=== PATIENT | male | born 1965 | race Hispanic/Latino ===

== ENCOUNTER 2023-09-09 02:07 | Emergency (ER) | payer BC, MEDICAID ==
[~2023-09-09] VITALS: Ht 180.3 cm; Wt 113.4 kg
[~2023-09-09 02:07] MED LIST: AEC81 PO; ARIP10TA8 PO; CANA300T PO; CARV3.12 PO; DIVA500T52 PO; ESOM40CA PO; FERS325 PO; GEMF600T89 PO; HALO10TA12 PO; LEVO50 PO; LISI10TA24 PO; METF-446 PO; NIAC-8 PO; SAXA5TAB PO; SIMV40TA59 PO; TRAZ-187 PO; VENL150T3 PO
[2023-09-09 02:32] LABS: SARS-CoV-2, RNA, NAAT NEGATIVE SARS CoV-2 (NEGATIVE)
[2023-09-09 02:35] LABS: INFLUENZA TYPE A Negative For Type A (NEGATIVE); INFLUENZA TYPE B Negative For Type B (NEGATIVE)
[2023-09-09 03:32] VITALS: BP 124/72; PULSE 99; RESP 20; O2SAT 98
[2023-09-09 03:37] VITALS: TEMP 99.7
[2023-09-09] MEDS ORDERED: ACETAMINOPHEN 500 MG TABLET PO ONE (04:00)
== END 2023-09-09 04:05 | disposition left against medical advice (07) ==
LOC: EDH 02:07
DX: R05.9 Cough, unspecified (principal); Z53.21 Procedure and treatment not carried out due to patient leaving prior to being seen by health care provider
CPT/HCPCS: 71045; 87635; 87804

== ENCOUNTER 2025-04-20 08:37 | Inpatient (IN) | payer SELFPAY ==
[2025-04-20] VITALS (8 sets, daily range): BP systolic 108–128; BP diastolic 75–77; PULSE 61–90; RESP 20–26; TEMP 97.5–98.5; O2SAT 96–98
[~2025-04-20] VITALS: Ht 175.3 cm; Wt 117.0 kg
--- NOTE | 2025-04-20 08:51 | ERN ---
General Chief Complaint: Shortness of Breath Stated Complaint: SOB, COUGH, CHEST PRESSURE Time Seen by MD: 08:40 Source: patient History of Present Illness Initial Comments Patient is a 60-year-old gentleman coming in complaining of shortness of breath. Patient states that the shortness of breath that is exacerbated with laying down. ALong with the as he states that he has a history of stent placement back in 2004. He also states that he is a smoker. Allergies: Coded Allergies: No Known Drug Allergies (Unverified Allergy, Unknown, 01/20/14) Home Meds Active Scripts Lisinopril (Lisinopril) 10 Mg Tablet, 10 MG PO DAILY, #30 TAB Prov:BILLIE RAMSEY MD 08/19/15 Carvedilol (Carvedilol) 3.125 Mg Tablet, 3.125 MG PO BID, #60 TAB Prov:BILLIE RAMSEY MD 08/19/15 Reported Medications Esomeprazole Magnesium (Nexium) 40 Mg Capsule.dr, 40 MG PO DAILY, CAP 08/16/15 Haloperidol (Haloperidol) 10 Mg Tablet, 20 MG PO HS, TAB 08/16/15 Venlafaxine HCl (Venlafaxine HCl ER) 150 Mg Tab.er.24, 150 MG PO DAILY, CAPSULE. 08/16/15 Divalproex Sodium (Divalproex Sodium ER) 500 Mg Tab.er.24h, 500 MG PO ACLUNCH, TAB 08/16/15 Canagliflozin (Invokana) 300 Mg Tablet, 300 MG PO DAILY, TAB 08/16/15 Simvastatin (ZOCOR) 40 Mg Tablet, 40 MG PO HS, TAB 08/16/15 Ferrous Sulfate (Ferrous Sulfate) 325 Mg Ectab, 325 MG PO TID, TAB.EC 08/16/15 Niacin (Niacin ER) 500 Mg Tab.er.24h, 1000 MG PO HS, TAB 08/16/15 Saxagliptin HCl (Onglyza) 5 Mg Tablet, 5 MG PO AM, TAB 08/16/15 Trazodone HCl (Trazodone HCl) 100 Mg Tablet, 100 MG PO HS, TAB 08/16/15 Levothyroxine Sodium (Levothroid/Synthroid) 50 Mcg Tab, 50 MCG PO AM, TAB 10/20/14 Aripiprazole (Abilify) 10 Mg Tablet, PO DAILY, TAB 10/19/14 Gemfibrozil (Gemfibrozil) 600 Mg Tablet, PO BID, TAB 10/19/14 Metformin HCl (Metformin HCl) 1,000 Mg Tablet, 1000 MG PO BID, TAB 10/19/14 Aspirin (ASPIRIN 81 MG ECTAB) 81 Mg Ectab, 81 MG PO DAILY, TAB.EC 10/19/14 Past Medical History Past Medical History: Angina, Diabetes-Type II, High Cholesterol, Heart Disease, Hypertension, Other Medical History Other: PENDING BACK SX, THYROID Past Surgical History: Other Surgical History Other: BACK, CARDIAC STENTS ROS Dictation CONSTITUTIONAL: NO CHILLS, NO FEVER, NO WEAKNESS, NO DIAPHORESIS, NO MALAISE. HEAD/FACE: NO SIGNS OF TRAUMA. EENT: NO EYE PAIN, NO BLURRED VISION, NO TEARING, NO DOUBLE VISION, NO EAR PAIN, NO EAR DISCHARGE, NO NOSE PAIN, NO NASAL CONGESTION, NO THROAT PAIN, NO THROAT SWELLING, NO MOUTH PAIN. RESPIRATORY: NO COUGH, NO ORTHOPNEA, NO SOB, NO STRIDOR, NO WHEEZING. CARDIOVASCULAR: CHEST PAIN, NO EDEMA, NO PALPITATIONS, NO SYNCOPE. GASTROINTESTINAL/ABDOMINAL: NO ABDOMINAL PAIN, NO CONSTIPATION, NO DIARRHEA, NO NAUSEA, NO VOMITING. GENITOURINARY: NO ABNORMAL DISCHARGE, NO DYSURIA, NO FREQUENT URINATION, NO HEMATURIA. NO COMPLAINTS OF PAIN IN THE GENITALS. MUSCULOSKELETAL: NO BACK PAIN, NO GOUT, NO JOINT PAIN, NO JOINT SWELLING, NO MUSCLE PAIN, NO MUSCLE STIFFNESS, NO NECK PAIN. INTEGUMENTARY: NO CHANGE IN COLOR, NO CHANGE IN HAIR/NAILS, NO DRYNESS, NO LESION, NO LUMPS, NO RASH. NEUROLOGICAL/PSYCH: NO ANXIETY, NOT DEPRESSED, NO EMOTIONAL PROBLEM, NO HEADACHE, NO NUMBNESS, NO PRE-EXISTING DEFICIT, NO HISTORY OF SEIZURES, NO TREMORS, NO WEAKNESS. HEMATOLOGIC/LYMPHATIC: NOT ANEMIC, NO HISTORY OF BLOOD CLOTS, NO APPARENT BLEEDING, NO BRUISING, GLANDS NOT SWOLLEN. ALL SYSTEMS NEGATIVE, EXCEPT NOTED. Physical Exam Physical Exam Dictation VITAL SIGNS: REVIEWED. GENERAL APPEARANCE: ALERT, ORIENTED X3, NO ACUTE DISTRESS, OBESE. HEAD AND FACE: NON-TRAUMATIC. EYES: PERRL, PINK CONJUNCTIVAS, EYELID NO TRAUMA, ANTERIOR CHAMBER CLEAR. EARS: PINNAS INTACT AND NO SIGNS OF TRAUMA OR ERYTHEMA. EAR CANALS CLEAR AND NO DISCHARGE. TMS NO ERYTHEMA. NOSE: NO DISCHARGE, NO BLEEDING. OROPHARYNX: MOUTH NORMAL, TEETH NO CARIES, TONGUE PINK. PHARYNX CLEAR, NO ERYTHEMA. TONSILS NO EXUDATES, NO ABSCESSES NOTED. MUCOUS MEMBRANE MOIST. NECK: SUPPLE, NON-TENDER, NO THYROMEGALY, NO MASSES, NO JVD, NO BRUITS. BREAST: DEFERRED. CHEST: NO TENDERNESS, NO CREPITUS, NO PARADOXICAL MOVEMENT, NO RETRACTIONS. LUNGS: CLEAR, WELL-VENTILATED, SYMMETRIC, NO RALES, NO WHEEZING, NO RHONCHI, NO STRIDOR, GOOD BREATH SOUNDS BILATERALLY. HEART: REGULAR RATE, REGULAR RHYTHM, NO MURMUR, NO GALLOPS. VASCULAR: NO PERIPHERAL EDEMA. ABDOMEN: SOFT, POSITIVE BOWEL SOUNDS, NONDISTENDED, NO GUARDING, NONTENDER, NO REBOUND, NO MASSES NO HEPATOMEGALY, NO SPLENOMEGALY, NO PATINO'S SIGN, NO HERNIAS. RECTAL: DEFERRED. GENITAL: DEFERRED. NEUROLOGICAL: NORMAL SPEECH, GROSS MOTOR FUNCTION INTACT, GROSS SENSORY FUNCTION INTACT. MUSCULOSKELETAL: NECK NONTENDER, FULL RANGE OF MOTION, BACK NONTENDER, FULL RANGE OF MOTION. EXTREMITIES: NONTENDER, FULL RANGE OF MOTION. SKIN: COLOR PINK, DRY, NO TURGOR, NO RASH, NO LACERATIONS, NO ABRASIONS, NO CONTUSIONS. LYMPHATICS: DEFERRED. Results Laboratory and Microbiology Lab and Micro Result Laboratory Tests Test 04/20/25 09:25 04/20/25 10:03 White Blood Count 8.5 K/uL (4.8-10.8) Red Blood Count 4.82 MIL/uL (4.50-6.20) Hemoglobin 14.5 g/dL (14.0-18.0) Hematocrit 42.7 % (42-54) Mean Corpuscular Volume 88.6 fL (79-99) Mean Corpuscular Hemoglobin 30.1 pg (27.0-33.0) Mean Corpuscular Hemoglobin Concent 34.0 g/dL (32.0-36.0) Red Cell Distribution Width 13.2 % (11.0-15.5) Platelet Count 205 K/uL (130-400) Mean Platelet Volume 9.5 fL (7.5-10.5) Immature Granulocyte % (Auto) 0.7 % (0-1) Neutrophils (%) (Auto) 74.9 % (40.0-77.0) Lymphocytes (%) (Auto) 15.0 % (21.0-51.0) L Monocytes (%) (Auto) 6.1 % (3.0-13.0) Eosinophils (%) (Auto) 2.4 % (0.0-8.0) Basophils (%) (Auto) 0.9 % (0.0-5.0) Neutrophils # (Auto) 6.4 K/uL (1.8-7.7) Lymphocytes # (Auto) 1.3 K/uL (1.0-4.8) Monocytes # (Auto) 0.5 K/uL (0.1-1.0) Eosinophils # (Auto) 0.20 K/uL (0.00-0.70) Basophils # (Auto) 0.08 K/uL (0.00-0.20) Absolute Immature Granulocyte (auto 0.06 K/uL (0-1) Nucleated Red Blood Cells 0.0 % (0.0-0.19) Sodium Level 130 mmol/L (136-145) L Potassium Level 5.1 mmol/L (3.5-5.1) Chloride Level 103 mmol/L (101-111) Carbon Dioxide Level 23 mmol/L (21-32) Blood Urea Nitrogen 19 mg/dL (7-18) H Creatinine 1.6 mg/dL (0.5-1.3) H Glomerular Filtration Rate Calc 49 mL/min (>90) Random Glucose 213 mg/dL (70-105) H Total Calcium 9.0 mg/dL (8.5-10.1) Magnesium Level 1.70 mg/dL (1.80-2.40) L Troponin I High Sensitivity 323 ng/L (4-75) *H B-Type Natriuretic Peptide 169 pg/mL (0-100) H Influenza Type A Antigen Negative For Type A Influenza Type B Antigen Negative For Type B SARS-CoV-2, RNA, NAAT NEGATIVE SARS CoV-2 Group A Streptococcus Rapid negative (NEGATIVE) Urine Color YELLOW (YELLOW) Urine Appearance CLEAR (CLEAR) Urine pH 6.0 (5.0-8.0) Urine Specific [place] 1.031 (1.001-1.031) Urine Protein 30 mg/dL (NEGATIVE) H Urine Glucose (UA) TRACE mg/dL (NEGATIVE) H Urine Ketones NEGATIVE mg/dL (NEGATIVE) Urine Occult Blood NEGATIVE (NEGATIVE) Urine Nitrate NEGATIVE (NEGATIVE) Urine Bilirubin NEGATIVE mg/dL (NEGATIVE) Urine Urobilinogen 4.0 mg/dL (0.2-1.0) H Urine Leukocyte Esterase NEGATIVE Buck/uL Urine RBC 0-1 /HPF (0-1) Urine WBC 0-1 /HPF (0-1) Urine Squamous Epithelial Cells RARE /HPF (0-2) Urine Bacteria None /HPF (None Seen) Labs Reviewed?: Yes EKG/XRAY/US/CT/MRI EKG Comment 04/20/2025 TIME 8:54 A.M. VENTRICULAR RATE 87 SINUS RHYTHM [place] [address] WAVE ELEVATION OR DEPRESSION MDM MDM: DIFFERENTIAL DIAGNOSIS: ACS, NSTEMI, HISTORY OF CAD RATIONALE: TESTS CONSIDERED AND ORDERED SECONDARY TO SHARED DECISION MAKING INCLUDE: PREVIOUS OUTSIDE RECORDS REVIEWED: OLD ER VISITS. RISK OF COMPLICATION AND/OR MORBIDITY OR MORTALITY OF PATIENT MANAGEMENT: NONE MEDICATIONS-PER MEDICATION RECONCILIATION NEED FOR HOSPITALIZATION: PATIENT DOES MEET CRITERIA FOR HOSPITALIZATION. NEED FOR EMERGENCY MAJOR/MINOR SURGERY: NO THERE ARE NO SOCIAL CONCERNS WITH THIS PATIENT. PRESCRIPTION DRUG MANAGEMENT PRESCRIPTIONS WILL INCLUDE SYMPTOMATIC CARE PATIENT'S PRIOR EXTERNAL MEDICAL RECORDS FROM OTHER ER VISITS WERE REVIEWED BY ME INDICATED. PRIOR TESTING AND RESULTS FROM PREVIOUS VISITS WERE REVIEWED. PRIOR TESTS WERE TAKEN INTO ACCOUNT WITH MEDICAL DECISION MAKING AND RESOURCE UTILIZATION, INDEPENDENT HISTORIAN/HISTORIANS WERE USED TO OBTAIN COMPLETE MEDICAL HISTORY. I INDEPENDENTLY INTERPRETED THE TEST THAT WERE PERFORMED, RESULTS WERE REVIEWED BY ME AND CONSIDERED FINDINGS ON RADIOLOGY IF ORDERED. MEDICAL MANAGEMENT AND EXAMINATION INTERPRETATION DISCUSSIONS WERE HAD BY ME WITH OTHER QUALIFIED HEALTHCARE PROFESSIONALS INDICATED FOR THE PATIENT'S CARE. ADMITTED UNDER THE CARE OF HOSPITALIST GROUP FOR ONGOING MANAGEMENT ED Course Orders Procedure Category Date Status Time Cbc With Differential LAB 04/20/25 Complete 08:41 Chest 1vw RAD 04/20/25 Taken 08:41 12 Lead Ekg Tracing- EKG 04/20/25 Complete Technical 08:41 Magnesium LAB 04/20/25 Complete 08:41 Troponin I High LAB 04/20/25 Complete Sensitivity 08:41 Urinalysis Profile LAB 04/20/25 Complete 08:41 Basic Metabolic Panel LAB 04/20/25 Complete 08:41 B-Type Natriuretic LAB 04/20/25 Complete Peptide 08:41 Covid Rna Naat LAB 04/20/25 Complete 08:51 Influenza Type A & B, LAB 04/20/25 Complete Rapid 08:51 Rapid (Group A Strep) LAB 04/20/25 Complete 08:51 Troponin I High LAB 04/20/25 In Process Sensitivity 09:59 Nitroglycerin 0.4mg PHA 04/20/25 Complete Sl Tab (Nitrostat) 10:30 Aspirin 325mg Tab PHA 04/20/25 Complete (Aspirin 325mg Tab) 10:30 Aspirin 325mg Tab PHA 04/21/25 In Process (Aspirin 325mg Tab) 09:00 Nitroglycerin 0.4mg PHA 04/20/25 In Process Sl Tab (Nitrostat) 10:30 Current Medications Medications (Trade) Dose Ordered Sig/Damian Route PRN Reason Start Time Stop Time Status Last Admin Dose Admin Aspirin (Aspirin 325mg Tab) 325 mg DAILY PO 04/21/25 09:00 05/21/25 08:59 Aspirin (Aspirin 325mg Tab) 325 mg ONCE ONCE PO 04/20/25 10:30 04/20/25 10:31 DC 04/20/25 10:21 Nitroglycerin (Nitrostat) 0.4 mg AD PRN SL CHEST PAIN 04/20/25 10:30 05/20/25 10:29 04/20/25 10:21 Nitroglycerin (Nitrostat) 0.4 mg Q5M PRN SL CHEST PAIN 04/20/25 10:30 04/20/25 10:13 DC Vital Signs Date Time Temp Pulse Resp B/P (MAP) Pulse Ox O2 Delivery O2 Flow Rate FiO2 04/20/25 09:28 85 22 120/83 96 Room Air* 0 21 04/20/25 08:38 98.1 92 18 117/82 96 Room Air 0 DX & DISP Disposition: Inpatient Decision to Admit Time: 10:35 Departure Impression: Primary Impression: ACS (acute coronary syndrome) Additional Impression: NSTEMI (non-ST elevated myocardial infarction) Condition: Stable Referrals: SELF,REFERRAL (PCP) BETY LUCERO MD Apr 20, 2025 08:51
--- NOTE | 2025-04-20 08:59 | EKG ---
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
[2025-04-20 09:29] LABS: IMMATURE GRANULOCYTE ABSOLUTE 0.06 K/uL (0-1); NUCLEATED RED BLOOD CELLS 0.0 % (0.0-0.19); PLATELET COUNT (AUTO) 205 K/uL (130-400); RED BLOOD CELL COUNT(AUTO) 4.82 MIL/uL (4.50-6.20); RED CELL DISTRIBUTION WIDTH 13.2 % (11.0-15.5); WHITE BLOOD COUNT (AUTO) 8.5 K/uL (4.8-10.8)
[2025-04-20 09:40] LABS: RAPID GROUP A STREP negative (NEGATIVE)
[2025-04-20 09:43] LABS: CREATININE 1.6 mg/dL (0.5-1.3); GLOMERULAR FILTR. RATE CALC 49.0 mL/min (>90); GLUCOSE,RANDOM 213.0 mg/dL (70-105); SODIUM SERUM 130.0 mmol/L (136-145); UREA NITROGEN, BLOOD 19.0 mg/dL (7-18)
[2025-04-20 09:45] LABS: SARS-CoV-2, RNA, NAAT NEGATIVE SARS CoV-2 (NEGATIVE)
[2025-04-20 09:50] LABS: INFLUENZA TYPE A Negative For Type A (NEGATIVE); INFLUENZA TYPE B Negative For Type B (NEGATIVE)
[2025-04-20 10:15] LABS: APPEARANCE,URINE CLEAR (CLEAR); GLUCOSE, URINE (UA) TRACE mg/dL (NEGATIVE); LEUKOCYTE ESTERASE ,URINE NEGATIVE Leu/uL (NEGATIVE); NITRATE,URINE NEGATIVE (NEGATIVE); OCCULT BLOOD,URINE NEGATIVE (NEGATIVE)
[2025-04-20 10:18] LABS: ADD UA MICROSCOPIC YES
[2025-04-20] MEDS: ASPIRIN 325MG TAB PO ONE (10:21)
[2025-04-20] MEDS: NITROGLYCERIN 0.4 MG SL TAB SL PRN ×2 (10:21→23:44)
[2025-04-20] MEDS: ASPIRIN 325MG TAB PO SCH (10:21)
[2025-04-20 10:22] LABS: SQUAMOUS EPITHELIAL CELL,UR RARE /HPF (0-2)
[2025-04-20] MEDS ORDERED: NITROGLYCERIN 0.4 MG SL TAB SL PRN ×2 (10:30→11:00)
--- NOTE | 2025-04-20 11:00 | NUR ---
DR. ANDRADE SPOKE WITH DR. SANCHEZ FOR CARDIO CONSULT./SOFÍA
[2025-04-20] MEDS ORDERED: CACL 1GM SYG IVP ONE (11:02)
--- NOTE | 2025-04-20 11:03 | HMCIMG ---
EXAM: CR Chest, 1 View. CLINICAL HISTORY: sob COMPARISON: Radiograph dated September 09, 2023 FINDINGS: LUNGS: There is mild bibasilar airspace disease that may reflect atelectasis and/or an infectious process. PLEURAL SPACES: No evidence of pleural effusion or pneumothorax. MEDIASTINUM: Cardiac size and mediastinal contours within normal limits. BONES: No acute osseous abnormality. IMPRESSION: 1. Mild bibasilar airspace disease, possibly representing atelectasis and/or infection. /[place]
--- NOTE | 2025-04-20 11:15 | NUR ---
DR. ANDRADE SPOKE WITH ROBIN CARSON FOR PULMONOLOGY CONSULT AT THIS TIME./SOFÍA
--- NOTE | 2025-04-20 11:21 | EKG ---
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
[2025-04-20] MEDS: ASPIRIN 81MG CHEW TAB PO SCH (11:28)
--- NOTE | 2025-04-20 11:28 | HP ---
[facility] HISTORY AND PHYSICAL Date of Service: Apr 20, 2025 Time of Service: 11:13 HISTORY OF PRESENT ILLNESS: Patient is a 60-year-old male with past medical history of CAD, hyperlipidemia, hypertension, diabetes mellitus type 2, hypothyroidism, obesity who presented to the ED with chief complaint of chest pain. Patient complained of diaphoresis, shortness of breath, chest pain which started 2 weeks ago which is on and off and burning pain in nature. Patient started having severe chest pain 3 hours ago which prompted the patient to come to the ED. patient complained that the pain is worse on lying down and better on waking up and leaning forward. He ambulates using cane. Patient admitted to smoking 1 pack per day for past 40 years since the age of 9, vaping, usage of weed, reports hx of chronic cocaine use with last use 2 days ago. On presentation to the ED patient vitals temperature 98.2, pulse 89, respiratory rate 20, blood pressure 120/79, saturating at 96% on room air. Labs revealed white blood count of 8.5, hemoglobin 14.5 Chemistries show sodium 130, creatinine 1.6, BUN 19, glucose 213, magnesium 1.7, BNP 169, and troponin initially is 323 trended up to 496. Patient received3 and4 mg of aspirin in the ED and 0.4 mg of sublingual nitroglycerin which did not help with the pain. CXR showed bilateral infiltrates. Patient will be admitted for further evaluation of chest pain in the setting of elevated cardiac troponin, with concern fro ACS/ NSTEMI. Will also consider pericarditis in the differential due to symptomatology of chest pain. Patient will receive broad-spectrum antibiotics and patient likely has undiagnosed COPD with chest x-ray showing bilateral infiltrates with concerns for possible pneumonia. Patient will be monitored closely under hospitalist service. REVIEW OF SYSTEMS CONSTITUTIONAL: Denies fevers, chills, or night sweats. No unintentional weight loss reported. NEUROLOGICAL: Denies headache, amaurosis fugax, motor weakness, sensory deficit, vertigo/spinning sensation CARDIOVASCULAR: Denies any exertional angina, dyspnea on exertion, orthopnea, palpitations, life-threatening arrhythmias, claudication. Admits to chest pain, PND PULMONARY: Admits to shortness of breath, cough, phlegm/sputum, hemoptysis, pleuritic chest pain. SLEEP: Denies morning headaches, daytime somnolence or napping. Denies difficulty falling asleep, staying asleep, waking from sleep. Admits of snoring. GASTROINTESTINAL: Denies any type of dysphagia to either liquids or solids. Denies nausea, vomiting, pyrosis, early satiety, abdominal pain, diarrhea, constipation, or changes in stool consistency or caliber. Denies coffee-ground emesis, hematemesis, hematochezia, or melanotic stools. GENITOURINARY: Denies frequency, urgency, nocturia, hematuria or incontinence (Storage/Irritative symptoms.) Low urinary stream, straining to void, urinary intermittency or hesitancy, splitting of the voiding stream, terminal dribbling. PSYCHIATRIC: Denies any suicidal or homicidal ideation. Denies hallucinations. PAST MEDICAL HISTORY: Hypertension, hyperlipidemia, diabetes mellitus type 2, hypothyroidism, previous DC in 2004 with stent placement, chronic arthritis of the hip joint with chronic pain of the right hip PAST SURGICAL HISTORY: Cyst removal surgery, rotator cuff surgery, back surgeries recent one being on June 11 2024 PAST SOCIAL HISTORY: Smokes 1 pack today since 20 years, smokes weed, vapes, cocaine usage FAMILY HISTORY: Noncontributory Allergies: No known drug allergies Home medications: Patient reports being on metformin and lisinopril as outpatient, he has not taken cholesterol and thyroid medication for several weeks Coded Allergies: No Known Drug Allergies (Unverified Allergy, Unknown, 01/20/14) PHYSICAL EXAM GENERAL APPEARANCE: The patient is awake, alert, and oriented, in no acute cardiopulmonary distress. CHEST: Normal chest expansion. Telemetry LUNGS: Absence of any rales, rhonchi or any wheezing. CARDIOVASCULAR: Regular. S1 and S2 normal. No appreciable rubs, murmurs or gallops. ABDOMEN: Soft, nontender, and nondistended. There is no rebound, voluntary guarding, or rigidity. : Deferred. No [place]. EXTREMITIES: Non-edematous and not cyanotic. No clubbing. Good capillary refill. SKIN: No skin breakdown. Vital Sign (Last 24 Hours) 04/20/25 10:52 Temp 98.2 Pulse 89 Resp 20 B/P (MAP) 120/79 Pulse Ox 96 O2 Delivery Room Air* O2 Flow Rate 0 FiO2 21 LABS: Laboratory: Test 04/20/25 10:10 04/20/25 10:03 04/20/25 09:25 Range/Units Troponin I High Sensitivity 496 *H 4-75 ng/L Urine Color YELLOW YELLOW Urine Appearance CLEAR CLEAR Urine pH 6.0 5.0-8.0 Urine Specific [place] 1.031 1.001-1.031 Urine Protein 30 H NEGATIVE mg/dL Urine Glucose (UA) TRACE H NEGATIVE mg/dL Urine Ketones NEGATIVE NEGATIVE mg/dL Urine Occult Blood NEGATIVE NEGATIVE Urine Nitrate NEGATIVE NEGATIVE Urine Bilirubin NEGATIVE NEGATIVE mg/dL Urine Urobilinogen 4.0 H 0.2-1.0 mg/dL Urine Leukocyte Esterase NEGATIVE NEGATIVE Buck/uL Urine RBC 0-1 0-1 /HPF Urine WBC 0-1 0-1 /HPF Urine Squamous Epithelial Cells RARE 0-2 /HPF Urine Bacteria None None Seen /HPF White Blood Count 8.5 4.8-10.8 K/uL Red Blood Count 4.82 4.50-6.20 MIL/uL Hemoglobin 14.5 14.0-18.0 g/dL Hematocrit 42.7 42-54 % Mean Corpuscular Volume 88.6 79-99 fL Mean Corpuscular Hemoglobin 30.1 27.0-33.0 pg Mean Corpuscular Hemoglobin Concent 34.0 32.0-36.0 g/dL Red Cell Distribution Width 13.2 11.0-15.5 % Platelet Count 205 130-400 K/uL Mean Platelet Volume 9.5 7.5-10.5 fL Immature Granulocyte % (Auto) 0.7 0-1 % Neutrophils (%) (Auto) 74.9 40.0-77.0 % Lymphocytes (%) (Auto) 15.0 L 21.0-51.0 % Monocytes (%) (Auto) 6.1 3.0-13.0 % Eosinophils (%) (Auto) 2.4 0.0-8.0 % Basophils (%) (Auto) 0.9 0.0-5.0 % Neutrophils # (Auto) 6.4 1.8-7.7 K/uL Lymphocytes # (Auto) 1.3 1.0-4.8 K/uL Monocytes # (Auto) 0.5 0.1-1.0 K/uL Eosinophils # (Auto) 0.20 0.00-0.70 K/uL Basophils # (Auto) 0.08 0.00-0.20 K/uL Absolute Immature Granulocyte (auto 0.06 0-1 K/uL Nucleated Red Blood Cells 0.0 0.0-0.19 % Sodium Level 130 L 136-145 mmol/L Potassium Level 5.1 3.5-5.1 mmol/L Chloride Level 103 101-111 mmol/L Carbon Dioxide Level 23 21-32 mmol/L Blood Urea Nitrogen 19 H 7-18 mg/dL Creatinine 1.6 H 0.5-1.3 mg/dL Glomerular Filtration Rate Calc 49 >90 mL/min Random Glucose 213 H 70-105 mg/dL Total Calcium 9.0 8.5-10.1 mg/dL Magnesium Level 1.70 L 1.80-2.40 mg/dL B-Type Natriuretic Peptide 169 H 0-100 pg/mL Influenza Type A Antigen Negative For Type A NEGATIVE Influenza Type B Antigen Negative For Type B NEGATIVE SARS-CoV-2, RNA, NAAT NEGATIVE SARS CoV-2 NEGATIVE Group A Streptococcus Rapid negative NEGATIVE Current Medications Medications (Trade) Dose Ordered Sig/Damian Route PRN Reason Start Time Stop Time Status Last Admin Dose Admin Acetaminophen (TYLenol 325MG TAB) 650 mg Q6H PRN PO MILD PAIN (1-3) 04/20/25 11:30 05/20/25 11:29 Aspirin (Aspirin 325mg Tab) 325 mg DAILY PO 04/21/25 09:00 04/20/25 11:07 DC Aspirin (Aspirin 81mg Chew Tab) 81 mg Q24H PO 04/20/25 11:30 05/20/25 11:29 Budesonide (Pulmicort 0.5 Mg/2ml) 0.5 mg BIDRESP IH 04/20/25 18:00 05/20/25 17:59 Morphine Sulfate (morPHINE 2MG SYG) 2 mg Q6H PRN IVP SEVERE PAIN (7-10) 04/20/25 11:00 04/27/25 10:59 Nitroglycerin (Nitrostat) 0.4 mg AD PRN SL CHEST PAIN 04/20/25 10:30 04/20/25 11:07 DC 04/20/25 10:21 0.4 MG Nitroglycerin (Nitrostat) 0.4 mg AD PRN SL CHEST PAIN 04/20/25 11:00 05/20/25 10:59 Nitroglycerin (Nitrostat) 0.4 mg Q5M PRN SL CHEST PAIN 04/20/25 10:30 04/20/25 10:13 DC Ondansetron HCl (zoFRAN 4MG INJ) 4 mg Q6H PRN IVP NAUSEA/VOMITING 04/20/25 11:30 05/20/25 11:29 DIAGNOSTICS / RADIOLOGY: PATIENT: SB PATEL MR#: [id number] : 1965 SEX: M AGE: 60 LOCATION: [facility] ORDER 2 STATUS: REG ER REPORT#: [id number] SERVICE REASON: sob ORDERING PHYSICIAN: BETY LUCERO MD PROCEDURE: CXR1VW - CHEST 1VW EXAM: CR Chest, 1 View. CLINICAL HISTORY: sob COMPARISON: Radiograph dated September 09, 2023 FINDINGS: LUNGS: There is mild bibasilar airspace disease that may reflect atelectasis and/or an infectious process. PLEURAL SPACES: No evidence of pleural effusion or pneumothorax. MEDIASTINUM: Cardiac size and mediastinal contours within normal limits. BONES: No acute osseous abnormality. IMPRESSION: 1. Mild bibasilar airspace disease, possibly representing atelectasis and/or infection. /[place] DICTATED BY: ANDREINA MCCULLOUGH Jr., MD DATE: 04/20/251201 ELECTRONICALLY SIGNED BY: ANDREINA MCCULLOUGH Jr., MD DATE: 04/20/251201 ASSESSMENT: NSTEMI/ ACS, POA Rule out pericarditis, POA Rule out developing community-acquired pneumonia, POA Undiagnosed COPD/chronic bronchitis, POA History of coronary artery disease with prior history of PCI in 2004, POA CKD stage 3, POA Suspected BAILEY Electrolyte abnormalities (hyponatremia, hypomagnesemia) Tobacco use disorder, POA Cocaine use disorder, POA Hypertension, POA Hyperlipidemia, POA Diabetes mellitus type 2, POA Hypothyroidism POA PLAN: Patient to be admitted to PCCU NSTEMI/ ACS, r/o pericarditis: Cardiology has been consulted on the case We will trend the troponin q.6 Patient is started on heparin drip Patient is started on diltiazem 30 mg q.6 Patient is started on atorvastatin 40 mg Q 24 Patient is started on aspirin 81 daily Morphine 2 mg given for the chest pain Nitroglycerin 0.4 mg sublingually as p.r.n. for chest pain Follow up with the echocardiogram report, we will also check a ESR and CRP Chronic Bronchitis possible COPD Rule out developing community-acquired pneumonia We will start patient on broad-spectrum antibiotics with IV Rocephin/doxycycline Pulmonology has been consulted on the case Respiratory culture to be followed Pulmicort, Atrovent has been placed for shortness of breath Patient will benefit from outpatient PFTs Patient will benefit from outpatient sleep study to rule out BAILEY CKD stage III, electrolyte abnormality Follow up with urine protein creatinine ratio Follow up with ultrasound renal sonogram Replace the magnesium per protocol Hypertension, hyperlipidemia, hypothyroidism, suspected BAILEY Patient's home medications will be reconciled and resumed Patient should get evaluated for BAILEY as outpatient Continue with Lipitor, continue with gemfibrozil, patient has not taken some of his home medications for several months Restart lisinopril monitoring renal function closely GI prophylaxis with pantoprazole Anticipate hospitalization for at least 48-72 hours depending on Cardiology recommendations and interventions, clinical response ATTESTATION BY PHYSICIAN I have seen and examined the patient. I reviewed the documentation, medical decision making, and treatment plan as noted by the resident provider above. I agree with the findings and plan of care. Tarik Isbell MD, KEERTI K MD Apr 20, 2025 11:28 TARIK ISBELL MD Apr 20, 2025 13:33
--- NOTE | 2025-04-20 11:32 | NUR ---
DR. SANCHEZ AT BEDSIDE./SOFÍA
[2025-04-20 11:33] LABS: ASPARTATE AMINOTRANSFERASE 18.0 U/L (10-37); LDL DIRECT 105.0 mg/dL (0-99); TOTAL PROTEIN, SERUM 6.0 g/dL (6.0-8.3)
[2025-04-20] MEDS: BUDESONIDE 0.5 MG/2 ML INH IH SCH (11:33)
[2025-04-20 11:34] LABS: AMPHET/METH SCREEN,URINE NEGATIVE (NEGATIVE); BARBITURATE SCREEN, URINE NEGATIVE (NEGATIVE); CANNABINOID SCREEN,URINE POSITIVE (NEGATIVE); COCAINE SCREEN,URINE POSITIVE (NEGATIVE)
[2025-04-20 11:44] LABS: INR 0.97 (0.85-1.15)
--- NOTE | 2025-04-20 11:55 | CONS ---
[facility] Cardiology Consultation Note Cardiology consultation April 20, 2025 Chief complaint: This is a 60-year-old male who presents with chest pain for hours in duration on has elevated troponin. History of present illness: The patient had a remote inferior wall MA in 2005 in [facility]. At that time he believes three stents were placed. Has been seen here of [facility] in and [address] Muro never followed up in the office on either occasion. He has a history of hypertension dyslipidemia hypothyroidism and diabetes mellitus type 2. About a month ago he ran out of some of his medications and was only taking metformin and lisinopril. Used cocaine for relief of his pain proximally two days ago. Today he began experiencing retrosternal pain. Pain was worse when he would lie down and better when he would sit up. He has no history of recent fever or viral prodrome. Has troponins has been 496 him 323. Doppler level of 169. Elect rocardiogram shows sinus rhythm with old inferior wall myocardial infarction. There was no evidence for STEMI. Past medical history: The patient has a history of diabetes mellitus type hypertension dyslipidemia and hypothyroidism. He had recurrent back surgery last June. He saw a forming mill operator prior to this for preop clearance and had a stress test and was told that his ejection fraction was 40%. Review of systems: No fevers sweats or chills. No hemoptysis hematemesis or melena. Allergies: No known allergies Surgical history: Three prior back surgeries and stents in 2005. Social history: He has a lifetime smoker uses cocaine Medications: At home he has been taking metformin and lisinopril Physical exam blood pressure was 120/80 heart rate is in the 80s and the patient is afebrile. There was no elevation of the jugular venous pressure no bruits no murmurs appreciable. No murmur elicited with Valsalva maneuver forced expiration. Abdomen soft obese. Extremities show no edema. Homans sign is negative and there was no calf tenderness. He is alert and oriented. Laboratory studies: Potassium 5.1 sodium 130 BUN 19 creatinine 1.6 estimated GFR of 49 glucose 2hemoglobin 14.5 platelet count [id number] white count 8.5. Tox screen positive for cocaine and marijuana urinalysis shows no sign of infection Chest x-ray: This is a portable film. The mediastinum appears widened however as noted this may be magnified in a portable film. Overall heart size appears normal. No effusions or infiltrates. Assessment: 1. Non ST-elevation MA on the setting of cocaine use 2. Remote inferior wall MA 3. CAD status post placement of stents in [address] [facility] 4. Cocaine abuse 5. Hypertension 6. Diabetes mellitus type 2 7. Hypothyroidism 8. Chronic kidney disease stage IIIA 9. Chronic left hip pain Plan: The pain is somewhat atypical in that it is worse when he lies supine. We will review a 2D echo to assess ejection fraction and rule out pericardial effusion. We will continue with aspirin heparin diltiazem heart. We will consider possible left heart catheterization in the next24 hours if no significant pericardial effusion is found. PRISCILLA SANCHEZ MD Apr 20, 2025 11:55
[2025-04-20] MEDS: Vitamin B Complex/Vit C/Folic Acid PO SCH (12:37)
--- NOTE | 2025-04-20 13:59 | HMCSR ---
APPROVED REPORT EXAM: Two-dimensional and M-mode echocardiogram with Doppler and color Doppler. INDICATION ICD: Elevated troponin Chest Pain 2D Dimensions RVDd2.6 cmLVEF(%)27.7 (>50%)LVED Vol(simp.)145.0 mL IVSd1.1 (0.7-1.1cm)FS(%)13 %LVES Vol(simp.)84.0 mL LVDd5.9 (3.8-5.6cm)LA (2D)3.7 (1.6-4.0cm)LVEF(%, simp.)43 % PWd1.3 (0.7-1.1cm)Ao Root(2D)3.5 (2.0-3.7cm)LA ESV INDEX (BP)21.85 mL/m2 IVSs1.0 cmLVOT diam2.9 (1.8-2.4cm) LVDs5.1 (2.5-4.0cm) PWs1.2 cm Deformation Strain Apical 4-11.4 % Apical 2-11.8 % Apical 3-13.5 % Global Strain-12.2 % M-Mode Dimensions EPSS1.1 cm LA (MM)3.9 (1.6-4.0cm) Ao Root(MM)3.9 (2.0-3.7cm) Aortic Valve AoV Vmax1.0 m/Jillian Peak GR4.2 mmHgLVOT Vmax1.0 m/s AoV VTI0.2 mAo Mean GR2.6 mmHgLVOT VTI0.18 m TERI (VMAX)6.56 cm2AVA (VTI) 6.9 cm2 Mitral Valve MV E Vmax83.3 cm/sDECEL [id number] ms MV A Vmax77.3 cm/sP 1/2 T43 ms E/A ratio1.1MVA (PHT)5.1 cm2 TDI E/E' Ynkggp67.1E/E' Xzwwkgv81.6 Medial E' Peak V4.59 cm/sLateral E' Peak V5.02 cm/s Left Ventricle The left ventricle is mildly dilated.. GLS -12.0% There is normal left ventricular wall thickness. LV EF is 40-45%. The left ventricular diastolic function is normal. Right Ventricle The right ventricle is normal size. The right ventricular systolic function is normal. Atria The left atrium size is normal. The right atrium size is normal. Aortic Valve The aortic valve is normal in structure. No aortic regurgitation is present. There is no aortic valvu lar stenosis. Mitral Valve The mitral valve is normal in structure. There is mild mitral valve regurgitation noted. There is no mitral valve stenosis. Tricuspid Valve The tricuspid valve is normal in structure. There is no tricuspid valve regurgitation noted. Pulmonic Valve The pulmonary valve is normal in structure. There is no pulmonic valvular regurgitation. Great Vessels The aortic root is normal in size. The IVC is normal in size and collapses >50% with inspiration. Pericardium There is no pericardial effusion. Other Information Quality : Technically difficult study due to body habitus Conclusion The left ventricle is mildly dilated.. LVEF is 40-45%. GLS -12.0% There is mild mitral valve regurgitation noted. There is no pericardial effusion.
[2025-04-20] MEDS ORDERED: 0.9% NACL 500ML IV.SOLN 500 ML IV SCH (14:30)
[2025-04-20 14:56] LABS: CREATINE KINASE, TOTAL 292.0 U/L (21-232)
--- NOTE | 2025-04-20 15:13 | CONS ---
[facility] CONSULTATION NOTE Date Patient Seen: Apr 20, 2025 Time of Visit: 15:13 Supervising Physician: [ ] Reason for Consultation: [ ] Primary Care Physician: [ ] Outpatient Specialists: [ ] Inpatient Consults: [ ] PROBLEM LIST: NSTEMI/ ACS, POA Rule out pericarditis, POA Rule out developing community-acquired pneumonia, POA Undiagnosed COPD/chronic bronchitis, POA History of coronary artery disease with prior history of PCI in 2004, POA CKD stage 3, POA Suspected BAILEY Electrolyte abnormalities (hyponatremia, hypomagnesemia) Tobacco use disorder, POA Cocaine use disorder, POA Hypertension, POA Hyperlipidemia, POA Diabetes mellitus type 2, POA Hypothyroidism POA HPI: Patient evaluated at bedside today, currently on room air, patient is AAO x3. He expresses severe pain in his chest, states it is a burning sensation. Cardiology at bedside as well currently working the patient up for pericarditis. Patient's x-ray shows bilateral pleural effusions, advised nursing staff to start the patient on 2 L nasal cannula at this time for symptomatic relief. Hemoglobin is 14.6 on this admission, white count of 7.5. Patient currently on Lasix 40 mg b.i.d.. Patient has been started on antibiotics by primary team, we will continue with these antibiotics at this time, pending PT and PTT labs in the morning for evaluation of possible thoracentesis. Recommend to continue with conservative manage at this time and follow Cardiology recommendations. We will re-evaluate the bilateral pleural effusions to see if improvement during intervals. PLAN Follow cardiology recommendations Supplemental O2 as needed Follow morning labs of coagulation studies for possible thoracentesis Recommend to complete cardiology workup prior to procedural intervention. If effusions so improvement we will continue with conservative management. Patient with no cycle consultant locally, advised to follow up with [facility] upon discharge. PAST MEDICAL HX: see above PAST SURGICAL HX: noncontributory SOCIAL HISTORY: No tobacco, ETOH, or illicit drug use Coded Allergies: No Known Drug Allergies (Unverified Allergy, Unknown, 01/20/14) REVIEW OF SYSTEMS: 12 point ROS reviewed with patient. Pertinent positives mentioned above. Otherwise negative. PHYSICAL EXAM: GENERAL: alert, weak, awake oriented x 3 HEENT: EOMI, Sclera non icteric, moist mucosa NECK: Supple, no JVD, trachea midline LUNGS: Clear breath sounds bilaterally. No wheezes HEART: Regular rate and rhythm. Normal S1 and S2, without murmurs ABD: Abdomen soft, nontender. Bowel sounds present EXT: No clubbing cyanosis or edema NEURO: Alert and oriented to person, follows commands Vital Signs (last 8hr) Date Time Temp Pulse Resp B/P (MAP) Pulse Ox O2 Delivery O2 Flow Rate FiO2 04/20/25 11:41 87 24 N/A Room Air 21 04/20/25 11:39 87 24 04/20/25 10:52 98.2 89 20 120/79 96 Room Air* 0 21 04/20/25 09:28 85 22 120/83 96 Room Air* 0 21 04/20/25 08:38 98.1 92 18 117/82 96 Room Air 0 LABS: Hematology Labs: Test 04/20/25 09:25 Range/Units White Blood Count 8.5 4.8-10.8 K/uL Red Blood Count 4.82 4.50-6.20 MIL/uL Hemoglobin 14.5 14.0-18.0 g/dL Hematocrit 42.7 42-54 % Mean Corpuscular Volume 88.6 79-99 fL Mean Corpuscular Hemoglobin 30.1 27.0-33.0 pg Mean Corpuscular Hemoglobin Concent 34.0 32.0-36.0 g/dL Red Cell Distribution Width 13.2 11.0-15.5 % Platelet Count 205 130-400 K/uL Mean Platelet Volume 9.5 7.5-10.5 fL Immature Granulocyte % (Auto) 0.7 0-1 % Neutrophils (%) (Auto) 74.9 40.0-77.0 % Lymphocytes (%) (Auto) 15.0 L 21.0-51.0 % Monocytes (%) (Auto) 6.1 3.0-13.0 % Eosinophils (%) (Auto) 2.4 0.0-8.0 % Basophils (%) (Auto) 0.9 0.0-5.0 % Neutrophils # (Auto) 6.4 1.8-7.7 K/uL Lymphocytes # (Auto) 1.3 1.0-4.8 K/uL Monocytes # (Auto) 0.5 0.1-1.0 K/uL Eosinophils # (Auto) 0.20 0.00-0.70 K/uL Basophils # (Auto) 0.08 0.00-0.20 K/uL Absolute Immature Granulocyte (auto 0.06 0-1 K/uL Nucleated Red Blood Cells 0.0 0.0-0.19 % Erythrocyte Sedimentation Rate 3 0-20 MM/HR Chemistry Labs: Test 04/20/25 14:18 04/20/25 12:44 04/20/25 10:10 04/20/25 09:25 Range/Units Total Creatine Kinase 292 #H 21-232 U/L Troponin I High Sensitivity 3020.2 *H 4-75 ng/L Whole Blood Glucose 205 H 70-110 MG/DL Magnesium Level 1.70 L 1.80-2.40 mg/dL Total Bilirubin 0.3 0.2-1.0 mg/dL Direct Bilirubin 0.1 0.0-0.3 mg/dL Aspartate Amino Transf (AST/SGOT) 18 10-37 U/L Alanine Aminotransferase (ALT/SGPT) 25 12-78 U/L Alkaline Phosphatase 65 50-136 U/L C-Reactive Protein, Quantitative 1.30 0.5-3.0 mg/L Total Protein 6.0 6.0-8.3 g/dL Albumin 2.9 L 3.5-5.0 g/dL Triglycerides Level 796 H 30-200 mg/dL Cholesterol Level 285 #H <200 mg/dL LDL Cholesterol 105 H 0-99 mg/dL HDL Cholesterol 40 29-71 mg/dL Procalcitonin < 0.05 L 0.05-0.5 ng/mL Thyroid Stimulating Hormone (TSH) 7.56 H 0.36-3.74 uIU/mL Sodium Level 130 L 136-145 mmol/L Potassium Level 5.1 3.5-5.1 mmol/L Chloride Level 103 101-111 mmol/L Carbon Dioxide Level 23 21-32 mmol/L Blood Urea Nitrogen 19 H 7-18 mg/dL Creatinine 1.6 H 0.5-1.3 mg/dL Glomerular Filtration Rate Calc 49 >90 mL/min Random Glucose 213 H 70-105 mg/dL Hemoglobin A1c 6.7 H 4.0-6.0 % Estimated Average Glucose (eAG) 146 H 70-126 mg/dL Total Calcium 9.0 8.5-10.1 mg/dL B-Type Natriuretic Peptide 169 H 0-100 pg/mL Coagulation Labs: Test 04/20/25 09:25 Range/Units Prothrombin Time 10.3 9.6-11.6 SEC Prothromb Time International Ratio 0.97 0.85-1.15 Activated Partial Thromboplast Time 26.8 26.3-35.5 SEC DIAGNOSTICS / RADIOLOGY RESULTS: [ ] PLAN NEURO: Minimize central acting medications as possible. Maintain fall precautions, adequate lighting during the day PULMONARY: Supplemental 02 as needed. Maintain aspiration precautions at all times CARDIOVASCULAR: Follow hemodynamics. Vital signs per facility protocol GI & NUTRITION: Continue with nutritional support. Continue stool softeners and laxatives as needed. KIDNEYS & ELECTROLYTES: Strict monitoring of intake, output and overall fluid balance. Avoid nephrotoxic medications to the extent possible. Medications to be dosed according to renal function. Monitor electrolytes and replace as needed ENDOCRINE: Maintain blood glucose between 100-180 at all times. Hypoglycemia protocol in place INFECTIOUS DISEASE: Trend temperature, WBC and procalcitonin level Follow cultures, deescalate antibiotics as soon as possible. Panculture if new onset fever ONCOLOGY/HEMATOLOGY/COAGULATION: Monitor for s/s of bleeding Monitor hemoglobin, coagulation studies as needed SKIN: Pressure ulcer prevention per facility protocol Specialty mattress ORTHO/REHAB: Continue PT/OT Prophylaxis: Continue GI and DVT prophylaxis Code Status: Full Resuscitation Disposition: TBD Other: Total patient care time exceeds 35 minutes excluding all procedures. ROBIN JONES Apr 20, 2025 15:13
--- NOTE | 2025-04-20 15:47 | NUR ---
first attempt to provide report debra will call back in 10 min
--- NOTE | 2025-04-20 15:51 | NUR ---
DCP: HOME Pt lives in home he rents with Pepper Flores [phone] and daughter Jayna Flores [phone]. Pt states he applied for SSD 9 months ago and is working with an title attorney in [place] on case. Pt is self pay and does not qualify for [facility] for childrent assistance per 's income. Pt states assists him with bathing and dressing, he uses a cane to ambulate, no HH or HD services. PCP is Yajaira Syed and uses [facility] in for rx needs. Pt given community resources for future use. P to return home at or Addendum: 04/20/25 at 1559 by ROMÁN GALLO Amended: Links added.
--- NOTE | 2025-04-20 16:09 | NUR ---
pt presents to er without home medications
[2025-04-20] MEDS ORDERED: BUDESONIDE 0.5 MG/2 ML INH IH SCH (18:00)
[2025-04-20] MEDS: MAGNESIUM 2GM PREMIX 50ML 50 ML IV SCH (18:49)
[2025-04-20 20:34] LABS: CREATINE KINASE, TOTAL 452.0 U/L (21-232)
[2025-04-20] MEDS: DOXYCYCLINE HYCLATE 100 MG TABLET PO SCH (21:07)
--- NOTE | 2025-04-20 21:13 | NUR ---
@2105pm placed call to [facility] to report troponin of 5,810, total ck 452. pending call back.
--- NOTE | 2025-04-20 21:24 | NUR ---
received call from dr quintero, stated to give one time dose of clopidogrel 300mg po x1, start on clopidogrel 75mg po daily starting tomorrow am. Stated to increase diltiazem to 60mg q6hrs, starting next scheduled po dose. Heparin warehouse person, to be stopped by crime lab analyst.
[2025-04-21] VITALS (18 sets, daily range): BP systolic 109–157; BP diastolic 60–90; PULSE 70–88; RESP 18–21; TEMP 97.7–98.8; O2SAT 94–98
[2025-04-21 02:32] LABS: IMMATURE GRANULOCYTE ABSOLUTE 0.07 K/uL (0-1); NUCLEATED RED BLOOD CELLS 0.0 % (0.0-0.19); PLATELET COUNT (AUTO) 202 K/uL (130-400); RED BLOOD CELL COUNT(AUTO) 4.54 MIL/uL (4.50-6.20); RED CELL DISTRIBUTION WIDTH 13.5 % (11.0-15.5); WHITE BLOOD COUNT (AUTO) 10.7 K/uL (4.8-10.8)
[2025-04-21 02:46] LABS: ASPARTATE AMINOTRANSFERASE 85.0 U/L (10-37); CREATININE 1.4 mg/dL (0.5-1.3); GLOMERULAR FILTR. RATE CALC 58.0 mL/min (>90); GLUCOSE,RANDOM 145.0 mg/dL (70-105); SODIUM SERUM 136.0 mmol/L (136-145); TOTAL PROTEIN, SERUM 5.6 g/dL (6.0-8.3); UREA NITROGEN, BLOOD 16.0 mg/dL (7-18)
--- NOTE | 2025-04-21 03:20 | NUR ---
0300am ptt at 93. as per protocol decrease by 2 units/kg/hr, hold infusion x 1 hour from 0300am to 0400am. New rate of heparin at 13 units/kg/hr.
--- NOTE | 2025-04-21 05:02 | HMCIMG ---
EXAMINATION: ULTRASOUND OF THE RETROPERITONEUM. CLINICAL HISTORY: CKD. History of hypertension and diabetes. COMPARISON: Ultrasound of the retroperitoneum dated 10/05/[address] 11/27/2015. TECHNIQUE: Real-time grayscale ultrasound images of the kidneys. FINDINGS: The left kidney is smaller in caliber, the left kidney measures 8.1 x 4.1 x 2.1 cm in its craniocaudal, AP, and transverse dimensions respectively. There is normal renal cortical thinning and increased cortical echogenicity. There is no renal calculus or hydronephrosis. The right kidney is normal in caliber, the right kidney measures 12.1 x 7.2 x 6.2 cm in its craniocaudal, AP, and transverse dimensions respectively. There is normal renal cortical thickness, and cortical echogenicity. There is no renal calculus or hydronephrosis. There is a simple cortical cyst that measures 2.5 x 2.8 x 2.9 cm in the right renal mid pole. The urinary bladder is normal in caliber and wall thickness (0.24 cm). There are no calculi in the urinary bladder. IMPRESSION: Smaller left kidney with renal parenchymal disease. Right renal simple cortical cyst. /Noel
[2025-04-21] MEDS ORDERED: MAGNESIUM 2GM PREMIX 50ML 50 ML IV SCH (07:00)
--- NOTE | 2025-04-21 07:08 | PN ---
[facility] CARDIOLOGY PROGRESS NOTE Date Patient Seen: Apr 21, 2025 Time of Visit: 07:01 Problem List: NSTEMI/ ACS, POA Rule out pericarditis, POA Rule out developing community-acquired pneumonia, POA Undiagnosed COPD/chronic bronchitis, POA History of coronary artery disease with prior history of PCI in 2004, POA CKD stage 3, POA Suspected BAILEY Electrolyte abnormalities (hyponatremia, hypomagnesemia) Tobacco use disorder, POA Cocaine use disorder, POA Hypertension, POA Hyperlipidemia, POA Diabetes mellitus type 2, POA Hypothyroidism POA Interval History: Pt without chest pain overnight. He continues with troponin elevation, improved HR control. Remains in NSR. Pt's echo negative for pericardial effusion. Poor general compliance. Left heart cath pending for today. We will gently hydrate for renal protection as well Pt with some hypomagnesemia, covering. Physical Examination: GENERAL: [No acute distress.] HEAD: [Normal with no signs of head trauma.] EYES: [PERRLA, EOMI, conjunctiva and sclera normal.] ENT: [Hearing grossly intact, normal oropharynx.] NECK: [Supple without JVD. There is no tenderness, lymphadenopathy, or masses. No thyromegaly. Normal carotid upstrokes without bruits.] LUNGS: [Clear breath sounds bilaterally. There are right basilar rales one third of the way up the chest. No wheezes, or rhonchi.] HEART: [Normal rate and rhythm. Normal S1 and S2 without mumurs, gallop or rub.] VASC: [Peripheral pulses +2 bilaterally.] ABD: [Bowel sounds normal, soft, nontender, no masses, no organomegaly. No audible bruits.] : [Not examined] LYMPH: [No lymphadenopathy noted.] EXT: [No clubbing, cyanosis or edema.] SKIN: [No rashes or lesions noted.] NEURO: [Awake, alert, and oriented x3. No focal sensory or strength deficits noted.] Laboratory: [ ] Hematology Labs: Test 04/21/25 02:28 04/20/25 09:25 Range/Units White Blood Count 10.7 # 4.8-10.8 K/uL Red Blood Count 4.54 4.50-6.20 MIL/uL Hemoglobin 13.6 L 14.0-18.0 g/dL Hematocrit 40.0 L 42-54 % Mean Corpuscular Volume 88.1 79-99 fL Mean Corpuscular Hemoglobin 30.0 27.0-33.0 pg Mean Corpuscular Hemoglobin Concent 34.0 32.0-36.0 g/dL Red Cell Distribution Width 13.5 11.0-15.5 % Platelet Count 202 130-400 K/uL Mean Platelet Volume 9.8 7.5-10.5 fL Immature Granulocyte % (Auto) 0.7 0-1 % Neutrophils (%) (Auto) 60.9 40.0-77.0 % Lymphocytes (%) (Auto) 23.8 21.0-51.0 % Monocytes (%) (Auto) 9.0 3.0-13.0 % Eosinophils (%) (Auto) 4.8 0.0-8.0 % Basophils (%) (Auto) 0.8 0.0-5.0 % Neutrophils # (Auto) 6.5 1.8-7.7 K/uL Lymphocytes # (Auto) 2.6 1.0-4.8 K/uL Monocytes # (Auto) 1.0 0.1-1.0 K/uL Eosinophils # (Auto) 0.51 0.00-0.70 K/uL Basophils # (Auto) 0.09 0.00-0.20 K/uL Absolute Immature Granulocyte (auto 0.07 0-1 K/uL Nucleated Red Blood Cells 0.0 0.0-0.19 % Erythrocyte Sedimentation Rate 3 0-20 MM/HR Chemistry Labs: Test 04/21/25 05:27 04/21/25 02:28 04/20/25 19:45 04/20/25 16:35 Range/Units Whole Blood Glucose 154 H 70-110 MG/DL Sodium Level 136 136-145 mmol/L Potassium Level 5.0 3.5-5.1 mmol/L Chloride Level 102 101-111 mmol/L Carbon Dioxide Level 29 21-32 mmol/L Blood Urea Nitrogen 16 7-18 mg/dL Creatinine 1.4 H 0.5-1.3 mg/dL Glomerular Filtration Rate Calc 58 >90 mL/min Random Glucose 145 H 70-105 mg/dL Total Calcium 8.4 L 8.5-10.1 mg/dL Magnesium Level 1.70 L 1.80-2.40 mg/dL Total Bilirubin 0.2 # 0.2-1.0 mg/dL Aspartate Amino Transf (AST/SGOT) 85 H 10-37 U/L Alanine Aminotransferase (ALT/SGPT) 33 # 12-78 U/L Alkaline Phosphatase 63 50-136 U/L Total Protein 5.6 L 6.0-8.3 g/dL Albumin 2.7 L 3.5-5.0 g/dL Total Creatine Kinase 452 #*H 21-232 U/L Troponin I High Sensitivity 5810.5 *H 4-75 ng/L Bedside Glucose Comment Notified Nurse Test 04/20/25 10:10 04/20/25 09:25 Range/Units Direct Bilirubin 0.1 0.0-0.3 mg/dL C-Reactive Protein, Quantitative 1.30 0.5-3.0 mg/L Triglycerides Level 796 H 30-200 mg/dL Cholesterol Level 285 #H <200 mg/dL LDL Cholesterol 105 H 0-99 mg/dL HDL Cholesterol 40 29-71 mg/dL Procalcitonin < 0.05 L 0.05-0.5 ng/mL Thyroid Stimulating Hormone (TSH) 7.56 H 0.36-3.74 uIU/mL Hemoglobin A1c 6.7 H 4.0-6.0 % Estimated Average Glucose (eAG) 146 H 70-126 mg/dL B-Type Natriuretic Peptide 169 H 0-100 pg/mL Coagulation Labs: Test 04/21/25 02:28 04/20/25 09:25 Range/Units Activated Partial Thromboplast Time 93.0 #*H 26.3-35.5 SEC Prothrombin Time 10.3 9.6-11.6 SEC Prothromb Time International Ratio 0.97 0.85-1.15 Diagnostics / Radiology: [Copy/Paste Echos/Imaging Report here] Impression and Plan: Continue asa Continue Heparin gtt NS at 50ml /hr Left heart cath anticipated for today Pt has poor compliance, would be a high risk for stent occlusion if PCI required Counselled on smoking/illicit drug cessation BELKIS MOHAMUD NP Apr 21, 2025 07:07
[2025-04-21] MEDS: 0.9%NACL 1000ML 1,000 ML IV SCH (07:09)
--- NOTE | 2025-04-21 07:53 | NUR ---
RECEIVED CALL FROM [facility] WITH CT. NOTIFIED HIM THAT PATIENT IS HAVING A LHC TODAY. REQUESTED TO CLARIFY IF STILL NEED FOR CT CARDIAC ANGIO SINCE PATIENT IS ALREADY SCHEDULED FOR LHC TODAY. CLARIFIED ORDERS WITH BELKIS RIVER. STATED THAT IF PATIENT IS SCHEDULED FOR LHC TODAY, THEN THERE IS NO NEED FOR CTA.
[2025-04-21] MEDS: NICOTINE 7 MG/ 24 HR PATCH TD SCH (09:00)
[2025-04-21] MEDS ORDERED: LIDOCAINE HCL 400MG/20ML VIAL ONE (09:02)
[2025-04-21] MEDS ORDERED: IOHEXOL 350 MG/ML 100ML INFUS..BTL IV ONE (09:02)
[2025-04-21] MEDS ORDERED: HEParin-NS 1,000 UNIT/500 ML 1,000 ML IV ONE (09:03)
[2025-04-21] MEDS ORDERED: IOHEXOL-350 50ML VIAL IV ONE (09:03)
[2025-04-21] MEDS ORDERED: MIDAZOLAM HCL 1 MG/ML 2ML VIAL ONE (09:29)
--- NOTE | 2025-04-21 10:15 | PRN ---
Cath Procedure Report CATH PROCEDURE REPORT CARDIAC CATHETERIZATION REPORT Date of Service: Apr 21, 2025 After informed consent the patient was prepped and draped in the usual fashion. He received a total of 1 mg of Versed and 25 mcg of fentanyl for conscious sedation. He received a total of 20 cc of 2% xylocaine in the right inguinal area. A six [place] sheath was introduced into the right femoral artery using m odified Seldinger technique. A Ankur four right six [place] diagnostic catheter was advanced over guidewire to the aortic root. Wire was removed and catheter engaged into the [place] right coronary artery. The right coronary artery was visualized multiple planes the catheter was removed. A Ankur four left six [place] diagnostic catheter was advanced over guidewire to the aortic root. Wire was removed and catheter engaged into the left main coronary artery. The left coronary artery was visualized but the catheter would not stabilize in the left main coronary artery position. The catheter was removed and a Ankur 3.5 6 [place] diagnostic catheter was advanced over guidewire. Wire was removed and catheter engaged in left main coronary artery. The left coronary system was visualized in multiple planes. Catheter was removed. A pigtail catheter was then advanced over guidewire across the aortic valve. Wire was removed and hemodynamics measured. A ventriculogram in the VALERIO projection was performed. A pullback with continuous hemodynamic monitoring was performed and catheter was removed. A sheathogram performed. ACT postprocedure measured. And was 129. Six [place] Angio-Seal closure device was applied. The entire procedure was well tolerated. Findings: The right coronary artery is a right-dominant vessel. It has a 70% distal stenosis followed by a total occlusion of the distal RCA. There was collateral filling of the RCA from a diagonal artery. The left main coronary artery is free of obstruction. The left circumflex artery is totally occluded proximally. Obtuse marginal arteries were not visible. The LAD had a previous stent which is 100% stenosis in the mid LAD after a diagonal branch. The distal LAD also fills via collaterals in a retrograde fashion from the diagonal branch. Left ventricular end-diastolic pressure was 25 mm Hg. LV ejection fraction of 40%. There was mild mitral regurgitation no aortic stenosis. Summary: The patient presenting with a non ST-elevation [facility] and found to have Multivessel CAD with moderate LV dysfunction surgical opinion will be obtained. Report dictated by PRISCILLA Machado MD, MD Apr 21, 2025 10:15
--- NOTE | 2025-04-21 12:43 | PN ---
[facility] PROGRESS NOTE Date Patient Seen: Apr 21, 2025 Time of Visit: 12:43 Supervising Physician: Dr. Bansal Primary Care Physician: [ ] Outpatient Specialists: [ ] Inpatient Consults: Dr. Gordon, Dr. Pop PROBLEM LIST: NSTEMI/ ACS, POA Rule out pericarditis, POA Rule out developing community-acquired pneumonia, POA Undiagnosed COPD/chronic bronchitis, POA History of coronary artery disease with prior history of PCI in 2004, POA CKD stage 3, POA Suspected BAILEY Electrolyte abnormalities (hyponatremia, hypomagnesemia) Tobacco use disorder, POA Cocaine use disorder, POA Hypertension, POA Hyperlipidemia, POA Diabetes mellitus type 2, POA Hypothyroidism POA INTERVAL HISTORY: Patient currently receiving left heart catheterization at the time my visit, per chart review patient remains on 2 L nasal cannula with an elevated creatinine at 1.4. Patient's CK level remains elevated at 452 today. Troponins have increased to 5810. Patient remains on nebulizers as well as Rocephin and doxycycline. There were no changes to medical management today from a pulmonary perspective, patient continues with a cardiac workup and we will follow along closely. REVIEW OF SYSTEMS: 12 point ROS reviewed with patient. Pertinent positives mentioned above. Otherwise negative. PHYSICAL EXAM: GENERAL: alert, weak, awake oriented x 3 HEENT: EOMI, Sclera non icteric, moist mucosa NECK: Supple, no JVD, trachea midline LUNGS: Clear breath sounds bilaterally. No wheezes HEART: Regular rate and rhythm. Normal S1 and S2, without murmurs ABD: Abdomen soft, nontender. Bowel sounds present EXT: No clubbing cyanosis or edema NEURO: Alert and oriented to person, follows commands Vital Signs (last 8hr) Date Time Temp Pulse Resp B/P (MAP) Pulse Ox O2 Delivery O2 Flow Rate FiO2 04/21/25 08:00 98.4 79 20 116/80 96 Nasal Cannula 2.0 04/21/25 07:51 97 Nasal Cannula* 2 28 04/21/25 07:02 75 20 N/Cannula Oximizer Hi LPM 2.0 04/21/25 07:02 74 20 LABS: Hematology Labs: Test 04/21/25 02:28 04/20/25 09:25 Range/Units White Blood Count 10.7 # 4.8-10.8 K/uL Red Blood Count 4.54 4.50-6.20 MIL/uL Hemoglobin 13.6 L 14.0-18.0 g/dL Hematocrit 40.0 L 42-54 % Mean Corpuscular Volume 88.1 79-99 fL Mean Corpuscular Hemoglobin 30.0 27.0-33.0 pg Mean Corpuscular Hemoglobin Concent 34.0 32.0-36.0 g/dL Red Cell Distribution Width 13.5 11.0-15.5 % Platelet Count 202 130-400 K/uL Mean Platelet Volume 9.8 7.5-10.5 fL Immature Granulocyte % (Auto) 0.7 0-1 % Neutrophils (%) (Auto) 60.9 40.0-77.0 % Lymphocytes (%) (Auto) 23.8 21.0-51.0 % Monocytes (%) (Auto) 9.0 3.0-13.0 % Eosinophils (%) (Auto) 4.8 0.0-8.0 % Basophils (%) (Auto) 0.8 0.0-5.0 % Neutrophils # (Auto) 6.5 1.8-7.7 K/uL Lymphocytes # (Auto) 2.6 1.0-4.8 K/uL Monocytes # (Auto) 1.0 0.1-1.0 K/uL Eosinophils # (Auto) 0.51 0.00-0.70 K/uL Basophils # (Auto) 0.09 0.00-0.20 K/uL Absolute Immature Granulocyte (auto 0.07 0-1 K/uL Nucleated Red Blood Cells 0.0 0.0-0.19 % Erythrocyte Sedimentation Rate 3 0-20 MM/HR Chemistry Labs: Test 04/21/25 11:19 04/21/25 02:28 04/20/25 19:45 04/20/25 16:35 Range/Units Whole Blood Glucose 161 H 70-110 MG/DL Sodium Level 136 136-145 mmol/L Potassium Level 5.0 3.5-5.1 mmol/L Chloride Level 102 101-111 mmol/L Carbon Dioxide Level 29 21-32 mmol/L Blood Urea Nitrogen 16 7-18 mg/dL Creatinine 1.4 H 0.5-1.3 mg/dL Glomerular Filtration Rate Calc 58 >90 mL/min Random Glucose 145 H 70-105 mg/dL Total Calcium 8.4 L 8.5-10.1 mg/dL Magnesium Level 1.70 L 1.80-2.40 mg/dL Total Bilirubin 0.2 # 0.2-1.0 mg/dL Aspartate Amino Transf (AST/SGOT) 85 H 10-37 U/L Alanine Aminotransferase (ALT/SGPT) 33 # 12-78 U/L Alkaline Phosphatase 63 50-136 U/L Total Protein 5.6 L 6.0-8.3 g/dL Albumin 2.7 L 3.5-5.0 g/dL Total Creatine Kinase 452 #*H 21-232 U/L Troponin I High Sensitivity 5810.5 *H 4-75 ng/L Bedside Glucose Comment Notified Nurse Test 04/20/25 10:10 04/20/25 09:25 Range/Units Direct Bilirubin 0.1 0.0-0.3 mg/dL C-Reactive Protein, Quantitative 1.30 0.5-3.0 mg/L Triglycerides Level 796 H 30-200 mg/dL Cholesterol Level 285 #H <200 mg/dL LDL Cholesterol 105 H 0-99 mg/dL HDL Cholesterol 40 29-71 mg/dL Procalcitonin < 0.05 L 0.05-0.5 ng/mL Thyroid Stimulating Hormone (TSH) 7.56 H 0.36-3.74 uIU/mL Hemoglobin A1c 6.7 H 4.0-6.0 % Estimated Average Glucose (eAG) 146 H 70-126 mg/dL B-Type Natriuretic Peptide 169 H 0-100 pg/mL Coagulation Labs: Test 04/21/25 07:50 04/20/25 09:25 Range/Units Activated Partial Thromboplast Time 60.7 #H 26.3-35.5 SEC Prothrombin Time 10.3 9.6-11.6 SEC Prothromb Time International Ratio 0.97 0.85-1.15 DIAGNOSTICS / RADIOLOGY RESULTS: [ ] PLAN NEURO: Minimize central acting medications as possible. Maintain fall precautions, adequate lighting during the day PULMONARY: Supplemental 02 as needed. Maintain aspiration precautions at all times CARDIOVASCULAR: Follow hemodynamics. Vital signs per facility protocol GI & NUTRITION: Continue with nutritional support. Continue stool softeners and laxatives as needed. KIDNEYS & ELECTROLYTES: Strict monitoring of intake, output and overall fluid balance. Avoid nephrotoxic medications to the extent possible. Medications to be dosed according to renal function. Monitor electrolytes and replace as needed ENDOCRINE: Maintain blood glucose between 100-180 at all times. Hypoglycemia protocol in place INFECTIOUS DISEASE: Trend temperature, WBC and procalcitonin level Follow cultures, deescalate antibiotics as soon as possible. Panculture if new onset fever ONCOLOGY/HEMATOLOGY/COAGULATION: Monitor for s/s of bleeding Monitor hemoglobin, coagulation studies as needed SKIN: Pressure ulcer prevention per facility protocol Specialty mattress ORTHO/REHAB: Continue PT/OT Prophylaxis: Continue GI and DVT prophylaxis Code Status: Full Resuscitation Disposition: TBD Other: Total patient care time exceeds 35 minutes excluding all procedures. ROBIN JONES Apr 21, 2025 12:43
[2025-04-21] MEDS: FERROUS SULFATE 325 MG TABLET.DR PO SCH (14:00)
--- NOTE | 2025-04-21 14:33 | PN ---
TIME: 2:00 p.m. SUBJECTIVE: The patient is a 60-year-old gentleman who has been having symptoms of unstable angina. He was brought to [facility] and underwent left heart catheterization that showed 3-vessel coronary artery disease. Cardiac Surgery was consulted. PHYSICAL EXAMINATION: NEUROLOGIC: Alert and oriented. CARDIAC: S1, S2, regular rate and rhythm. RESPIRATORY: Clear auscultation bilaterally. ASSESSMENT AND PLAN: A 60-year-old gentleman with significant coronary artery disease. I reviewed the catheterization by myself. 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 Both vessels are very, very poor targets; however, I explained to the patient that we could attempt bypass, but it is very concerning in terms of the quality of the targets. I will review the echocardiogram as well once it is performed and they will come up with the final decision. The main concern is the targets. Otherwise, he appears to be a good surgical candidate for bypass surgery. TID: [id number] RECEIPT: [id number]
--- NOTE | 2025-04-21 16:00 | PN ---
[facility] PROGRESS NOTE Date of Service: Apr 21, 2025 Time of Service: 15:41 HISTORY OF PRESENT ILLNESS: Patient is a 60-year-old male with past medical history of CAD, hyperlipidemia, hypertension, diabetes mellitus type 2, hypothyroidism, obesity who presented to the ED with chief complaint of chest pain. Patient complained of diaphoresis, shortness of breath, chest pain which started 2 weeks ago which is on and off and burning pain in nature. Patient started having severe chest pain 3 hours ago which prompted the patient to come to the ED. patient complained that the pain is worse on lying down and better on waking up and leaning forward. He ambulates using cane. Patient admitted to smoking 1 pack per day for past 40 years since the age of 9, vaping, usage of weed, reports hx of chronic cocaine use with last use 2 days ago. On presentation to the ED patient vitals temperature 98.2, pulse 89, res piratory rate 20, blood pressure 120/79, saturating at 96% on room air. Labs revealed white blood count of 8.5, hemoglobin 14.5 Chemistries show sodium 130, creatinine 1.6, BUN 19, glucose 213, magnesium 1.7, BNP 169, and troponin initially is 323 trended up to 496. Patient received3 and4 mg of aspirin in the ED and 0.4 mg of sublingual nitroglycerin which did not help with the pain. CXR showed bilateral infiltrates. Patient will be admitted for further evaluation of chest pain in the setting of elevated cardiac troponin, with concern fro ACS/ NSTEMI. Will also consider pericarditis in the differential due to symptomatology of chest pain. Patient will receive broad-spectrum antibiotics and patient likely has undiagnosed COPD with chest x-ray showing bilateral infiltrates with concerns for possible pneumonia. Patient will be monitored closely under hospitalist service. SUBJECTIVE: 04/21/2025: Patient was evaluated at the bedside. Patient appeared to be in mild distress however did not complain of chest pain this morning. Patient was scheduled for left heart catheterization this morning. Patient reports that he had ongoing chest pain for 2 weeks which got severe yesterday, worse when lying down and relieved by sitting up and leaning forward. He also had cough and shortness of breath and his chest x-ray showed bilateral basilar infiltrates suggestive of pneumonia. His cardiac troponins were serially measured and today they were 5810. Echo was performed and ruled out pericardial effusion. Patient admits to using cocaine and marijuana within the last 2 days. Patient started on Cardizem, aspirin and heparin drip. Patient admits to smoking. Patient's white count cell is 10.7. We will follow Cardiology recommendations after left heart catheterization. REVIEW OF SYSTEMS CONSTITUTIONAL: Denies fevers, chills, or night sweats. No unintentional weight loss reported. NEUROLOGICAL: Denies headache, amaurosis fugax, motor weakness, sensory deficit, vertigo/spinning sensation CARDIOVASCULAR: Denies any exertional angina, dyspnea on exertion, orthopnea, palpitations, life-threatening arrhythmias, claudication. Admits to chest pain, PND PULMONARY: Admits to shortness of breath, cough, phlegm/sputum, hemoptysis, pleuritic chest pain. SLEEP: Denies morning headaches, daytime somnolence or napping. Denies d ifficulty falling asleep, staying asleep, waking from sleep. Admits of snoring. GASTROINTESTINAL: Denies any type of dysphagia to either liquids or solids. Denies nausea, vomiting, pyrosis, early satiety, abdominal pain, diarrhea, constipation, or changes in stool consistency or caliber. Denies coffee-ground emesis, hematemesis, hematochezia, or melanotic stools. GENITOURINARY: Denies frequency, urgency, nocturia, hematuria or incontinence (Storage/Irritative symptoms.) Low urinary stream, straining to void, urinary intermittency or hesitancy, splitting of the voiding stream, terminal dribbling. PSYCHIATRIC: Denies any suicidal or homicidal ideation. Denies hallucinations. PHYSICAL EXAM GENERAL APPEARANCE: The patient is awake, alert, and oriented, in no acute cardiopulmonary distress. CHEST: Normal chest expansion. Telemetry LUNGS: Absence of any rales, rhonchi or any wheezing. CARDIOVASCULAR: Regular. S1 and S2 normal. No appreciable rubs, murmurs or gallops. ABDOMEN: Soft, nontender, and nondistended. There is no rebound, voluntary guarding, or rigidity. : Deferred. No Weir. EXTREMITIES: Non-edematous and not cyanotic. No clubbing. Good capillary refill. SKIN: No skin breakdown. Vital Signs (last 8hr) Date Time Temp Pulse Resp B/P (MAP) Pulse Ox O2 Delivery O2 Flow Rate FiO2 04/21/25 08:00 98.4 79 20 116/80 96 Nasal Cannula 2.0 04/21/25 07:51 97 Nasal Cannula* 2 28 LABS: Laboratory: Test 04/21/25 11:19 04/21/25 07:50 04/21/25 02:28 04/20/25 19:45 Range/Units Whole Blood Glucose 161 H 70-110 MG/DL Activated Partial Thromboplast Time 60.7 #H 26.3-35.5 SEC White Blood Count 10.7 # 4.8-10.8 K/uL Red Blood Count 4.54 4.50-6.20 MIL/uL Hemoglobin 13.6 L 14.0-18.0 g/dL Hematocrit 40.0 L 42-54 % Mean Corpuscular Volume 88.1 79-99 fL Mean Corpuscular Hemoglobin 30.0 27.0-33.0 pg Mean Corpuscular Hemoglobin Concent 34.0 32.0-36.0 g/dL Red Cell Distribution Width 13.5 11.0-15.5 % Platelet Count 202 130-400 K/uL Mean Platelet Volume 9.8 7.5-10.5 fL Immature Granulocyte % (Auto) 0.7 0-1 % Neutrophils (%) (Auto) 60.9 40.0-77.0 % Lymphocytes (%) (Auto) 23.8 21.0-51.0 % Monocytes (%) (Auto) 9.0 3.0-13.0 % Eosinophils (%) (Auto) 4.8 0.0-8.0 % Basophils (%) (Auto) 0.8 0.0-5.0 % Neutrophils # (Auto) 6.5 1.8-7.7 K/uL Lymphocytes # (Auto) 2.6 1.0-4.8 K/uL Monocytes # (Auto) 1.0 0.1-1.0 K/uL Eosinophils # (Auto) 0.51 0.00-0.70 K/uL Basophils # (Auto) 0.09 0.00-0.20 K/uL Absolute Immature Granulocyte (auto 0.07 0-1 K/uL Nucleated Red Blood Cells 0.0 0.0-0.19 % Sodium Level 136 136-145 mmol/L Potassium Level 5.0 3.5-5.1 mmol/L Chloride Level 102 101-111 mmol/L Carbon Dioxide Level 29 21-32 mmol/L Blood Urea Nitrogen 16 7-18 mg/dL Creatinine 1.4 H 0.5-1.3 mg/dL Glomerular Filtration Rate Calc 58 >90 mL/min Random Glucose 145 H 70-105 mg/dL Total Calcium 8.4 L 8.5-10.1 mg/dL Magnesium Level 1.70 L 1.80-2.40 mg/dL Total Bilirubin 0.2 # 0.2-1.0 mg/dL Aspartate Amino Transf (AST/SGOT) 85 H 10-37 U/L Alanine Aminotransferase (ALT/SGPT) 33 # 12-78 U/L Alkaline Phosphatase 63 50-136 U/L Total Protein 5.6 L 6.0-8.3 g/dL Albumin 2.7 L 3.5-5.0 g/dL Total Creatine Kinase 452 #*H 21-232 U/L Troponin I High Sensitivity 5810.5 *H 4-75 ng/L Test 04/20/25 16:35 04/20/25 10:10 04/20/25 10:03 04/20/25 09:25 Range/Units Bedside Glucose Comment Notified Nurse Direct Bilirubin 0.1 0.0-0.3 mg/dL C-Reactive Protein, Quantitative 1.30 0.5-3.0 mg/L Triglycerides Level 796 H 30-200 mg/dL Cholesterol Level 285 #H <200 mg/dL LDL Cholesterol 105 H 0-99 mg/dL HDL Cholesterol 40 29-71 mg/dL Procalcitonin < 0.05 L 0.05-0.5 ng/mL Thyroid Stimulating Hormone (TSH) 7.56 H 0.36-3.74 uIU/mL Urine Color YELLOW YELLOW Urine Appearance CLEAR CLEAR Urine pH 6.0 5.0-8.0 Urine Specific [place] 1.031 1.001-1.031 Urine Protein 30 H NEGATIVE mg/dL Urine Glucose (UA) TRACE H NEGATIVE mg/dL Urine Ketones NEGATIVE NEGATIVE mg/dL Urine Occult Blood NEGATIVE NEGATIVE Urine Nitrate NEGATIVE NEGATIVE Urine Bilirubin NEGATIVE NEGATIVE mg/dL Urine Urobilinogen 4.0 H 0.2-1.0 mg/dL Urine Leukocyte Esterase NEGATIVE NEGATIVE Buck/uL Urine RBC 0-1 0-1 /HPF Urine WBC 0-1 0-1 /HPF Urine Squamous Epithelial Cells RARE 0-2 /HPF Urine Bacteria None None Seen /HPF Urine Opiates Screen NEGATIVE NEGATIVE Urine Barbiturates Screen NEGATIVE NEGATIVE Urine Phencyclidine Screen NEGATIVE NEGATIVE Urine Amphetamines Screen NEGATIVE NEGATIVE Urine Benzodiazepines Screen NEGATIVE NEGATIVE Urine Cocaine Screen POSITIVE H NEGATIVE Urine Marijuana (THC) Screen POSITIVE H NEGATIVE Erythrocyte Sedimentation Rate 3 0-20 MM/HR Prothrombin Time 10.3 9.6-11.6 SEC Prothromb Time International Ratio 0.97 0.85-1.15 Hemoglobin A1c 6.7 H 4.0-6.0 % Estimated Average Glucose (eAG) 146 H 70-126 mg/dL B-Type Natriuretic Peptide 169 H 0-100 pg/mL Influenza Type A Antigen Negative For Type A NEGATIVE Influenza Type B Antigen Negative For Type B NEGATIVE SARS-CoV-2, RNA, NAAT NEGATIVE SARS CoV-2 NEGATIVE Group A Streptococcus Rapid negative NEGATIVE Current Medications Medications (Trade) Dose Ordered Sig/Damian Route PRN Reason Start Time Stop Time Status Last Admin Dose Admin Acetaminophen (TYLenol 325MG TAB) 650 mg Q6H PRN PO MILD PAIN (1-3) 04/20/25 11:30 05/20/25 11:29 Aspirin (Aspirin 325mg Tab) 325 mg DAILY PO 04/21/25 09:00 04/20/25 11:07 DC Aspirin (Aspirin 81mg Chew Tab) 81 mg Q24H PO 04/20/25 11:30 05/20/25 11:29 04/21/25 13:11 81 MG Atorvastatin Calcium (LIPItor 40MG) 40 mg Q24H PO 04/20/25 11:30 04/21/25 13:17 DC 04/20/25 11:32 40 MG Atorvastatin Calcium (LIPItor 40MG) 40 mg Q24H PO 04/21/25 21:00 05/21/25 20:59 UNV Budesonide (Pulmicort 0.5 Mg/2ml) 0.5 mg BIDRESP IH 04/20/25 11:30 05/20/25 11:29 04/21/25 06:59 0.5 MG Budesonide (Pulmicort 0.5 Mg/2ml) 0.5 mg BIDRESP IH 04/20/25 18:00 04/20/25 11:18 DC Ceftriaxone Sodium (ROCEphine 1G INJ) 1 gm Q12H IVPB 04/20/25 11:30 04/30/25 11:29 04/21/25 13:11 1 GM Clopidogrel Bisulfate (plaVIX 75MG) 75 mg DAILY PO 04/21/25 09:00 04/21/25 13:18 DC Diltiazem HCl (CARDIzem 60MG TAB) 30 mg Q6H PO 04/20/25 11:30 04/20/25 21:29 DC 04/20/25 18:13 30 MG Diltiazem HCl (CARDIzem 60MG TAB) 60 mg G4ONQPU PO 04/20/25 23:30 05/20/25 23:29 04/21/25 13:10 60 MG Doxycycline Hyclate (Doxycycline Hyclate) 100 mg BID PO 04/20/25 21:00 04/30/25 20:59 04/20/25 21:07 100 MG Enoxaparin Sodium (Lovenox) 40 mg DAILY SQ 04/22/25 16:00 05/22/25 15:59 Ferrous Sulfate (Ferrous Sulfate) 325 mg TID PO 04/21/25 14:00 05/21/25 13:59 Gemfibrozil (gemFIBROzil 600 MG TABLET) 600 mg BIDAC PO 04/20/25 16:30 05/20/25 16:29 04/21/25 13:09 600 MG Heparin Sodium (Porcine) (HEParin 5,000 UNIT VIAL) *calculation based on ACTUAL B... AD PRN IV HEPARIN PROTOCOL 04/20/25 12:30 04/21/25 11:08 DC 04/20/25 11:59 9,000 UNIT Heparin Sodium/ Dextrose 250 ml @ 0 mls/hr Q6H IV 04/20/25 12:30 04/21/25 11:08 DC 04/21/25 01:22 18.13 MLS/HR Home Med (Home Medication) (Canagliflozin (Invokana) 300 MG) DAILY PO 04/22/25 09:00 05/22/25 08:59 Home Med (Home Medication) (Haloperidol 20 MG) HS PO 04/21/25 21:00 05/21/25 20:59 Hydralazine HCl (APRESOLine 20MG INJ) 5 mg Q6H PRN IV ADMINISTER FOR SBP > 160 04/20/25 11:30 05/20/25 11:29 Insulin Human Regular (humuLIN R 100 UNIT/ML 3ML) INSULIN SLIDING SCAL... ACHS SQ 04/20/25 11:30 05/20/25 11:29 04/20/25 16:56 5 UNIT Ipratropium [place] (AtrovENT UD) 0.5 mg Q6H PRN IH SHORTNESS OF BREATH 04/20/25 11:30 05/20/25 11:29 Levothyroxine Sodium (SYNTHroid 100MCG TAB) 100 mcg DAILY@0630 PO 04/21/25 06:30 04/21/25 13:39 DC Levothyroxine Sodium (SYNTHroid 50MCG TAB) 50 mcg SYN PO 04/22/25 06:30 05/22/25 06:29 Lisinopril (Prinivil 10mg) 10 mg DAILY PO 04/22/25 09:00 05/22/25 08:59 Magnesium Sulfate 50 ml @ 0 mls/hr PROTOCOL IV 04/20/25 11:30 05/20/25 11:29 04/21/25 03:48 25 MLS/HR Magnesium Sulfate 50 ml @ 0 mls/hr PROTOCOL IV 04/21/25 07:00 04/21/25 07:03 DC Morphine Sulfate (morPHINE 2MG SYG) 2 mg Q6H PRN IVP SEVERE PAIN (7-10) 04/20/25 11:00 04/27/25 10:59 04/21/25 13:02 2 MG Niacin (Niacin) 1,000 mg HS PO 04/21/25 21:00 05/21/25 20:59 Nicotine (Nicoderm) 7 mg DAILY TD 04/21/25 09:00 05/21/25 08:59 Nitroglycerin (Nitrostat) 0.4 mg AD PRN SL CHEST PAIN 04/20/25 10:30 04/20/25 11:07 DC 04/20/25 10:21 0.4 MG Nitroglycerin (Nitrostat) 0.4 mg AD PRN SL CHEST PAIN 04/20/25 11:00 04/20/25 17:43 DC Nitroglycerin (Nitrostat) 0.4 mg AD PRN SL CHEST PAIN 04/20/25 18:00 05/20/25 17:59 04/20/25 23:44 0.4 MG Nitroglycerin (Nitrostat) 0.4 mg Q5M PRN SL CHEST PAIN 04/20/25 10:30 04/20/25 10:13 DC Ondansetron HCl (zoFRAN 4MG INJ) 4 mg Q6H PRN IVP NAUSEA/VOMITING 04/20/25 11:30 05/20/25 11:29 Pantoprazole Sodium (PROTonix 40MG INJ) 40 mg DAILY IVP 04/21/25 09:00 05/21/25 08:59 Sodium Chloride 500 ml @ 0 mls/hr Q0M IV 04/20/25 14:30 05/20/25 14:29 Sodium Chloride 1,000 ml @ 50 mls/hr Q20H IV 04/21/25 07:00 04/22/25 07:00 04/21/25 07:09 50 MLS/HR Vitamin B Complex/ Vit C/Folic Acid (Nephrovite Tablet) 1 cap Q24H PO 04/20/25 12:00 05/20/25 11:59 04/21/25 13:11 1 CAP DIAGNOSTICS / RADIOLOGY: [ ] PATIENT: SB PATEL MR#: [id number] : 1965 SEX: M AGE: 60 LOCATION: [facility] ORDER 1100 STATUS: ADM IN REPORT#: [id number] SERVICE 1058 REASON: chest pain, uptrending troponin, Hear clinic to read ORDERING PHYSICIAN: MAYANK ANDRADE MD PROCEDURE: ECHO CMP - ECHO 2-D COMPLETE APPROVED REPORT EXAM: Two-dimensional and M-mode echocardiogram with Doppler and color Doppler. INDICATION ICD: Elevated troponin Chest Pain 2D Dimensions RVDd 2.6 cm LVEF(%) 27.7 (>50%) LVED Vol(simp.) 145.0 mL IVSd 1.1 (0.7-1.1cm) FS(%) 13 % LVES Vol(simp.) 84.0 mL LVDd 5.9 (3.8-5.6cm) LA (2D) 3.7 (1.6-4.0cm) LVEF(%, simp.) 43 % PWd 1.3 (0.7-1.1cm) Ao Root(2D) 3.5 (2.0-3.7cm) LA ESV INDEX (BP) 21.85 mL/m2 IVSs 1.0 cm LVOT diam 2.9 (1.8-2.4cm) LVDs 5.1 (2.5-4.0cm) PWs 1.2 cm Deformation Strain Apical 4 -11.4 % Apical 2 -11.8 % Apical 3 -13.5 % Global Strain -12.2 % M-Mode Dimensions EPSS 1.1 cm LA (MM) 3.9 (1.6-4.0cm) Ao Root(MM) 3.9 (2.0-3.7cm) Aortic Valve AoV Vmax 1.0 m/s Ao Peak GR 4.2 mmHg LVOT Vmax 1.0 m/s AoV VTI 0.2 m Ao Mean GR 2.6 mmHg LVOT VTI 0.18 m TERI (VMAX) 6.56 cm2 TERI (VTI) 6.9 cm2 Mitral Valve MV E Vmax 83.3 cm/s DECEL Time 169 ms MV A Vmax 77.3 cm/s P 1/2 T 43 ms E/A ratio 1.1 MVA (PHT) 5.1 cm2 TDI E/E' Medial 18.1 E/E' Lateral 16.6 Medial E' Peak V 4.59 cm/s Lateral E' Peak V 5.02 cm/s Left Ventricle The left ventricle is mildly dilated.. GLS -12.0% There is normal left ventricular wall thickness. LVEF is 40-45%. The left ventricular diastolic function is normal. Right Ventricle The right ventricle is normal size. The right ventricular systolic function is normal. Atria The left atrium size is normal. The right atrium size is normal. Aortic Valve The aortic valve is normal in structure. No aortic regurgitation is present. There is no aortic valvular stenosis. Mitral Valve The mitral valve is normal in structure. There is mild mitral valve r egurgitation noted. There is no mitral valve stenosis. Tricuspid Valve The tricuspid valve is normal in structure. There is no tricuspid valve regurgitation noted. Pulmonic Valve The pulmonary valve is normal in structure. There is no pulmonic valvular r egurgitation. Great Vessels The aortic root is normal in size. The IVC is normal in size and collapses >50% with inspiration. Pericardium There is no pericardial effusion. Other Information Quality : Technically difficult study due to body habitus Conclusion The left ventricle is mildly dilated.. LVEF is 40-45%. GLS -12.0% There is mild mitral valve regurgitation noted. There is no pericardial effusion. DICTATED BY: PRISCILLA SANCHEZ MD DATE: 04/20/252 ELECTRONICALLY SIGNED BY: PRISCILLA SANCHEZ MD DATE: 04/20/25 135 PATIENT: SB PATEL MR#: [id number] : 1965 SEX: M AGE: 60 LOCATION: [facility] ORDER 24 STATUS: ADM IN REPORT#: [id number] SERVICE 21 REASON: chronic kidney disease, hx of HTN, DM II ORDERING PHYSICIAN: MAYANK ANDRADE MD PROCEDURE: RENAL - US RENAL SONOGRAM EXAMINATION: ULTRASOUND OF THE RETROPERITONEUM. CLINICAL HISTORY: CKD. History of hypertension and diabetes. COMPARISON: Ultrasound of the retroperitoneum dated 10/05/[address] 11/27/2015. TECHNIQUE: Real-time grayscale ultrasound images of the kidneys. FINDINGS: The left kidney is smaller in caliber, the left kidney measures 8.1 x 4.1 x 2.1 cm in its craniocaudal, AP, and transverse dimensions respectively. There is normal renal cortical thinning and increased cortical echogenicity. There is no renal calculus or hydronephrosis. The right kidney is normal in caliber, the right kidney measures 12.1 x 7.2 x 6.2 cm in its craniocaudal, AP, and transverse dimensions respectively. There is normal renal cortical thickness, and cortical echogenicity. There is no renal calculus or hydronephrosis. There is a simple cortical cyst that measures 2.5 x 2.8 x 2.9 cm in the right renal mid pole. The urinary bladder is normal in caliber and wall thickness (0.24 cm). There are no calculi in the urinary bladder. IMPRESSION: Smaller left kidney with renal parenchymal disease. Right renal simple cortical cyst. /[place] DICTATED BY: ANDREINA MCCULLOUGH Jr., MD DATE: 04/21/25600 ELECTRONICALLY SIGNED BY: ANDREINA MCCULLOUGH Jr., MD DATE: 04/21/25600 ASSESSMENT: NSTEMI/ ACS, POA Rule out pericarditis, POA Rule out developing community-acquired pneumonia, POA Undiagnosed COPD/chronic bronchitis, POA History of coronary artery disease with prior history of PCI in 2004, POA CKD stage 3, POA Suspected BAILEY Electrolyte abnormalities (hyponatremia, hypomagnesemia) Tobacco use disorder, POA Cocaine use disorder, POA Hypertension, POA Hyperlipidemia, POA Diabetes mellitus type 2, POA Hypothyroidism POA PLAN: Patient to be admitted to PCCU NSTEMI/ ACS, ruled out pericarditis: Cardiology has been consulted on the case Left heart catheterization performed today, we will follow Cardiology recommen dations Pericarditis ruled out but the echo showing no evidence of pericardial effusion Echo showed LVEF 40-45% We will trend the troponin q.6 Continue heparin drip Continue diltiazem 30 mg q.6 Continue atorvastatin 40 mg Q 24 Patient is started on aspirin 81 daily Morphine 2 mg given for the chest pain Nitroglycerin 0.4 mg sublingually as p.r.n. for chest pain Chronic Bronchitis possible COPD Rule out developing community-acquired pneumonia We will start patient on broad-spectrum antibiotics with IV Rocephin/doxycycline Pulmonology has been consulted on the case Respiratory culture, Gram stain showed +Gram-positive cocci, final results pending Pulmicort, Atrovent has been placed for shortness of breath Patient will benefit from outpatient PFTs Patient will benefit from outpatient sleep study to rule out BAILEY CKD stage III, electrolyte abnormality Follow up with urine protein creatinine ratio Follow up with ultrasound renal sonogram Replace the magnesium per protocol Hypertension, hyperlipidemia, hypothyroidism, suspected BAILEY Patient's home medications were reconciled and resumed Patient should get evaluated for BAILEY as outpatient Continue with Lipitor, continue with gemfibrozil, patient has not taken some of his home medications for several months Restart lisinopril monitoring renal function closely GI prophylaxis with pantoprazole Anticipate hospitalization for at least 48-72 hours depending on Cardiology recommendations and interventions, clinical response ATTESTATION BY PHYSICIAN I have seen and examined the patient. I reviewed the documentation, medical decision making, and treatment plan as noted by the resident provider above. I agree with the findings and plan of care. ALEJANDRA ARZATE MD, HARSHAVARDHA MD Apr 21, 2025 16:00
[2025-04-21] MEDS ORDERED: HALOPERIDOL 20 MG PO SCH (21:00)
[2025-04-21] MEDS ORDERED: NIACIN 500 MG SRTAB PO SCH (21:00)
[2025-04-22] VITALS (11 sets, daily range): BP systolic 101–129; BP diastolic 58–88; PULSE 66–79; RESP 18–21; TEMP 97.8–98.6; O2SAT 95–97
[2025-04-22 04:18] LABS: NUCLEATED RED BLOOD CELLS 0.0 % (0.0-0.19); PLATELET COUNT (AUTO) 193.0 K/uL (130-400); RED BLOOD CELL COUNT(AUTO) 4.61 MIL/uL (4.50-6.20); RED CELL DISTRIBUTION WIDTH 13.2 % (11.0-15.5); WHITE BLOOD COUNT (AUTO) 6.7 K/uL (4.8-10.8)
[2025-04-22 04:51] LABS: ASPARTATE AMINOTRANSFERASE 70.0 U/L (10-37); CREATININE 1.4 mg/dL (0.5-1.3); GLOMERULAR FILTR. RATE CALC 58.0 mL/min (>90); GLUCOSE,RANDOM 142.0 mg/dL (70-105); SODIUM SERUM 138.0 mmol/L (136-145); TOTAL PROTEIN, SERUM 6.0 g/dL (6.0-8.3); UREA NITROGEN, BLOOD 13.0 mg/dL (7-18)
[2025-04-22] MEDS ORDERED: CANAGLIFLOZIN 300 MG PO SCH (09:00)
--- NOTE | 2025-04-22 09:27 | PN ---
[facility] CARDIOLOGY PROGRESS NOTE Date Patient Seen: Apr 22, 2025 Time of Visit: 09:22 Problem List: NSTEMI/ ACS, POA Rule out pericarditis, POA Rule out developing community-acquired pneumonia, POA Undiagnosed COPD/chronic bronchitis, POA History of coronary artery disease with prior history of PCI in 2004, POA CKD stage 3, POA Suspected BAILEY Electrolyte abnormalities (hyponatremia, hypomagnesemia) Tobacco use disorder, POA Cocaine use disorder, POA Hypertension, POA Hyperlipidemia, POA Diabetes mellitus type 2, POA Hypothyroidism POA Interval History: Pt without chest pain overnight. Post left heart cath that was positive for severe three vessel disease. He has surgical consultation and they are reviewing targets for bypass, no date as of yet for procedure. Pt is aware and agreeable to proceed, wanted to know if we could fix his hip while he's under. Explained that the heart takes priority and he will need to recover from this issue prior to addressing further surgical interventions. He is currently hemodynamically stable. Continues on asa and statin and lovenox Physical Examination: GENERAL: [No acute distress.] HEAD: [Normal with no signs of head trauma.] EYES: [PERRLA, EOMI, conjunctiva and sclera normal.] ENT: [Hearing grossly intact, normal oropharynx.] NECK: [Supple without JVD. There is no tenderness, lymphadenopathy, or masses. No thyromegaly. Normal carotid upstrokes without bruits.] LUNGS: [Clear breath sounds bilaterally. There are right basilar rales one third of the way up the chest. No wheezes, or rhonchi.] HEART: [Normal rate and rhythm. Normal S1 and S2 without mumurs, gallop or rub.] VASC: [Peripheral pulses +2 bilaterally.] ABD: [Bowel sounds normal, soft, nontender, no masses, no organomegaly. No audible bruits.] : [Not examined] LYMPH: [No lymphadenopathy noted.] EXT: [No clubbing, cyanosis or edema.] SKIN: [No rashes or lesions noted.] NEURO: [Awake, alert, and oriented x3. No focal sensory or strength deficits noted.] Laboratory: [ ] Hematology Labs: Test 04/22/25 03:36 04/21/25 02:28 04/20/25 09:25 Range/Units White Blood Count 6.7 4.8-10.8 K/uL Red Blood Count 4.61 4.50-6.20 MIL/uL Hemoglobin 13.9 L 14.0-18.0 g/dL Hematocrit 41.4 L 42-54 % Mean Corpuscular Volume 89.8 79-99 fL Mean Corpuscular Hemoglobin 30.2 27.0-33.0 pg Mean Corpuscular Hemoglobin Concent 33.6 32.0-36.0 g/dL Red Cell Distribution Width 13.2 11.0-15.5 % Platelet Count 193 130-400 K/uL Mean Platelet Volume 9.7 7.5-10.5 fL Nucleated Red Blood Cells 0.0 0.0-0.19 % Immature Granulocyte % (Auto) 0.7 0-1 % Neutrophils (%) (Auto) 60.9 40.0-77.0 % Lymphocytes (%) (Auto) 23.8 21.0-51.0 % Monocytes (%) (Auto) 9.0 3.0-13.0 % Eosinophils (%) (Auto) 4.8 0.0-8.0 % Basophils (%) (Auto) 0.8 0.0-5.0 % Neutrophils # (Auto) 6.5 1.8-7.7 K/uL Lymphocytes # (Auto) 2.6 1.0-4.8 K/uL Monocytes # (Auto) 1.0 0.1-1.0 K/uL Eosinophils # (Auto) 0.51 0.00-0.70 K/uL Basophils # (Auto) 0.09 0.00-0.20 K/uL Absolute Immature Granulocyte (auto 0.07 0-1 K/uL Erythrocyte Sedimentation Rate 3 0-20 MM/HR Chemistry Labs: Test 04/22/25 05:37 04/22/25 03:36 04/20/25 19:45 04/20/25 16:35 Range/Units Whole Blood Glucose 177 H 70-110 MG/DL Sodium Level 138 136-145 mmol/L Potassium Level 4.2 3.5-5.1 mmol/L Chloride Level 102 101-111 mmol/L Carbon Dioxide Level 29 21-32 mmol/L Blood Urea Nitrogen 13 7-18 mg/dL Creatinine 1.4 H 0.5-1.3 mg/dL Glomerular Filtration Rate Calc 58 >90 mL/min Random Glucose 142 H 70-105 mg/dL Total Calcium 8.2 L 8.5-10.1 mg/dL Magnesium Level 1.70 L 1.80-2.40 mg/dL Total Bilirubin 0.4 0.2-1.0 mg/dL Aspartate Amino Transf (AST/SGOT) 70 H 10-37 U/L Alanine Aminotransferase (ALT/SGPT) 32 12-78 U/L Alkaline Phosphatase 66 50-136 U/L Troponin I High Sensitivity 40639 *H 4-75 ng/L Total Protein 6.0 6.0-8.3 g/dL Albumin 2.7 L 3.5-5.0 g/dL Total Creatine Kinase 452 #*H 21-232 U/L Bedside Glucose Comment Notified Nurse Test 04/20/25 10:10 04/20/25 09:25 Range/Units Direct Bilirubin 0.1 0.0-0.3 mg/dL C-Reactive Protein, Quantitative 1.30 0.5-3.0 mg/L Triglycerides Level 796 H 30-200 mg/dL Cholesterol Level 285 #H <200 mg/dL LDL Cholesterol 105 H 0-99 mg/dL HDL Cholesterol 40 29-71 mg/dL Procalcitonin < 0.05 L 0.05-0.5 ng/mL Thyroid Stimulating Hormone (TSH) 7.56 H 0.36-3.74 uIU/mL Hemoglobin A1c 6.7 H 4.0-6.0 % Estimated Average Glucose (eAG) 146 H 70-126 mg/dL B-Type Natriuretic Peptide 169 H 0-100 pg/mL Coagulation Labs: Test 04/21/25 09:54 04/21/25 07:50 04/20/25 09:25 Range/Units Kaolin Activated Coagulation Time 129 74-137 SEC Activated Partial Thromboplast Time 60.7 #H 26.3-35.5 SEC Prothrombin Time 10.3 9.6-11.6 SEC Prothromb Time International Ratio 0.97 0.85-1.15 Diagnostics / Radiology: [Copy/Paste Echos/Imaging Report here] Impression and Plan: Continue asa Continue lovenox Surgical opinion pending for candidacy depending on targets available Counselled on smoking/illicit drug cessation Continue lisinopril for bp control Unable to use betablocker secondary to cocaine use. BELKIS MOHAMUD NP Apr 22, 2025 09:26
[2025-04-22] MEDS: LISINOPRIL 10 MG TABLET PO SCH (12:24)
--- NOTE | 2025-04-22 13:23 | PN ---
[facility] PROGRESS NOTE Date Patient Seen: Apr 22, 2025 Time of Visit: 13:14 Supervising Physician: Dr. Bansal Primary Care Physician: [ ] Outpatient Specialists: [ ] Inpatient Consults: Dr. Gordon, Dr. Pop PROBLEM LIST: NSTEMI/ ACS, POA -s/p [facility] on 04/21/25 Rule out pericarditis, POA Rule out developing community-acquired pneumonia, POA Undiagnosed COPD/chronic bronchitis, POA History of coronary artery disease with prior history of PCI in 2004, POA CKD stage 3, POA Suspected BAILEY Electrolyte abnormalities (hyponatremia, hypomagnesemia) Tobacco use disorder, POA Cocaine use disorder, POA Hypertension, POA Hyperlipidemia, POA Diabetes mellitus type 2, POA Hypothyroidism POA INTERVAL HISTORY: Patient evaluated at bedside today, he is currently on room air. Patient is comfortable, denies any chest pain at this time. Patient underwent left heart catheterization yesterday, in his currently being evaluated by CV surgery for the possibility of a CABG x3. Patient's white count today 6.7, hemoglobin at 13.9 and stable. [place] [address] today. Cardiology is following and aware. He continues on Rocephin and doxycycline at this time for pneumonia, patient advised today that we will defer to Cardiology for prioritized interventions and we will continue antibiotic treatment and nebulizers at this time. REVIEW OF SYSTEMS: 12 point ROS reviewed with patient. Pertinent positives mentioned above. Otherwise negative. PHYSICAL EXAM: GENERAL: alert, weak, awake oriented x 3 HEENT: EOMI, Sclera non icteric, moist mucosa NECK: Supple, no JVD, trachea midline LUNGS: Clear breath sounds bilaterally. No wheezes HEART: Regular rate and rhythm. Normal S1 and S2, without murmurs ABD: Abdomen soft, nontender. Bowel sounds present EXT: No clubbing cyanosis or edema NEURO: Alert and oriented to person, follows commands Vital Signs (last 8hr) Date Time Temp Pulse Resp B/P (MAP) Pulse Ox O2 Delivery O2 Flow Rate FiO2 04/22/25 11:00 97.9 71 18 117/78 95 Room Air 04/22/25 07:00 98.6 69 18 123/76 96 Room Air 04/22/25 06:40 21 N/A Room Air 21 04/22/25 06:40 79 18 04/22/25 06:16 76 18 128/88 LABS: Hematology Labs: Test 04/22/25 03:36 04/21/25 02:28 Range/Units White Blood Count 6.7 4.8-10.8 K/uL Red Blood Count 4.61 4.50-6.20 MIL/uL Hemoglobin 13.9 L 14.0-18.0 g/dL Hematocrit 41.4 L 42-54 % Mean Corpuscular Volume 89.8 79-99 fL Mean Corpuscular Hemoglobin 30.2 27.0-33.0 pg Mean Corpuscular Hemoglobin Concent 33.6 32.0-36.0 g/dL Red Cell Distribution Width 13.2 11.0-15.5 % Platelet Count 193 130-400 K/uL Mean Platelet Volume 9.7 7.5-10.5 fL Nucleated Red Blood Cells 0.0 0.0-0.19 % Immature Granulocyte % (Auto) 0.7 0-1 % Neutrophils (%) (Auto) 60.9 40.0-77.0 % Lymphocytes (%) (Auto) 23.8 21.0-51.0 % Monocytes (%) (Auto) 9.0 3.0-13.0 % Eosinophils (%) (Auto) 4.8 0.0-8.0 % Basophils (%) (Auto) 0.8 0.0-5.0 % Neutrophils # (Auto) 6.5 1.8-7.7 K/uL Lymphocytes # (Auto) 2.6 1.0-4.8 K/uL Monocytes # (Auto) 1.0 0.1-1.0 K/uL Eosinophils # (Auto) 0.51 0.00-0.70 K/uL Basophils # (Auto) 0.09 0.00-0.20 K/uL Absolute Immature Granulocyte (auto 0.07 0-1 K/uL Chemistry Labs: Test 04/22/25 10:50 04/22/25 03:36 04/20/25 19:45 Range/Units Whole Blood Glucose 183 H 70-110 MG/DL Bedside Glucose Comment Notified Nurse Sodium Level 138 136-145 mmol/L Potassium Level 4.2 3.5-5.1 mmol/L Chloride Level 102 101-111 mmol/L Carbon Dioxide Level 29 21-32 mmol/L Blood Urea Nitrogen 13 7-18 mg/dL Creatinine 1.4 H 0.5-1.3 mg/dL Glomerular Filtration Rate Calc 58 >90 mL/min Random Glucose 142 H 70-105 mg/dL Total Calcium 8.2 L 8.5-10.1 mg/dL Magnesium Level 1.70 L 1.80-2.40 mg/dL Total Bilirubin 0.4 0.2-1.0 mg/dL Aspartate Amino Transf (AST/SGOT) 70 H 10-37 U/L Alanine Aminotransferase (ALT/SGPT) 32 12-78 U/L Alkaline Phosphatase 66 50-136 U/L Troponin I High Sensitivity 69737 *H 4-75 ng/L Total Protein 6.0 6.0-8.3 g/dL Albumin 2.7 L 3.5-5.0 g/dL Total Creatine Kinase 452 #*H 21-232 U/L Coagulation Labs: Test 04/21/25 09:54 04/21/25 07:50 Range/Units Kaolin Activated Coagulation Time 129 74-137 SEC Activated Partial Thromboplast Time 60.7 #H 26.3-35.5 SEC DIAGNOSTICS / RADIOLOGY RESULTS: [ ] PLAN NEURO: Minimize central acting medications as possible. Maintain fall precautions, adequate lighting during the day PULMONARY: Supplemental 02 as needed. Maintain aspiration precautions at all times CARDIOVASCULAR: Follow hemodynamics. Vital signs per facility protocol GI & NUTRITION: Continue with nutritional support. Continue stool softeners and laxatives as needed. KIDNEYS & ELECTROLYTES: Strict monitoring of intake, output and overall fluid balance. Avoid nephrotoxic medications to the extent possible. Medications to be dosed according to renal function. Monitor electrolytes and replace as needed ENDOCRINE: Maintain blood glucose between 100-180 at all times. Hypoglycemia protocol in place INFECTIOUS DISEASE: Trend temperature, WBC and procalcitonin level Follow cultures, deescalate antibiotics as soon as possible. Panculture if new onset fever ONCOLOGY/HEMATOLOGY/COAGULATION: Monitor for s/s of bleeding Monitor hemoglobin, coagulation studies as needed SKIN: Pressure ulcer prevention per facility protocol Specialty mattress ORTHO/REHAB: Continue PT/OT Prophylaxis: Continue GI and DVT prophylaxis Code Status: Full Resuscitation Disposition: TBD Other: Total patient care time exceeds 35 minutes excluding all procedures. ROBIN JONES Apr 22, 2025 13:23
[2025-04-22 16:29] LABS: ABG BASE EXCESS -2.9 mmol/L (-2.0-3.0); ABG HCO3 20.8 mmol/L (21.0-28.0); ABG OXYGEN SATURATION 95.7 % (94.0-98.0); ABG PCO2 33 mmHg (35-48); ABG PH 7.413 (7.350-7.450); CARBON MONOXIDE 1.3 % (0.5-1.5); DEVICE COMMENT LR JOHNNY; PO2, ARTERIAL BG 81.3 mmHg (83.0-108.0); TEMPERATURE, CELSIUS BG 37.0 CELSIUS (35.5-37.0); VENT MODE, BG ROOM AIR (ROOM AIR)
--- NOTE | 2025-04-22 17:23 | PN ---
[facility] PROGRESS NOTE Date of Service: Apr 22, 2025 Time of Service: 17:05 HISTORY OF PRESENT ILLNESS: Patient is a 60-year-old male with past medical history of CAD, hyperlipidemia, hypertension, diabetes mellitus type 2, hypothyroidism, obesity who presented to the ED with chief complaint of chest pain. Patient complained of diaphoresis, shortness of breath, chest pain which started 2 weeks ago which is on and off and burning pain in nature. Patient started having severe chest pain 3 hours ago which prompted the patient to come to the ED. patient complained that the pain is worse on lying down and better on waking up and leaning forward. He ambulates using cane. Patient admitted to smoking 1 pack per day for past 40 years since the age of 9, vaping, usage of weed, reports hx of chronic cocaine use with last use 2 days ago. On presentation to the ED patient vitals temperature 98.2, pulse 89, res piratory rate 20, blood pressure 120/79, saturating at 96% on room air. Labs revealed white blood count of 8.5, hemoglobin 14.5 Chemistries show sodium 130, creatinine 1.6, BUN 19, glucose 213, magnesium 1.7, BNP 169, and troponin initially is 323 trended up to 496. Patient received3 and4 mg of aspirin in the ED and 0.4 mg of sublingual nitroglycerin which did not help with the pain. CXR showed bilateral infiltrates. Patient will be admitted for further evaluation of chest pain in the setting of elevated cardiac troponin, with concern fro ACS/ NSTEMI. Will also consider pericarditis in the differential due to symptomatology of chest pain. Patient will receive broad-spectrum antibiotics and patient likely has undiagnosed COPD with chest x-ray showing bilateral infiltrates with concerns for possible pneumonia. Patient will be monitored closely under hospitalist service. SUBJECTIVE: 04/21/2025: Patient was evaluated at the bedside. Patient appeared to be in mild distress however did not complain of chest pain this morning. Patient was scheduled for left heart catheterization this morning. Patient reports that he had ongoing chest pain for 2 weeks which got severe yesterday, worse when lying down and relieved by sitting up and leaning forward. He also had cough and shortness of breath and his chest x-ray showed bilateral basilar infiltrates suggestive of pneumonia. His cardiac troponins were serially measured and today they were 5810. Echo was performed and ruled out pericardial effusion. Patient admits to using cocaine and marijuana within the last 2 days. Patient started on Cardizem, aspirin and heparin drip. Patient admits to smoking. Patient's white count cell is 10.7. We will follow Cardiology recommendations after left heart catheterization. 04/22/2025: Patient was evaluated at the bedside. Patient was not in any distress was alert, oriented and did not complain of chest pain today. Patient had his left heart catheterization yesterday which found severe multivessel CAD needing CABG. He had a 70% distal stenosis followed by a total occlusion of the distal RCA. The left circumflex artery is totally occluded proximally. The LAD had a previous stent which is 100% stenosis in the mid LAD after a diagonal branch. His LVEF was 40%. [place] [address] today up from [address] Pop reviewed him and deemed he has very poor targets for CABG however wants to attempt it. Patient was explained about the risks and he expressed understanding and gave the consent. Patient is still pending a date for CABG and will be maintained meanwhile on his ACS protocol. REVIEW OF SYSTEMS CONSTITUTIONAL: Denies fevers, chills, or night sweats. No unintentional weight loss reported. NEUROLOGICAL: Denies headache, amaurosis fugax, motor weakness, sensory deficit, vertigo/spinning sensation CARDIOVASCULAR: Denies any exertional angina, dyspnea on exertion, orthopnea, palpitations, life-threatening arrhythmias, claudication. Admits to chest pain, PND PULMONARY: Admits to shortness of breath, cough, phlegm/sputum, hemoptysis, pleuritic chest pain. SLEEP: Denies morning headaches, daytime somnolence or napping. Denies difficulty falling asleep, staying asleep, waking from sleep. Admits of snoring. GASTROINTESTINAL: Denies any type of dysphagia to either liquids or solids. Denies nausea, vomiting, pyrosis, early satiety, abdominal pain, diarrhea, constipation, or changes in stool consistency or caliber. Denies coffee-ground emesis, hematemesis, hematochezia, or melanotic stools. GENITOURINARY: Denies frequency, urgency, nocturia, hematuria or incontinence (Storage/Irritative symptoms.) Low urinary stream, straining to void, urinary intermittency or hesitancy, splitting of the voiding stream, terminal dribbling. PSYCHIATRIC: Denies any suicidal or homicidal ideation. Denies hallucinations. PHYSICAL EXAM GENERAL APPEARANCE: The patient is awake, alert, and oriented, in no acute cardiopulmonary distress. CHEST: Normal chest expansion. Telemetry LUNGS: Absence of any rales, rhonchi or any wheezing. CARDIOVASCULAR: Regular. S1 and S2 normal. No appreciable rubs, murmurs or gallops. ABDOMEN: Soft, nontender, and nondistended. There is no rebound, voluntary guarding, or rigidity. : Deferred. No Weir. EXTREMITIES: Non-edematous and not cyanotic. No clubbing. Good capillary refill. SKIN: No skin breakdown. Vital Signs (last 8hr) Date Time Temp Pulse Resp B/P (MAP) Pulse Ox O2 Delivery O2 Flow Rate FiO2 04/22/25 16:00 98.2 74 20 121/76 96 Room Air 04/22/25 11:00 97.9 71 18 117/78 95 Room Air LABS: Laboratory: Test 04/22/25 16:30 04/22/25 16:27 04/22/25 03:36 04/21/25 09:54 Range/Units Whole Blood Glucose 233 H 70-110 MG/DL Bedside Glucose Comment Notified Nurse Blood Gas Specimen Type Arterial Arterial Blood pH 7.413 7.350-7.450 Arterial Blood Partial Pressure CO2 33 L 35-48 mmHg Arterial Blood Partial Pressure O2 81.3 L 83.0-108.0 mmHg Arterial Blood HCO3 20.8 L 21.0-28.0 mmol/L Arterial Blood Oxygen Saturation 95.7 94.0-98.0 % Arterial Blood Base Excess -2.9 L -2.0-3.0 mmol/L Hemoglobin (Blood Gas) 14.3 13.5-17.5 g/dL Sodium (Blood Gas) 135 L 136-145 MMOL/L Bedside Potassium (Blood Gas) 4.5 3.4-4.5 MMOL/L Bedside Chloride (Blood Gas) 104 98-107 MMOL/L Bedside Glucose (Blood Gas) 220 H 65-95 MG/DL Bedside Ionized Calcium (Blood Gas) 1.15 1.15-1.33 MMOL/L Bedside Lactic Acid (Blood Gas) 1.32 H 0.36-0.75 MMOL/L Blood Gas Temperature 37.0 35.5-37.0 CELSIUS Blood Gas Vent Mode ROOM AIR ROOM AIR FiO2 21.0 % Blood Gas Specimen Comment LR JAVIER White Blood Count 6.7 4.8-10.8 K/uL Red Blood Count 4.61 4.50-6.20 MIL/uL Hemoglobin 13.9 L 14.0-18.0 g/dL Hematocrit 41.4 L 42-54 % Mean Corpuscular Volume 89.8 79-99 fL Mean Corpuscular Hemoglobin 30.2 27.0-33.0 pg Mean Corpuscular Hemoglobin Concent 33.6 32.0-36.0 g/dL Red Cell Distribution Width 13.2 11.0-15.5 % Platelet Count 193 130-400 K/uL Mean Platelet Volume 9.7 7.5-10.5 fL Nucleated Red Blood Cells 0.0 0.0-0.19 % Sodium Level 138 136-145 mmol/L Potassium Level 4.2 3.5-5.1 mmol/L Chloride Level 102 101-111 mmol/L Carbon Dioxide Level 29 21-32 mmol/L Blood Urea Nitrogen 13 7-18 mg/dL Creatinine 1.4 H 0.5-1.3 mg/dL Glomerular Filtration Rate Calc 58 >90 mL/min Random Glucose 142 H 70-105 mg/dL Total Calcium 8.2 L 8.5-10.1 mg/dL Magnesium Level 1.70 L 1.80-2.40 mg/dL Total Bilirubin 0.4 0.2-1.0 mg/dL Aspartate Amino Transf (AST/SGOT) 70 H 10-37 U/L Alanine Aminotransferase (ALT/SGPT) 32 12-78 U/L Alkaline Phosphatase 66 50-136 U/L Troponin I High Sensitivity 15415 *H 4-75 ng/L Total Protein 6.0 6.0-8.3 g/dL Albumin 2.7 L 3.5-5.0 g/dL Kaolin Activated Coagulation Time 129 74-137 SEC Test 04/21/25 07:50 04/21/25 02:28 04/20/25 19:45 Range/Units Activated Partial Thromboplast Time 60.7 #H 26.3-35.5 SEC Immature Granulocyte % (Auto) 0.7 0-1 % Neutrophils (%) (Auto) 60.9 40.0-77.0 % Lymphocytes (%) (Auto) 23.8 21.0-51.0 % Monocytes (%) (Auto) 9.0 3.0-13.0 % Eosinophils (%) (Auto) 4.8 0.0-8.0 % Basophils (%) (Auto) 0.8 0.0-5.0 % Neutrophils # (Auto) 6.5 1.8-7.7 K/uL Lymphocytes # (Auto) 2.6 1.0-4.8 K/uL Monocytes # (Auto) 1.0 0.1-1.0 K/uL Eosinophils # (Auto) 0.51 0.00-0.70 K/uL Basophils # (Auto) 0.09 0.00-0.20 K/uL Absolute Immature Granulocyte (auto 0.07 0-1 K/uL Total Creatine Kinase 452 #*H 21-232 U/L Current Medications Medications (Trade) Dose Ordered Sig/Damian Route PRN Reason Start Time Stop Time Status Last Admin Dose Admin Acetaminophen (TYLenol 325MG TAB) 650 mg Q6H PRN PO MILD PAIN (1-3) 04/20/25 11:30 05/20/25 11:29 Aspirin (Aspirin 325mg Tab) 325 mg DAILY PO 04/21/25 09:00 04/20/25 11:07 DC Aspirin (Aspirin 81mg Chew Tab) 81 mg Q24H PO 04/20/25 11:30 05/20/25 11:29 04/22/25 12:24 81 MG Atorvastatin Calcium (LIPItor 40MG) 40 mg Q24H PO 04/20/25 11:30 04/21/25 13:17 DC 04/20/25 11:32 40 MG Atorvastatin Calcium (LIPItor 40MG) 40 mg Q24H PO 04/21/25 21:00 05/21/25 20:59 04/21/25 20:49 40 MG Budesonide (Pulmicort 0.5 Mg/2ml) 0.5 mg BIDRESP IH 04/20/25 11:30 05/20/25 11:29 04/22/25 06:38 0.5 MG Budesonide (Pulmicort 0.5 Mg/2ml) 0.5 mg BIDRESP IH 04/20/25 18:00 04/20/25 11:18 DC Cefazolin Sodium (ANCEF 1 gm vial) 2 gm ONCALL IVP 04/22/25 16:30 04/22/25 16:15 DC Ceftriaxone Sodium (ROCEphine 1G INJ) 1 gm Q12H IVPB 04/20/25 11:30 04/30/25 11:29 04/22/25 12:25 1 GM Clopidogrel Bisulfate (plaVIX 75MG) 75 mg DAILY PO 04/21/25 09:00 04/21/25 13:18 DC Diltiazem HCl (CARDIzem 60MG TAB) 30 mg Q6H PO 04/20/25 11:30 04/20/25 21:29 DC 04/20/25 18:13 30 MG Diltiazem HCl (CARDIzem 60MG TAB) 60 mg [id number] PO 04/20/25 23:30 05/20/25 23:29 04/22/25 12:24 60 MG Doxycycline Hyclate (Doxycycline Hyclate) 100 mg BID PO 04/20/25 21:00 04/30/25 20:59 04/22/25 12:24 100 MG Enoxaparin Sodium (Lovenox) 40 mg DAILY SQ 04/22/25 16:00 05/22/25 15:59 Ferrous Sulfate (Ferrous Sulfate) 325 mg TID PO 04/21/25 14:00 04/21/25 17:13 DC Gemfibrozil (gemFIBROzil 600 MG TABLET) 600 mg BIDAC PO 04/20/25 16:30 05/20/25 16:29 04/22/25 06:41 600 MG Heparin Sodium (Porcine) (HEParin 5,000 UNIT VIAL) *calculation based on ACTUAL B... AD PRN IV HEPARIN PROTOCOL 04/20/25 12:30 04/21/25 11:08 DC 04/20/25 11:59 9,000 UNIT Heparin Sodium/ Dextrose 250 ml @ 0 mls/hr Q6H IV 04/20/25 12:30 04/21/25 11:08 DC 04/21/25 01:22 18.13 MLS/HR Home Med (Home Medication) (Canagliflozin (Invokana) 300 MG) DAILY PO 04/22/25 09:00 04/21/25 16:44 DC Home Med (Home Medication) (Haloperidol 20 MG) HS PO 04/21/25 21:00 04/21/25 16:44 DC Hydralazine HCl (APRESOLine 20MG INJ) 5 mg Q6H PRN IV ADMINISTER FOR SBP > 160 04/20/25 11:30 05/20/25 11:29 Insulin Human Regular (humuLIN R 100 UNIT/ML 3ML) INSULIN SLIDING SCAL... ACHS SQ 04/20/25 11:30 05/20/25 11:29 04/22/25 12:40 2 UNIT Ipratropium Paul (AtrovENT UD) 0.5 mg Q6H PRN IH SHORTNESS OF BREATH 04/20/25 11:30 05/20/25 11:29 Levothyroxine Sodium (SYNTHroid 100MCG TAB) 100 mcg DAILY@0630 PO 04/21/25 06:30 04/21/25 13:39 DC Levothyroxine Sodium (SYNTHroid 100MCG TAB) 100 mcg DAILY@0630 PO 04/22/25 06:30 05/22/25 06:29 04/22/25 06:41 100 MCG Levothyroxine Sodium (SYNTHroid 50MCG TAB) 50 mcg SYN PO 04/22/25 06:30 04/21/25 16:44 DC Lisinopril (Prinivil 10mg) 10 mg DAILY PO 04/22/25 09:00 05/22/25 08:59 04/22/25 12:24 10 MG Magnesium Sulfate 50 ml @ 0 mls/hr PROTOCOL IV 04/20/25 11:30 05/20/25 11:29 04/21/25 03:48 25 MLS/HR Magnesium Sulfate 50 ml @ 0 mls/hr PROTOCOL IV 04/21/25 07:00 04/21/25 07:03 DC Metoprolol Tartrate (loprESSOR) 12.5 mg BID PO 04/22/25 21:00 05/22/25 20:59 Morphine Sulfate (morPHINE 2MG SYG) 2 mg Q6H PRN IVP SEVERE PAIN (7-10) 04/20/25 11:00 04/27/25 10:59 04/22/25 06:40 2 MG Niacin (Niacin) 1,000 mg HS PO 04/21/25 21:00 04/21/25 16:41 DC Nicotine (Nicoderm) 7 mg DAILY TD 04/21/25 09:00 05/21/25 08:59 04/22/25 12:25 7 MG Nitroglycerin (Nitrostat) 0.4 mg AD PRN SL CHEST PAIN 04/20/25 10:30 04/20/25 11:07 DC 04/20/25 10:21 0.4 MG Nitroglycerin (Nitrostat) 0.4 mg AD PRN SL CHEST PAIN 04/20/25 11:00 04/20/25 17:43 DC Nitroglycerin (Nitrostat) 0.4 mg AD PRN SL CHEST PAIN 04/20/25 18:00 05/20/25 17:59 04/20/25 23:44 0.4 MG Nitroglycerin (Nitrostat) 0.4 mg Q5M PRN SL CHEST PAIN 04/20/25 10:30 04/20/25 10:13 DC Ondansetron HCl (zoFRAN 4MG INJ) 4 mg Q6H PRN IVP NAUSEA/VOMITING 04/20/25 11:30 05/20/25 11:29 Pantoprazole Sodium (PROTonix 40MG INJ) 40 mg DAILY IVP 04/21/25 09:00 05/21/25 08:59 04/22/25 12:24 40 MG Sodium Chloride 500 ml @ 0 mls/hr Q0M IV 04/20/25 14:30 05/20/25 14:29 Sodium Chloride 1,000 ml @ 50 mls/hr Q20H IV 04/21/25 07:00 04/22/25 07:00 DC 04/21/25 07:09 50 MLS/HR Vitamin B Complex/ Vit C/Folic Acid (Nephrovite Tablet) 1 cap Q24H PO 04/20/25 12:00 05/20/25 11:59 04/22/25 12:24 1 CAP DIAGNOSTICS / RADIOLOGY: [ ] ASSESSMENT: NSTEMI/ ACS, POA Rule out pericarditis, POA Rule out developing community-acquired pneumonia, POA Undiagnosed COPD/chronic bronchitis, POA History of coronary artery disease with prior history of PCI in 2004, POA CKD stage 3, POA Suspected BAILEY Electrolyte abnormalities (hyponatremia, hypomagnesemia) Tobacco use disorder, POA Cocaine use disorder, POA Hypertension, POA Hyperlipidemia, POA Diabetes mellitus type 2, POA Hypothyroidism POA PLAN: Patient to be admitted to PCCU NSTEMI/ ACS, severe multivessel coronary artery disease: Cardiology has been consulted on the case Left heart catheterization performed today, showing severe 3+ CAD Pending final decision for CABG Pericarditis ruled out but the echo showing no evidence of pericardial effusion Echo showed LVEF 40-45% We will trend the troponin q.6 Continue heparin drip Continue diltiazem 30 mg q.6 Continue atorvastatin 40 mg Q 24 Patient is started on aspirin 81 daily Morphine 2 mg given for the chest pain Nitroglycerin 0.4 mg sublingually as p.r.n. for chest pain Chronic Bronchitis possible COPD Rule out developing community-acquired pneumonia We will start patient on broad-spectrum antibiotics with IV Rocephin/doxycycline Pulmonology has been consulted on the case Respiratory culture, Gram stain showed +Gram-positive cocci, final results pending Pulmicort, Atrovent has been placed for shortness of breath Patient will benefit from outpatient PFTs Patient will benefit from outpatient sleep study to rule out BAILEY CKD stage III, electrolyte abnormality Follow up with urine protein creatinine ratio Renal ultrasound showed smaller left kidney with renal parenchymal disease and a right renal simple cortical cyst Replace the magnesium per protocol Hypertension, hyperlipidemia, hypothyroidism, suspected BAILEY Patient's home medications were reconciled and resumed Patient should get evaluated for BAILEY as outpatient Continue with Lipitor, continue with gemfibrozil, patient has not taken some of his home medications for several months Restart lisinopril monitoring renal function closely GI prophylaxis with pantoprazole Anticipate hospitalization for at least 48-72 hours depending on Cardiology recommendations and interventions, clinical response ATTESTATION BY PHYSICIAN I have seen and examined the patient. I reviewed the documentation, medical decision making, and treatment plan as noted by the resident provider above. I agree with the findings and plan of care. ALEJANDRA ARZATE MD, HARSHAVARDHA MD Apr 22, 2025 17:23
[2025-04-22] MEDS: ENOXAPARIN SODIUM 40 MG/0.4 ML SYRINGE SQ SCH (18:23)
[2025-04-23] VITALS (59 sets, daily range): BP systolic 88–155; BP diastolic 35–99; PULSE 59–121; RESP 11–30; TEMP 97.6–99.3; O2SAT 96–99
[2025-04-23 03:57] LABS: IMMATURE GRANULOCYTE ABSOLUTE 0.04 K/uL (0-1); NUCLEATED RED BLOOD CELLS 0.0 % (0.0-0.19); PLATELET COUNT (AUTO) 196 K/uL (130-400); RED BLOOD CELL COUNT(AUTO) 4.33 MIL/uL (4.50-6.20); RED CELL DISTRIBUTION WIDTH 13.3 % (11.0-15.5); WHITE BLOOD COUNT (AUTO) 5.7 K/uL (4.8-10.8)
[2025-04-23 04:13] LABS: CREATININE 1.5 mg/dL (0.5-1.3); GLOMERULAR FILTR. RATE CALC 53.0 mL/min (>90); GLUCOSE,RANDOM 176.0 mg/dL (70-105); LDL DIRECT 133.0 mg/dL (0-99); SODIUM SERUM 136.0 mmol/L (136-145); UREA NITROGEN, BLOOD 18.0 mg/dL (7-18)
[2025-04-23 04:23] LABS: INR 0.94 (0.85-1.15)
--- NOTE | 2025-04-23 06:49 | EKG ---
[facility] Test Date: 2025-04-23 Test Time: 05:34:44 Pat Name: SB PATEL Department: [facility] Room: 212 Gender: M Clinical Nursing Coordinator: [id number] : 1965 Requested By: VASU LOZOYA Order Number: [id number] Reading MD: Magdi Boogie Measurements Intervals [place] Rate: 61 P: 56 [place]: 182 QRS: 54 QRSD: 85 T: 4 QT: 419 QTc: 422 Interpretive Statements Sinus rhythm Inferior infarct, old Compared to ECG 04/20/2025 11:14:25 No significant changes Electronically Signed On 04-23-2025 16:05:42 CDT by Magdi Boogie Please click the below link to view image of tracing.
--- NOTE | 2025-04-23 07:08 | HMCIMG ---
EXAMINATION: DUPLEX ULTRASOUND EXAMINATION OF THE BILATERAL CAROTID AND VERTEBRAL ARTERIES. CLINICAL HISTORY: Pre op CABG. COMPARISON: None provided. TECHNIQUE: Real-time ultrasound scan of the bilateral carotid and vertebral arteries, 2-D grayscale, with color Doppler flow and spectral waveform analysis. FINDINGS: Color and spectral Doppler interrogation of the carotid vessels on the right demonstrate peak systolic velocities as follows: CCA (Proximal and distal): 67 and 62 cm/s respectively. Bulb: 47 cm/s. ECA: 90 cm/s. ICA (Proximal, mid, and distal): 38, 61, and 56 cm/s respectively. Vertebral artery demonstrates antegrade flow: 46 cm/s. Right ICA/CCA ratio: 1.0 Peak systolic velocities on the left are as follows: CCA (Proximal and distal): 67 and 59 cm/s respectively. Bulb: 42 cm/s. ECA: 87 cm/s. ICA (Proximal, mid, and distal): 72, 78, and 85 cm/s respectively. Vertebral artery: No flow. Left ICA/CCA ratio: 1.4 Both the common carotid arteries and their branches reveal mild intimal thickening. There is a calcified plaque in the left bulb causing about 20% to 30% diameter stenosis. There is a soft plaque in the left proximal internal carotid artery causing about 30% to 40% diameter stenosis. IMPRESSION: Mild intimal thickening in the bilateral carotid arteries and their branches. No flow in the left vertebral artery. Recommend CT/MR angiogram. Plaques as described. /[place]
[2025-04-23] MEDS ORDERED: NOREPINEPHRIN 8MG/250ML NS 250 ML IV PRN (07:30)
[2025-04-23] MEDS ORDERED: NITROGLYCERIN 50MG/D5W 250ML 1 BOT ONE (07:38)
[2025-04-23] MEDS ORDERED: PAPAVERINE HCL 30 MG/ML 2ML VIAL ONE (08:20)
[2025-04-23] MEDS ORDERED: SUCCINYLCHOLINE CHLORIDE 20 MG/ML 10 ML VIAL ONE (09:13)
[2025-04-23] MEDS ORDERED: LIDOCAINE PF 100MG/5ML (2%) SYRINGE 5ML ONE (09:13)
[2025-04-23] MEDS ORDERED: 0.9%NACL 10ML VIAL IVP PRN (09:30)
[2025-04-23] MEDS ORDERED: MAGNESIUM HYDROXIDE 30 ML/UDCUP PO PRN (09:30)
[2025-04-23] MEDS ORDERED: ALBUMIN (HUMAN) 5% 250 ML IV PRN (09:30)
[2025-04-23] MEDS ORDERED: DEXTROSE 50%-WATER 50 ML DISP.SYRIN IV PRN (09:30)
[2025-04-23] MEDS ORDERED: NITROGLYCERIN 50MG/D5W 250ML 250 BOT IV SCH (09:30)
[2025-04-23] MEDS ORDERED: GLUCAGON 1MG KIT 1 MG ML IM PRN (09:30)
[2025-04-23] MEDS: HEParin-NS 1,000 UNIT/500 ML 500 ML IV ONE (09:34)
[2025-04-23] MEDS ORDERED: MIDAZOLAM HCL 1 MG/ML 2ML VIAL ONE (09:48)
--- NOTE | 2025-04-23 10:00 | NUR ---
CABG TODAY. Addendum: 04/23/25 at 1513 by NATHEN KOCH PT Amended: Links added.
[2025-04-23 10:46] LABS: ABG BASE EXCESS -4.6 mmol/L (-2.0-3.0); ABG HCO3 21.5 mmol/L (21.0-28.0); ABG OXYGEN SATURATION 99.2 % (94.0-98.0); ABG PCO2 44 mmHg (35-48); ABG PH 7.311 (7.350-7.450); CARBON MONOXIDE 0.2 % (0.5-1.5); DEVICE COMMENT 1; PO2, ARTERIAL BG 198.3 mmHg (83.0-108.0); TEMPERATURE, CELSIUS BG 37.0 CELSIUS (35.5-37.0)
[2025-04-23] MEDS ORDERED: SODIUM BICARB 50MEQ 50ML VIAL 200 ML ONE (11:36)
[2025-04-23 12:09] LABS: ABG BASE EXCESS -9.7 mmol/L (-2.0-3.0); ABG HCO3 18.6 mmol/L (21.0-28.0); ABG OXYGEN SATURATION 68.4 % (94.0-98.0); ABG PCO2 51 mmHg (35-48); ABG PH 7.183 (7.350-7.450); CARBON MONOXIDE 0.3 % (0.5-1.5); DEVICE COMMENT 2; PO2, ARTERIAL BG < 45.0 mmHg (83.0-108.0); TEMPERATURE, CELSIUS BG 37.0 CELSIUS (35.5-37.0)
[2025-04-23 13:02] LABS: ABG BASE EXCESS -6.0 mmol/L (-2.0-3.0); ABG HCO3 21.1 mmol/L (21.0-28.0); ABG OXYGEN SATURATION 93.7 % (94.0-98.0); ABG PCO2 48 mmHg (35-48); ABG PH 7.259 (7.350-7.450); CARBON MONOXIDE 0.3 % (0.5-1.5); DEVICE COMMENT 3; PO2, ARTERIAL BG 77.9 mmHg (83.0-108.0); TEMPERATURE, CELSIUS BG 37.0 CELSIUS (35.5-37.0)
[2025-04-23] MEDS ORDERED: SODIUM BICARB 50MEQ 50ML VIAL 350 ML ONE (13:04)
--- NOTE | 2025-04-23 13:20 | NUR ---
SPEECH TRIGGER COMPLETED / INTUBATION Pt IS A 60 Y.O. MALE ADMITTED SECONDARY TO CHEST PAIN AND ELEVATED TROPONIN. Pt HAS A PAST MEDICAL HISTORY SIGNIFICANT FOR CAD, HYPERLIPIDEMIA, HYPERTENSION, DM TYPE 2, HYPOTHYROIDISM, AND OBESITY. Pt CURRENTLY INTUBATED AND NPO. PLEASE REQUEST SPEECH THERAPY SERVICES FOR SKILLED BEDSIDE SWALLOW EVALUATION 24 HOURS POST EXTUBATION IF ANY S/S OF ASPIRATION ARISE WITH ORAL INTAKE. PRECISION DANCER COORDINATED WITH NURSE TIMMONS. ALL QUESTIONS ANSWERED AT THIS TIME. Addendum: 04/23/[address] GREGORY JARRETT Amended: Links added.
--- NOTE | 2025-04-23 13:32 | PN ---
[facility] PROGRESS NOTE Date of Service: Apr 23, 2025 Time of Service: 13:31 HISTORY OF PRESENT ILLNESS: Patient is a 60-year-old male with past medical history of CAD, hyperlipidemia, hypertension, diabetes mellitus type 2, hypothyroidism, obesity who presented to the ED with chief complaint of chest pain. Patient complained of diaphoresis, shortness of breath, chest pain which started 2 weeks ago which is on and off and burning pain in nature. Patient started having severe chest pain 3 hours ago which prompted the patient to come to the ED. patient complained that the pain is worse on lying down and better on waking up and leaning forward. He ambulates using cane. Patient admitted to smoking 1 pack per day for past 40 years since the age of 9, vaping, usage of weed, reports hx of chronic cocaine use with last use 2 days ago. On presentation to the ED patient vitals temperature 98.2, pulse 89, res piratory rate 20, blood pressure 120/79, saturating at 96% on room air. Labs revealed white blood count of 8.5, hemoglobin 14.5 Chemistries show sodium 130, creatinine 1.6, BUN 19, glucose 213, magnesium 1.7, BNP 169, and troponin initially is 323 trended up to 496. Patient received3 and4 mg of aspirin in the ED and 0.4 mg of sublingual nitroglycerin which did not help with the pain. CXR showed bilateral infiltrates. Patient will be admitted for further evaluation of chest pain in the setting of elevated cardiac troponin, with concern fro ACS/ NSTEMI. Will also consider pericarditis in the differential due to symptomatology of chest pain. Patient will receive broad-spectrum antibiotics and patient likely has undiagnosed COPD with chest x-ray showing bilateral infiltrates with concerns for possible pneumonia. Patient will be monitored closely under hospitalist service. SUBJECTIVE: 04/21/2025: Patient was evaluated at the bedside. Patient appeared to be in mild distress however did not complain of chest pain this morning. Patient was scheduled for left heart catheterization this morning. Patient reports that he had ongoing chest pain for 2 weeks which got severe yesterday, worse when lying down and relieved by sitting up and leaning forward. He also had cough and shortness of breath and his chest x-ray showed bilateral basilar infiltrates suggestive of pneumonia. His cardiac troponins were serially measured and today they were 5810. Echo was performed and ruled out pericardial effusion. Patient admits to using cocaine and marijuana within the last 2 days. Patient started on Cardizem, aspirin and heparin drip. Patient admits to smoking. Patient's white count cell is 10.7. We will follow Cardiology recommendations after left heart catheterization. 04/22/2025: Patient was evaluated at the bedside. Patient was not in any distress was alert, oriented and did not complain of chest pain today. Patient had his left heart catheterization yesterday which found severe multivessel CAD needing CABG. He had a 70% distal stenosis followed by a total occlusion of the distal RCA. The left circumflex artery is totally occluded proximally. The LAD had a previous stent which is 100% stenosis in the mid LAD after a diagonal branch. His LVEF was 40%. [place] [address] today up from [address] Pop reviewed him and deemed he has very poor targets for CABG however wants to attempt it. Patient was explained about the risks and he expressed understanding and gave the consent. Patient is still pending a date for CABG and will be maintained meanwhile on his ACS protocol. 04/23/2025: Patient was evaluated at the bedside this morning. Patient was lying on his side and was not in acute distress had no acute events overnight. Patient was taken to CABG today performed by Dr. Chanel. Patient was evaluated in the afternoon after returning from operating room. Patient was intubated and was on insulin drip. Patient blood glucose was 368 and phosphorus was 5.7. We will repeat his phosphorus levels tomorrow. Dietary restriction and if despite this it is high we will consider sevelamer 800 mg t.i.d. Whole blood ketones, urine ketone levels, urine electrolytes, urine creatinine were ordered. REVIEW OF SYSTEMS CONSTITUTIONAL: Patient was intubated. Dressing over the sternal wound post CABG. Denies fevers, chills, or night sweats. No unintentional weight loss reported. NEUROLOGICAL: Denies headache, amaurosis fugax, motor weakness, sensory deficit, vertigo/spinning sensation CARDIOVASCULAR: Denies any exertional angina, dyspnea on exertion, orthopnea, p alpitations, life-threatening arrhythmias, claudication. Admits to chest pain, PND, resolving PULMONARY: Admits to shortness of breath, cough, phlegm/sputum, hemoptysis, pleuritic chest pain, resolving SLEEP: Denies morning headaches, daytime somnolence or napping. Denies difficulty falling asleep, staying asleep, waking from sleep. Admits of snoring. GASTROINTESTINAL: Denies any type of dysphagia to either liquids or solids. Denies nausea, vomiting, pyrosis, early satiety, abdominal pain, diarrhea, constipation, or changes in stool consistency or caliber. Denies coffee-ground emesis, hematemesis, hematochezia, or melanotic stools. GENITOURINARY: Denies frequency, urgency, nocturia, hematuria or incontinence (Storage/Irritative symptoms.) Low urinary stream, straining to void, urinary intermittency or hesitancy, splitting of the voiding stream, terminal dribbling. PHYSICAL EXAM GENERAL APPEARANCE: Patient was intubated post CABG has a dressing over surgical sutures. CHEST: Normal chest expansion. Telemetry LUNGS: Absence of any rales, rhonchi or any wheezing. CARDIOVASCULAR: Regular. S1 and S2 normal. No appreciable rubs, murmurs or gallops. ABDOMEN: Soft, nontender, and nondistended. There is no rebound, voluntary guarding, or rigidity. : Deferred. Weir in place EXTREMITIES: Non-edematous and not cyanotic. No clubbing. Good capillary refill. SKIN: No skin breakdown. Vital Signs (last 8hr) Date Time Temp Pulse Resp B/P (MAP) Pulse Ox O2 Delivery O2 Flow Rate FiO2 04/23/25 07:00 97.9 59 22 109/68 97 Room Air 04/23/25 06:32 63 20 N/A Room Air 21 04/23/25 06:29 63 20 LABS: Laboratory: Test 04/23/25 13:00 04/23/25 08:32 04/23/25 03:28 04/22/25 16:30 Range/Units Blood Gas Specimen Type Arterial Arterial Blood pH 7.259 L 7.350-7.450 Arterial Blood Partial Pressure CO2 48 35-48 mmHg Arterial Blood Partial Pressure O2 77.9 L 83.0-108.0 mmHg Arterial Blood HCO3 21.1 21.0-28.0 mmol/L Arterial Blood Oxygen Saturation 93.7 L 94.0-98.0 % Arterial Blood Base Excess -6.0 L -2.0-3.0 mmol/L Hemoglobin (Blood Gas) 11.8 L 13.5-17.5 g/dL Sodium (Blood Gas) 139 136-145 MMOL/L Bedside Potassium (Blood Gas) 3.7 3.4-4.5 MMOL/L Bedside Chloride (Blood Gas) 107 98-107 MMOL/L Bedside Glucose (Blood Gas) 367 H 65-95 MG/DL Bedside Ionized Calcium (Blood Gas) 1.32 1.15-1.33 MMOL/L Bedside Lactic Acid (Blood Gas) 4.92 *H 0.36-0.75 MMOL/L Blood Gas Temperature 37.0 35.5-37.0 CELSIUS FiO2 100.0 % Blood Gas Specimen Comment 3 Whole Blood Glucose 143 H 70-110 MG/DL White Blood Count 5.7 4.8-10.8 K/uL Red Blood Count 4.33 L 4.50-6.20 MIL/uL Hemoglobin 13.0 L 14.0-18.0 g/dL Hematocrit 38.9 L 42-54 % Mean Corpuscular Volume 89.8 79-99 fL Mean Corpuscular Hemoglobin 30.0 27.0-33.0 pg Mean Corpuscular Hemoglobin Concent 33.4 32.0-36.0 g/dL Red Cell Distribution Width 13.3 11.0-15.5 % Platelet Count 196 130-400 K/uL Mean Platelet Volume 9.7 7.5-10.5 fL Immature Granulocyte % (Auto) 0.7 0-1 % Neutrophils (%) (Auto) 56.4 40.0-77.0 % Lymphocytes (%) (Auto) 23.7 21.0-51.0 % Monocytes (%) (Auto) 12.4 3.0-13.0 % Eosinophils (%) (Auto) 5.8 0.0-8.0 % Basophils (%) (Auto) 1.0 0.0-5.0 % Neutrophils # (Auto) 3.2 1.8-7.7 K/uL Lymphocytes # (Auto) 1.4 1.0-4.8 K/uL Monocytes # (Auto) 0.7 0.1-1.0 K/uL Eosinophils # (Auto) 0.33 0.00-0.70 K/uL Basophils # (Auto) 0.06 0.00-0.20 K/uL Absolute Immature Granulocyte (auto 0.04 0-1 K/uL Nucleated Red Blood Cells 0.0 0.0-0.19 % Prothrombin Time 10.0 9.6-11.6 SEC Prothromb Time International Ratio 0.94 0.85-1.15 Activated Partial Thromboplast Time 28.4 26.3-35.5 SEC Sodium Level 136 136-145 mmol/L Potassium Level 4.5 3.5-5.1 mmol/L Chloride Level 102 101-111 mmol/L Carbon Dioxide Level 27 21-32 mmol/L Blood Urea Nitrogen 18 7-18 mg/dL Creatinine 1.5 H 0.5-1.3 mg/dL Glomerular Filtration Rate Calc 53 >90 mL/min Random Glucose 176 H 70-105 mg/dL Total Calcium 8.2 L 8.5-10.1 mg/dL Triglycerides Level 330 H 30-200 mg/dL Cholesterol Level 225 #H <200 mg/dL LDL Cholesterol 133 H 0-99 mg/dL HDL Cholesterol 44 29-71 mg/dL Bedside Glucose Comment Notified Nurse Test 04/22/25 16:27 04/22/25 03:36 Range/Units Blood Gas Vent Mode ROOM AIR ROOM AIR Magnesium Level 1.70 L 1.80-2.40 mg/dL Total Bilirubin 0.4 0.2-1.0 mg/dL Aspartate Amino Transf (AST/SGOT) 70 H 10-37 U/L Alanine Aminotransferase (ALT/SGPT) 32 12-78 U/L Alkaline Phosphatase 66 50-136 U/L Troponin I High Sensitivity 02712 *H 4-75 ng/L Total Protein 6.0 6.0-8.3 g/dL Albumin 2.7 L 3.5-5.0 g/dL Current Medications Medications (Trade) Dose Ordered Sig/Damian Route PRN Reason Start Time Stop Time Status Last Admin Dose Admin Acetaminophen (TYLenol 325MG TAB) 650 mg Q4H PRN PO Temp >38.3C(AFTER EXTUBATION) 04/23/25 09:30 05/23/25 09:29 Acetaminophen (TYLenol 325MG TAB) 650 mg Q6H PRN PO MILD PAIN (1-3) 04/20/25 11:30 04/23/25 09:21 DC 04/22/25 22:35 650 MG Acetaminophen (TYLenol 325MG TAB) 650 mg Q6H PRN PO MILD PAIN (1-3) 04/23/25 09:30 05/23/25 09:29 Acetaminophen (TYLenol 650MG SUPPOSITORY) 650 mg Q4H PRN RC Temp >38.3C WHILE INTUBATED 04/23/25 09:30 05/23/25 09:29 Acetaminophen (acetaMINOPHEN) 1,000 mg Q6H6 IV 04/23/25 13:00 04/24/25 12:59 Albumin Human 250 ml @ 0 mls/hr AD PRN IV IF HEMODYNAMICALLY UNSTABLE 04/23/25 09:30 Aminocaproic Acid 17191 mg/Sodium Chloride 310 ml @ 25 mls/hr AD IV 04/23/25 09:30 04/23/25 21:53 Aminocaproic Acid 61041 mg/Sodium Chloride 480 ml @ 0 mls/hr AD PRN IV BLEEDING CONTROL 04/23/25 07:30 04/23/25 09:52 DC Aspirin (Aspirin 325mg Tab) 325 mg DAILY PO 04/21/25 09:00 04/20/25 11:07 DC Aspirin (Aspirin 81mg Chew Tab) 81 mg Q24H PO 04/20/25 11:30 05/20/25 11:29 04/22/25 12:24 81 MG Atorvastatin Calcium (LIPItor 40MG) 40 mg Q24H PO 04/20/25 11:30 04/21/25 13:17 DC 04/20/25 11:32 40 MG Atorvastatin Calcium (LIPItor 40MG) 40 mg Q24H PO 04/21/25 21:00 05/21/25 20:59 04/22/25 22:02 40 MG Budesonide (Pulmicort 0.5 Mg/2ml) 0.5 mg BIDRESP IH 04/20/25 11:30 05/20/25 11:29 04/23/25 06:27 0.5 MG Budesonide (Pulmicort 0.5 Mg/2ml) 0.5 mg BIDRESP IH 04/20/25 18:00 04/20/25 11:18 DC Calcium Gluconate 1 gm/Sodium Chloride 60 ml @ 200 mls/hr AD PRN IV HYPOCALCEMIA 04/23/25 09:30 05/23/25 09:29 Cefazolin Sodium (ANCEF 1 gm vial) 2 gm ONCALL IVP 04/22/25 16:30 04/22/25 16:15 DC Cefazolin Sodium (Ancef) 2 gm Q8H IVPB 04/23/25 14:30 04/24/25 06:31 Ceftriaxone Sodium (ROCEphine 1G INJ) 1 gm Q12H IVPB 04/20/25 11:30 04/30/25 11:29 04/22/25 22:35 1 GM Clopidogrel Bisulfate (plaVIX 75MG) 75 mg DAILY PO 04/21/25 09:00 04/21/25 13:18 DC Dexmedetomidine/ Sodium Chloride (PRECEdex 400MCG/ 100ML-NS) 400 mcg PROTOCOL IV 04/23/25 09:30 04/24/25 09:29 Dextrose (D50w) 50 ml AD PRN IV HYPOGLYCEMIA PROTOCOL 04/23/25 09:30 05/23/25 09:29 Diltiazem HCl (CARDIzem 60MG TAB) 30 mg Q6H PO 04/20/25 11:30 04/20/25 21:29 DC 04/20/25 18:13 30 MG Diltiazem HCl (CARDIzem 60MG TAB) 60 mg [id number] PO 04/20/25 23:30 04/23/25 09:11 DC 04/23/25 00:33 60 MG Docusate Sodium (COLace 100MG CAP) 100 mg BID PO 04/23/25 21:00 05/23/25 20:59 Doxycycline Hyclate (Doxycycline Hyclate) 100 mg BID PO 04/20/25 21:00 04/30/25 20:59 04/22/25 22:02 100 MG Enoxaparin Sodium (Lovenox) 30 mg DAILY SQ 04/26/25 09:00 05/26/25 08:59 Enoxaparin Sodium (Lovenox) 40 mg DAILY SQ 04/22/25 16:00 04/23/25 09:11 DC 04/22/25 18:23 40 MG Epinephrine HCl 10 mg/Sodium Chloride 250 ml @ 17.779 mls/ hr AD PRN IV POST-OP CARDIOVASCULAR ORDERS 04/23/25 09:30 04/28/25 09:29 Epinephrine HCl 10 mg/Sodium Chloride 250 ml @ 0 mls/hr AD PRN IV TITRATE 04/23/25 08:00 04/23/25 09:52 DC Famotidine (Pepcid 20mg Vial) 20 mg BID IV 04/23/25 21:00 05/23/25 20:59 Ferrous Sulfate (Ferrous Sulfate) 325 mg TID PO 04/21/25 14:00 04/21/25 17:13 DC Furosemide (LASix 20MG TAB) 20 mg Q12H PO 04/25/25 09:00 05/25/25 08:59 Furosemide (LASix 20MG VIAL) 20 mg Q12H IV 04/24/25 09:00 04/25/25 08:59 Gemfibrozil (gemFIBROzil 600 MG TABLET) 600 mg BIDAC PO 04/20/25 16:30 04/23/25 09:11 DC 04/22/25 18:23 600 MG Glucagon (Glucagon 1mg Kit) 1 mg AD PRN IM HYPOGLYCEMIA PROTOCOL 04/23/25 09:30 05/23/25 09:29 Heparin Sodium (Porcine) (HEParin 5,000 UNIT VIAL) *calculation based on ACTUAL B... AD PRN IV HEPARIN PROTOCOL 04/20/25 12:30 04/21/25 11:08 DC 04/20/25 11:59 9,000 UNIT Heparin Sodium/ Dextrose 250 ml @ 0 mls/hr Q6H IV 04/20/25 12:30 04/21/25 11:08 DC 04/21/25 01:22 18.13 MLS/HR Home Med (Home Medication) (Canagliflozin (Invokana) 300 MG) DAILY PO 04/22/25 09:00 04/21/25 16:44 DC Home Med (Home Medication) (Haloperidol 20 MG) HS PO 04/21/25 21:00 04/21/25 16:44 DC Hydralazine HCl (APRESOLine 20MG INJ) 5 mg Q6H PRN IV ADMINISTER FOR SBP > 160 04/20/25 11:30 04/23/25 09:11 DC Insulin Human Regular (humuLIN R 100 UNIT/ML 3ML) INSULIN SLIDING SCAL... ACHS SQ 04/20/25 11:30 04/23/25 09:11 DC 04/22/25 21:59 2 UNIT Insulin Human Regular 100 unit/ Sodium Chloride 100 ml @ 0 mls/hr AD IV 04/23/25 09:30 04/25/25 09:29 Ipratropium Cozad (AtrovENT UD) 0.5 mg Q6H PRN IH SHORTNESS OF BREATH 04/20/25 11:30 05/20/25 11:29 Lactulose (Constulose 20gm/ 30ml Udcup) 20 gm BID PRN PO CONSTIPATION 04/23/25 09:30 05/23/25 09:29 Levothyroxine Sodium (SYNTHroid 100MCG TAB) 100 mcg DAILY@0630 PO 04/21/25 06:30 04/21/25 13:39 DC Levothyroxine Sodium (SYNTHroid 100MCG TAB) 100 mcg DAILY@0630 PO 04/22/25 06:30 05/22/25 06:29 04/22/25 06:41 100 MCG Levothyroxine Sodium (SYNTHroid 50MCG TAB) 50 mcg SYN PO 04/22/25 06:30 04/21/25 16:44 DC Lisinopril (Prinivil 10mg) 10 mg DAILY PO 04/22/25 09:00 04/23/25 09:11 DC 04/22/25 12:24 10 MG Magnesium Hydroxide (Milk Of Magnesium 30ml) 30 ml DAILY PRN PO CONSTIPATION 04/23/25 09:30 05/23/25 09:29 Magnesium Sulfate 50 ml @ 12.5 mls/hr AD PRN IV MAG LEVEL LESS THAN 2.0 04/23/25 09:30 05/23/25 09:29 Magnesium Sulfate 50 ml @ 0 mls/hr PROTOCOL IV 04/20/25 11:30 05/20/25 11:29 04/22/25 18:35 25 MLS/HR Magnesium Sulfate 50 ml @ 0 mls/hr PROTOCOL IV 04/21/25 07:00 04/21/25 07:03 DC Metoprolol Tartrate (loprESSOR) 12.5 mg BID PO 04/22/25 21:00 04/23/25 09:11 DC 04/22/25 22:02 12.5 MG Metoprolol Tartrate (loprESSOR) 12.5 mg BID PO 04/25/25 09:00 05/25/25 08:59 Morphine Sulfate (morPHINE 2MG SYG) 0.5 mg Q2H PRN IV MODERATE PAIN (4-6) 04/23/25 09:30 04/24/25 09:29 Morphine Sulfate (morPHINE 2MG SYG) 1 mg Q2H PRN IV SEVERE PAIN (7-10) 04/23/25 09:30 04/24/25 09:29 Morphine Sulfate (morPHINE 2MG SYG) 2 mg Q6H PRN IVP SEVERE PAIN (7-10) 04/20/25 11:00 04/23/25 09:11 DC 04/22/25 06:40 2 MG Niacin (Niacin) 1,000 mg HS PO 04/21/25 21:00 04/21/25 16:41 DC Nicotine (Nicoderm) 7 mg DAILY TD 04/21/25 09:00 05/21/25 08:59 04/22/25 12:25 7 MG Nitroglycerin (Nitrostat) 0.4 mg AD PRN SL CHEST PAIN 04/20/25 10:30 04/20/25 11:07 DC 04/20/25 10:21 0.4 MG Nitroglycerin (Nitrostat) 0.4 mg AD PRN SL CHEST PAIN 04/20/25 11:00 04/20/25 17:43 DC Nitroglycerin (Nitrostat) 0.4 mg AD PRN SL CHEST PAIN 04/20/25 18:00 04/23/25 09:11 DC 04/20/25 23:44 0.4 MG Nitroglycerin (Nitrostat) 0.4 mg Q5M PRN SL CHEST PAIN 04/20/25 10:30 04/20/25 10:13 DC Nitroglycerin/ Dextrose 0 ml @ 0 mls/hr AD IV 04/23/25 09:30 04/26/25 09:29 Norepinephrine Bitartrate 250 ml @ 0 mls/hr AD PRN IV TITRATE 04/23/25 07:30 04/23/25 09:52 DC Norepinephrine Bitartrate 250 ml @ 0 mls/hr AD PRN IV POST-OP CARDIOVASCULAR ORDERS 04/23/25 09:30 04/28/25 09:29 Ondansetron HCl (zoFRAN 4MG INJ) 4 mg Q6H PRN IV NAUSEA/VOMITING 04/23/25 09:30 05/23/25 09:29 Ondansetron HCl (zoFRAN 4MG INJ) 4 mg Q6H PRN IVP NAUSEA/VOMITING 04/20/25 11:30 04/23/25 09:11 DC Pantoprazole Sodium (PROTonix 40MG INJ) 40 mg DAILY IVP 04/21/25 09:00 04/23/25 09:11 DC 04/22/25 12:24 40 MG Potassium Phosphate 250 ml @ 42 mls/hr AD PRN IV LOW PHOS LEVEL 04/23/25 09:30 05/23/25 09:29 Potassium Chloride 100 ml @ 100 mls/hr AD PRN IV HYPOKALEMIA 04/23/25 09:30 05/23/25 09:29 Propofol 100 ml @ 0 mls/hr AD PRN IV SEDATION 04/23/25 09:30 04/27/25 09:29 Sodium Bicarbonate (Sodium Bicarb 50meq 50ml Vial) 50 meq AD PRN IV OTHER[SEE DOSING INSTRUCTIONS] 04/23/25 09:30 04/26/25 09:29 Sodium Chloride 500 ml @ 0 mls/hr AD IV 04/23/25 09:30 05/23/25 09:29 Sodium Chloride 500 ml @ 0 mls/hr Q0M IV 04/20/25 14:30 04/23/25 09:11 DC Sodium Chloride 1,000 ml @ 10 mls/hr ONCE IV 04/23/25 09:30 04/24/25 09:29 Sodium Chloride 1,000 ml @ 50 mls/hr Q20H IV 04/21/25 07:00 04/22/25 07:00 DC 04/21/25 07:09 50 MLS/HR Sodium Chloride (NS Flush 10ml) 10 ml Q8H PRN IVP IV LINE FLUSH 04/23/25 09:30 05/23/25 09:29 Tramadol HCl (UltRAM) 25 mg Q6H PRN PO MODERATE PAIN (4-6) 04/23/25 09:30 04/28/25 09:29 Tramadol HCl (UltRAM) 50 mg Q6H PRN PO SEVERE PAIN (7-10) 04/23/25 09:30 04/28/25 09:29 Vitamin B Complex/ Vit C/Folic Acid (Nephrovite Tablet) 1 cap Q24H PO 04/20/25 12:00 05/20/25 11:59 04/22/25 12:24 1 CAP DIAGNOSTICS / RADIOLOGY: [ ] ASSESSMENT: NSTEMI/ ACS, POA Rule out pericarditis, POA Rule out developing community-acquired pneumonia, POA Undiagnosed COPD/chronic bronchitis, POA History of coronary artery disease with prior history of PCI in 2004, POA CKD stage 3, POA Suspected BAILEY Electrolyte abnormalities (hyponatremia, hypomagnesemia) Tobacco use disorder, POA Cocaine use disorder, POA Hypertension, POA Hyperlipidemia, POA Diabetes mellitus type 2, POA Hypothyroidism POA PLAN: Patient to be admitted to PCCU NSTEMI/ ACS, severe multivessel coronary artery disease: Cardiology has been consulted on the case Left heart catheterization performed showing severe 3+ CAD Patient underwent CABG today in the afternoon Pericarditis ruled out but the echo showing no evidence of pericardial effusion Echo showed LVEF 40-45% We will trend the troponin q.6 Heparin drip was stopped before taking to CABG Continue diltiazem 30 mg q.6 Continue atorvastatin 40 mg Q 24 Patient is started on aspirin 81 daily Morphine 2 mg given for the chest pain Nitroglycerin 0.4 mg sublingually as p.r.n. for chest pain Chronic Bronchitis possible COPD Rule out developing community-acquired pneumonia We will start patient on broad-spectrum antibiotics with IV Rocephin/doxycycline Pulmonology has been consulted on the case Respiratory culture, Gram stain showed +Gram-positive cocci, final results pending Pulmicort, Atrovent has been placed for shortness of breath Patient will benefit from outpatient PFTs Patient will benefit from outpatient sleep study to rule out BAILEY CKD stage III, electrolyte abnormality Follow up with urine protein creatinine ratio Renal ultrasound showed smaller left kidney with renal parenchymal disease and a right renal simple cortical cyst Replace the magnesium per protocol Hypertension, hyperlipidemia, hypothyroidism, suspected BAILEY Patient's home medications were reconciled and resumed Patient should get evaluated for BAILEY as outpatient Continue with Lipitor, continue with gemfibrozil, patient has not taken some of his home medications for several months Restart lisinopril monitoring renal function closely GI prophylaxis with pantoprazole Anticipate hospitalization for at least 48-72 hours depending on Cardiology recommendations and interventions, clinical response ATTESTATION BY PHYSICIAN I have seen and examined the patient. I reviewed the documentation, medical decision making, and treatment plan as noted by the resident provider above. I agree with the findings and plan of care. ALEJANDRA ARZATE MD, HARSHAVARDHA MD Apr 23, 2025 13:32
--- NOTE | 2025-04-23 13:44 | NUR ---
pt arrived to unit from or at this time, pt intubated with et tube 7.5 lip at 25 middle,vent settings as ordered, og tube preset, left subclavian central line present running amicar at 50cc/hr, epinephrine at 0.05mcg/kg/min . epicardial wires x 4 present, atrial pacing at rate of 60beats.as per dr. bolton no change of rate or setting to be made to pacemaker. 7.5 fr right femoral iabp present, 40cc balloon to ecg trigger 1:1, 16 fr gutierres present, 2 chest tube y to 1 chest tube chamber air leak noted grade level 1 , dr. arciniega aware , no new orders, reassessed for any leaks or kinks, left ac radial line present, right 20 g wrist iv present.
--- NOTE | 2025-04-23 13:46 | HMCIMG ---
CHEST 1VW REASON: preop CABG COMPARISON: 04/20/2025 is available. FINDINGS: Single view of the chest was obtained. Lungs are clear. Previous seen left lower lung infiltrate has resolved. Heart size is normal. There is no pulmonary vascular congestion. Mediastinum and bony thorax appear unremarkable. IMPRESSION: No evidence of airspace consolidation or pulmonary venous congestion.
[2025-04-23 13:49] LABS: ABG BASE EXCESS -2.7 mmol/L (-2.0-3.0); ABG HCO3 24.0 mmol/L (21.0-28.0); ABG OXYGEN SATURATION 94.3 % (94.0-98.0); ABG PCO2 49 mmHg (35-48); ABG PH 7.305 (7.350-7.450); CARBON MONOXIDE 0.5 % (0.5-1.5); DEVICE COMMENT A-LINE CARLA; PO2, ARTERIAL BG 81.4 mmHg (83.0-108.0); TEMPERATURE, CELSIUS BG 37.0 CELSIUS (35.5-37.0); VENT MODE, BG AMBU TRANSPORT (ROOM AIR)
[2025-04-23] MEDS: 0.9%NACL 1000ML 1,000 ML IV SCH (14:03)
--- NOTE | 2025-04-23 14:04 | EKG ---
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
[2025-04-23 14:05] LABS: NUCLEATED RED BLOOD CELLS 0.0 % (0.0-0.19); PLATELET COUNT (AUTO) 225.0 K/uL (130-400); RED BLOOD CELL COUNT(AUTO) 3.82 MIL/uL (4.50-6.20); RED CELL DISTRIBUTION WIDTH 13.4 % (11.0-15.5); WHITE BLOOD COUNT (AUTO) 25.0 K/uL (4.8-10.8)
[2025-04-23] MEDS: INSULIN REGULAR, HUMAN 3ML 100 UNIT in 0.9%NACL 100ML 99 ML IV SCH (14:05)
[2025-04-23] MEDS: SODIUM BICARB 50MEQ 50ML VIAL IV PRN (14:06)
[2025-04-23] MEDS: CALCIUM GLUC 1GM 1 GM in 0.9%NACL 50ML 50 ML IV PRN (14:09)
[2025-04-23 14:15] LABS: CREATININE 1.6 mg/dL (0.5-1.3); GLOMERULAR FILTR. RATE CALC 49.0 mL/min (>90); GLUCOSE,RANDOM 368.0 mg/dL (70-105); PHOSPHORUS 5.7 mg/dL (2.5-4.9); SODIUM SERUM 144.0 mmol/L (136-145); UREA NITROGEN, BLOOD 17.0 mg/dL (7-18)
[2025-04-23 14:16] LABS: INR 1.05 (0.85-1.15)
--- NOTE | 2025-04-23 14:58 | HMCIMG ---
CHEST 1VW REASON: s/p CABG COMPARISON: Pre-CABG chest from 04/23/2025 is available. FINDINGS: Single view of the chest was obtained. Lungs are clear. There is cardiomegaly with median sternotomy. The nasogastric tube and endotracheal tube are in satisfactory position. There is a left subclavian vascular sheath in place. There is a left-sided chest tube in place with no evidence of any pneumothorax.. There is no pulmonary vascular congestion. Mediastinum and bony thorax appear unremarkable. IMPRESSION: 1. Status post median sternotomy with cardiomegaly. 2. Support lines are in satisfactory position 3. No evidence of airspace consolidation or pulmonary venous congestion.
[2025-04-23] MEDS: ASPIRIN 81MG CHEW TAB NG ONE (15:11)
[2025-04-23 15:17] LABS: ABG BASE EXCESS -2.8 mmol/L (-2.0-3.0); ABG HCO3 23.4 mmol/L (21.0-28.0); ABG OXYGEN SATURATION 97.5 % (94.0-98.0); ABG PCO2 46 mmHg (35-48); ABG PH 7.326 (7.350-7.450); CARBON MONOXIDE 0.6 % (0.5-1.5); DEVICE COMMENT A-LINE CARLA; PO2, ARTERIAL BG 106.9 mmHg (83.0-108.0); TEMPERATURE, CELSIUS BG 37.0 CELSIUS (35.5-37.0); VENT MODE, BG SIMV-VC PS10 (ROOM AIR)
--- NOTE | 2025-04-23 16:14 | NUR ---
DR. LOZOYA MADE AWARE OF PACEMAKER COMPETING WITH ORIGINAL PATIENT HEART RHYTHM OF SINUS RHYTHM, PER DR. LOZOYA OK TO TURN PACEMAKER OFF.
[2025-04-23 16:25] LABS: ABG BASE EXCESS -3.6 mmol/L (-2.0-3.0); ABG HCO3 21.5 mmol/L (21.0-28.0); ABG OXYGEN SATURATION 98.8 % (94.0-98.0); ABG PCO2 39 mmHg (35-48); ABG PH 7.358 (7.350-7.450); CARBON MONOXIDE 0.5 % (0.5-1.5); DEVICE COMMENT A-LINE CARLA; PO2, ARTERIAL BG 167.7 mmHg (83.0-108.0); TEMPERATURE, CELSIUS BG 37.0 CELSIUS (35.5-37.0); VENT MODE, BG SIMV-VC PS10 (ROOM AIR)
[2025-04-23 17:18] LABS: APPEARANCE,URINE CLEAR (CLEAR); GLUCOSE, URINE (UA) >=1000 mg/dL (NEGATIVE); LEUKOCYTE ESTERASE ,URINE NEGATIVE Leu/uL (NEGATIVE); NITRATE,URINE NEGATIVE (NEGATIVE); OCCULT BLOOD,URINE +- (TRACE) (NEGATIVE)
[2025-04-23 17:22] LABS: ADD UA MICROSCOPIC YES
[2025-04-23 17:23] LABS: OTHER CASTS, URINE 1 /LPF (None Seen)
[2025-04-23 17:23] LABS: ABG BASE EXCESS -2.1 mmol/L (-2.0-3.0); ABG HCO3 22.4 mmol/L (21.0-28.0); ABG OXYGEN SATURATION 96.5 % (94.0-98.0); ABG PCO2 37 mmHg (35-48); ABG PH 7.395 (7.350-7.450); CARBON MONOXIDE 0.7 % (0.5-1.5); DEVICE COMMENT A-LINE CARLA; PO2, ARTERIAL BG 91.1 mmHg (83.0-108.0); TEMPERATURE, CELSIUS BG 37.0 CELSIUS (35.5-37.0); VENT MODE, BG SIMV-VC PS10 (ROOM AIR)
[2025-04-23 17:25] LABS: CREATININE,URINE RANDOM 85.44 mg/dL (30-135)
--- NOTE | 2025-04-23 18:35 | NUR ---
dr. rm made aware of decreased urine output and cvp of 17, as per md give 20mg of lasix now iv.
[2025-04-23 18:47] LABS: ABG BASE EXCESS 0.0 mmol/L (-2.0-3.0); ABG HCO3 25.1 mmol/L (21.0-28.0); ABG OXYGEN SATURATION 96.3 % (94.0-98.0); ABG PCO2 42 mmHg (35-48); ABG PH 7.391 (7.350-7.450); CARBON MONOXIDE 0.8 % (0.5-1.5); PO2, ARTERIAL BG 86.3 mmHg (83.0-108.0); TEMPERATURE, CELSIUS BG 37.0 CELSIUS (35.5-37.0); VENT MODE, BG SIMV (ROOM AIR)
[2025-04-23 19:54] LABS: ABG BASE EXCESS 0.3 mmol/L (-2.0-3.0); ABG HCO3 24.8 mmol/L (21.0-28.0); ABG OXYGEN SATURATION 96.1 % (94.0-98.0); ABG PCO2 40 mmHg (35-48); ABG PH 7.413 (7.350-7.450); CARBON MONOXIDE 0.6 % (0.5-1.5); PO2, ARTERIAL BG 84.6 mmHg (83.0-108.0); TEMPERATURE, CELSIUS BG 37.0 CELSIUS (35.5-37.0); VENT MODE, BG SIMV (ROOM AIR)
[2025-04-23] MEDS: NOREPINEPHRIN 8MG/250ML NS 250 ML IV PRN (19:55)
[2025-04-23] MEDS: FAMOTIDINE 20MG VIAL IV SCH (19:55)
[2025-04-23 21:06] LABS: ABG BASE EXCESS -0.5 mmol/L (-2.0-3.0); ABG HCO3 24.6 mmol/L (21.0-28.0); ABG OXYGEN SATURATION 97.2 % (94.0-98.0); ABG PCO2 42 mmHg (35-48); ABG PH 7.384 (7.350-7.450); CARBON MONOXIDE 0.5 % (0.5-1.5); PO2, ARTERIAL BG 100.0 mmHg (83.0-108.0); TEMPERATURE, CELSIUS BG 37.0 CELSIUS (35.5-37.0); VENT MODE, BG SIMV (ROOM AIR)
--- NOTE | 2025-04-23 21:13 | NUR ---
EXTUBATION PT TOLERATED WEANING WELL ABG WITHIN PARAMETERS. 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 PT WAS ABLE TO ACHIEVE NIF -36 CMH20. PT EXTUBATED AND PLACED ON 40% CAFM HE WAS ENCOURAGED TO TAKE SLOW DEEP BREATHS. WILL CONTINUE TO MONITOR.
[2025-04-23] MEDS: 0.9% NACL 500ML IV.SOLN 500 ML IV SCH (21:57)
[2025-04-23 22:17] LABS: ABG BASE EXCESS 2.3 mmol/L (-2.0-3.0); ABG HCO3 27.6 mmol/L (21.0-28.0); ABG OXYGEN SATURATION 95.4 % (94.0-98.0); ABG PCO2 45 mmHg (35-48); ABG PH 7.402 (7.350-7.450); CARBON MONOXIDE 0.6 % (0.5-1.5); PO2, ARTERIAL BG 81.4 mmHg (83.0-108.0); TEMPERATURE, CELSIUS BG 37.0 CELSIUS (35.5-37.0); VENT MODE, BG AM,40 (ROOM AIR)
[2025-04-23 23:09] LABS: MYCOPLASMA AB IGM <770 U/mL (0-769)
[2025-04-24] VITALS (104 sets, daily range): BP systolic 103–161; BP diastolic 61–108; PULSE 74–106; RESP 4–85; TEMP 97.8–98.8; O2SAT 93–99
[2025-04-24 04:07] LABS: ABG BASE EXCESS 0.9 mmol/L (-2.0-3.0); ABG HCO3 26.2 mmol/L (21.0-28.0); ABG OXYGEN SATURATION 97.3 % (94.0-98.0); ABG PCO2 44 mmHg (35-48); ABG PH 7.390 (7.350-7.450); CARBON MONOXIDE 0.8 % (0.5-1.5); PO2, ARTERIAL BG 100.7 mmHg (83.0-108.0); TEMPERATURE, CELSIUS BG 37.0 CELSIUS (35.5-37.0); VENT MODE, BG AM (ROOM AIR)
[2025-04-24 04:09] LABS: IMMATURE GRANULOCYTE ABSOLUTE 0.06 K/uL (0-1); NUCLEATED RED BLOOD CELLS 0.0 % (0.0-0.19); PLATELET COUNT (AUTO) 232 K/uL (130-400); RED BLOOD CELL COUNT(AUTO) 3.88 MIL/uL (4.50-6.20); RED CELL DISTRIBUTION WIDTH 13.7 % (11.0-15.5); WHITE BLOOD COUNT (AUTO) 14.6 K/uL (4.8-10.8)
[2025-04-24 04:28] LABS: INR 1.02 (0.85-1.15)
[2025-04-24 04:32] LABS: CREATININE 1.8 mg/dL (0.5-1.3); GLOMERULAR FILTR. RATE CALC 43.0 mL/min (>90); GLUCOSE,RANDOM 139.0 mg/dL (70-105); PHOSPHORUS 4.3 mg/dL (2.5-4.9); SODIUM SERUM 148.0 mmol/L (136-145); UREA NITROGEN, BLOOD 17.0 mg/dL (7-18)
[2025-04-24] MEDS: MAGNESIUM 2GM PREMIX 50ML 50 ML IV PRN (04:49)
--- NOTE | 2025-04-24 08:35 | HP ---
PREOPERATIVE EVALUATION HISTORY OF PRESENT ILLNESS: A 60-year-old gentleman with history of drug abuse, mainly cocaine. He was positive for cocaine at the time of this admission. Has diffuse severe coronary artery disease with involvement of the LAD 100% occlusion, RCA 100% occlusion, and the circumflex 100% ____ collaterals. I have had the opportunity to review the films and discuss the case with the caring [facility] home demonstrator. We all agree that the surgery will be the only option; however, much higher risk than usual. The patient understands the indications of the procedure as well as the potential complications of the operation including but not limited to postoperative bleeding, infection, stroke, and/or . He understands this as well as associated morbidity and mortality of procedure as it relates to his own comorbidities and wishes to proceed with surgery. TID: [id number] RECEIPT: [id number]
--- NOTE | 2025-04-24 09:05 | PN ---
[facility] PROGRESS NOTE Date Patient Seen: Apr 24, 2025 Time of Visit: 09:05 Supervising Physician:Phyllis Zarate MD Supervising Physician: Dr. Bansal Primary Care Physician: [ ] Outpatient Specialists: [ ] Inpatient Consults: Dr. Gordon, Dr. Pop PROBLEM LIST: Multivessel coronary artery disease status post CABG x3 04/23/2025. Cardiogenic shock SCAI stage C on MCS with IABP post op your cava NSTEMI/ ACS, POA -s/p LHC on 04/21/25 with findings of MvCAD schemic cardiomyopathy. Suspected community-acquired pneumonia, POA Undiagnosed COPD/chronic bronchitis, POA History of coronary artery disease with prior history of PCI in 2004, POA CKD stage 3, POA Electrolyte abnormalities (hyponatremia, hypomagnesemia) Polysubstance abuse with tobacco, cocaine and marijuana. Suspected Undiagnosed and untreated BAILEY Hypertension, POA Hyperlipidemia, POA Diabetes mellitus type 2, POA Hypothyroidism POA INTERVAL HISTORY: Date of admission: 04/20/25 Hospital Day: 4. ICU Day: 1. Code status: Full code Ventilator status: Preoperative Intubated -extubated on 04/23/25 Lines: Intra-aortic balloon pump to right femoral, arterial line, chest tube, left subclavian central line, Weir catheter Nutrition: Clear liquids Isolation: Standard Overnight events: No acute events overnight . Remained Hemodynamically stable on epinephrine at 0.05 mcg/kg per minute and Levophed at 0.03 mcg/kg per minute. Continues with the intra-aortic balloon pump one-to-one. Bilateral pedal pulses +1. afebrile. Currently saturating 93% on 3 L vian NC. NAD. Urine output 1.6L Balance of 1.1 L at this time. Already started on lasix. Subjective complaints: AAOx 3. Denies chest pain denies SOB at this time. Family update four/meetings: No family at the time of my visit. REVIEW OF SYSTEMS: 12 point ROS reviewed with patient. Pertinent positives mentioned above. Otherwise negative. PHYSICAL EXAM: GENERAL: alert, weak, awake oriented x 3 HEENT: EOMI, Sclera non icteric, moist mucosa NECK: Supple, no JVD, trachea midline LUNGS: Clear breath sounds bilaterally. No wheezes HEART: Regular rate and rhythm. Normal S1 and S2, without murmurs ABD: Abdomen soft, nontender. Bowel sounds present EXT: No clubbing cyanosis or edema NEURO: Alert and oriented to person, follows commands Vital Signs (last 8hr) Date Time Temp Pulse Resp B/P (MAP) Pulse Ox O2 Delivery O2 Flow Rate FiO2 04/24/25 07:45 98 21 129/71 (90) 96 04/24/25 07:39 98.4 Aerosol Face Mask 40 04/24/25 07:30 97 20 135/74 (94) 96 04/24/25 07:15 95 23 123/69 (87) 97 04/24/25 07:00 97 22 132/75 (94) 98 116/65 (82) 04/24/25 06:45 98 21 135/77 (96) 98 04/24/25 06:32 106 20 04/24/25 06:30 100 23 137/77 (97) 99 117/69 (85) 04/24/25 06:28 106 20 Aerosol, Face Mask 10.0 40 04/24/25 06:15 97 21 127/72 (90) 99 04/24/25 06:00 98 43 137/74 (95) 99 40 121/70 (87) 04/24/25 05:45 101 23 141/74 (96) 99 04/24/25 05:30 101 20 131/68 (89) 97 110/62 (78) 04/24/25 05:15 96 22 128/72 (90) 99 04/24/25 05:00 94 18 133/73 (93) 99 40 111/69 (83) 04/24/25 04:45 95 22 131/75 (93) 98 04/24/25 04:30 100 21 130/69 (89) 99 103/69 (80) 04/24/25 04:15 102 22 130/69 (89) 99 04/24/25 04:11 98 Aerosol Mask+ 10 40 04/24/25 04:00 97.9 98 18 126/70 (88) 100 40 104/66 (79) 04/24/25 03:45 99 20 124/72 (89) 98 04/24/25 03:30 97 21 125/72 (89) 99 116/65 (82) 04/24/25 03:15 99 21 134/74 (94) 100 04/24/25 03:00 100 26 135/78 (97) 98 40 124/71 (88) 04/24/25 02:45 99 24 122/80 (94) 99 04/24/25 02:30 98 24 116/76 (89) 99 133/72 (92) 04/24/25 02:15 102 24 131/79 (96) 98 04/24/25 02:00 101 23 137/79 (98) 98 40 126/71 (89) 04/24/25 01:45 97 27 127/72 (90) 98 04/24/25 01:30 97 30 115/81 (92) 96 121/76 (91) 04/24/25 01:15 99 27 125/77 (93) 95 LABS: Hematology Labs: Test 04/24/25 03:56 Range/Units White Blood Count 14.6 #H 4.8-10.8 K/uL Red Blood Count 3.88 L 4.50-6.20 MIL/uL Hemoglobin 11.7 L 14.0-18.0 g/dL Hematocrit 34.8 L 42-54 % Mean Corpuscular Volume 89.7 79-99 fL Mean Corpuscular Hemoglobin 30.2 27.0-33.0 pg Mean Corpuscular Hemoglobin Concent 33.6 32.0-36.0 g/dL Red Cell Distribution Width 13.7 11.0-15.5 % Platelet Count 232 130-400 K/uL Mean Platelet Volume 9.7 7.5-10.5 fL Immature Granulocyte % (Auto) 0.4 0-1 % Neutrophils (%) (Auto) 71.9 40.0-77.0 % Lymphocytes (%) (Auto) 10.0 L 21.0-51.0 % Monocytes (%) (Auto) 17.2 H 3.0-13.0 % Eosinophils (%) (Auto) 0.1 0.0-8.0 % Basophils (%) (Auto) 0.4 0.0-5.0 % Neutrophils # (Auto) 10.5 H 1.8-7.7 K/uL Lymphocytes # (Auto) 1.5 1.0-4.8 K/uL Monocytes # (Auto) 2.5 H 0.1-1.0 K/uL Eosinophils # (Auto) 0.01 0.00-0.70 K/uL Basophils # (Auto) 0.06 0.00-0.20 K/uL Absolute Immature Granulocyte (auto 0.06 0-1 K/uL Nucleated Red Blood Cells 0.0 0.0-0.19 % White Cell Morphology Comment See comments Chemistry Labs: Test 04/24/25 08:01 04/24/25 03:56 04/23/25 03:28 04/22/25 16:30 Range/Units Whole Blood Glucose 104 70-110 MG/DL Sodium Level 148 H 136-145 mmol/L Potassium Level 4.3 3.5-5.1 mmol/L Chloride Level 109 101-111 mmol/L Carbon Dioxide Level 32 21-32 mmol/L Blood Urea Nitrogen 17 7-18 mg/dL Creatinine 1.8 H 0.5-1.3 mg/dL Glomerular Filtration Rate Calc 43 >90 mL/min Random Glucose 139 #H 70-105 mg/dL Whole Blood Ketones Quantitative < 0.1 0.0-0.6 mmol/L Total Calcium 8.9 8.5-10.1 mg/dL Ionized Calcium 1.15 1.15-1.33 MMOL/L Phosphorus Level 4.3 2.5-4.9 mg/dL Magnesium Level 1.50 L 1.80-2.40 mg/dL Triglycerides Level 330 H 30-200 mg/dL Cholesterol Level 225 #H <200 mg/dL LDL Cholesterol 133 H 0-99 mg/dL HDL Cholesterol 44 29-71 mg/dL Bedside Glucose Comment Notified Nurse Coagulation Labs: Test 04/24/25 03:56 Range/Units Prothrombin Time 10.8 9.6-11.6 SEC Prothromb Time International Ratio 1.02 0.85-1.15 Activated Partial Thromboplast Time 24.5 L 26.3-35.5 SEC DIAGNOSTICS / RADIOLOGY RESULTS: [ [facility] [address] [place] [address] IMAGING REPORT Signed PATIENT: SB PATEL MR#: [id number] : 1965 SEX: M AGE: 60 LOCATION: 2CV ORDER 2300 STATUS: ADM IN REPORT#: [id number] SERVICE 0400 REASON: s/p CABG ORDERING PHYSICIAN: VASU LOZOYA MD PROCEDURE: CXR1VW - CHEST 1VW CHEST 1VW REASON: s/p CABG COMPARISON: Prior study from 04/23/2025 is available. FINDINGS: Single view portable chest radiograph demonstrated mild cardiomegaly with median sternotomy. There is a left-sided chest tube with no evidence of any pneumothorax. There is a left subclavian vascular sheath in place. There is no evidence of airspace consolidation or pulmonary venous congestion. There is some atelectasis seen in the right lung base IMPRESSION: 1. Mild cardiomegaly with median sternotomy with cardiac revascularization procedure 2. Support lines are in satisfactory position 3.. Atelectasis right lung base 4. No evidence of airspace consolidation or pulmonary venous congestion DICTATED BY: GERALDO ROACH MD DATE: 04/24/25912 ELECTRONICALLY SIGNED BY: GERALDO ROACH MD DATE: 04/24/[address] surgeon recommendations Follow cardiology recommendations Multimodal pain management Monitoring H&H Monitor chest tube output Chest x-ray in the morning ABG's PRN Transfuse if absolutely necessary to keep hemoglobin above 8 Maintain O2 sats greater than 92% Incentive spirometry Glycemic control with goal of 80-180 Referral for cardiac rehabilitation Speech to eval once patient is extubated monitor electrolytes: K Goal of 4 Magnesium goal of 2 Replace accordingly Bipap PRN and HS / 40% NEURO: Minimize central acting medications as possible. Fall Precautions. Well lighted room through the day and minimize interruptions through the night to prevent acute delirium. PULMONARY: Supplemental 02 as needed Titrate Fio2 to keep Spo2 > or = 90% DuoNebs and CPT as needed IS hourly while awake for pulmonary hygiene Out of bed to chair as tolerated CARDIOVASCULAR: Follow hemodynamics. Titrate vasopressor to keep MAP >65 or systolic blood pressure >95mmHg DIPS: Epinephrine levophed LINES: PIV GI & NUTRITION: Continue nutritional support Aspirations precautions Prokinetic agents and laxatives as needed KIDNEYS & ELECTROLYTES: Strict monitoring of intake and output Daily weights Avoid nephrotoxic agents Monitor electrolytes and replace as needed Goal urine output of 30mL/hr or 0.5mL/kg/hr ENDOCRINE: Maintain blood glucose between 100-180 at all times. Insulin sliding scale for blood glucose management INFECTIOUS DISEASE: Trend temperature. Mahajan-culture if febrile. Micro: [ ] Respiratory culture normal tae Legionella pneumophila not detected in the sputum PCR MRSA positive Antibiotics: [ ] Rocephin and doxycycline HEMATOLOGY & COAGULATION: Monitor H&H. Keep Hgb > 7 Transfuse 1 unit of PRBC for Hgb < 7 Transfuse 1 pack of platelets of platelets < 20, 000 Watch for any signs and symptoms of bleeding SKIN: Pressure ulcer prevention per facility protocol Rehab: PT/OT Prophylaxis: GI: Pepcid DVT: Ankit hosalex, per CV surgery Code Status: Full Resuscitation Disposition: ICU Other: Total patient care time exceeds 35 minutes excluding all procedures. Case was discussed and seen with my supervising physician. The above plan was formulated and agreed upon. ATTESTATION BY PHYSICIAN I reviewed the documentation, medical decision making, and treatment plan as noted by the mid-level provider above. I agree with the findings and plan of care. Brigido Cheung MD, [facility] Apr 24, 2025 09:05
--- NOTE | 2025-04-24 09:18 | HMCIMG ---
CHEST 1VW REASON: s/p CABG COMPARISON: Prior study from 04/23/2025 is available. FINDINGS: Single view portable chest radiograph demonstrated mild cardiomegaly with median sternotomy. There is a left-sided chest tube with no evidence of any pneumothorax. There is a left subclavian vascular sheath in place. There is no evidence of airspace consolidation or pulmonary venous congestion. There is some atelectasis seen in the right lung base IMPRESSION: 1. Mild cardiomegaly with median sternotomy with cardiac revascularization procedure 2. Support lines are in satisfactory position 3.. Atelectasis right lung base 4. No evidence of airspace consolidation or pulmonary venous congestion
--- NOTE | 2025-04-24 10:06 | PN ---
This is a 60-year-old male with a history of coronary artery disease status post remote coronary stenting in the setting of an inferior wall OK in 2005, hypertension, hyperlipidemia, type 2 diabetes mellitus and hypothyroidism. He was admitted 04/20/2025 secondary to non-STEMI/unstable angina. He tested positive for cocaine and marijuana. Echocardiogram 04/20/2025 shows an ejection fraction of 40-45% with normal-sized left atrium and mild mitral valve regurgitation. He underwent left heart catheterization 04/21/2025 which showed multivessel coronary artery disease. He underwent CABG x3 04/23/2025. He has been extubated. He is currently on Levophed, epinephrine and insulin. He is currently in sinus rhythm with heart rates in the 90s. Most recent blood pressure is 106/74. Chest x-ray this morning shows mild cardiomegaly with postop changes, no evidence of airspace consolidation or pulmonary vascular congestion. White blood count 18.6, hemoglobin 11.7, hematocrit 34.8, platelets 232, creatinine 1.8, potassium 4.3, magnesium 1.50. INR 1.02. On exam, he is in no acute distress, regular rate and rhythm, lungs are clear to auscultation bilaterally. Assessment: 1. Non-STEMI/unstable angina. 2. Multivessel coronary artery disease status post CABG x3 04/23/2025. 3. Ischemic cardiomyopathy. 4. Hypertension. 5. Hyperlipidemia. 6. Type 2 diabetes mellitus. 7. Chronic kidney disease. 8. Polysubstance abuse with tobacco, cocaine and marijuana. Plan: 1. He was admitted for non-STEMI 04/20/2025. He is status post CABG x3 04/23/2025 secondary to multivessel coronary artery disease. 2. He remains on Levophed and epinephrine, as well as insulin drip. 3. Continue aspirin 81 mg once daily, atorvastatin 40 mg once daily and IV furosemide 20 mg twice daily. 4. Advance guideline directed medical therapy for heart failure once he no longer requires IV pressors. 5. We will follow the patient. Vitals/Labs Vital Signs Date Time Temp Pulse Resp B/P (MAP) Pulse Ox O2 Delivery O2 Flow Rate FiO2 04/24/25 09:00 98 21 133/73 (93) 97 108/61 (77) 04/24/25 08:00 Nasal Cannula* 3 32 04/24/25 07:39 98.4 Laboratory Tests 04/23/25 14:00 04/24/25 03:56 FORD BECKFORD Apr 24, 2025 10:06
[2025-04-24 16:11] LABS: ABG BASE EXCESS 6.0 mmol/L (-2.0-3.0); ABG HCO3 30.7 mmol/L (21.0-28.0); ABG OXYGEN SATURATION 93.3 % (94.0-98.0); ABG PCO2 45 mmHg (35-48); ABG PH 7.456 (7.350-7.450); CARBON MONOXIDE 0.7 % (0.5-1.5); PO2, ARTERIAL BG 66.6 mmHg (83.0-108.0); TEMPERATURE, CELSIUS BG 37.0 CELSIUS (35.5-37.0); VENT MODE, BG 2 L NC (ROOM AIR)
--- NOTE | 2025-04-24 16:53 | PN ---
[facility] PROGRESS NOTE Date of Service: Apr 24, 2025 Time of Service: 16:18 HISTORY OF PRESENT ILLNESS: Patient is a 60-year-old male with past medical history of CAD, hyperlipidemia, hypertension, diabetes mellitus type 2, hypothyroidism, obesity who presented to the ED with chief complaint of chest pain. Patient complained of diaphoresis, shortness of breath, chest pain which started 2 weeks ago which is on and off and burning pain in nature. Patient started having severe chest pain 3 hours ago which prompted the patient to come to the ED. patient complained that the pain is worse on lying down and better on waking up and leaning forward. He ambulates using cane. Patient admitted to smoking 1 pack per day for past 40 years since the age of 9, vaping, usage of weed, reports hx of chronic cocaine use with last use 2 days ago. On presentation to the ED patient vitals temperature 98.2, pulse 89, res piratory rate 20, blood pressure 120/79, saturating at 96% on room air. Labs revealed white blood count of 8.5, hemoglobin 14.5 Chemistries show sodium 130, creatinine 1.6, BUN 19, glucose 213, magnesium 1.7, BNP 169, and troponin initially is 323 trended up to 496. Patient received3 and4 mg of aspirin in the ED and 0.4 mg of sublingual nitroglycerin which did not help with the pain. CXR showed bilateral infiltrates. Patient will be admitted for further evaluation of chest pain in the setting of elevated cardiac troponin, with concern fro ACS/ NSTEMI. Will also consider pericarditis in the differential due to symptomatology of chest pain. Patient will receive broad-spectrum antibiotics and patient likely has undiagnosed COPD with chest x-ray showing bilateral infiltrates with concerns for possible pneumonia. Patient will be monitored closely under hospitalist service. SUBJECTIVE: 04/21/2025: Patient was evaluated at the bedside. Patient appeared to be in mild distress however did not complain of chest pain this morning. Patient was scheduled for left heart catheterization this morning. Patient reports that he had ongoing chest pain for 2 weeks which got severe yesterday, worse when lying down and relieved by sitting up and leaning forward. He also had cough and shortness of breath and his chest x-ray showed bilateral basilar infiltrates suggestive of pneumonia. His cardiac troponins were serially measured and today they were 5810. Echo was performed and ruled out pericardial effusion. Patient admits to using cocaine and marijuana within the last 2 days. Patient started on Cardizem, aspirin and heparin drip. Patient admits to smoking. Patient's white count cell is 10.7. We will follow Cardiology recommendations after left heart catheterization. 04/22/2025: Patient was evaluated at the bedside. Patient was not in any distress was alert, oriented and did not complain of chest pain today. Patient had his left heart catheterization yesterday which found severe multivessel CAD needing CABG. He had a 70% distal stenosis followed by a total occlusion of the distal RCA. The left circumflex artery is totally occluded proximally. The LAD had a previous stent which is 100% stenosis in the mid LAD after a diagonal branch. His LVEF was 40%. [place] cardiac [place] [address] today up from [address] Pop reviewed him and deemed he has very poor targets for CABG however wants to attempt it. Patient was explained about the risks and he expressed understanding and gave the consent. Patient is still pending a date for CABG and will be maintained meanwhile on his ACS protocol. 04/23/2025: Patient was evaluated at the bedside this morning. Patient was lying on his side and was not in acute distress had no acute events overnight. Patient was taken to CABG today performed by Dr. Lozoya. Patient was evaluated in the afternoon after returning from operating room. Patient was intubated and was on insulin drip. Patient blood glucose was 368 and phosphorus was 5.7. We will repeat his phosphorus levels tomorrow. Dietary restriction and if despite this it is high we will consider sevelamer 800 mg t.i.d. Whole blood ketones, urine ketone levels, urine electrolytes, urine creatinine were ordered. 04/24/2025: Patient was evaluated at the bedside this morning his 212. Patient was extubated yesterday night and has been recovering well. Patient is on 10 L of oxygen via BiPAP saturating over 98%. Is currently on Levophed, epinephrine, insulin drips. He is currently receiving doxycycline and Rocephin for his pneumonia. A repeat x-ray today showed mild cardiomegaly, atelectasis in the right lung base and no signs of pulmonary venous congestion. Patient expressed mild shortness of breath that has been subsiding with IV Lasix and nebulizer treatments. Repeat phosphorus levels was 4.3, whole blood ketones less than 0.1. Patient will be started on guideline directed management of heart failure once his pain completely of IV pressors. Patient is currently managed by critical care team and we will follow their recommendations closely. REVIEW OF SYSTEMS CONSTITUTIONAL: Patient was extubated yesterday. Dressing over the sternal wound post CABG. Denies fevers, chills, or night sweats. No unintentional weight loss reported. NEUROLOGICAL: Denies headache, amaurosis fugax, motor weakness, sensory deficit, vertigo/spinning sensation CARDIOVASCULAR: Denies any exertional angina, dyspnea on exertion, orthopnea, palpitations, life-threatening arrhythmias, claudication. Admits to chest pain, PND, resolving PULMONARY: Admits to shortness of breath, cough, phlegm/sputum, resolving SLEEP: Denies morning headaches, daytime somnolence or napping. Denies difficulty falling asleep, staying asleep, waking from sleep. Admits of snoring. GASTROINTESTINAL: Denies any type of dysphagia to either liquids or solids. Denies nausea, vomiting, pyrosis, early satiety, abdominal pain, diarrhea, constipation, or changes in stool consistency or caliber. Denies coffee-ground emesis, hematemesis, hematochezia, or melanotic stools. GENITOURINARY: Denies frequency, urgency, nocturia, hematuria or incontinence (Storage/Irritative symptoms.) Low urinary stream, straining to void, urinary intermittency or hesitancy, splitting of the voiding stream, terminal dribbling. PHYSICAL EXAM GENERAL APPEARANCE: Patient was intubated post CABG has a dressing over surgical sutures. CHEST: Normal chest expansion. Telemetry LUNGS: Absence of any rales, rhonchi or any wheezing. CARDIOVASCULAR: Regular. S1 and S2 normal. No appreciable rubs, murmurs or gallops. ABDOMEN: Soft, nontender, and nondistended. There is no rebound, voluntary guarding, or rigidity. : Deferred. Weir in place EXTREMITIES: Non-edematous and not cyanotic. No clubbing. Good capillary refill. SKIN: No skin breakdown. Vital Signs (last 8hr) Date Time Temp Pulse Resp B/P (MAP) Pulse Ox O2 Delivery O2 Flow Rate FiO2 04/24/25 16:00 98.2 Nasal Cannula 3.0 04/24/25 14:00 93 17 128/76 (93) 96 04/24/25 13:45 93 15 131/76 (94) 97 04/24/25 13:30 94 11 121/74 (90) 97 04/24/25 13:15 96 21 141/81 (101) 95 04/24/25 13:00 92 20 131/78 (95) 95 04/24/25 12:45 93 23 144/79 (100) 97 04/24/25 12:30 92 24 132/70 (90) 97 04/24/25 12:15 95 22 118/61 (80) 96 04/24/25 12:00 98.8 Nasal Cannula 3.0 04/24/25 12:00 93 28 127/68 (87) 98 151/108 (122) 04/24/25 12:00 99 Nasal Cannula* 3 32 04/24/25 11:56 95 20 N/Cannula Low lpm 3.0 32 04/24/25 11:45 97 11 130/75 (93) 95 04/24/25 11:30 94 19 134/73 (93) 96 04/24/25 11:15 95 20 121/76 (91) 96 04/24/25 11:00 95 19 133/72 (92) 95 126/70 (88) 04/24/25 10:45 94 21 130/72 (91) 95 04/24/25 10:30 97 20 133/74 (93) 96 04/24/25 10:15 96 40 134/77 (96) 96 04/24/25 10:00 97 85 142/75 (97) 96 141/104 (116) 04/24/25 09:45 102 33 133/74 (93) 96 04/24/25 09:30 100 37 128/70 (89) 96 04/24/25 09:15 100 27 123/67 (85) 97 04/24/25 09:00 98 21 133/73 (93) 97 108/61 (77) 04/24/25 08:45 100 22 132/72 (92) 97 04/24/25 08:30 98 15 121/66 (84) 96 LABS: Laboratory: Test 04/24/25 16:09 04/24/25 13:54 04/24/25 13:00 04/24/25 03:56 Range/Units Blood Gas Specimen Type Arterial Arterial Blood pH 7.456 H 7.350-7.450 Arterial Blood Partial Pressure CO2 45 35-48 mmHg Arterial Blood Partial Pressure O2 66.6 L 83.0-108.0 mmHg Arterial Blood HCO3 30.7 H 21.0-28.0 mmol/L Arterial Blood Oxygen Saturation 93.3 L 94.0-98.0 % Arterial Blood Base Excess 6.0 H -2.0-3.0 mmol/L Hemoglobin (Blood Gas) 11.4 L 13.5-17.5 g/dL Sodium (Blood Gas) 137 136-145 MMOL/L Bedside Potassium (Blood Gas) 3.9 3.4-4.5 MMOL/L Bedside Chloride (Blood Gas) 102 98-107 MMOL/L Bedside Glucose (Blood Gas) 97 H 65-95 MG/DL Bedside Ionized Calcium (Blood Gas) 1.10 L 1.15-1.33 MMOL/L Bedside Lactic Acid (Blood Gas) 1.23 H 0.36-0.75 MMOL/L Blood Gas Temperature 37.0 35.5-37.0 CELSIUS Blood Gas Flow-by 2.00 0.00-15.00 L/min Blood Gas Vent Mode 2 L NC ROOM AIR FiO2 28.0 % Blood Gas Specimen Comment JESSI BELTRAN RN Whole Blood Glucose 149 H 70-110 MG/DL Potassium Level 4.2 3.5-5.1 mmol/L Magnesium Level 2.20 1.80-2.40 mg/dL White Blood Count 14.6 #H 4.8-10.8 K/uL Red Blood Count 3.88 L 4.50-6.20 MIL/uL Hemoglobin 11.7 L 14.0-18.0 g/dL Hematocrit 34.8 L 42-54 % Mean Corpuscular Volume 89.7 79-99 fL Mean Corpuscular Hemoglobin 30.2 27.0-33.0 pg Mean Corpuscular Hemoglobin Concent 33.6 32.0-36.0 g/dL Red Cell Distribution Width 13.7 11.0-15.5 % Platelet Count 232 130-400 K/uL Mean Platelet Volume 9.7 7.5-10.5 fL Immature Granulocyte % (Auto) 0.4 0-1 % Neutrophils (%) (Auto) 71.9 40.0-77.0 % Lymphocytes (%) (Auto) 10.0 L 21.0-51.0 % Monocytes (%) (Auto) 17.2 H 3.0-13.0 % Eosinophils (%) (Auto) 0.1 0.0-8.0 % Basophils (%) (Auto) 0.4 0.0-5.0 % Neutrophils # (Auto) 10.5 H 1.8-7.7 K/uL Lymphocytes # (Auto) 1.5 1.0-4.8 K/uL Monocytes # (Auto) 2.5 H 0.1-1.0 K/uL Eosinophils # (Auto) 0.01 0.00-0.70 K/uL Basophils # (Auto) 0.06 0.00-0.20 K/uL Absolute Immature Granulocyte (auto 0.06 0-1 K/uL Nucleated Red Blood Cells 0.0 0.0-0.19 % White Cell Morphology Comment See comments Prothrombin Time 10.8 9.6-11.6 SEC Prothromb Time International Ratio 1.02 0.85-1.15 Activated Partial Thromboplast Time 24.5 L 26.3-35.5 SEC Sodium Level 148 H 136-145 mmol/L Chloride Level 109 101-111 mmol/L Carbon Dioxide Level 32 21-32 mmol/L Blood Urea Nitrogen 17 7-18 mg/dL Creatinine 1.8 H 0.5-1.3 mg/dL Glomerular Filtration Rate Calc 43 >90 mL/min Random Glucose 139 #H 70-105 mg/dL Whole Blood Ketones Quantitative < 0.1 0.0-0.6 mmol/L Total Calcium 8.9 8.5-10.1 mg/dL Ionized Calcium 1.15 1.15-1.33 MMOL/L Phosphorus Level 4.3 2.5-4.9 mg/dL Test 04/23/25 21:04 04/23/25 16:55 04/23/25 03:28 04/22/25 16:30 Range/Units Blood Gas Respiration Rate 4.0 min. Blood Gas Tidal Volume 800 ml Blood Gas PEEP 5 cm H2O Urine Color LIGHT-YELLOW YELLOW Urine Appearance CLEAR CLEAR Urine pH 6.0 5.0-8.0 Urine Specific [place] 1.025 1.001-1.031 Urine Protein 10 H NEGATIVE mg/dL Urine Glucose (UA) >=1000 H NEGATIVE mg/dL Urine Ketones 20 H NEGATIVE mg/dL Urine Occult Blood +- (TRACE) H NEGATIVE Urine Nitrate NEGATIVE NEGATIVE Urine Bilirubin NEGATIVE NEGATIVE mg/dL Urine Urobilinogen 0.2 0.2-1.0 mg/dL Urine Leukocyte Esterase NEGATIVE NEGATIVE Buck/uL Urine RBC 6-10 H 0-1 /HPF Urine WBC 2-5 H 0-1 /HPF Urine Bacteria None None Seen /HPF Urine Other Casts 1 None Seen /LPF Urine Random Creatinine 85.44 30-135 mg/dL Urine Random Sodium 116 40-220 mmol/l Urine Random Potassium 56 25-125 mmol/L Urine Random Chloride 51 L 110-250 mmol/L Triglycerides Level 330 H 30-200 mg/dL Cholesterol Level 225 #H <200 mg/dL LDL Cholesterol 133 H 0-99 mg/dL HDL Cholesterol 44 29-71 mg/dL Bedside Glucose Comment Notified Nurse Current Medications Medications (Trade) Dose Ordered Sig/Damian Route PRN Reason Start Time Stop Time Status Last Admin Dose Admin Acetaminophen (TYLenol 325MG TAB) 650 mg Q4H PRN PO Temp >38.3C(AFTER EXTUBATION) 04/23/25 09:30 05/23/25 09:29 Acetaminophen (TYLenol 325MG TAB) 650 mg Q6H PRN PO MILD PAIN (1-3) 04/20/25 11:30 04/23/25 09:21 DC 04/22/25 22:35 650 MG Acetaminophen (TYLenol 325MG TAB) 650 mg Q6H PRN PO MILD PAIN (1-3) 04/23/25 09:30 05/23/25 09:29 Acetaminophen (TYLenol 650MG SUPPOSITORY) 650 mg Q4H PRN RC Temp >38.3C WHILE INTUBATED 04/23/25 09:30 05/23/25 09:29 Acetaminophen (acetaMINOPHEN) 1,000 mg Q6H IV 04/23/25 21:00 04/24/25 20:59 04/24/25 14:15 1,000 MG Acetaminophen (acetaMINOPHEN) 1,000 mg Q6H6 IV 04/23/25 13:00 04/23/25 19:11 DC 04/23/25 15:11 1,000 MG Albumin Human 250 ml @ 0 mls/hr AD PRN IV IF HEMODYNAMICALLY UNSTABLE 04/23/25 09:30 Aminocaproic Acid 90541 mg/Sodium Chloride 310 ml @ 25 mls/hr AD IV 04/23/25 09:30 04/23/25 21:53 DC Aminocaproic Acid 84925 mg/Sodium Chloride 480 ml @ 0 mls/hr AD PRN IV BLEEDING CONTROL 04/23/25 07:30 04/23/25 09:52 DC Aspirin (Aspirin 325mg Tab) 325 mg DAILY PO 04/21/25 09:00 04/20/25 11:07 DC Aspirin (Aspirin 81mg Chew Tab) 81 mg Q24H PO 04/20/25 11:30 05/20/25 11:29 04/24/25 10:58 81 MG Atorvastatin Calcium (LIPItor 40MG) 40 mg Q24H PO 04/20/25 11:30 04/21/25 13:17 DC 04/20/25 11:32 40 MG Atorvastatin Calcium (LIPItor 40MG) 40 mg Q24H PO 04/21/25 21:00 05/21/25 20:59 04/23/25 19:55 40 MG Budesonide (Pulmicort 0.5 Mg/2ml) 0.5 mg BIDRESP IH 04/20/25 11:30 05/20/25 11:29 04/24/25 06:32 0.5 MG Budesonide (Pulmicort 0.5 Mg/2ml) 0.5 mg BIDRESP IH 04/20/25 18:00 04/20/25 11:18 DC Calcium Gluconate 1 gm/Sodium Chloride 60 ml @ 200 mls/hr AD PRN IV HYPOCALCEMIA 04/23/25 09:30 05/23/25 09:29 04/24/25 04:08 200 MLS/HR Cefazolin Sodium (ANCEF 1 gm vial) 2 gm ONCALL IVP 04/22/25 16:30 04/22/25 16:15 DC Cefazolin Sodium (Ancef) 2 gm Q8H IVPB 04/23/25 14:30 04/24/25 06:31 DC 04/24/25 06:08 2 GM Ceftriaxone Sodium (ROCEphine 1G INJ) 1 gm Q12H IVPB 04/20/25 11:30 04/30/25 11:29 04/24/25 10:58 1 GM Clopidogrel Bisulfate (plaVIX 75MG) 75 mg DAILY PO 04/21/25 09:00 04/21/25 13:18 DC Dexmedetomidine/ Sodium Chloride (PRECEdex 400MCG/ 100ML-NS) 400 mcg PROTOCOL IV 04/23/25 09:30 04/24/25 09:29 DC Dextrose (D50w) 50 ml AD PRN IV HYPOGLYCEMIA PROTOCOL 04/23/25 09:30 05/23/25 09:29 Diltiazem HCl (CARDIzem 60MG TAB) 30 mg Q6H PO 04/20/25 11:30 04/20/25 21:29 DC 04/20/25 18:13 30 MG Diltiazem HCl (CARDIzem 60MG TAB) 60 mg [id number] PO 04/20/25 23:30 04/23/25 09:11 DC 04/23/25 00:33 60 MG Docusate Sodium (COLace 100MG CAP) 100 mg BID PO 04/23/25 21:00 05/23/25 20:59 04/24/25 08:04 100 MG Doxycycline Hyclate (Doxycycline Hyclate) 100 mg BID PO 04/20/25 21:00 04/30/25 20:59 04/24/25 08:04 100 MG Enoxaparin Sodium (Lovenox) 30 mg DAILY SQ 04/26/25 09:00 05/26/25 08:59 Enoxaparin Sodium (Lovenox) 40 mg DAILY SQ 04/22/25 16:00 04/23/25 09:11 DC 04/22/25 18:23 40 MG Epinephrine HCl 10 mg/Sodium Chloride 250 ml @ 17.779 mls/ hr AD PRN IV POST-OP CARDIOVASCULAR ORDERS 04/23/25 09:30 04/28/25 09:29 Epinephrine HCl 10 mg/Sodium Chloride 250 ml @ 0 mls/hr AD PRN IV TITRATE 04/23/25 08:00 04/23/25 09:52 DC Famotidine (Pepcid 20mg Vial) 20 mg BID IV 04/23/25 21:00 05/23/25 20:59 04/24/25 08:04 20 MG Ferrous Sulfate (Ferrous Sulfate) 325 mg TID PO 04/21/25 14:00 04/21/25 17:13 DC Furosemide (LASix 20MG TAB) 20 mg Q12H PO 04/25/25 09:00 05/25/25 08:59 Furosemide (LASix 20MG VIAL) 20 mg Q12H IV 04/24/25 09:00 04/25/25 08:59 04/24/25 08:04 20 MG Gemfibrozil (gemFIBROzil 600 MG TABLET) 600 mg BIDAC PO 04/20/25 16:30 04/23/25 09:11 DC 04/22/25 18:23 600 MG Glucagon (Glucagon 1mg Kit) 1 mg AD PRN IM HYPOGLYCEMIA PROTOCOL 04/23/25 09:30 05/23/25 09:29 Heparin Sodium (Porcine) (HEParin 5,000 UNIT VIAL) *calculation based on ACTUAL B... AD PRN IV HEPARIN PROTOCOL 04/20/25 12:30 04/21/25 11:08 DC 04/20/25 11:59 9,000 UNIT Heparin Sodium/ Dextrose 250 ml @ 0 mls/hr Q6H IV 04/20/25 12:30 04/21/25 11:08 DC 04/21/25 01:22 18.13 MLS/HR Home Med (Home Medication) (Canagliflozin (Invokana) 300 MG) DAILY PO 04/22/25 09:00 04/21/25 16:44 DC Home Med (Home Medication) (Haloperidol 20 MG) HS PO 04/21/25 21:00 04/21/25 16:44 DC Hydralazine HCl (APRESOLine 20MG INJ) 5 mg Q6H PRN IV ADMINISTER FOR SBP > 160 04/20/25 11:30 04/23/25 09:11 DC Insulin Human Regular (humuLIN R 100 UNIT/ML 3ML) INSULIN SLIDING SCAL... ACHS SQ 04/20/25 11:30 04/23/25 09:11 DC 04/22/25 21:59 2 UNIT Insulin Human Regular 100 unit/ Sodium Chloride 100 ml @ 0 mls/hr AD IV 04/23/25 09:30 04/25/25 09:29 04/23/25 22:51 8 MLS/HR Ipratropium [place] (AtrovENT UD) 0.5 mg Q6H PRN IH SHORTNESS OF BREATH 04/20/25 11:30 05/20/25 11:29 Lactulose (Constulose 20gm/ 30ml Udcup) 20 gm BID PRN PO CONSTIPATION 04/23/25 09:30 05/23/25 09:29 Levothyroxine Sodium (SYNTHroid 100MCG TAB) 100 mcg DAILY@0630 PO 04/21/25 06:30 04/21/25 13:39 DC Levothyroxine Sodium (SYNTHroid 100MCG TAB) 100 mcg DAILY@0630 PO 04/22/25 06:30 05/22/25 06:29 04/24/25 04:54 100 MCG Levothyroxine Sodium (SYNTHroid 50MCG TAB) 50 mcg SYN PO 04/22/25 06:30 04/21/25 16:44 DC Lisinopril (Prinivil 10mg) 10 mg DAILY PO 04/22/25 09:00 04/23/25 09:11 DC 04/22/25 12:24 10 MG Magnesium Hydroxide (Milk Of Magnesium 30ml) 30 ml DAILY PRN PO CONSTIPATION 04/23/25 09:30 05/23/25 09:29 Magnesium Sulfate 50 ml @ 12.5 mls/hr AD PRN IV MAG LEVEL LESS THAN 2.0 04/23/25 09:30 05/23/25 09:29 04/24/25 04:49 12.5 MLS/HR Magnesium Sulfate 50 ml @ 0 mls/hr PROTOCOL IV 04/20/25 11:30 05/20/25 11:29 04/24/25 09:46 25 MLS/HR Magnesium Sulfate 50 ml @ 0 mls/hr PROTOCOL IV 04/21/25 07:00 04/21/25 07:03 DC Metoprolol Tartrate (loprESSOR) 12.5 mg BID PO 04/22/25 21:00 04/23/25 09:11 DC 04/22/25 22:02 12.5 MG Metoprolol Tartrate (loprESSOR) 12.5 mg BID PO 04/25/25 09:00 05/25/25 08:59 Morphine Sulfate (morPHINE 2MG SYG) 0.5 mg Q2H PRN IV MODERATE PAIN (4-6) 04/23/25 09:30 04/24/25 09:29 DC Morphine Sulfate (morPHINE 2MG SYG) 1 mg Q2H PRN IV SEVERE PAIN (7-10) 04/23/25 09:30 04/24/25 09:29 DC 04/23/25 14:02 1 MG Morphine Sulfate (morPHINE 2MG SYG) 2 mg Q6H PRN IVP SEVERE PAIN (7-10) 04/20/25 11:00 04/23/25 09:11 DC 04/22/25 06:40 2 MG Niacin (Niacin) 1,000 mg HS PO 04/21/25 21:00 04/21/25 16:41 DC Nicotine (Nicoderm) 7 mg DAILY TD 04/21/25 09:00 05/21/25 08:59 04/24/25 08:05 7 MG Nitroglycerin (Nitrostat) 0.4 mg AD PRN SL CHEST PAIN 04/20/25 10:30 04/20/25 11:07 DC 04/20/25 10:21 0.4 MG Nitroglycerin (Nitrostat) 0.4 mg AD PRN SL CHEST PAIN 04/20/25 11:00 04/20/25 17:43 DC Nitroglycerin (Nitrostat) 0.4 mg AD PRN SL CHEST PAIN 04/20/25 18:00 04/23/25 09:11 DC 04/20/25 23:44 0.4 MG Nitroglycerin (Nitrostat) 0.4 mg Q5M PRN SL CHEST PAIN 04/20/25 10:30 04/20/25 10:13 DC Nitroglycerin/ Dextrose 0 ml @ 0 mls/hr AD IV 04/23/25 09:30 04/26/25 09:29 Norepinephrine Bitartrate 250 ml @ 0 mls/hr AD PRN IV TITRATE 04/23/25 07:30 04/23/25 09:52 DC Norepinephrine Bitartrate 250 ml @ 0 mls/hr AD PRN IV POST-OP CARDIOVASCULAR ORDERS 04/23/25 09:30 04/28/25 09:29 04/23/25 19:55 22.3 MLS/HR Ondansetron HCl (zoFRAN 4MG INJ) 4 mg Q6H PRN IV NAUSEA/VOMITING 04/23/25 09:30 05/23/25 09:29 04/23/25 15:12 4 MG Ondansetron HCl (zoFRAN 4MG INJ) 4 mg Q6H PRN IVP NAUSEA/VOMITING 04/20/25 11:30 04/23/25 09:11 DC Pantoprazole Sodium (PROTonix 40MG INJ) 40 mg DAILY IVP 04/21/25 09:00 04/23/25 09:11 DC 04/22/25 12:24 40 MG Potassium Phosphate 250 ml @ 42 mls/hr AD PRN IV LOW PHOS LEVEL 04/23/25 09:30 05/23/25 09:29 Potassium Chloride 100 ml @ 100 mls/hr AD PRN IV HYPOKALEMIA 04/23/25 09:30 05/23/25 09:29 04/24/25 16:13 100 MLS/HR Propofol 100 ml @ 0 mls/hr AD PRN IV SEDATION 04/23/25 09:30 04/27/25 09:29 Sodium Bicarbonate (Sodium Bicarb 50meq 50ml Vial) 50 meq AD PRN IV OTHER[SEE DOSING INSTRUCTIONS] 04/23/25 09:30 04/26/25 09:29 04/23/25 17:40 50 MEQ Sodium Chloride 500 ml @ 0 mls/hr AD IV 04/23/25 09:30 05/23/25 09:29 04/23/25 21:57 3 MLS/HR Sodium Chloride 500 ml @ 0 mls/hr Q0M IV 04/20/25 14:30 04/23/25 09:11 DC Sodium Chloride 1,000 ml @ 10 mls/hr ONCE IV 04/23/25 09:30 04/24/25 09:29 DC 04/23/25 14:03 10 MLS/HR Sodium Chloride 1,000 ml @ 50 mls/hr Q20H IV 04/21/25 07:00 04/22/25 07:00 DC 04/21/25 07:09 50 MLS/HR Sodium Chloride (NS Flush 10ml) 10 ml Q8H PRN IVP IV LINE FLUSH 04/23/25 09:30 05/23/25 09:29 Tramadol HCl (UltRAM) 25 mg Q6H PRN PO MODERATE PAIN (4-6) 04/23/25 09:30 04/28/25 09:29 Tramadol HCl (UltRAM) 50 mg Q6H PRN PO SEVERE PAIN (7-10) 04/23/25 09:30 04/28/25 09:29 04/24/25 04:54 50 MG Vitamin B Complex/ Vit C/Folic Acid (Nephrovite Tablet) 1 cap Q24H PO 04/20/25 12:00 05/20/25 11:59 8/16/25 10:58 1 CAP DIAGNOSTICS / RADIOLOGY: [ ] PATIENT: SB PATEL MR#: [id number] : 1965 SEX: M AGE: 60 LOCATION: 2CV ORDER 2300 STATUS: ADM IN REPORT#: [id number] SERVICE 0400 REASON: s/p CABG ORDERING PHYSICIAN: VASU LOZOYA MD PROCEDURE: CXR1VW - CHEST 1VW CHEST 1VW REASON: s/p CABG COMPARISON: Prior study from 04/23/2025 is available. FINDINGS: Single view portable chest radiograph demonstrated mild cardiomegaly with median sternotomy. There is a left-sided chest tube with no evidence of any pneumothorax. There is a left subclavian vascular sheath in place. There is no evidence of airspace consolidation or pulmonary venous congestion. There is some atelectasis seen in the right lung base IMPRESSION: 1. Mild cardiomegaly with median sternotomy with cardiac revascularization procedure 2. Support lines are in satisfactory position 3.. Atelectasis right lung base 4. No evidence of airspace consolidation or pulmonary venous congestion DICTATED BY: GERALDO ROACH MD DATE: 04/24/25912 ELECTRONICALLY SIGNED BY: GERALDO ROACH MD DATE: 04/24/25917 ASSESSMENT: NSTEMI/ ACS, POA Rule out pericarditis, POA Rule out developing community-acquired pneumonia, POA Undiagnosed COPD/chronic bronchitis, POA History of coronary artery disease with prior history of PCI in 2004, POA CKD stage 3, POA Suspected BAILEY Electrolyte abnormalities (hyponatremia, hypomagnesemia) Tobacco use disorder, POA Cocaine use disorder, POA Hypertension, POA Hyperlipidemia, POA Diabetes mellitus type 2, POA Hypothyroidism POA PLAN: Patient to be admitted to [facility]U NSTEMI/ ACS, severe multivessel coronary artery disease status post CABG Day 1 Cardiology has been consulted on the case Left heart catheterization performed showing severe 3+ CAD Patient underwent CABG yesterday, extubated and currently on Levophed, Epinephrine and Insulin drips Pericarditis ruled out but the echo showing no evidence of pericardial effusion Echo showed LVEF 40-45% Heparin drip was stopped before taking to CABG Continue atorvastatin 40 mg Q 24 Continue aspirin 81 daily Morphine 2 mg prn Nitroglycerin 0.4 mg sublingually as p.r.n. for chest pain Chronic Bronchitis possible COPD Rule out developing community-acquired pneumonia Gram stain did not isolate specific organism, showed normal oropharyngeal tae Continue IV Rocephin/doxycycline (day 4) Follow pulmonology recommendations Pulmicort, Atrovent has been placed for shortness of breath Patient will benefit from outpatient PFTs Patient will benefit from outpatient sleep study to rule out BAILEY CKD stage III, electrolyte abnormality Urine protein creatinine ratio is 271, consistent with CKD Renal ultrasound showed smaller left kidney with renal parenchymal disease and a right renal simple cortical cyst Replace the magnesium per protocol Hypertension, hyperlipidemia, hypothyroidism, suspected BAILEY Patient's home medications were reconciled and resumed Patient should get evaluated for BAILEY as outpatient Continue with Lipitor, continue with gemfibrozil, patient has not taken some of his home medications for several months Restart lisinopril monitoring renal function closely GI prophylaxis with pantoprazole Follow cardiovascular recommendations for further management, interventions, clinical response. ATTESTATION BY PHYSICIAN I have seen and examined the patient. I reviewed the documentation, medical decision making, and treatment plan as noted by the resident provider above. I agree with the findings and plan of care. ALEJANDRA ARZATE MD, HARSHAVARDHA MD Apr 24, 2025 16:53
[2025-04-25] VITALS (112 sets, daily range): BP systolic 113–164; BP diastolic 54–153; PULSE 70–94; RESP 6–31; TEMP 97.4–99.1; O2SAT 93–100
[2025-04-25 04:44] LABS: NUCLEATED RED BLOOD CELLS 0.0 % (0.0-0.19); PLATELET COUNT (AUTO) 148.0 K/uL (130-400); RED BLOOD CELL COUNT(AUTO) 3.47 MIL/uL (4.50-6.20); RED CELL DISTRIBUTION WIDTH 13.7 % (11.0-15.5); WHITE BLOOD COUNT (AUTO) 10.7 K/uL (4.8-10.8)
[2025-04-25 05:06] LABS: CREATININE 1.4 mg/dL (0.5-1.3); GLOMERULAR FILTR. RATE CALC 58.0 mL/min (>90); GLUCOSE,RANDOM 110.0 mg/dL (70-105); PHOSPHORUS 4.2 mg/dL (2.5-4.9); SODIUM SERUM 140.0 mmol/L (136-145); UREA NITROGEN, BLOOD 18.0 mg/dL (7-18)
--- NOTE | 2025-04-25 07:48 | HMCIMG ---
EXAM: CR Chest, single view. CLINICAL HISTORY: Stable post-CABG. COMPARISON: Prior chest radiograph dated 24 April 2025 FINDINGS: Post sternotomy status. Left subclavian central venous catheter likely terminates within the left brachiocephalic vein. A left-sided chest tube is in place. Mild pulmonary vascular congestion. Stable cardiomegaly. Subsegmental atelectasis in the left lower lobe. No evidence of pleural effusion or pneumothorax. No acute osseous abnormality. IMPRESSION: Mild pulmonary vascular congestion. /[place]
--- NOTE | 2025-04-25 08:48 | PN ---
[facility] PROGRESS NOTE Date Patient Seen: Apr 25, 2025 Time of Visit: 08:47 Supervising Physician: Brigido Cheung MD Supervising Physician: Dr. Bansal Primary Care Physician: [ ] Outpatient Specialists: [ ] Inpatient Consults: Dr. Gordon, Dr. Pop PROBLEM LIST: Multivessel coronary artery disease status post CABG x3 04/23/2025. Cardiogenic shock SCAI stage C on MCS with IABP post op your cava NSTEMI/ ACS, POA -s/p LHC on 04/21/25 with findings of MvCAD schemic cardiomyopathy. Suspected community-acquired pneumonia, POA Undiagnosed COPD/chronic bronchitis, POA History of coronary artery disease with prior history of PCI in 2004, POA CKD stage 3, POA Electrolyte abnormalities (hyponatremia, hypomagnesemia) Polysubstance abuse with tobacco, cocaine and marijuana. Suspected Undiagnosed and untreated BAILEY Hypertension, POA Hyperlipidemia, POA Diabetes mellitus type 2, POA Hypothyroidism POA INTERVAL HISTORY: Date of admission: 04/20/25 Hospital Day: 5 ICU Day: 2 Code status: Full code Ventilator status: Preoperative Intubated -extubated on 04/23/25 Lines: Intra-aortic balloon pump to right femoral, arterial line, chest tube, left subclavian central line, Weir catheter Nutrition: Clear liquids Isolation: Standard Overnight events: No major overnight events. Patient has been hemodynamically stable. Continues on low-dose epi at 0.01 mcg/kg per minute and hemodynamically stable. Intra-ao rtic balloon pump 1: 2. Deficiency currently saturating 98% on 3 L via nasal cannula in no apparent distress respiratory rate of 13. Was pretty due to urine output 3.7 L with a balance of-1.8 L and chest tube drained 180 mL generalized 24 hours. White count normalized today H&H stable 10.5/35.9 platelet count of the 201851. Eight chemistries shows sodium of 140 potassium was carbon dioxide 33 with a BUN of 18, GFR of 58 creatinine has improved from 1.8 yesterday to 1.4 today. Chest x-ray shows mild pulmonary congestion. The patient Chest tube in place. Patient denies any chest pain palpitation shortness for breath. He reports last night he received ultram and became slightly confused in am. instructed pt nurse to avoid ultram. Tylenol may be used instead. Otherwise patient is recovering as expected. Family update four/meetings: Updated pt and family at the bedside . all questions answered. REVIEW OF SYSTEMS: 12 point ROS reviewed with patient. Pertinent positives mentioned above. Otherwise negative. PHYSICAL EXAM: GENERAL: alert, weak, awake oriented x 3 HEENT: EOMI, Sclera non icteric, moist mucosa NECK: Supple, no JVD, trachea midline LUNGS: Clear breath sounds bilaterally. No wheezes HEART: Regular rate and rhythm. Normal S1 and S2, without murmurs ABD: Abdomen soft, nontender. Bowel sounds present EXT: No clubbing cyanosis or edema NEURO: Alert and oriented to person, follows commands Vital Signs (last 8hr) Date Time Temp Pulse Resp B/P (MAP) Pulse Ox O2 Delivery O2 Flow Rate FiO2 04/25/25 07:54 98.4 04/25/25 07:30 81 7 148/82 (104) 95 32 04/25/25 07:15 79 26 147/82 (103) 95 32 04/25/25 07:00 81 20 153/82 (105) 94 32 04/25/25 06:45 81 27 157/80 (105) 91 32 04/25/25 06:30 70 31 138/72 (94) 91 04/25/25 06:15 70 28 135/78 (97) 97 114/54 (74) 04/25/25 06:13 86 20 04/25/25 06:11 86 20 N/Cannula Low lpm 3.0 32 04/25/25 06:00 88 16 139/82 (101) 95 04/25/25 05:45 87 10 145/86 (105) 96 40 04/25/25 05:30 89 8 144/86 (105) 96 04/25/25 05:15 89 11 147/86 (106) 95 04/25/25 05:00 90 23 146/85 (105) 95 40 04/25/25 04:45 90 17 138/81 (100) 94 04/25/25 04:30 88 16 144/85 (104) 95 04/25/25 04:22 94 Nasal Cannula* 3 32 04/25/25 04:15 90 16 146/85 (105) 94 04/25/25 04:00 98.8 04/25/25 04:00 91 16 143/83 (103) 94 32 04/25/25 03:45 90 20 141/82 (101) 97 04/25/25 03:30 89 16 138/80 (99) 96 04/25/25 03:15 90 18 143/82 (102) 96 04/25/25 03:00 90 11 142/80 (100) 96 32 04/25/25 02:45 91 14 141/80 (100) 97 04/25/25 02:30 91 14 140/80 (100) 94 04/25/25 02:15 90 24 149/82 (104) 95 04/25/25 02:00 89 23 143/78 (99) 96 32 117/73 (88) 04/25/25 01:49 87 22 40 04/25/25 01:45 93 20 144/76 (98) 95 04/25/25 01:30 91 13 152/89 (110) 95 32 04/25/25 01:15 90 12 150/87 (108) 95 04/25/25 01:00 89 12 149/87 (107) 96 32 113/76 (88) LABS: Hematology Labs: Test 04/25/25 04:08 04/24/25 03:56 Range/Units White Blood Count 10.7 4.8-10.8 K/uL Red Blood Count 3.47 L 4.50-6.20 MIL/uL Hemoglobin 10.5 L 14.0-18.0 g/dL Hematocrit 31.9 L 42-54 % Mean Corpuscular Volume 91.9 79-99 fL Mean Corpuscular Hemoglobin 30.3 27.0-33.0 pg Mean Corpuscular Hemoglobin Concent 32.9 32.0-36.0 g/dL Red Cell Distribution Width 13.7 11.0-15.5 % Platelet Count 148 # 130-400 K/uL Mean Platelet Volume 9.9 7.5-10.5 fL Nucleated Red Blood Cells 0.0 0.0-0.19 % Immature Granulocyte % (Auto) 0.4 0-1 % Neutrophils (%) (Auto) 71.9 40.0-77.0 % Lymphocytes (%) (Auto) 10.0 L 21.0-51.0 % Monocytes (%) (Auto) 17.2 H 3.0-13.0 % Eosinophils (%) (Auto) 0.1 0.0-8.0 % Basophils (%) (Auto) 0.4 0.0-5.0 % Neutrophils # (Auto) 10.5 H 1.8-7.7 K/uL Lymphocytes # (Auto) 1.5 1.0-4.8 K/uL Monocytes # (Auto) 2.5 H 0.1-1.0 K/uL Eosinophils # (Auto) 0.01 0.00-0.70 K/uL Basophils # (Auto) 0.06 0.00-0.20 K/uL Absolute Immature Granulocyte (auto 0.06 0-1 K/uL White Cell Morphology Comment See comments Chemistry Labs: Test 04/25/25 04:08 04/25/25 04:04 04/24/25 03:56 Range/Units Sodium Level 140 136-145 mmol/L Potassium Level 4.5 3.5-5.1 mmol/L Chloride Level 102 101-111 mmol/L Carbon Dioxide Level 33 H 21-32 mmol/L Blood Urea Nitrogen 18 7-18 mg/dL Creatinine 1.4 H 0.5-1.3 mg/dL Glomerular Filtration Rate Calc 58 >90 mL/min Random Glucose 110 H 70-105 mg/dL Total Calcium 8.2 L 8.5-10.1 mg/dL Ionized Calcium 1.07 L 1.15-1.33 MMOL/L Phosphorus Level 4.2 2.5-4.9 mg/dL Magnesium Level 1.90 1.80-2.40 mg/dL Whole Blood Glucose 110 70-110 MG/DL Whole Blood Ketones Quantitative < 0.1 0.0-0.6 mmol/L Coagulation Labs: Test 04/24/25 03:56 Range/Units Prothrombin Time 10.8 9.6-11.6 SEC Prothromb Time International Ratio 1.02 0.85-1.15 Activated Partial Thromboplast Time 24.5 L 26.3-35.5 SEC DIAGNOSTICS / RADIOLOGY RESULTS: [address] [address] IMAGING REPORT Signed PATIENT: SB PATEL MR#: [id number] : 1965 SEX: M AGE: 60 LOCATION: [facility] ORDER 99 STATUS: ADM IN REPORT#: [id number] SERVICE 0400 REASON: s/p CABG ORDERING PHYSICIAN: VASU LOZOYA MD PROCEDURE: CXR1VW - CHEST 1VW EXAM: CR Chest, single view. CLINICAL HISTORY: Stable post-CABG. COMPARISON: Prior chest radiograph dated 24 April 2025 FINDINGS: Post sternotomy status. Left subclavian central venous catheter likely terminates within the left brachiocephalic vein. A left-sided chest tube is in place. Mild pulmonary vascular congestion. Stable cardiomegaly. Subsegmental atelectasis in the left lower lobe. No evidence of pleural effusion or pneumothorax. No acute osseous abnormality. IMPRESSION: Mild pulmonary vascular congestion. /[place] DICTATED BY: ANN MARIE COBIAN MD DATE: 04/25/25847 ELECTRONICALLY SIGNED BY: ANN MARIE COBIAN MD DATE: 04/25/25847 ] PLAN Follow CT surgeon recommendations Follow cardiology recommendations Multimodal pain management Monitoring H&H Monitor chest tube output Chest x-ray in the morning ABG's PRN Transfuse if absolutely necessary to keep hemoglobin above 8 Maintain O2 sats greater than 92% Incentive spirometry Glycemic control with goal of 80-180 Referral for cardiac rehabilitation Speech to eval once patient is extubated monitor electrolytes: K Goal of 4 Magnesium goal of 2 Replace accordingly Bipap PRN and HS 12/6 40% NEURO: Minimize central acting medications as possible. Fall Precautions. Well lighted room through the day and minimize interruptions through the night to prevent acute delirium. PULMONARY: Supplemental 02 as needed Titrate Fio2 to keep Spo2 > or = 90% DuoNebs and CPT as needed IS hourly while awake for pulmonary hygiene Out of bed to chair as tolerated CARDIOVASCULAR: Follow hemodynamics. Titrate vasopressor to keep MAP >65 or systolic blood pressure >95mmHg DIPS: Epinephrine LINES: PIV GI & NUTRITION: Continue nutritional support Aspirations precautions Prokinetic agents and laxatives as needed KIDNEYS & ELECTROLYTES: Strict monitoring of intake and output Daily weights Avoid nephrotoxic agents Monitor electrolytes and replace as needed Goal urine output of 30mL/hr or 0.5mL/kg/hr ENDOCRINE: Maintain blood glucose between 100-180 at all times. Insulin sliding scale for blood glucose management INFECTIOUS DISEASE: Trend temperature. Mahajan-culture if febrile. Micro: [ ] Respiratory culture normal tae Legionella pneumophila not detected in the sputum PCR MRSA positive Antibiotics: [ ] Rocephin and doxycycline HEMATOLOGY & COAGULATION: Monitor H&H. Keep Hgb > 7 Transfuse 1 unit of PRBC for Hgb < 7 Transfuse 1 pack of platelets of platelets < 20, 000 Watch for any signs and symptoms of bleeding SKIN: Pressure ulcer prevention per facility protocol Rehab: PT/OT Prophylaxis: GI: Pepcid DVT: Ankit schreiber, per CV surgery Code Status: Full Resuscitation Disposition: ICU Other: Total patient care time exceeds 35 minutes excluding all procedures. Case was discussed and seen with my supervising physician. The above plan was formulated and agreed upon. ATTESTATION BY PHYSICIAN I reviewed the documentation, medical decision making, and treatment plan as noted by the mid-level provider above. I agree with the findings and plan of care. Brigido Cheung MD, NELLY [facility] Apr 25, 2025 08:48
--- NOTE | 2025-04-25 11:03 | PN ---
This is a 60-year-old male with a history of coronary artery disease status post remote coronary stenting in the setting of an inferior wall NC in 2005, hypertension, hyperlipidemia, type 2 diabetes mellitus and hypothyroidism. He was admitted 04/20/2025 secondary to non-STEMI/unstable angina. He tested positive for cocaine and marijuana. Echocardiogram 04/20/2025 shows an ejection fraction of 40-45% with normal-sized left atrium and mild mitral valve regurgitation. He underwent left heart catheterization 04/21/2025 which showed multivessel coronary artery disease. He underwent CABG x3 04/23/2025. IABP placed during the procedure. He is currently in sinus rhythm with heart rates in the 90s. Most recent blood pressure is 146/86. Chest x-ray this morning shows mild pulmonary vascular congestion. White blood count 10.7, hemoglobin 10.5, hematocrit 31.9, platelets 148, creatinine 1.4, potassium 4.5, magnesium 1.90. His main complaint is that he is not sleeping well. Otherwise he denies cardiac complaints. On exam, he is in no acute distress, regular rate and rhythm, lungs are clear to auscultation bilaterally. Assessment: 1. Non-STEMI/unstable angina. 2. Multivessel coronary artery disease status post CABG x3 with IABP placement 04/23/2025. 3. Ischemic cardiomyopathy. 4. Hypertension. 5. Hyperlipidemia. 6. Type 2 diabetes mellitus. 7. Chronic kidney disease. 8. Polysubstance abuse with tobacco, cocaine and marijuana. Plan: 1. He was admitted for non-STEMI 04/20/2025. He is status post CABG x3 04/23/2025 secondary to multivessel coronary artery disease. Plan to discontinue IABP today. 2. Continue aspirin 81 mg once daily, atorvastatin 40 mg once daily and furosemide 20 mg twice daily. Metoprolol tartrate 12.5 mg was held this morning due to low blood pressure. 3. Advance guideline directed medical therapy for heart failure once he no longer requires IV pressors. 4. We will follow the patient. Vitals/Labs Vital Signs Date Time Temp Pulse Resp B/P (MAP) Pulse Ox O2 Delivery O2 Flow Rate FiO2 04/25/25 10:00 93 7 146/86 (106) 94 32 04/25/25 07:54 98.4 04/25/25 07:30 Nasal Cannula* 3 Laboratory Tests 04/24/25 13:00 04/25/25 04:08 FORD B[facility] Apr 25, 2025 11:03
--- NOTE | 2025-04-25 16:19 | PN ---
[facility] PROGRESS NOTE Date of Service: Apr 25, 2025 Time of Service: 16:03 HISTORY OF PRESENT ILLNESS: Patient is a 60-year-old male with past medical history of CAD, hyperlipidemia, hypertension, diabetes mellitus type 2, hypothyroidism, obesity who presented to the ED with chief complaint of chest pain. Patient complained of diaphoresis, shortness of breath, chest pain which started 2 weeks ago which is on and off and burning pain in nature. Patient started having severe chest pain 3 hours ago which prompted the patient to come to the ED. patient complained that the pain is worse on lying down and better on waking up and leaning forward. He ambulates using cane. Patient admitted to smoking 1 pack per day for past 40 years since the age of 9, vaping, usage of weed, reports hx of chronic cocaine use with last use 2 days ago. On presentation to the ED patient vitals temperature 98.2, pulse 89, res piratory rate 20, blood pressure 120/79, saturating at 96% on room air. Labs revealed white blood count of 8.5, hemoglobin 14.5 Chemistries show sodium 130, creatinine 1.6, BUN 19, glucose 213, magnesium 1.7, BNP 169, and troponin initially is 323 trended up to 496. Patient received3 and4 mg of aspirin in the ED and 0.4 mg of sublingual nitroglycerin which did not help with the pain. CXR showed bilateral infiltrates. Patient will be admitted for further evaluation of chest pain in the setting of elevated cardiac troponin, with concern fro ACS/ NSTEMI. Will also consider pericarditis in the differential due to symptomatology of chest pain. Patient will receive broad-spectrum antibiotics and patient likely has undiagnosed COPD with chest x-ray showing bilateral infiltrates with concerns for possible pneumonia. Patient will be monitored closely under hospitalist service. SUBJECTIVE: 04/21/2025: Patient was evaluated at the bedside. Patient appeared to be in mild distress however did not complain of chest pain this morning. Patient was scheduled for left heart catheterization this morning. Patient reports that he had ongoing chest pain for 2 weeks which got severe yesterday, worse when lying down and relieved by sitting up and leaning forward. He also had cough and shortness of breath and his chest x-ray showed bilateral basilar infiltrates suggestive of pneumonia. His cardiac troponins were serially measured and today they were 5810. Echo was performed and ruled out pericardial effusion. Patient admits to using cocaine and marijuana within the last 2 days. Patient started on Cardizem, aspirin and heparin drip. Patient admits to smoking. Patient's white count cell is 10.7. We will follow Cardiology recommendations after left heart catheterization. 04/22/2025: Patient was evaluated at the bedside. Patient was not in any distress was alert, oriented and did not complain of chest pain today. Patient had his left heart catheterization yesterday which found severe multivessel CAD needing CABG. He had a 70% distal stenosis followed by a total occlusion of the distal RCA. The left circumflex artery is totally occluded proximally. The LAD had a previous stent which is 100% stenosis in the mid LAD after a diagonal branch. His LVEF was 40%. [place] [address] today up from [address] Pop reviewed him and deemed he has very poor targets for CABG however wants to attempt it. Patient was explained about the risks and he expressed understanding and gave the consent. Patient is still pending a date for CABG and will be maintained meanwhile on his ACS protocol. 04/23/2025: Patient was evaluated at the bedside this morning. Patient was lying on his side and was not in acute distress had no acute events overnight. Patient was taken to CABG today performed by Dr. Lozoya. Patient was evaluated in the afternoon after returning from operating room. Patient was intubated and was on insulin drip. Patient blood glucose was 368 and phosphorus was 5.7. We will repeat his phosphorus levels tomorrow. Dietary restriction and if despite this it is high we will consider sevelamer 800 mg t.i.d. Whole blood ketones, urine ketone levels, urine electrolytes, urine creatinine were ordered. 04/24/2025: Patient was evaluated at the bedside this morning his 212. Patient was extubated yesterday night and has been recovering well. Patient is on 10 L of oxygen via BiPAP saturating over 98%. Is currently on Levophed, epinephrine, insulin drips. He is currently receiving doxycycline and Rocephin for his pneumonia. A repeat x-ray today showed mild cardiomegaly, atelectasis in the right lung base and no signs of pulmonary venous congestion. Patient expressed mild shortness of breath that has been subsiding with IV Lasix and nebulizer treatments. Repeat phosphorus levels was 4.3, whole blood ketones less than 0.1. Patient will be started on guideline directed management of heart failure once his pain completely of IV pressors. Patient is currently managed by critical care team and we will follow their recommendations closely. 04/25/2025: He was evaluated at the bedside this morning. No acute overnight event. He is AAO x3. He is on 4 L of oxygen. He is hemodynamically stable, off the pressors. Pertinent labs, WBC 10.7, hemoglobin 10.5, creatinine 1.4, ionized calcium 1.07. Repeated chest x-ray revealed mild pulmonary vascular congestion. He is currently on doxycycline and Rocephin, furosemide, levothyroxine, metoprolol and atorvastatin. Plan to discontinue IABP today. Patient is currently managed by critical care team and we will follow their recommendations closely. REVIEW OF SYSTEMS CONSTITUTIONAL: Patient was extubated . Dressing over the sternal wound post CABG. Denies fevers, chills, or night sweats. No unintentional weight loss reported. NEUROLOGICAL: Denies headache, amaurosis fugax, motor weakness, sensory deficit, vertigo/spinning sensation CARDIOVASCULAR: Denies any exertional angina, dyspnea on exertion, orthopnea, palpitations, life-threatening arrhythmias, claudication. Admits to chest pain, PND, resolving PULMONARY: Admits to shortness of breath, cough, phlegm/sputum, resolving SLEEP: Denies morning headaches, daytime somnolence or napping. Denies difficulty falling asleep, staying asleep, waking from sleep. Admits of snoring. GASTROINTESTINAL: Denies any type of dysphagia to either liquids or solids. Denies nausea, vomiting, pyrosis, early satiety, abdominal pain, diarrhea, constipation, or changes in stool consistency or caliber. Denies coffee-ground emesis, hematemesis, hematochezia, or melanotic stools. GENITOURINARY: Denies frequency, urgency, nocturia, hematuria or incontinence (Storage/Irritative symptoms.) Low urinary stream, straining to void, urinary intermittency or hesitancy, splitting of the voiding stream, terminal dribbling. PHYSICAL EXAM GENERAL APPEARANCE: Patient was intubated post CABG has a dressing over surgical sutures. CHEST: Normal chest expansion. Telemetry LUNGS: Absence of any rales, rhonchi or any wheezing. CARDIOVASCULAR: Regular. S1 and S2 normal. No appreciable rubs, murmurs or gallops. ABDOMEN: Soft, nontender, and nondistended. There is no rebound, voluntary guarding, or rigidity. : Deferred. Weir in place EXTREMITIES: Non-edematous and not cyanotic. No clubbing. Good capillary refill. SKIN: No skin breakdown. Vital Signs (last 8hr) Date Time Temp Pulse Resp B/P (MAP) Pulse Ox O2 Delivery O2 Flow Rate FiO2 04/25/25 15:30 87 16 143/79 (100) 98 32 04/25/25 15:15 88 14 146/79 (101) 97 32 04/25/25 15:00 87 14 132/72 (92) 97 32 04/25/25 14:45 88 10 142/82 (102) 97 32 04/25/25 14:41 87 18 137/77 (97) 97 32 120/80 (93) 04/25/25 14:30 87 21 141/76 (97) 98 32 04/25/25 14:15 90 22 122/70 (87) 90 32 04/25/25 14:00 88 17 129/74 (92) 93 32 04/25/25 13:45 88 18 139/78 (98) 90 32 04/25/25 13:41 89 12 142/78 (99) 91 32 118/81 (93) 04/25/25 13:30 91 16 143/82 (102) 91 32 04/25/25 13:15 88 12 140/78 (98) 89 32 04/25/25 13:00 90 14 137/80 (99) 98 32 04/25/25 12:45 91 8 137/79 (98) 96 32 04/25/25 12:41 89 20 144/82 (102) 98 32 123/84 (97) 04/25/25 12:30 89 22 145/81 (102) 95 32 04/25/25 12:15 91 16 139/79 (99) 97 32 04/25/25 12:00 98.4 04/25/25 12:00 89 12 135/77 (96) 98 32 04/25/25 11:45 89 14 144/83 (103) 98 32 04/25/25 11:41 89 16 137/79 (98) 97 32 118/69 (85) 04/25/25 11:30 97 Nasal Cannula* 3 32 04/25/25 11:30 90 13 142/83 (102) 95 32 04/25/25 11:17 92 20 N/Cannula Low lpm 3.0 32 04/25/25 11:15 90 21 136/80 (98) 97 32 04/25/25 11:00 90 22 126/75 (92) 99 32 04/25/25 10:45 92 21 147/85 (105) 98 32 04/25/25 10:30 93 141/79 (99) 95 32 04/25/25 10:15 94 12 129/72 (91) 97 32 04/25/25 10:00 93 7 146/86 (106) 94 32 04/25/25 09:45 93 8 164/153 (157) 98 32 04/25/25 09:41 91 11 142/83 (102) 96 32 142/69 (93) 04/25/25 09:30 92 13 144/79 (100) 97 32 04/25/25 09:15 93 11 146/87 (106) 94 32 04/25/25 09:00 90 17 142/81 (101) 96 32 04/25/25 08:45 92 23 141/84 (103) 95 32 04/25/25 08:41 91 15 152/86 (108) 96 32 124/75 (91) 04/25/25 08:30 87 7 149/87 (107) 95 32 04/25/25 08:15 85 7 148/83 (104) 91 32 LABS: Laboratory: Test 04/25/25 11:42 04/25/25 04:08 04/24/25 16:09 04/24/25 03:56 Range/Units Whole Blood Glucose 168 #H 70-110 MG/DL White Blood Count 10.7 4.8-10.8 K/uL Red Blood Count 3.47 L 4.50-6.20 MIL/uL Hemoglobin 10.5 L 14.0-18.0 g/dL Hematocrit 31.9 L 42-54 % Mean Corpuscular Volume 91.9 79-99 fL Mean Corpuscular Hemoglobin 30.3 27.0-33.0 pg Mean Corpuscular Hemoglobin Concent 32.9 32.0-36.0 g/dL Red Cell Distribution Width 13.7 11.0-15.5 % Platelet Count 148 # 130-400 K/uL Mean Platelet Volume 9.9 7.5-10.5 fL Nucleated Red Blood Cells 0.0 0.0-0.19 % Sodium Level 140 136-145 mmol/L Potassium Level 4.5 3.5-5.1 mmol/L Chloride Level 102 101-111 mmol/L Carbon Dioxide Level 33 H 21-32 mmol/L Blood Urea Nitrogen 18 7-18 mg/dL Creatinine 1.4 H 0.5-1.3 mg/dL Glomerular Filtration Rate Calc 58 >90 mL/min Random Glucose 110 H 70-105 mg/dL Total Calcium 8.2 L 8.5-10.1 mg/dL Ionized Calcium 1.07 L 1.15-1.33 MMOL/L Phosphorus Level 4.2 2.5-4.9 mg/dL Magnesium Level 1.90 1.80-2.40 mg/dL Blood Gas Specimen Type Arterial Arterial Blood pH 7.456 H 7.350-7.450 Arterial Blood Partial Pressure CO2 45 35-48 mmHg Arterial Blood Partial Pressure O2 66.6 L 83.0-108.0 mmHg Arterial Blood HCO3 30.7 H 21.0-28.0 mmol/L Arterial Blood Oxygen Saturation 93.3 L 94.0-98.0 % Arterial Blood Base Excess 6.0 H -2.0-3.0 mmol/L Hemoglobin (Blood Gas) 11.4 L 13.5-17.5 g/dL Sodium (Blood Gas) 137 136-145 MMOL/L Bedside Potassium (Blood Gas) 3.9 3.4-4.5 MMOL/L Bedside Chloride (Blood Gas) 102 98-107 MMOL/L Bedside Glucose (Blood Gas) 97 H 65-95 MG/DL Bedside Ionized Calcium (Blood Gas) 1.10 L 1.15-1.33 MMOL/L Bedside Lactic Acid (Blood Gas) 1.23 H 0.36-0.75 MMOL/L Blood Gas Temperature 37.0 35.5-37.0 CELSIUS Blood Gas Flow-by 2.00 0.00-15.00 L/min Blood Gas Vent Mode 2 L NC ROOM AIR FiO2 28.0 % Blood Gas Specimen Comment JESSI BELTRAN RN Immature Granulocyte % (Auto) 0.4 0-1 % Neutrophils (%) (Auto) 71.9 40.0-77.0 % Lymphocytes (%) (Auto) 10.0 L 21.0-51.0 % Monocytes (%) (Auto) 17.2 H 3.0-13.0 % Eosinophils (%) (Auto) 0.1 0.0-8.0 % Basophils (%) (Auto) 0.4 0.0-5.0 % Neutrophils # (Auto) 10.5 H 1.8-7.7 K/uL Lymphocytes # (Auto) 1.5 1.0-4.8 K/uL Monocytes # (Auto) 2.5 H 0.1-1.0 K/uL Eosinophils # (Auto) 0.01 0.00-0.70 K/uL Basophils # (Auto) 0.06 0.00-0.20 K/uL Absolute Immature Granulocyte (auto 0.06 0-1 K/uL White Cell Morphology Comment See comments Prothrombin Time 10.8 9.6-11.6 SEC Prothromb Time International Ratio 1.02 0.85-1.15 Activated Partial Thromboplast Time 24.5 L 26.3-35.5 SEC Whole Blood Ketones Quantitative < 0.1 0.0-0.6 mmol/L Test 04/23/25 21:04 04/23/25 16:55 Range/Units Blood Gas Respiration Rate 4.0 min. Blood Gas Tidal Volume 800 ml Blood Gas PEEP 5 cm H2O Urine Color LIGHT-YELLOW YELLOW Urine Appearance CLEAR CLEAR Urine pH 6.0 5.0-8.0 Urine Specific [place] 1.025 1.001-1.031 Urine Protein 10 H NEGATIVE mg/dL Urine Glucose (UA) >=1000 H NEGATIVE mg/dL Urine Ketones 20 H NEGATIVE mg/dL Urine Occult Blood +- (TRACE) H NEGATIVE Urine Nitrate NEGATIVE NEGATIVE Urine Bilirubin NEGATIVE NEGATIVE mg/dL Urine Urobilinogen 0.2 0.2-1.0 mg/dL Urine Leukocyte Esterase NEGATIVE NEGATIVE Buck/uL Urine RBC 6-10 H 0-1 /HPF Urine WBC 2-5 H 0-1 /HPF Urine Bacteria None None Seen /HPF Urine Other Casts 1 None Seen /LPF Urine Random Creatinine 85.44 30-135 mg/dL Urine Random Sodium 116 40-220 mmol/l Urine Random Potassium 56 25-125 mmol/L Urine Random Chloride 51 L 110-250 mmol/L Current Medications Medications (Trade) Dose Ordered Sig/Damian Route PRN Reason Start Time Stop Time Status Last Admin Dose Admin Acetaminophen (TYLenol 325MG TAB) 650 mg Q4H PRN PO Temp >38.3C(AFTER EXTUBATION) 04/23/25 09:30 05/23/25 09:29 Acetaminophen (TYLenol 325MG TAB) 650 mg Q6H PRN PO MILD PAIN (1-3) 04/20/25 11:30 04/23/25 09:21 DC 04/22/25 22:35 650 MG Acetaminophen (TYLenol 325MG TAB) 650 mg Q6H PRN PO MILD PAIN (1-3) 04/23/25 09:30 05/23/25 09:29 04/25/25 10:45 650 MG Acetaminophen (TYLenol 650MG SUPPOSITORY) 650 mg Q4H PRN RC Temp >38.3C WHILE INTUBATED 04/23/25 09:30 05/23/25 09:29 Acetaminophen (acetaMINOPHEN) 1,000 mg Q6H IV 04/23/25 21:00 04/24/25 20:59 DC 04/24/25 14:15 1,000 MG Acetaminophen (acetaMINOPHEN) 1,000 mg Q6H6 IV 04/23/25 13:00 04/23/25 19:11 DC 04/23/25 15:11 1,000 MG Albumin Human 250 ml @ 0 mls/hr AD PRN IV IF HEMODYNAMICALLY UNSTABLE 04/23/25 09:30 Aminocaproic Acid 60132 mg/Sodium Chloride 310 ml @ 25 mls/hr AD IV 04/23/25 09:30 04/23/25 21:53 DC Aminocaproic Acid 81558 mg/Sodium Chloride 480 ml @ 0 mls/hr AD PRN IV BLEEDING CONTROL 04/23/25 07:30 04/23/25 09:52 DC Aspirin (Aspirin 325mg Tab) 325 mg DAILY PO 04/21/25 09:00 04/20/25 11:07 DC Aspirin (Aspirin 81mg Chew Tab) 81 mg Q24H PO 04/20/25 11:30 05/20/25 11:29 04/25/25 08:37 81 MG Atorvastatin Calcium (LIPItor 40MG) 40 mg Q24H PO 04/20/25 11:30 04/21/25 13:17 DC 04/20/25 11:32 40 MG Atorvastatin Calcium (LIPItor 40MG) 40 mg Q24H PO 04/21/25 21:00 05/21/25 20:59 04/24/25 20:02 40 MG Budesonide (Pulmicort 0.5 Mg/2ml) 0.5 mg BIDRESP IH 04/20/25 11:30 05/20/25 11:29 04/25/25 06:13 0.5 MG Budesonide (Pulmicort 0.5 Mg/2ml) 0.5 mg BIDRESP IH 04/20/25 18:00 04/20/25 11:18 DC Calcium Gluconate 1 gm/Sodium Chloride 60 ml @ 200 mls/hr AD PRN IV HYPOCALCEMIA 04/23/25 09:30 05/23/25 09:29 04/25/25 04:44 200 MLS/HR Cefazolin Sodium (ANCEF 1 gm vial) 2 gm ONCALL IVP 04/22/25 16:30 04/22/25 16:15 DC Cefazolin Sodium (Ancef) 2 gm Q8H IVPB 04/23/25 14:30 04/24/25 06:31 DC 04/24/25 06:08 2 GM Ceftriaxone Sodium (ROCEphine 1G INJ) 1 gm Q12H IVPB 04/20/25 11:30 04/30/25 11:29 04/25/25 10:44 1 GM Clopidogrel Bisulfate (plaVIX 75MG) 75 mg DAILY PO 04/21/25 09:00 04/21/25 13:18 DC Dexmedetomidine/ Sodium Chloride (PRECEdex 400MCG/ 100ML-NS) 400 mcg PROTOCOL IV 04/23/25 09:30 04/24/25 09:29 DC Dextrose (D50w) 50 ml AD PRN IV HYPOGLYCEMIA PROTOCOL 04/23/25 09:30 05/23/25 09:29 Diltiazem HCl (CARDIzem 60MG TAB) 30 mg Q6H PO 04/20/25 11:30 04/20/25 21:29 DC 04/20/25 18:13 30 MG Diltiazem HCl (CARDIzem 60MG TAB) 60 mg [id number] PO 04/20/25 23:30 04/23/25 09:11 DC 04/23/25 00:33 60 MG Docusate Sodium (COLace 100MG CAP) 100 mg BID PO 04/23/25 21:00 05/23/25 20:59 04/25/25 08:36 100 MG Doxycycline Hyclate (Doxycycline Hyclate) 100 mg BID PO 04/20/25 21:00 04/30/25 20:59 04/25/25 08:36 100 MG Enoxaparin Sodium (Lovenox) 30 mg DAILY SQ 04/26/25 09:00 05/26/25 08:59 Enoxaparin Sodium (Lovenox) 40 mg DAILY SQ 04/22/25 16:00 04/23/25 09:11 DC 04/22/25 18:23 40 MG Epinephrine HCl 10 mg/Sodium Chloride 250 ml @ 17.779 mls/ hr AD PRN IV POST-OP CARDIOVASCULAR ORDERS 04/23/25 09:30 04/28/25 09:29 Epinephrine HCl 10 mg/Sodium Chloride 250 ml @ 0 mls/hr AD PRN IV TITRATE 04/23/25 08:00 04/23/25 09:52 DC Famotidine (Pepcid 20mg Vial) 20 mg BID IV 04/23/25 21:00 05/23/25 20:59 04/25/25 08:36 20 MG Ferrous Sulfate (Ferrous Sulfate) 325 mg TID PO 04/21/25 14:00 04/21/25 17:13 DC Furosemide (LASix 20MG TAB) 20 mg Q12H PO 04/25/25 09:00 05/25/25 08:59 04/25/25 08:36 20 MG Furosemide (LASix 20MG VIAL) 20 mg Q12H IV 04/24/25 09:00 04/25/25 08:59 DC 04/24/25 20:02 20 MG Gemfibrozil (gemFIBROzil 600 MG TABLET) 600 mg BIDAC PO 04/20/25 16:30 04/23/25 09:11 DC 04/22/25 18:23 600 MG Glucagon (Glucagon 1mg Kit) 1 mg AD PRN IM HYPOGLYCEMIA PROTOCOL 04/23/25 09:30 05/23/25 09:29 Heparin Sodium (Porcine) (HEParin 5,000 UNIT VIAL) *calculation based on ACTUAL B... AD PRN IV HEPARIN PROTOCOL 04/20/25 12:30 04/21/25 11:08 DC 04/20/25 11:59 9,000 UNIT Heparin Sodium/ Dextrose 250 ml @ 0 mls/hr Q6H IV 04/20/25 12:30 04/21/25 11:08 DC 04/21/25 01:22 18.13 MLS/HR Home Med (Home Medication) (Canagliflozin (Invokana) 300 MG) DAILY PO 04/22/25 09:00 04/21/25 16:44 DC Home Med (Home Medication) (Haloperidol 20 MG) HS PO 04/21/25 21:00 04/21/25 16:44 DC Hydralazine HCl (APRESOLine 20MG INJ) 5 mg Q6H PRN IV ADMINISTER FOR SBP > 160 04/20/25 11:30 04/23/25 09:11 DC Insulin Human Regular (humuLIN R 100 UNIT/ML 3ML) INSULIN SLIDING SCAL... ACHS SQ 04/20/25 11:30 04/23/25 09:11 DC 04/22/25 21:59 2 UNIT Insulin Human Regular (humuLIN R 100 UNIT/ML 3ML) INSULIN SLIDING SCAL... ACHS SQ 04/25/25 11:30 05/25/25 11:29 Insulin Human Regular 100 unit/ Sodium Chloride 100 ml @ 0 mls/hr AD IV 04/23/25 09:30 04/25/25 09:04 DC 04/23/25 22:51 8 MLS/HR Ipratropium [place] (AtrovENT UD) 0.5 mg Q6H PRN IH SHORTNESS OF BREATH 04/20/25 11:30 05/20/25 11:29 Lactulose (Constulose 20gm/ 30ml Udcup) 20 gm BID PRN PO CONSTIPATION 04/23/25 09:30 05/23/25 09:29 Levothyroxine Sodium (SYNTHroid 100MCG TAB) 100 mcg DAILY@0630 PO 04/21/25 06:30 04/21/25 13:39 DC Levothyroxine Sodium (SYNTHroid 100MCG TAB) 100 mcg DAILY@0630 PO 04/22/25 06:30 05/22/25 06:29 04/25/25 06:42 100 MCG Levothyroxine Sodium (SYNTHroid 50MCG TAB) 50 mcg SYN PO 04/22/25 06:30 04/21/25 16:44 DC Lisinopril (Prinivil 10mg) 10 mg DAILY PO 04/22/25 09:00 04/23/25 09:11 DC 04/22/25 12:24 10 MG Magnesium Hydroxide (Milk Of Magnesium 30ml) 30 ml DAILY PRN PO CONSTIPATION 04/23/25 09:30 05/23/25 09:29 Magnesium Sulfate 50 ml @ 12.5 mls/hr AD PRN IV MAG LEVEL LESS THAN 2.0 04/23/25 09:30 05/23/25 09:29 04/24/25 04:49 12.5 MLS/HR Magnesium Sulfate 50 ml @ 0 mls/hr PROTOCOL IV 04/20/25 11:30 05/20/25 11:29 04/25/25 08:35 25 MLS/HR Magnesium Sulfate 50 ml @ 0 mls/hr PROTOCOL IV 04/21/25 07:00 04/21/25 07:03 DC Metoprolol Tartrate (loprESSOR) 12.5 mg BID PO 04/22/25 21:00 04/23/25 09:11 DC 04/22/25 22:02 12.5 MG Metoprolol Tartrate (loprESSOR) 12.5 mg BID PO 04/25/25 09:00 05/25/25 08:59 Morphine Sulfate (morPHINE 2MG SYG) 0.5 mg Q2H PRN IV MODERATE PAIN (4-6) 04/23/25 09:30 04/24/25 09:29 DC Morphine Sulfate (morPHINE 2MG SYG) 1 mg Q2H PRN IV SEVERE PAIN (7-10) 04/23/25 09:30 04/24/25 09:29 DC 04/23/25 14:02 1 MG Morphine Sulfate (morPHINE 2MG SYG) 2 mg Q6H PRN IVP SEVERE PAIN (7-10) 04/20/25 11:00 04/23/25 09:11 DC 04/22/25 06:40 2 MG Niacin (Niacin) 1,000 mg HS PO 04/21/25 21:00 04/21/25 16:41 DC Nicotine (Nicoderm) 7 mg DAILY TD 04/21/25 09:00 05/21/25 08:59 04/25/25 08:37 7 MG Nitroglycerin (Nitrostat) 0.4 mg AD PRN SL CHEST PAIN 04/20/25 10:30 04/20/25 11:07 DC 04/20/25 10:21 0.4 MG Nitroglycerin (Nitrostat) 0.4 mg AD PRN SL CHEST PAIN 04/20/25 11:00 04/20/25 17:43 DC Nitroglycerin (Nitrostat) 0.4 mg AD PRN SL CHEST PAIN 04/20/25 18:00 04/23/25 09:11 DC 04/20/25 23:44 0.4 MG Nitroglycerin (Nitrostat) 0.4 mg Q5M PRN SL CHEST PAIN 04/20/25 10:30 04/20/25 10:13 DC Nitroglycerin/ Dextrose 0 ml @ 0 mls/hr AD IV 04/23/25 09:30 04/26/25 09:29 Norepinephrine Bitartrate 250 ml @ 0 mls/hr AD PRN IV TITRATE 04/23/25 07:30 04/23/25 09:52 DC Norepinephrine Bitartrate 250 ml @ 0 mls/hr AD PRN IV POST-OP CARDIOVASCULAR ORDERS 04/23/25 09:30 04/28/25 09:29 04/23/25 19:55 22.3 MLS/HR Ondansetron HCl (zoFRAN 4MG INJ) 4 mg Q6H PRN IV NAUSEA/VOMITING 04/23/25 09:30 05/23/25 09:29 04/25/25 04:10 4 MG Ondansetron HCl (zoFRAN 4MG INJ) 4 mg Q6H PRN IVP NAUSEA/VOMITING 04/20/25 11:30 04/23/25 09:11 DC Pantoprazole Sodium (PROTonix 40MG INJ) 40 mg DAILY IVP 04/21/25 09:00 04/23/25 09:11 DC 04/22/25 12:24 40 MG Potassium Phosphate 250 ml @ 42 mls/hr AD PRN IV LOW PHOS LEVEL 04/23/25 09:30 05/23/25 09:29 Potassium Chloride 100 ml @ 100 mls/hr AD PRN IV HYPOKALEMIA 04/23/25 09:30 05/23/25 09:29 04/24/25 16:13 100 MLS/HR Propofol 100 ml @ 0 mls/hr AD PRN IV SEDATION 04/23/25 09:30 04/27/25 09:29 Sodium Bicarbonate (Sodium Bicarb 50meq 50ml Vial) 50 meq AD PRN IV OTHER[SEE DOSING INSTRUCTIONS] 04/23/25 09:30 04/26/25 09:29 04/23/25 17:40 50 MEQ Sodium Chloride 500 ml @ 0 mls/hr AD IV 04/23/25 09:30 05/23/25 09:29 04/23/25 21:57 3 MLS/HR Sodium Chloride 500 ml @ 0 mls/hr Q0M IV 04/20/25 14:30 04/23/25 09:11 DC Sodium Chloride 1,000 ml @ 10 mls/hr ONCE IV 04/23/25 09:30 04/24/25 09:29 DC 04/23/25 14:03 10 MLS/HR Sodium Chloride 1,000 ml @ 50 mls/hr Q20H IV 04/21/25 07:00 04/22/25 07:00 DC 04/21/25 07:09 50 MLS/HR Sodium Chloride (NS Flush 10ml) 10 ml Q8H PRN IVP IV LINE FLUSH 04/23/25 09:30 05/23/25 09:29 Tramadol HCl (UltRAM) 25 mg Q6H PRN PO MODERATE PAIN (4-6) 04/23/25 09:30 04/28/25 09:29 Tramadol HCl (UltRAM) 50 mg Q6H PRN PO SEVERE PAIN (7-10) 04/23/25 09:30 04/28/25 09:29 04/25/25 02:18 50 MG Vitamin B Complex/ Vit C/Folic Acid (Nephrovite Tablet) 1 cap Q24H PO 04/20/25 12:00 05/20/25 11:59 04/25/25 08:36 1 CAP DIAGNOSTICS / RADIOLOGY: PATIENT: SB PATEL MR#: [id number] : 1965 SEX: M AGE: 60 LOCATION: 2CH ORDER 230 STATUS: ADM IN REPORT#: [id number] SERVICE 0400 REASON: s/p CABG ORDERING PHYSICIAN: VASU LOZOYA MD PROCEDURE: CXR1VW - CHEST 1VW EXAM: CR Chest, single view. CLINICAL HISTORY: Stable post-CABG. COMPARISON: Prior chest radiograph dated 24 April 2025 FINDINGS: Post sternotomy status. Left subclavian central venous catheter likely terminates within the left brachiocephalic vein. A left-sided chest tube is in place. Mild pulmonary vascular congestion. Stable cardiomegaly. Subsegmental atelectasis in the left lower lobe. No evidence of pleural effusion or pneumothorax. No acute osseous abnormality. IMPRESSION: Mild pulmonary vascular congestion. /[place] DICTATED BY: ANN MARIE COBIAN MD DATE: 04/25/25847 ELECTRONICALLY SIGNED BY: ANN MARIE COBIAN MD DATE: 04/25/25847 ASSESSMENT: NSTEMI/ ACS, POA Rule out pericarditis, POA Rule out developing community-acquired pneumonia, POA Undiagnosed COPD/chronic bronchitis, POA History of coronary artery disease with prior history of PCI in 2004, POA CKD stage 3, POA Suspected BAILEY Electrolyte abnormalities (hyponatremia, hypomagnesemia) Tobacco use disorder, POA Cocaine use disorder, POA Hypertension, POA Hyperlipidemia, POA Diabetes mellitus type 2, POA Hypothyroidism POA PLAN: Patient to be admitted to PCCU NSTEMI/ ACS, 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 for chest pain Chronic Bronchitis possible COPD Rule out developing community-acquired pneumonia Gram stain did not isolate specific organism, showed normal oropharyngeal tae Continue IV Rocephin/doxycycline (day 5) Follow pulmonology recommendations Pulmicort, Atrovent has been placed for shortness of breath Patient will benefit from outpatient PFTs Patient will benefit from outpatient sleep study to rule out BAILEY CKD stage III, electrolyte abnormality Urine protein creatinine ratio is 271, consistent with CKD Renal ultrasound showed smaller left kidney with renal parenchymal disease and a right renal simple cortical cyst Replace the magnesium per protocol Hypertension, hyperlipidemia, hypothyroidism, suspected BAILEY Patient's home medications were reconciled and resumed Patient should get evaluated for BAILEY as outpatient Continue with Lipitor, continue with gemfibrozil, patient has not taken some of his home medications for several months Restart lisinopril monitoring renal function closely Follow cardiovascular recommendations for further management, interventions, clinical response. GI prophylaxis with pantoprazole DVT prophylaxis with enoxaparin Discharge planning: Home Code status: full code Diet: Clear liquid ATTESTATION BY PHYSICIAN I have seen and examined the patient. I reviewed the documentation, medical decision making, and treatment plan as noted by the resident provider above. I agree with the findings and plan of care. Guero Hsieh MD, SUNIL MD Apr 25, 2025 16:19
[2025-04-26] VITALS (88 sets, daily range): BP systolic 97–164; BP diastolic 47–95; PULSE 83–132; RESP 11–28; TEMP 98.2–99.2; O2SAT 92–100
[2025-04-26 05:06] LABS: NUCLEATED RED BLOOD CELLS 0.0 % (0.0-0.19); PLATELET COUNT (AUTO) 160.0 K/uL (130-400); RED BLOOD CELL COUNT(AUTO) 3.32 MIL/uL (4.50-6.20); RED CELL DISTRIBUTION WIDTH 13.2 % (11.0-15.5); WHITE BLOOD COUNT (AUTO) 8.6 K/uL (4.8-10.8)
[2025-04-26 05:30] LABS: CREATININE 1.5 mg/dL (0.5-1.3); GLOMERULAR FILTR. RATE CALC 53.0 mL/min (>90); GLUCOSE,RANDOM 138.0 mg/dL (70-105); PHOSPHORUS 4.1 mg/dL (2.5-4.9); SODIUM SERUM 138.0 mmol/L (136-145); UREA NITROGEN, BLOOD 20.0 mg/dL (7-18)
--- NOTE | 2025-04-26 07:19 | CCATH ---
PROCEDURE NOTE PROBLEM LIST: * Severe 3-vessel coronary artery disease. * Non-transmural VA and unstable angina post infarct on this presentation. * Severe coronary artery disease. * Status post intraaortic balloon pump counter pulsation for stabilization on 04/23/2025 with concomitant coronary artery bypass graft surgery x 3. * Ischemic cardiomyopathy with echocardiography pending. * Hypertension. * Diabetes mellitus, type 2. * Chronic kidney disease. * Obesity. * Polysubstance abuse with tobacco, cocaine, and marijuana, counseled extensively. * Possible obstructive sleep apnea. * History of remote PCI in 2004. * Electrolyte abnormalities, being stabilized. * Hypothyroidism, on supplement. * Hyperlipoproteinemia. DESCRIPTION OF PROCEDURE: This gentleman has been hospitalized because of non-transmural VA and unstable angina. He was noted to have severe 3-vessel coronary artery disease. The patient underwent an evaluation with cardiac catheterization documented the presence of severe coronary artery disease. The patient underwent surgical revascularization with 3 grafts. He had an intra-aortic balloon pump that is still present. The patient has remained in the ICU. He is currently comfortable and stable and has no cardiac symptoms except for minor incisional chest discomfort. Intraaortic balloon pump is in place and is currently maintained at 1 to 3. He has not had any active problems with the balloon; however, he is not fully heparinized. On assessing the patient this morning, he is comfortable and stable, in no apparent distress. He is lying flat. He has no vascular compromise. His vital signs are stable. He is afebrile. His heart rate is in the 80s. His blood pressure is 135 to 140 systolic range. He is saturating at 97% on 3 liters of nasal cannula. Laboratory studies this morning revealed a white count of 8.6, H and H of 10.0 and 29.2 respectively. Platelet count is 168,000. The patient's chemistry revealed a sodium of 138, potassium 4.3, chloride of 100, CO2 of 33, BUN is 20, creatinine 1.5 with a GFR of 53. Random glucose is 138. The calcium is 8.1, the magnesium is 1.9, and the phosphorus is 4.1. This gentleman is currently maintained on low-dose Lovenox, insulin, metoprolol, furosemide, famotidine, Colace, levothyroxine, atorvastatin, nicotine patch, doxycycline, Nephro-Romy, Atrovent, Rocephin, baby aspirin, and p.r.n. medications. The patient is being managed as per the CTS protocol. My goal is to hopefully get the intraaortic balloon pump removed today. It is currently at 1 to 3. The removal of the intraaortic balloon pump will be discussed with the Cardiothoracic Surgery team. We will continue the current supportive measures. We will check the patient's echocardiogram results when available. He had a carotid ultrasound that documented minimal disease; however, no flow was identified in the left vertebral artery. On the report, there was no mention of the left subclavian artery, which will be really important given the patient's likelihood of having a BLACKMON bypass graft. We will check and proceed with an EKG postop. TID: [id number] RECEIPT: [id number]
--- NOTE | 2025-04-26 07:27 | HMCIMG ---
EXAM: CR Chest, single view. CLINICAL HISTORY: Stable post-CABG. COMPARISON: Prior chest radiograph dated 25 April 2025 FINDINGS: Post sternotomy status. Left subclavian central venous catheter likely terminates within the left brachiocephalic vein. A left-sided chest tube is in place. Mild pulmonary vascular congestion. Stable cardiomegaly. Subsegmental atelectasis in the left lower lobe. No evidence of pleural effusion or pneumothorax. No acute osseous abnormality. IMPRESSION: Essentially stable since previous exam. Mild pulmonary vascular congestion. Other findings as described above. /[place]
[2025-04-26] MEDS: ENOXAPARIN SODIUM 30 MG/0.3 ML SQ SCH (08:19)
--- NOTE | 2025-04-26 08:48 | PN ---
[facility] PROGRESS NOTE Date Patient Seen: Apr 26, 2025 Time of Visit: 08:47 Supervising Physician:Ron Aparicio MD Supervising Physician: Dr. Bansal Primary Care Physician: [ ] Outpatient Specialists: [ ] Inpatient Consults: Dr. Gordon, Dr. Pop PROBLEM LIST: Multivessel coronary artery disease status post CABG x3 04/23/2025. Cardiogenic shock SCAI stage C on MCS with IABP post op your cava NSTEMI/ ACS, POA -s/p LHC on 04/21/25 with findings of MvCAD schemic cardiomyopathy. Suspected community-acquired pneumonia, POA Undiagnosed COPD/chronic bronchitis, POA History of coronary artery disease with prior history of PCI in 2004, POA CKD stage 3, POA Electrolyte abnormalities (hyponatremia, hypomagnesemia) Polysubstance abuse with tobacco, cocaine and marijuana. Suspected Undiagnosed and untreated BAILEY Hypertension, POA Hyperlipidemia, POA Diabetes mellitus type 2, POA Hypothyroidism POA INTERVAL HISTORY: Date of admission: 04/20/25 Hospital Day: 6 ICU Day: 3 Code status: Full code Ventilator status: Preoperative Intubated -extubated on 04/23/25 Lines: Intra-aortic balloon pump to right femoral, arterial line, chest tube, left subclavian central line, Weir catheter Nutrition: Clear liquids Isolation: Standard Overnight events: No major overnight events. Plan for today is per balloon pump removal. Currently intra-aortic balloon PAP at support of 1:2. Patient is hemodynamically stable with a blood pressure 135/72 heart rate in the 80s respiratory rate of 16 unlabored saturating 99% on 3 L via nasal cannula and has been afebrile with a T-max of 98.8. Urine output of 4.7 L and a balance-3.4 L able 07/07.2. decreased lasix to once a day. White count is normal H&H is stable. Chloride 100, carbon dioxide of 33 BUN of 20 creatinine 1.5 and GFR of 53. Decrease Lasix to daily. Chest x-ray essentially stable since previous exam. Mild pulmonary vascular congestion. Intra-aortic balloon pump appears to be in good position. Patient denies any chest pain palpitation shortness for breath. Reports pain is better controlled with Tylenol but occasionally has intercostal chest pain with deep breathing and movement. We will start gabapentin 100 mg 3 times a day. Family update four/meetings: No family at the bedside, REVIEW OF SYSTEMS: 12 point ROS reviewed with patient. Pertinent positives mentioned above. Otherwise negative. PHYSICAL EXAM: GENERAL: alert, weak, awake oriented x 3 HEENT: EOMI, Sclera non icteric, moist mucosa NECK: Supple, no JVD, trachea midline LUNGS: Clear breath sounds bilaterally. No wheezes HEART: Regular rate and rhythm. Normal S1 and S2, without murmurs ABD: Abdomen soft, nontender. Bowel sounds present EXT: No clubbing cyanosis or edema NEURO: Alert and oriented to person, follows commands Vital Signs (last 8hr) Date Time Temp Pulse Resp B/P (MAP) Pulse Ox O2 Delivery O2 Flow Rate FiO2 04/26/25 06:45 91 13 150/87 (108) 97 97/56 (70) 04/26/25 06:30 89 18 146/81 (102) 99 04/26/25 06:19 86 20 04/26/25 06:19 86 20 N/Cannula Low lpm 3.0 32 04/26/25 06:15 92 22 148/87 (107) 97 04/26/25 06:00 88 19 134/76 (95) 100 32 04/26/25 05:45 88 15 139/78 (98) 97 122/78 (93) 04/26/25 05:30 86 14 137/79 (98) 97 04/26/25 05:15 89 17 140/81 (100) 98 04/26/25 05:00 87 22 131/73 (92) 97 32 04/26/25 04:45 88 17 131/72 (91) 96 117/65 (82) 04/26/25 04:30 87 12 135/73 (93) 99 04/26/25 04:15 89 15 134/78 (96) 97 04/26/25 04:00 98.4 Nasal Cannula 3.0 32 04/26/25 04:00 97 Nasal Cannula* 3 32 04/26/25 04:00 98.4 90 16 139/81 (100) 95 32 04/26/25 03:45 86 22 127/73 (91) 98 04/26/25 03:41 85 19 129/75 (93) 97 126/78 (94) 04/26/25 03:30 88 13 137/79 (98) 97 04/26/25 03:15 91 15 138/80 (99) 95 04/26/25 03:00 88 15 136/78 (97) 97 32 04/26/25 02:45 87 16 137/77 (97) 98 144/65 (91) 04/26/25 02:30 88 15 130/72 (91) 99 04/26/25 02:15 90 11 131/76 (94) 97 04/26/25 02:00 90 16 154/88 (110) 96 32 04/26/25 01:45 91 13 152/86 (108) 96 131/90 (104) 04/26/25 01:30 93 14 140/78 (98) 95 04/26/25 01:15 90 12 134/78 (96) 96 04/26/25 01:01 87 19 N/Cannula Low lpm 3.0 32 04/26/25 01:00 86 18 139/76 (97) 98 32 LABS: Hematology Labs: Test 04/26/25 04:50 Range/Units White Blood Count 8.6 4.8-10.8 K/uL Red Blood Count 3.32 L 4.50-6.20 MIL/uL Hemoglobin 10.0 L 14.0-18.0 g/dL Hematocrit 29.2 L 42-54 % Mean Corpuscular Volume 88.0 79-99 fL Mean Corpuscular Hemoglobin 30.1 27.0-33.0 pg Mean Corpuscular Hemoglobin Concent 34.2 32.0-36.0 g/dL Red Cell Distribution Width 13.2 11.0-15.5 % Platelet Count 160 130-400 K/uL Mean Platelet Volume 9.6 7.5-10.5 fL Nucleated Red Blood Cells 0.0 0.0-0.19 % Chemistry Labs: Test 04/26/25 04:50 04/25/25 20:05 04/25/25 04:08 Range/Units Sodium Level 138 136-145 mmol/L Potassium Level 4.3 3.5-5.1 mmol/L Chloride Level 100 L 101-111 mmol/L Carbon Dioxide Level 33 H 21-32 mmol/L Blood Urea Nitrogen 20 H 7-18 mg/dL Creatinine 1.5 H 0.5-1.3 mg/dL Glomerular Filtration Rate Calc 53 >90 mL/min Random Glucose 138 H 70-105 mg/dL Total Calcium 8.1 L 8.5-10.1 mg/dL Phosphorus Level 4.1 2.5-4.9 mg/dL Magnesium Level 1.90 1.80-2.40 mg/dL Whole Blood Glucose 275 #H 70-110 MG/DL Ionized Calcium 1.07 L 1.15-1.33 MMOL/L DIAGNOSTICS / RADIOLOGY RESULTS: [[facility] [address] [place] [address] IMAGING REPORT Signed PATIENT: SB PATEL MR#: [id number] : 1965 SEX: M AGE: 60 LOCATION: 2C ORDER 230 STATUS: ADM IN REPORT#: [id number] SERVICE 0400 REASON: s/p CABG ORDERING PHYSICIAN: VASU LOZOYA MD PROCEDURE: CXR1VW - CHEST 1VW EXAM: CR Chest, single view. CLINICAL HISTORY: Stable post-CABG. COMPARISON: Prior chest radiograph dated 25 April 2025 FINDINGS: Post sternotomy status. Left subclavian central venous catheter likely terminates within the left brachiocephalic vein. A left-sided chest tube is in place. Mild pulmonary vascular congestion. Stable cardiomegaly. Subsegmental atelectasis in the left lower lobe. No evidence of pleural effusion or pneumothorax. No acute osseous abnormality. IMPRESSION: Essentially stable since previous exam. Mild pulmonary vascular congestion. Other findings as described above. /[place] DICTATED BY: ANDREINA MCCULLOUGH Jr., MD DATE: 04/26/25825 ELECTRONICALLY SIGNED BY: ANDREINA MCCULLOUGH Jr., MD DATE: 04/26/25825 ] PLAN Follow CT surgeon recommendations Follow cardiology recommendations Multimodal pain management Monitoring H&H Monitor chest tube output Chest x-ray in the morning Transfuse if absolutely necessary to keep hemoglobin above 8 Maintain O2 sats greater than 92% Incentive spirometry Glycemic control with goal of 80-180 Referral for cardiac rehabilitation Speech to eval once patient is extubated monitor electrolytes: K Goal of 4 Magnesium goal of 2 Replace accordingly Bipap PRN and HS 12/6 40% Gabapentin 100 mg 3 times a day p.o. NEURO: Minimize central acting medications as possible. Fall Precautions. Well lighted room through the day and minimize interruptions through the night to prevent acute delirium. PULMONARY: Supplemental 02 as needed Titrate Fio2 to keep Spo2 > or = 90% DuoNebs and CPT as needed IS hourly while awake for pulmonary hygiene Out of bed to chair as tolerated CARDIOVASCULAR: Follow hemodynamics. Titrate vasopressor to keep MAP >65 or systolic blood pressure >95mmHg DIPS: Epinephrine LINES: PIV GI & NUTRITION: Continue nutritional support Aspirations precautions Prokinetic agents and laxatives as needed KIDNEYS & ELECTROLYTES: Strict monitoring of intake and output Daily weights Avoid nephrotoxic agents Monitor electrolytes and replace as needed Goal urine output of 30mL/hr or 0.5mL/kg/hr ENDOCRINE: Maintain blood glucose between 100-180 at all times. Insulin sliding scale for blood glucose management INFECTIOUS DISEASE: Trend temperature. Mahajan-culture if febrile. Micro: [ ] Respiratory culture normal tae Legionella pneumophila not detected in the sputum PCR MRSA positive Antibiotics: [ ] Rocephin and doxycycline HEMATOLOGY & COAGULATION: Monitor H&H. Keep Hgb > 7 Transfuse 1 unit of PRBC for Hgb < 7 Transfuse 1 pack of platelets of platelets < 20, 000 Watch for any signs and symptoms of bleeding SKIN: Pressure ulcer prevention per facility protocol Rehab: PT/OT Prophylaxis: GI: Pepcid DVT: Ankit schreiber, per CV surgery Code Status: Full Resuscitation Disposition: ICU Other: Total patient care time exceeds 35 minutes excluding all procedures. Case was discussed and seen with my supervising physician. The above plan was formulated and agreed upon. ATTESTATION BY PHYSICIAN I reviewed the documentation, medical decision making, and treatment plan as noted by the mid-level provider above. I agree with the findings and plan of care. Ron Aparicio MD, [facility] Apr 26, 2025 08:48
--- NOTE | 2025-04-26 11:00 | NUR ---
IABP removal Dr. Chanel and RIAN Boogie at bedside for IABP removal. Balloon catheter removed intact from right femoral. Pressure applied to removal site X30 minutes by primary RN. Right femoral site soft, no bleeding or hematoma present. Distal pulses present and palpable. Gauze and Tegaderm dressing applied to site.
--- NOTE | 2025-04-26 13:12 | PN ---
[facility] PROGRESS NOTE Date of Service: Apr 26, 2025 Time of Service: 12:49 HISTORY OF PRESENT ILLNESS: Patient is a 60-year-old male with past medical history of CAD, hyperlipidemia, hypertension, diabetes mellitus type 2, hypothyroidism, obesity who presented to the ED with chief complaint of chest pain. Patient complained of diaphoresis, shortness of breath, chest pain which started 2 weeks ago which is on and off and burning pain in nature. Patient started having severe chest pain 3 hours ago which prompted the patient to come to the ED. patient complained that the pain is worse on lying down and better on waking up and leaning forward. He ambulates using cane. Patient admitted to smoking 1 pack per day for past 40 years since the age of 9, vaping, usage of weed, reports hx of chronic cocaine use with last use 2 days ago. On presentation to the ED patient vitals temperature 98.2, pulse 89, res piratory rate 20, blood pressure 120/79, saturating at 96% on room air. Labs revealed white blood count of 8.5, hemoglobin 14.5 Chemistries show sodium 130, creatinine 1.6, BUN 19, glucose 213, magnesium 1.7, BNP 169, and troponin initially is 323 trended up to 496. Patient received3 and4 mg of aspirin in the ED and 0.4 mg of sublingual nitroglycerin which did not help with the pain. CXR showed bilateral infiltrates. Patient will be admitted for further evaluation of chest pain in the setting of elevated cardiac troponin, with concern fro ACS/ NSTEMI. Will also consider pericarditis in the differential due to symptomatology of chest pain. Patient will receive broad-spectrum antibiotics and patient likely has undiagnosed COPD with chest x-ray showing bilateral infiltrates with concerns for possible pneumonia. Patient will be monitored closely under hospitalist service. SUBJECTIVE: 04/21/2025: Patient was evaluated at the bedside. Patient appeared to be in mild distress however did not complain of chest pain this morning. Patient was scheduled for left heart catheterization this morning. Patient reports that he had ongoing chest pain for 2 weeks which got severe yesterday, worse when lying down and relieved by sitting up and leaning forward. He also had cough and shortness of breath and his chest x-ray showed bilateral basilar infiltrates suggestive of pneumonia. His cardiac troponins were serially measured and today they were 5810. Echo was performed and ruled out pericardial effusion. Patient admits to using cocaine and marijuana within the last 2 days. Patient started on Cardizem, aspirin and heparin drip. Patient admits to smoking. Patient's white count cell is 10.7. We will follow Cardiology recommendations after left heart catheterization. 04/22/2025: Patient was evaluated at the bedside. Patient was not in any distress was alert, oriented and did not complain of chest pain today. Patient had his left heart catheterization yesterday which found severe multivessel CAD needing CABG. He had a 70% distal stenosis followed by a total occlusion of the distal RCA. The left circumflex artery is totally occluded proximally. The LAD had a previous stent which is 100% stenosis in the mid LAD after a diagonal branch. His LVEF was 40%. [place] [id number] today up from [address] Pop reviewed him and deemed he has very poor targets for CABG however wants to attempt it. Patient was explained about the risks and he expressed understanding and gave the consent. Patient is still pending a date for CABG and will be maintained meanwhile on his ACS protocol. 04/23/2025: Patient was evaluated at the bedside this morning. Patient was lying on his side and was not in acute distress had no acute events overnight. Patient was taken to CABG today performed by Dr. Lozoya. Patient was evaluated in the afternoon after returning from operating room. Patient was intubated and was on insulin drip. Patient blood glucose was 368 and phosphorus was 5.7. We will repeat his phosphorus levels tomorrow. Dietary restriction and if despite this it is high we will consider sevelamer 800 mg t.i.d. Whole blood ketones, urine ketone levels, urine electrolytes, urine creatinine were ordered. 04/24/2025: Patient was evaluated at the bedside this morning his 212. Patient was extubated yesterday night and has been recovering well. Patient is on 10 L of oxygen via BiPAP saturating over 98%. Is currently on Levophed, epinephrine, insulin drips. He is currently receiving doxycycline and Rocephin for his pneumonia. A repeat x-ray today showed mild cardiomegaly, atelectasis in the right lung base and no signs of pulmonary venous congestion. Patient expressed mild shortness of breath that has been subsiding with IV Lasix and nebulizer treatments. Repeat phosphorus levels was 4.3, whole blood ketones less than 0.1. Patient will be started on guideline directed management of heart failure once his pain completely of IV pressors. Patient is currently managed by critical care team and we will follow their recommendations closely. 04/25/2025: He was evaluated at the bedside this morning. No acute overnight event. He is AAO x3. He is on 4 L of oxygen. He is hemodynamically stable, off the pressors. Pertinent labs, WBC 10.7, hemoglobin 10.5, creatinine 1.4, ionized calcium 1.07. Repeated chest x-ray revealed mild pulmonary vascular congestion. He is currently on doxycycline and Rocephin, furosemide, levothyroxine, metoprolol and atorvastatin. Plan to discontinue IABP today. Patient is currently managed by critical care team and we will follow their recommendations closely. 04/26/2025 : Patient is alert, oriented, and awake. There was no acute overnight event . Repeat chest x-ray today showed mild pulmonary vascular condition. He is continued on ceftriaxone and doxycycline. He is currently on furosemide, levothyroxine, metoprolol and atorvastatin. Plan to discontinue IABP today. Patient is currently managed by critical care team and we will follow their recommendations closely. REVIEW OF SYSTEMS CONSTITUTIONAL: Patient was extubated . Dressing over the sternal wound post CABG. Denies fevers, chills, or night sweats. No unintentional weight loss reported. NEUROLOGICAL: Denies headache, amaurosis fugax, motor weakness, sensory deficit, vertigo/spinning sensation CARDIOVASCULAR: Denies any exertional angina, dyspnea on exertion, orthopnea, palpitations, life-threatening arrhythmias, claudication. Admits to chest pain, PND, resolving PULMONARY: Admits to shortness of breath, cough, phlegm/sputum, resolving SLEEP: Denies morning headaches, daytime somnolence or napping. Denies difficulty falling asleep, staying asleep, waking from sleep. Admits of snoring. GASTROINTESTINAL: Denies any type of dysphagia to either liquids or solids. Denies nausea, vomiting, pyrosis, early satiety, abdominal pain, diarrhea, constipation, or changes in stool consistency or caliber. Denies coffee-ground emesis, hematemesis, hematochezia, or melanotic stools. GENITOURINARY: Denies frequency, urgency, nocturia, hematuria or incontinence (Storage/Irritative symptoms.) Low urinary stream, straining to void, urinary intermittency or hesitancy, splitting of the voiding stream, terminal dribbling. PHYSICAL EXAM GENERAL APPEARANCE: Patient was intubated post CABG has a dressing over surgical sutures. CHEST: Normal chest expansion. Telemetry LUNGS: Absence of any rales, rhonchi or any wheezing. CARDIOVASCULAR: Regular. S1 and S2 normal. No appreciable rubs, murmurs or gallops. ABDOMEN: Soft, nontender, and nondistended. There is no rebound, voluntary guarding, or rigidity. : Deferred. Weir in place EXTREMITIES: Non-edematous and not cyanotic. No clubbing. Good capillary refill. SKIN: No skin breakdown. Vital Signs (last 8hr) Date Time Temp Pulse Resp B/P (MAP) Pulse Ox O2 Delivery O2 Flow Rate FiO2 04/26/25 12:00 98.8 Nasal Cannula 3.0 04/26/25 12:00 98 Nasal Cannula* 3 32 04/26/25 12:00 85 12 128/72 (90) 98 132/85 (101) 04/26/25 11:45 89 25 124/67 (86) 98 04/26/25 11:30 85 16 129/74 (92) 97 04/26/25 11:25 85 20 N/Cannula Low lpm 3.0 32 04/26/25 11:15 85 21 126/71 (89) 96 04/26/25 11:00 83 16 125/71 (89) 96 139/82 (101) 04/26/25 10:45 86 16 127/73 (91) 96 04/26/25 10:30 85 13 123/68 (86) 97 04/26/25 10:15 95 12 144/84 (104) 97 04/26/25 10:00 84 16 128/74 (92) 97 129/79 (96) 04/26/25 09:45 85 16 131/75 (93) 97 04/26/25 09:30 90 16 140/79 (99) 98 04/26/25 09:15 89 26 140/79 (99) 99 04/26/25 09:00 91 18 137/78 (97) 99 130/79 (96) 04/26/25 08:45 90 18 140/78 (98) 100 04/26/25 08:30 93 18 145/83 (103) 98 04/26/25 08:15 94 13 142/78 (99) 97 04/26/25 08:00 98.4 Nasal Cannula 3.0 04/26/25 08:00 89 18 145/80 (101) 99 107/47 (67) 04/26/25 08:00 99 Nasal Cannula* 3 32 04/26/25 07:45 99 14 139/82 (101) 95 04/26/25 07:30 90 18 138/81 (100) 98 04/26/25 07:15 88 18 141/81 (101) 98 04/26/25 07:00 87 18 143/80 (101) 99 04/26/25 06:45 91 13 150/87 (108) 97 97/56 (70) 04/26/25 06:30 89 18 146/81 (102) 99 04/26/25 06:19 86 20 04/26/25 06:19 86 20 N/Cannula Low lpm 3.0 32 04/26/25 06:15 92 22 148/87 (107) 97 04/26/25 06:00 88 19 134/76 (95) 100 32 04/26/25 05:45 88 15 139/78 (98) 97 122/78 (93) 04/26/25 05:30 86 14 137/79 (98) 97 04/26/25 05:15 89 17 140/81 (100) 98 04/26/25 05:00 87 22 131/73 (92) 97 32 LABS: Laboratory: Test 04/26/25 11:07 04/26/25 04:50 04/25/25 04:08 04/24/25 16:09 Range/Units Whole Blood Glucose 160 H 70-110 MG/DL White Blood Count 8.6 4.8-10.8 K/uL Red Blood Count 3.32 L 4.50-6.20 MIL/uL Hemoglobin 10.0 L 14.0-18.0 g/dL Hematocrit 29.2 L 42-54 % Mean Corpuscular Volume 88.0 79-99 fL Mean Corpuscular Hemoglobin 30.1 27.0-33.0 pg Mean Corpuscular Hemoglobin Concent 34.2 32.0-36.0 g/dL Red Cell Distribution Width 13.2 11.0-15.5 % Platelet Count 160 130-400 K/uL Mean Platelet Volume 9.6 7.5-10.5 fL Nucleated Red Blood Cells 0.0 0.0-0.19 % Sodium Level 138 136-145 mmol/L Potassium Level 4.3 3.5-5.1 mmol/L Chloride Level 100 L 101-111 mmol/L Carbon Dioxide Level 33 H 21-32 mmol/L Blood Urea Nitrogen 20 H 7-18 mg/dL Creatinine 1.5 H 0.5-1.3 mg/dL Glomerular Filtration Rate Calc 53 >90 mL/min Random Glucose 138 H 70-105 mg/dL Total Calcium 8.1 L 8.5-10.1 mg/dL Phosphorus Level 4.1 2.5-4.9 mg/dL Magnesium Level 1.90 1.80-2.40 mg/dL Ionized Calcium 1.07 L 1.15-1.33 MMOL/L Blood Gas Specimen Type Arterial Arterial Blood pH 7.456 H 7.350-7.450 Arterial Blood Partial Pressure CO2 45 35-48 mmHg Arterial Blood Partial Pressure O2 66.6 L 83.0-108.0 mmHg Arterial Blood HCO3 30.7 H 21.0-28.0 mmol/L Arterial Blood Oxygen Saturation 93.3 L 94.0-98.0 % Arterial Blood Base Excess 6.0 H -2.0-3.0 mmol/L Hemoglobin (Blood Gas) 11.4 L 13.5-17.5 g/dL Sodium (Blood Gas) 137 136-145 MMOL/L Bedside Potassium (Blood Gas) 3.9 3.4-4.5 MMOL/L Bedside Chloride (Blood Gas) 102 98-107 MMOL/L Bedside Glucose (Blood Gas) 97 H 65-95 MG/DL Bedside Ionized Calcium (Blood Gas) 1.10 L 1.15-1.33 MMOL/L Bedside Lactic Acid (Blood Gas) 1.23 H 0.36-0.75 MMOL/L Blood Gas Temperature 37.0 35.5-37.0 CELSIUS Blood Gas Flow-by 2.00 0.00-15.00 L/min Blood Gas Vent Mode 2 L NC ROOM AIR FiO2 28.0 % Blood Gas Specimen Comment JESSI BELTRAN RN Current Medications Medications (Trade) Dose Ordered Sig/Damian Route PRN Reason Start Time Stop Time Status Last Admin Dose Admin Acetaminophen (TYLenol 325MG TAB) 650 mg Q4H PRN PO Temp >38.3C(AFTER EXTUBATION) 04/23/25 09:30 05/23/25 09:29 Acetaminophen (TYLenol 325MG TAB) 650 mg Q6H PRN PO MILD PAIN (1-3) 04/20/25 11:30 04/23/25 09:21 DC 04/22/25 22:35 650 MG Acetaminophen (TYLenol 325MG TAB) 650 mg Q6H PRN PO MILD PAIN (1-3) 04/23/25 09:30 05/23/25 09:29 04/26/25 03:31 650 MG Acetaminophen (TYLenol 650MG SUPPOSITORY) 650 mg Q4H PRN RC Temp >38.3C WHILE INTUBATED 04/23/25 09:30 05/23/25 09:29 Acetaminophen (acetaMINOPHEN) 1,000 mg Q6H IV 04/23/25 21:00 04/24/25 20:59 DC 04/24/25 14:15 1,000 MG Acetaminophen (acetaMINOPHEN) 1,000 mg Q6H6 IV 04/23/25 13:00 04/23/25 19:11 DC 04/23/25 15:11 1,000 MG Albumin Human 250 ml @ 0 mls/hr AD PRN IV IF HEMODYNAMICALLY UNSTABLE 04/23/25 09:30 Aminocaproic Acid 72999 mg/Sodium Chloride 310 ml @ 25 mls/hr AD IV 04/23/25 09:30 04/23/25 21:53 DC Aminocaproic Acid 68120 mg/Sodium Chloride 480 ml @ 0 mls/hr AD PRN IV BLEEDING CONTROL 04/23/25 07:30 04/23/25 09:52 DC Aspirin (Aspirin 325mg Tab) 325 mg DAILY PO 04/21/25 09:00 04/20/25 11:07 DC Aspirin (Aspirin 81mg Chew Tab) 81 mg Q24H PO 04/20/25 11:30 05/20/25 11:29 04/26/25 11:13 81 MG Atorvastatin Calcium (LIPItor 40MG) 40 mg Q24H PO 04/20/25 11:30 04/21/25 13:17 DC 04/20/25 11:32 40 MG Atorvastatin Calcium (LIPItor 40MG) 40 mg Q24H PO 04/21/25 21:00 05/21/25 20:59 04/25/25 20:27 40 MG Budesonide (Pulmicort 0.5 Mg/2ml) 0.5 mg BIDRESP IH 04/20/25 11:30 05/20/25 11:29 04/26/25 06:17 0.5 MG Budesonide (Pulmicort 0.5 Mg/2ml) 0.5 mg BIDRESP IH 04/20/25 18:00 04/20/25 11:18 DC Calcium Gluconate 1 gm/Sodium Chloride 60 ml @ 200 mls/hr AD PRN IV HYPOCALCEMIA 04/23/25 09:30 05/23/25 09:29 04/25/25 04:44 200 MLS/HR Cefazolin Sodium (ANCEF 1 gm vial) 2 gm ONCALL IVP 04/22/25 16:30 04/22/25 16:15 DC Cefazolin Sodium (Ancef) 2 gm Q8H IVPB 04/23/25 14:30 04/24/25 06:31 DC 04/24/25 06:08 2 GM Ceftriaxone Sodium (ROCEphine 1G INJ) 1 gm Q12H IVPB 04/20/25 11:30 04/30/25 11:29 04/26/25 11:12 1 GM Clopidogrel Bisulfate (plaVIX 75MG) 75 mg DAILY PO 04/21/25 09:00 04/21/25 13:18 DC Dexmedetomidine/ Sodium Chloride (PRECEdex 400MCG/ 100ML-NS) 400 mcg PROTOCOL IV 04/23/25 09:30 04/24/25 09:29 DC Dextrose (D50w) 50 ml AD PRN IV HYPOGLYCEMIA PROTOCOL 04/23/25 09:30 05/23/25 09:29 Diltiazem HCl (CARDIzem 60MG TAB) 30 mg Q6H PO 04/20/25 11:30 04/20/25 21:29 DC 04/20/25 18:13 30 MG Diltiazem HCl (CARDIzem 60MG TAB) 60 mg [id number] PO 04/20/25 23:30 04/23/25 09:11 DC 04/23/25 00:33 60 MG Docusate Sodium (COLace 100MG CAP) 100 mg BID PO 04/23/25 21:00 05/23/25 20:59 04/26/25 08:28 100 MG Doxycycline Hyclate (Doxycycline Hyclate) 100 mg BID PO 04/20/25 21:00 04/30/25 20:59 04/26/25 08:27 100 MG Enoxaparin Sodium (Lovenox) 30 mg DAILY SQ 04/26/25 09:00 05/26/25 08:59 Enoxaparin Sodium (Lovenox) 40 mg DAILY SQ 04/22/25 16:00 04/23/25 09:11 DC 04/22/25 18:23 40 MG Epinephrine HCl 10 mg/Sodium Chloride 250 ml @ 17.779 mls/ hr AD PRN IV POST-OP CARDIOVASCULAR ORDERS 04/23/25 09:30 04/28/25 09:29 Epinephrine HCl 10 mg/Sodium Chloride 250 ml @ 0 mls/hr AD PRN IV TITRATE 04/23/25 08:00 04/23/25 09:52 DC Famotidine (Pepcid 20mg Vial) 20 mg BID IV 04/23/25 21:00 05/23/25 20:59 04/26/25 08:27 20 MG Ferrous Sulfate (Ferrous Sulfate) 325 mg TID PO 04/21/25 14:00 04/21/25 17:13 DC Furosemide (LASix 20MG TAB) 20 mg Q12H PO 04/25/25 09:00 05/25/25 08:59 04/26/25 08:28 20 MG Furosemide (LASix 20MG VIAL) 20 mg Q12H IV 04/24/25 09:00 04/25/25 08:59 DC 04/24/25 20:02 20 MG Gabapentin (NEURontin 100 mg CAP) 100 mg TID PO 04/26/25 14:00 05/26/25 13:59 Gemfibrozil (gemFIBROzil 600 MG TABLET) 600 mg BIDAC PO 04/20/25 16:30 04/23/25 09:11 DC 04/22/25 18:23 600 MG Glucagon (Glucagon 1mg Kit) 1 mg AD PRN IM HYPOGLYCEMIA PROTOCOL 04/23/25 09:30 05/23/25 09:29 Heparin Sodium (Porcine) (HEParin 5,000 UNIT VIAL) *calculation based on ACTUAL B... AD PRN IV HEPARIN PROTOCOL 04/20/25 12:30 04/21/25 11:08 DC 04/20/25 11:59 9,000 UNIT Heparin Sodium/ Dextrose 250 ml @ 0 mls/hr Q6H IV 04/20/25 12:30 04/21/25 11:08 DC 04/21/25 01:22 18.13 MLS/HR Home Med (Home Medication) (Canagliflozin (Invokana) 300 MG) DAILY PO 04/22/25 09:00 04/21/25 16:44 DC Home Med (Home Medication) (Haloperidol 20 MG) HS PO 04/21/25 21:00 04/21/25 16:44 DC Hydralazine HCl (APRESOLine 20MG INJ) 5 mg Q6H PRN IV ADMINISTER FOR SBP > 160 04/20/25 11:30 04/23/25 09:11 DC Insulin Human Regular (humuLIN R 100 UNIT/ML 3ML) INSULIN SLIDING SCAL... ACHS SQ 04/20/25 11:30 04/23/25 09:11 DC 04/22/25 21:59 2 UNIT Insulin Human Regular (humuLIN R 100 UNIT/ML 3ML) INSULIN SLIDING SCAL... ACHS SQ 04/25/25 11:30 05/25/25 11:29 04/25/25 20:28 5 UNIT Insulin Human Regular 100 unit/ Sodium Chloride 100 ml @ 0 mls/hr AD IV 04/23/25 09:30 04/25/25 09:04 DC 04/23/25 22:51 8 MLS/HR Ipratropium [place] (AtrovENT UD) 0.5 mg Q6H PRN IH SHORTNESS OF BREATH 04/20/25 11:30 05/20/25 11:29 Lactulose (Constulose 20gm/ 30ml Udcup) 20 gm BID PRN PO CONSTIPATION 04/23/25 09:30 05/23/25 09:29 Levothyroxine Sodium (SYNTHroid 100MCG TAB) 100 mcg DAILY@0630 PO 04/21/25 06:30 04/21/25 13:39 DC Levothyroxine Sodium (SYNTHroid 100MCG TAB) 100 mcg DAILY@0630 PO 04/22/25 06:30 05/22/25 06:29 04/26/25 06:01 100 MCG Levothyroxine Sodium (SYNTHroid 50MCG TAB) 50 mcg SYN PO 04/22/25 06:30 04/21/25 16:44 DC Lisinopril (Prinivil 10mg) 10 mg DAILY PO 04/22/25 09:00 04/23/25 09:11 DC 04/22/25 12:24 10 MG Magnesium Hydroxide (Milk Of Magnesium 30ml) 30 ml DAILY PRN PO CONSTIPATION 04/23/25 09:30 05/23/25 09:29 Magnesium Sulfate 50 ml @ 12.5 mls/hr AD PRN IV MAG LEVEL LESS THAN 2.0 04/23/25 09:30 05/23/25 09:29 04/24/25 04:49 12.5 MLS/HR Magnesium Sulfate 50 ml @ 0 mls/hr PROTOCOL IV 04/20/25 11:30 05/20/25 11:29 04/26/25 06:01 25 MLS/HR Magnesium Sulfate 50 ml @ 0 mls/hr PROTOCOL IV 04/21/25 07:00 04/21/25 07:03 DC Metoprolol Tartrate (loprESSOR) 12.5 mg BID PO 04/22/25 21:00 04/23/25 09:11 DC 04/22/25 22:02 12.5 MG Metoprolol Tartrate (loprESSOR) 12.5 mg BID PO 04/25/25 09:00 05/25/25 08:59 04/26/25 08:28 12.5 MG Morphine Sulfate (morPHINE 2MG SYG) 0.5 mg Q2H PRN IV MODERATE PAIN (4-6) 04/23/25 09:30 04/24/25 09:29 DC Morphine Sulfate (morPHINE 2MG SYG) 1 mg Q2H PRN IV SEVERE PAIN (7-10) 04/23/25 09:30 04/24/25 09:29 DC 04/23/25 14:02 1 MG Morphine Sulfate (morPHINE 2MG SYG) 2 mg Q6H PRN IVP SEVERE PAIN (7-10) 04/20/25 11:00 04/23/25 09:11 DC 04/22/25 06:40 2 MG Niacin (Niacin) 1,000 mg HS PO 04/21/25 21:00 04/21/25 16:41 DC Nicotine (Nicoderm) 7 mg DAILY TD 04/21/25 09:00 05/21/25 08:59 04/26/25 08:28 7 MG Nitroglycerin (Nitrostat) 0.4 mg AD PRN SL CHEST PAIN 04/20/25 10:30 04/20/25 11:07 DC 04/20/25 10:21 0.4 MG Nitroglycerin (Nitrostat) 0.4 mg AD PRN SL CHEST PAIN 04/20/25 11:00 04/20/25 17:43 DC Nitroglycerin (Nitrostat) 0.4 mg AD PRN SL CHEST PAIN 04/20/25 18:00 04/23/25 09:11 DC 04/20/25 23:44 0.4 MG Nitroglycerin (Nitrostat) 0.4 mg Q5M PRN SL CHEST PAIN 04/20/25 10:30 04/20/25 10:13 DC Nitroglycerin/ Dextrose 0 ml @ 0 mls/hr AD IV 04/23/25 09:30 04/26/25 09:29 DC Norepinephrine Bitartrate 250 ml @ 0 mls/hr AD PRN IV TITRATE 04/23/25 07:30 04/23/25 09:52 DC Norepinephrine Bitartrate 250 ml @ 0 mls/hr AD PRN IV POST-OP CARDIOVASCULAR ORDERS 04/23/25 09:30 04/28/25 09:29 04/23/25 19:55 22.3 MLS/HR Ondansetron HCl (zoFRAN 4MG INJ) 4 mg Q6H PRN IV NAUSEA/VOMITING 04/23/25 09:30 05/23/25 09:29 04/25/25 04:10 4 MG Ondansetron HCl (zoFRAN 4MG INJ) 4 mg Q6H PRN IVP NAUSEA/VOMITING 04/20/25 11:30 04/23/25 09:11 DC Pantoprazole Sodium (PROTonix 40MG INJ) 40 mg DAILY IVP 04/21/25 09:00 04/23/25 09:11 DC 04/22/25 12:24 40 MG Potassium Phosphate 250 ml @ 42 mls/hr AD PRN IV LOW PHOS LEVEL 04/23/25 09:30 05/23/25 09:29 Potassium Chloride 100 ml @ 100 mls/hr AD PRN IV HYPOKALEMIA 04/23/25 09:30 05/23/25 09:29 04/24/25 16:13 100 MLS/HR Propofol 100 ml @ 0 mls/hr AD PRN IV SEDATION 04/23/25 09:30 04/27/25 09:29 Sodium Bicarbonate (Sodium Bicarb 50meq 50ml Vial) 50 meq AD PRN IV OTHER[SEE DOSING INSTRUCTIONS] 04/23/25 09:30 04/26/25 09:29 DC 04/23/25 17:40 50 MEQ Sodium Chloride 500 ml @ 0 mls/hr AD IV 04/23/25 09:30 05/23/25 09:29 04/23/25 21:57 3 MLS/HR Sodium Chloride 500 ml @ 0 mls/hr Q0M IV 04/20/25 14:30 04/23/25 09:11 DC Sodium Chloride 1,000 ml @ 10 mls/hr ONCE IV 04/23/25 09:30 04/24/25 09:29 DC 04/23/25 14:03 10 MLS/HR Sodium Chloride 1,000 ml @ 50 mls/hr Q20H IV 04/21/25 07:00 04/22/25 07:00 DC 04/21/25 07:09 50 MLS/HR Sodium Chloride (NS Flush 10ml) 10 ml Q8H PRN IVP IV LINE FLUSH 04/23/25 09:30 05/23/25 09:29 Tramadol HCl (UltRAM) 25 mg Q6H PRN PO MODERATE PAIN (4-6) 04/23/25 09:30 04/26/25 09:29 DC Tramadol HCl (UltRAM) 50 mg Q6H PRN PO SEVERE PAIN (7-10) 04/23/25 09:30 04/26/25 09:29 DC 04/25/25 02:18 50 MG Vitamin B Complex/ Vit C/Folic Acid (Nephrovite Tablet) 1 cap Q24H PO 04/20/25 12:00 05/20/25 11:59 04/26/25 11:12 1 CAP DIAGNOSTICS / RADIOLOGY: PATIENT: SB PATEL MR#: [id number] : 1965 SEX: M AGE: 60 LOCATION: 2CH ORDER 99 STATUS: ADM IN REPORT#: [id number] SERVICE 0400 REASON: s/p CABG ORDERING PHYSICIAN: VASU LOZOYA MD PROCEDURE: CXR1VW - CHEST 1VW EXAM: CR Chest, single view. CLINICAL HISTORY: Stable post-CABG. COMPARISON: Prior chest radiograph dated 25 April 2025 FINDINGS: Post sternotomy status. Left subclavian central venous catheter likely terminates within the left brachiocephalic vein. A left-sided chest tube is in place. Mild pulmonary vascular congestion. Stable cardiomegaly. Subsegmental atelectasis in the left lower lobe. No evidence of pleural effusion or pneumothorax. No acute osseous abnormality. IMPRESSION: Essentially stable since previous exam. Mild pulmonary vascular congestion. Other findings as described above. /[facility] DICTATED BY: ANDREINA MCCULLOUGH Jr., MD DATE: 04/26/25825 ELECTRONICALLY SIGNED BY: ANDREINA MCCULLOUGH Jr., MD DATE: 04/26/25825 ASSESSMENT: NSTEMI/ ACS, POA Rule out pericarditis, POA Rule out developing community-acquired pneumonia, POA Undiagnosed COPD/chronic bronchitis, POA History of coronary artery disease with prior history of PCI in 2004, POA CKD stage 3, POA Suspected BAILEY Electrolyte abnormalities (hyponatremia, hypomagnesemia) Tobacco use disorder, POA Cocaine use disorder, POA Hypertension, POA Hyperlipidemia, POA Diabetes mellitus type 2, POA Hypothyroidism POA PLAN: Patient to be admitted to [facility]U NSTEMI/ ACS, 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 for chest pain Chronic Bronchitis possible COPD Rule out developing community-acquired pneumonia Gram stain did not isolate specific organism, showed normal oropharyngeal tae Continue IV Rocephin/doxycycline (day 6) Follow pulmonology recommendations Pulmicort, Atrovent has been placed for shortness of breath Patient will benefit from outpatient PFTs Patient will benefit from outpatient sleep study to rule out BAILEY CKD stage III, electrolyte abnormality Urine protein creatinine ratio is 271, consistent with CKD Renal ultrasound showed smaller left kidney with renal parenchymal disease and a right renal simple cortical cyst Replace the magnesium per protocol Hypertension, hyperlipidemia, hypothyroidism, suspected BAILEY Patient's home medications were reconciled and resumed Patient should get evaluated for BAILEY as outpatient Continue with Lipitor, continue with gemfibrozil, patient has not taken some of his home medications for several months Restart lisinopril monitoring renal function closely Follow cardiovascular recommendations for further management, interventions, clinical response. GI prophylaxis with pantoprazole DVT prophylaxis with enoxaparin Discharge planning: Home Code status: full code Diet: Clear liquid PHYSICIAN RESIDENT STATEMENT I was present with the resident during the History and Physical exam and I have reviewed the resident's note. This case was discussed with the resident and I agree with the history, physical exam and medical decision making as documented. Additions/exceptions/observations were directly added to the notes. Guero Hsieh MD, SYED M MD Apr 26, 2025 13:12
--- NOTE | 2025-04-26 13:44 | EKG ---
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 : 1965 Requested By: Lionel NICKERSON Order Number: [id number] Reading MD: Rubin Gordon Measurements Intervals [place] Rate: 91 P: 54 ID: [id number] QRS: 55 QRSD: 85 T: -17 QT: 360 QTc: 443 Interpretive Statements Sinus rhythm Inferior infarct, age indeterminate Consider anterior infarct Compared to ECG 04/23/2025 13:48:51 Atrial-paced complex(es) or rhythm no longer present Ventricular-paced complex(es) or rhythm no longer present Prolonged QT interval no longer present Myocardial infarct finding still present Electronically Signed On 04-26-2025 14:00:57 CDT by Rubin Gordon Please click the below link to view image of tracing.
[2025-04-26] MEDS: FAMOTIDINE 20MG TAB PO SCH (20:26)
[2025-04-27] VITALS (37 sets, daily range): BP systolic 92–174; BP diastolic 44–97; PULSE 85–102; RESP 13–31; TEMP 98–99.2; O2SAT 95–98
[2025-04-27 05:20] LABS: NUCLEATED RED BLOOD CELLS 0.0 % (0.0-0.19); PLATELET COUNT (AUTO) 186.0 K/uL (130-400); RED BLOOD CELL COUNT(AUTO) 3.41 MIL/uL (4.50-6.20); RED CELL DISTRIBUTION WIDTH 13.0 % (11.0-15.5); WHITE BLOOD COUNT (AUTO) 7.5 K/uL (4.8-10.8)
[2025-04-27 05:33] LABS: CREATININE 1.5 mg/dL (0.5-1.3); GLOMERULAR FILTR. RATE CALC 53.0 mL/min (>90); GLUCOSE,RANDOM 227.0 mg/dL (70-105); SODIUM SERUM 140.0 mmol/L (136-145); UREA NITROGEN, BLOOD 23.0 mg/dL (7-18)
--- NOTE | 2025-04-27 10:31 | NUR ---
ALLI Pedroza rounds ALLI Pedroza at bedside for assessment. New orders received for AM labs and CXR.
--- NOTE | 2025-04-27 11:00 | PN ---
[facility] PROGRESS NOTE Date of Service: Apr 27, 2025 Time of Service: 10:53 HISTORY OF PRESENT ILLNESS: Patient is a 60-year-old male with past medical history of CAD, hyperlipidemia, hypertension, diabetes mellitus type 2, hypothyroidism, obesity who presented to the ED with chief complaint of chest pain. Patient complained of diaphoresis, shortness of breath, chest pain which started 2 weeks ago which is on and off and burning pain in nature. Patient started having severe chest pain 3 hours ago which prompted the patient to come to the ED. patient complained that the pain is worse on lying down and better on waking up and leaning forward. He ambulates using cane. Patient admitted to smoking 1 pack per day for past 40 years since the age of 9, vaping, usage of weed, reports hx of chronic cocaine use with last use 2 days ago. On presentation to the ED patient vitals temperature 98.2, pulse 89, res piratory rate 20, blood pressure 120/79, saturating at 96% on room air. Labs revealed white blood count of 8.5, hemoglobin 14.5 Chemistries show sodium 130, creatinine 1.6, BUN 19, glucose 213, magnesium 1.7, BNP 169, and troponin initially is 323 trended up to 496. Patient received3 and4 mg of aspirin in the ED and 0.4 mg of sublingual nitroglycerin which did not help with the pain. CXR showed bilateral infiltrates. Patient will be admitted for further evaluation of chest pain in the setting of elevated cardiac troponin, with concern fro ACS/ NSTEMI. Will also consider pericarditis in the differential due to symptomatology of chest pain. Patient will receive broad-spectrum antibiotics and patient likely has undiagnosed COPD with chest x-ray showing bilateral infiltrates with concerns for possible pneumonia. Patient will be monitored closely under hospitalist service. SUBJECTIVE: 04/21/2025: Patient was evaluated at the bedside. Patient appeared to be in mild distress however did not complain of chest pain this morning. Patient was scheduled for left heart catheterization this morning. Patient reports that he had ongoing chest pain for 2 weeks which got severe yesterday, worse when lying down and relieved by sitting up and leaning forward. He also had cough and shortness of breath and his chest x-ray showed bilateral basilar infiltrates suggestive of pneumonia. His cardiac troponins were serially measured and today they were 5810. Echo was performed and ruled out pericardial effusion. Patient admits to using cocaine and marijuana within the last 2 days. Patient started on Cardizem, aspirin and heparin drip. Patient admits to smoking. Patient's white count cell is 10.7. We will follow Cardiology recommendations after left heart catheterization. 04/22/2025: Patient was evaluated at the bedside. Patient was not in any distress was alert, oriented and did not complain of chest pain today. Patient had his left heart catheterization yesterday which found severe multivessel CAD needing CABG. He had a 70% distal stenosis followed by a total occlusion of the distal RCA. The left circumflex artery is totally occluded proximally. The LAD had a previous stent which is 100% stenosis in the mid LAD after a diagonal branch. His LVEF was 40%. [place] [address] today up from [address] Pop reviewed him and deemed he has very poor targets for CABG however wants to attempt it. Patient was explained about the risks and he expressed understanding and gave the consent. Patient is still pending a date for CABG and will be maintained meanwhile on his ACS protocol. 04/23/2025: Patient was evaluated at the bedside this morning. Patient was lying on his side and was not in acute distress had no acute events overnight. Patient was taken to CABG today performed by Dr. Chanel. Patient was evaluated in the afternoon after returning from operating room. Patient was intubated and was on insulin drip. Patient blood glucose was 368 and phosphorus was 5.7. We will repeat his phosphorus levels tomorrow. Dietary restriction and if despite this it is high we will consider sevelamer 800 mg t.i.d. Whole blood ketones, urine ketone levels, urine electrolytes, urine creatinine were ordered. 04/24/2025: Patient was evaluated at the bedside this morning his 212. Patient was extubated yesterday night and has been recovering well. Patient is on 10 L of oxygen via BiPAP saturating over 98%. Is currently on Levophed, epinephrine, insulin drips. He is currently receiving doxycycline and Rocephin for his pneumonia. A repeat x-ray today showed mild cardiomegaly, atelectasis in the right lung base and no signs of pulmonary venous congestion. Patient expressed mild shortness of breath that has been subsiding with IV Lasix and nebulizer treatments. Repeat phosphorus levels was 4.3, whole blood ketones less than 0.1. Patient will be started on guideline directed management of heart failure once his pain completely of IV pressors. Patient is currently managed by critical care team and we will follow their recommendations closely. 04/25/2025: He was evaluated at the bedside this morning. No acute overnight event. He is AAO x3. He is on 4 L of oxygen. He is hemodynamically stable, off the pressors. Pertinent labs, WBC 10.7, hemoglobin 10.5, creatinine 1.4, ionized calcium 1.07. Repeated chest x-ray revealed mild pulmonary vascular congestion. He is currently on doxycycline and Rocephin, furosemide, levothyroxine, metoprolol and atorvastatin. Plan to discontinue IABP today. Patient is currently managed by critical care team and we will follow their recommendations closely. 04/26/2025 : Patient is alert, oriented, and awake. There was no acute overnight event . Repeat chest x-ray today showed mild pulmonary vascular condition. He is continued on ceftriaxone and doxycycline. He is currently on furosemide, levothyroxine, metoprolol and atorvastatin. Plan to discontinue IABP today. Patient is currently managed by critical care team and we will follow their recommendations closely. 04/27/2025: Patient is alert, oriented, and awake. There was no acute overnight event. He is continued on ceftriaxone and doxycycline. He is currently on furosemide, levothyroxine, metoprolol and atorvastatin. IABP was removed yesterday. Today his hemoglobin is 10.3 and creatinine is 1.5. Patient is planned for the chest drain removal today. Patient is currently managed by critical care team and we will follow their recommendations closely. REVIEW OF SYSTEMS CONSTITUTIONAL: Patient was extubated . Dressing over the sternal wound post CABG. Denies fevers, chills, or night sweats. No unintentional weight loss reported. NEUROLOGICAL: Denies headache, amaurosis fugax, motor weakness, sensory deficit, vertigo/spinning sensation CARDIOVASCULAR: Denies any exertional angina, dyspnea on exertion, orthopnea, palpitations, life-threatening arrhythmias, claudication. Admits to chest pain, resolving SLEEP: Denies morning headaches, daytime somnolence or napping. Denies difficulty falling asleep, staying asleep, waking from sleep. Admits of snoring. GASTROINTESTINAL: Denies any type of dysphagia to either liquids or solids. Denies nausea, vomiting, pyrosis, early satiety, abdominal pain, diarrhea, constipation, or changes in stool consistency or caliber. Denies coffee-ground emesis, hematemesis, hematochezia, or melanotic stools. GENITOURINARY: Denies frequency, urgency, nocturia, hematuria or incontinence (Storage/Irritative symptoms.) Low urinary stream, straining to void, urinary intermittency or hesitancy, splitting of the voiding stream, terminal dribbling. PHYSICAL EXAM GENERAL APPEARANCE: Patient was intubated post CABG has a dressing over surgical sutures. CHEST: Normal chest expansion. Telemetry LUNGS: Absence of any rales, rhonchi or any wheezing. CARDIOVASCULAR: Regular. S1 and S2 normal. No appreciable rubs, murmurs or gallops. ABDOMEN: Soft, nontender, and nondistended. There is no rebound, voluntary guarding, or rigidity. : Deferred. Weir in place EXTREMITIES: Non-edematous and not cyanotic. No clubbing. Good capillary refill. SKIN: No skin breakdown. Vital Signs (last 8hr) Date Time Temp Pulse Resp B/P (MAP) Pulse Ox O2 Delivery O2 Flow Rate FiO2 04/27/25 10:00 91 18 135/84 (101) 97 95/48 (64) 04/27/25 09:30 93 18 146/83 (104) 97 04/27/25 09:00 87 18 141/80 (100) 98 119/77 (91) 04/27/25 08:30 96 18 159/88 (111) 100 04/27/25 08:00 99.1 04/27/25 08:00 101 18 154/86 (108) 98 123/93 (103) 04/27/25 08:00 98 Nasal Cannula* 2 28 04/27/25 07:30 102 18 154/93 (113) 98 04/27/25 07:00 99.1 93 24 150/85 (106) 99 04/27/25 06:42 90 17 149/83 (105) 98 135/97 (110) 04/27/25 06:27 90 20 N/Cannula Low lpm 3.0 32 04/27/25 06:26 89 20 04/27/25 05:42 93 15 126/67 (86) 98 28 92/44 (60) 04/27/25 04:42 92 17 126/65 (85) 97 28 107/76 (86) 04/27/25 04:22 95 Nasal Cannula* 2 28 04/27/25 04:20 98.1 04/27/25 03:42 91 17 130/66 (87) 97 28 174/81 (112) LABS: Laboratory: Test 04/27/25 05:13 04/26/25 20:11 04/26/25 04:50 Range/Units White Blood Count 7.5 4.8-10.8 K/uL Red Blood Count 3.41 L 4.50-6.20 MIL/uL Hemoglobin 10.3 L 14.0-18.0 g/dL Hematocrit 30.9 L 42-54 % Mean Corpuscular Volume 90.6 79-99 fL Mean Corpuscular Hemoglobin 30.2 27.0-33.0 pg Mean Corpuscular Hemoglobin Concent 33.3 32.0-36.0 g/dL Red Cell Distribution Width 13.0 11.0-15.5 % Platelet Count 186 130-400 K/uL Mean Platelet Volume 9.2 7.5-10.5 fL Nucleated Red Blood Cells 0.0 0.0-0.19 % Sodium Level 140 136-145 mmol/L Potassium Level 4.1 3.5-5.1 mmol/L Chloride Level 104 101-111 mmol/L Carbon Dioxide Level 28 21-32 mmol/L Blood Urea Nitrogen 23 H 7-18 mg/dL Creatinine 1.5 H 0.5-1.3 mg/dL Glomerular Filtration Rate Calc 53 >90 mL/min Random Glucose 227 H 70-105 mg/dL Total Calcium 8.1 L 8.5-10.1 mg/dL Magnesium Level 1.90 1.80-2.40 mg/dL Whole Blood Glucose 188 H 70-110 MG/DL Phosphorus Level 4.1 2.5-4.9 mg/dL Current Medications Medications (Trade) Dose Ordered Sig/Damian Route PRN Reason Start Time Stop Time Status Last Admin Dose Admin Acetaminophen (TYLenol 325MG TAB) 650 mg Q4H PRN PO Temp >38.3C(AFTER EXTUBATION) 04/23/25 09:30 05/23/25 09:29 Acetaminophen (TYLenol 325MG TAB) 650 mg Q6H PRN PO MILD PAIN (1-3) 04/20/25 11:30 04/23/25 09:21 DC 04/22/25 22:35 650 MG Acetaminophen (TYLenol 325MG TAB) 650 mg Q6H PRN PO MILD PAIN (1-3) 04/23/25 09:30 05/23/25 09:29 04/27/25 10:03 650 MG Acetaminophen (TYLenol 650MG SUPPOSITORY) 650 mg Q4H PRN RC Temp >38.3C WHILE INTUBATED 04/23/25 09:30 05/23/25 09:29 Acetaminophen (acetaMINOPHEN) 1,000 mg Q6H IV 04/23/25 21:00 04/24/25 20:59 DC 04/24/25 14:15 1,000 MG Acetaminophen (acetaMINOPHEN) 1,000 mg Q6H6 IV 04/23/25 13:00 04/23/25 19:11 DC 04/23/25 15:11 1,000 MG Albumin Human 250 ml @ 0 mls/hr AD PRN IV IF HEMODYNAMICALLY UNSTABLE 04/23/25 09:30 Aminocaproic Acid 58990 mg/Sodium Chloride 310 ml @ 25 mls/hr AD IV 04/23/25 09:30 04/23/25 21:53 DC Aminocaproic Acid 87936 mg/Sodium Chloride 480 ml @ 0 mls/hr AD PRN IV BLEEDING CONTROL 04/23/25 07:30 04/23/25 09:52 DC Aspirin (Aspirin 325mg Tab) 325 mg DAILY PO 04/21/25 09:00 04/20/25 11:07 DC Aspirin (Aspirin 81mg Chew Tab) 81 mg Q24H PO 04/20/25 11:30 05/20/25 11:29 04/27/25 08:18 81 MG Atorvastatin Calcium (LIPItor 40MG) 40 mg Q24H PO 04/20/25 11:30 04/21/25 13:17 DC 04/20/25 11:32 40 MG Atorvastatin Calcium (LIPItor 40MG) 40 mg Q24H PO 04/21/25 21:00 05/21/25 20:59 04/26/25 20:25 40 MG Budesonide (Pulmicort 0.5 Mg/2ml) 0.5 mg BIDRESP IH 04/20/25 11:30 05/20/25 11:29 04/27/25 06:26 0.5 MG Budesonide (Pulmicort 0.5 Mg/2ml) 0.5 mg BIDRESP IH 04/20/25 18:00 04/20/25 11:18 DC Calcium Gluconate 1 gm/Sodium Chloride 60 ml @ 200 mls/hr AD PRN IV HYPOCALCEMIA 04/23/25 09:30 05/23/25 09:29 04/25/25 04:44 200 MLS/HR Cefazolin Sodium (ANCEF 1 gm vial) 2 gm ONCALL IVP 04/22/25 16:30 04/22/25 16:15 DC Cefazolin Sodium (Ancef) 2 gm Q8H IVPB 04/23/25 14:30 04/24/25 06:31 DC 04/24/25 06:08 2 GM Ceftriaxone Sodium (ROCEphine 1G INJ) 1 gm Q12H IVPB 04/20/25 11:30 04/30/25 11:29 04/26/25 22:36 1 GM Clopidogrel Bisulfate (plaVIX 75MG) 75 mg DAILY PO 04/21/25 09:00 04/21/25 13:18 DC Dexmedetomidine/ Sodium Chloride (PRECEdex 400MCG/ 100ML-NS) 400 mcg PROTOCOL IV 04/23/25 09:30 04/24/25 09:29 DC Dextrose (D50w) 50 ml AD PRN IV HYPOGLYCEMIA PROTOCOL 04/23/25 09:30 05/23/25 09:29 Diltiazem HCl (CARDIzem 60MG TAB) 30 mg Q6H PO 04/20/25 11:30 04/20/25 21:29 DC 04/20/25 18:13 30 MG Diltiazem HCl (CARDIzem 60MG TAB) 60 mg [id number] PO 04/20/25 23:30 04/23/25 09:11 DC 04/23/25 00:33 60 MG Docusate Sodium (COLace 100MG CAP) 100 mg BID PO 04/23/25 21:00 05/23/25 20:59 04/27/25 08:17 100 MG Doxycycline Hyclate (Doxycycline Hyclate) 100 mg BID PO 04/20/25 21:00 04/30/25 20:59 04/27/25 08:18 100 MG Enoxaparin Sodium (Lovenox) 30 mg DAILY SQ 04/26/25 09:00 05/26/25 08:59 Enoxaparin Sodium (Lovenox) 40 mg DAILY SQ 04/22/25 16:00 04/23/25 09:11 DC 04/22/25 18:23 40 MG Epinephrine HCl 10 mg/Sodium Chloride 250 ml @ 17.779 mls/ hr AD PRN IV POST-OP CARDIOVASCULAR ORDERS 04/23/25 09:30 04/28/25 09:29 Epinephrine HCl 10 mg/Sodium Chloride 250 ml @ 0 mls/hr AD PRN IV TITRATE 04/23/25 08:00 04/23/25 09:52 DC Famotidine (Pepcid 20mg Vial) 20 mg BID IV 04/23/25 21:00 04/26/25 19:14 DC 04/26/25 08:27 20 MG Famotidine (Pepcid 20mg Tab) 20 mg BID PO 04/26/25 21:00 05/26/25 20:59 04/27/25 08:17 20 MG Ferrous Sulfate (Ferrous Sulfate) 325 mg TID PO 04/21/25 14:00 04/21/25 17:13 DC Furosemide (LASix 20MG TAB) 20 mg DAILY PO 04/27/25 09:00 05/25/25 08:59 04/27/25 08:19 20 MG Furosemide (LASix 20MG TAB) 20 mg Q12H PO 04/25/25 09:00 04/26/25 17:36 DC 04/26/25 08:28 20 MG Furosemide (LASix 20MG VIAL) 20 mg Q12H IV 04/24/25 09:00 04/25/25 08:59 DC 04/24/25 20:02 20 MG Gabapentin (NEURontin 100 mg CAP) 100 mg TID PO 04/26/25 14:00 05/26/25 13:59 04/27/25 08:17 100 MG Gemfibrozil (gemFIBROzil 600 MG TABLET) 600 mg BIDAC PO 04/20/25 16:30 04/23/25 09:11 DC 04/22/25 18:23 600 MG Glucagon (Glucagon 1mg Kit) 1 mg AD PRN IM HYPOGLYCEMIA PROTOCOL 04/23/25 09:30 05/23/25 09:29 Heparin Sodium (Porcine) (HEParin 5,000 UNIT VIAL) *calculation based on ACTUAL B... AD PRN IV HEPARIN PROTOCOL 04/20/25 12:30 04/21/25 11:08 DC 04/20/25 11:59 9,000 UNIT Heparin Sodium/ Dextrose 250 ml @ 0 mls/hr Q6H IV 04/20/25 12:30 04/21/25 11:08 DC 04/21/25 01:22 18.13 MLS/HR Home Med (Home Medication) (Canagliflozin (Invokana) 300 MG) DAILY PO 04/22/25 09:00 04/21/25 16:44 DC Home Med (Home Medication) (Haloperidol 20 MG) HS PO 04/21/25 21:00 04/21/25 16:44 DC Hydralazine HCl (APRESOLine 20MG INJ) 5 mg Q6H PRN IV ADMINISTER FOR SBP > 160 04/20/25 11:30 04/23/25 09:11 DC Insulin Human Regular (humuLIN R 100 UNIT/ML 3ML) INSULIN SLIDING SCAL... ACHS SQ 04/20/25 11:30 04/23/25 09:11 DC 04/22/25 21:59 2 UNIT Insulin Human Regular (humuLIN R 100 UNIT/ML 3ML) INSULIN SLIDING SCAL... ACHS SQ 04/25/25 11:30 05/25/25 11:29 04/27/25 06:53 2 UNIT Insulin Human Regular 100 unit/ Sodium Chloride 100 ml @ 0 mls/hr AD IV 04/23/25 09:30 04/25/25 09:04 DC 04/23/25 22:51 8 MLS/HR Ipratropium Reliance (AtrovENT UD) 0.5 mg Q6H PRN IH SHORTNESS OF BREATH 04/20/25 11:30 05/20/25 11:29 Lactulose (Constulose 20gm/ 30ml Udcup) 20 gm BID PRN PO CONSTIPATION 04/23/25 09:30 05/23/25 09:29 Levothyroxine Sodium (SYNTHroid 100MCG TAB) 100 mcg DAILY@0630 PO 04/21/25 06:30 04/21/25 13:39 DC Levothyroxine Sodium (SYNTHroid 100MCG TAB) 100 mcg DAILY@0630 PO 04/22/25 06:30 05/22/25 06:29 8/19/25 06:44 100 MCG Levothyroxine Sodium (SYNTHroid 50MCG TAB) 50 mcg SYN PO 04/22/25 06:30 04/21/25 16:44 DC Lisinopril (Prinivil 10mg) 10 mg DAILY PO 04/22/25 09:00 04/23/25 09:11 DC 04/22/25 12:24 10 MG Magnesium Hydroxide (Milk Of Magnesium 30ml) 30 ml DAILY PRN PO CONSTIPATION 04/23/25 09:30 05/23/25 09:29 Magnesium Sulfate 50 ml @ 12.5 mls/hr AD PRN IV MAG LEVEL LESS THAN 2.0 04/23/25 09:30 05/23/25 09:29 04/27/25 09:51 12.5 MLS/HR Magnesium Sulfate 50 ml @ 0 mls/hr PROTOCOL IV 04/20/25 11:30 04/26/25 16:17 DC 04/26/25 06:01 25 MLS/HR Magnesium Sulfate 50 ml @ 0 mls/hr PROTOCOL IV 04/21/25 07:00 04/21/25 07:03 DC Metoprolol Tartrate (loprESSOR) 12.5 mg BID PO 04/22/25 21:00 04/23/25 09:11 DC 04/22/25 22:02 12.5 MG Metoprolol Tartrate (loprESSOR) 12.5 mg BID PO 04/25/25 09:00 05/25/25 08:59 04/27/25 08:18 12.5 MG Morphine Sulfate (morPHINE 2MG SYG) 0.5 mg Q2H PRN IV MODERATE PAIN (4-6) 04/23/25 09:30 04/24/25 09:29 DC Morphine Sulfate (morPHINE 2MG SYG) 1 mg Q2H PRN IV SEVERE PAIN (7-10) 04/23/25 09:30 04/24/25 09:29 DC 04/23/25 14:02 1 MG Morphine Sulfate (morPHINE 2MG SYG) 2 mg Q6H PRN IVP SEVERE PAIN (7-10) 04/20/25 11:00 04/23/25 09:11 DC 04/22/25 06:40 2 MG Niacin (Niacin) 1,000 mg HS PO 04/21/25 21:00 04/21/25 16:41 DC Nicotine (Nicoderm) 7 mg DAILY TD 04/21/25 09:00 05/21/25 08:59 04/27/25 08:18 7 MG Nitroglycerin (Nitrostat) 0.4 mg AD PRN SL CHEST PAIN 04/20/25 10:30 04/20/25 11:07 DC 04/20/25 10:21 0.4 MG Nitroglycerin (Nitrostat) 0.4 mg AD PRN SL CHEST PAIN 04/20/25 11:00 04/20/25 17:43 DC Nitroglycerin (Nitrostat) 0.4 mg AD PRN SL CHEST PAIN 04/20/25 18:00 04/23/25 09:11 DC 04/20/25 23:44 0.4 MG Nitroglycerin (Nitrostat) 0.4 mg Q5M PRN SL CHEST PAIN 04/20/25 10:30 04/20/25 10:13 DC Nitroglycerin/ Dextrose 0 ml @ 0 mls/hr AD IV 04/23/25 09:30 04/26/25 09:29 DC Norepinephrine Bitartrate 250 ml @ 0 mls/hr AD PRN IV TITRATE 04/23/25 07:30 04/23/25 09:52 DC Norepinephrine Bitartrate 250 ml @ 0 mls/hr AD PRN IV POST-OP CARDIOVASCULAR ORDERS 04/23/25 09:30 04/28/25 09:29 04/23/25 19:55 22.3 MLS/HR Ondansetron HCl (zoFRAN 4MG INJ) 4 mg Q6H PRN IV NAUSEA/VOMITING 04/23/25 09:30 05/23/25 09:29 04/25/25 04:10 4 MG Ondansetron HCl (zoFRAN 4MG INJ) 4 mg Q6H PRN IVP NAUSEA/VOMITING 04/20/25 11:30 04/23/25 09:11 DC Pantoprazole Sodium (PROTonix 40MG INJ) 40 mg DAILY IVP 04/21/25 09:00 04/23/25 09:11 DC 04/22/25 12:24 40 MG Potassium Phosphate 250 ml @ 42 mls/hr AD PRN IV LOW PHOS LEVEL 04/23/25 09:30 05/23/25 09:29 Potassium Chloride 100 ml @ 100 mls/hr AD PRN IV HYPOKALEMIA 04/23/25 09:30 05/23/25 09:29 04/24/25 16:13 100 MLS/HR Propofol 100 ml @ 0 mls/hr AD PRN IV SEDATION 04/23/25 09:30 04/27/25 09:29 DC Sodium Bicarbonate (Sodium Bicarb 50meq 50ml Vial) 50 meq AD PRN IV OTHER[SEE DOSING INSTRUCTIONS] 04/23/25 09:30 04/26/25 09:29 DC 04/23/25 17:40 50 MEQ Sodium Chloride 500 ml @ 0 mls/hr AD IV 04/23/25 09:30 05/23/25 09:29 04/23/25 21:57 3 MLS/HR Sodium Chloride 500 ml @ 0 mls/hr Q0M IV 04/20/25 14:30 04/23/25 09:11 DC Sodium Chloride 1,000 ml @ 10 mls/hr ONCE IV 04/23/25 09:30 04/24/25 09:29 DC 04/23/25 14:03 10 MLS/HR Sodium Chloride 1,000 ml @ 50 mls/hr Q20H IV 04/21/25 07:00 04/22/25 07:00 DC 04/21/25 07:09 50 MLS/HR Sodium Chloride (NS Flush 10ml) 10 ml Q8H PRN IVP IV LINE FLUSH 04/23/25 09:30 05/23/25 09:29 Tramadol HCl (UltRAM) 25 mg Q6H PRN PO MODERATE PAIN (4-6) 04/23/25 09:30 04/26/25 09:29 DC Tramadol HCl (UltRAM) 50 mg Q6H PRN PO SEVERE PAIN (7-10) 04/23/25 09:30 04/26/25 09:29 DC 04/25/25 02:18 50 MG Vitamin B Complex/ Vit C/Folic Acid (Nephrovite Tablet) 1 cap Q24H PO 04/20/25 12:00 05/20/25 11:59 04/27/25 08:18 1 CAP DIAGNOSTICS / RADIOLOGY: [ ] ASSESSMENT: NSTEMI/ ACS, POA Rule out pericarditis, POA Rule out developing community-acquired pneumonia, POA Undiagnosed COPD/chronic bronchitis, POA History of coronary artery disease with prior history of PCI in 2004, POA CKD stage 3, POA Suspected BAILEY Electrolyte abnormalities (hyponatremia, hypomagnesemia) Tobacco use disorder, POA Cocaine use disorder, POA Hypertension, POA Hyperlipidemia, POA Diabetes mellitus type 2, POA Hypothyroidism POA PLAN: Patient to be admitted to [facility]U NSTEMI/ ACS, severe multivessel coronary artery disease status post CABG Day 2 Cardiology has been consulted on the case Left heart catheterization performed showing severe 3+ CAD Patient underwent CABG, extubated and currently on Levophed, Epinephrine and Insulin drips Pericarditis ruled out but the echo showing no evidence of pericardial effusion Echo showed LVEF 40-45% Heparin drip was stopped before taking to CABG Continue atorvastatin 40 mg Q 24 Continue aspirin 81 daily Morphine 2 mg prn Nitroglycerin 0.4 mg sublingually as p.r.n. for chest pain IABP was discontinued yesterday Plan to remove chest drain today Chronic Bronchitis possible COPD Rule out developing community-acquired pneumonia Gram stain did not isolate specific organism, showed normal oropharyngeal tae Continue IV Rocephin/doxycycline (day 7) Follow pulmonology recommendations Pulmicort, Atrovent has been placed for shortness of breath Patient will benefit from outpatient PFTs Patient will benefit from outpatient sleep study to rule out BAILEY CKD stage III, electrolyte abnormality Urine protein creatinine ratio is 271, consistent with CKD Renal ultrasound showed smaller left kidney with renal parenchymal disease and a right renal simple cortical cyst Replace the magnesium per protocol Hypertension, hyperlipidemia, hypothyroidism, suspected BAILEY Patient's home medications were reconciled and resumed Patient should get evaluated for BAILEY as outpatient Continue with Lipitor, continue with gemfibrozil, patient has not taken some of his home medications for several months Restart lisinopril monitoring renal function closely Follow cardiovascular recommendations for further management, interventions, clinical response. GI prophylaxis with pantoprazole DVT prophylaxis with enoxaparin Discharge planning: Home Code status: full code Diet: Clear liquid PHYSICIAN STATEMENT I was present with the resident during the History and Physical exam and I have reviewed the resident's note. This case was discussed with the resident and I agree with the history, physical exam and medical decision making as documented. Additions/exceptions/observations were directly added to the notes. MD YESENIA Burton SYED M MD Apr 27, 2025 11:00
--- NOTE | 2025-04-27 16:23 | PN ---
[facility] PROGRESS NOTE Date Patient Seen: Apr 27, 2025 Time of Visit: 16:18 Supervising Physician: Dr Aparicio Supervising Physician: Dr. Bansal Primary Care Physician: [ ] Outpatient Specialists: [ ] Inpatient Consults: Dr. Gordon, Dr. Pop PROBLEM LIST: Multivessel coronary artery disease status post CABG x3 04/23/2025. Cardiogenic shock SCAI stage C on MCS with IABP post op your cava NSTEMI/ ACS, POA -s/p LHC on 04/21/25 with findings of MvCAD schemic cardiomyopathy. Suspected community-acquired pneumonia, POA Undiagnosed COPD/chronic bronchitis, POA History of coronary artery disease with prior history of PCI in 2004, POA CKD stage 3, POA Electrolyte abnormalities (hyponatremia, hypomagnesemia) Polysubstance abuse with tobacco, cocaine and marijuana. Suspected Undiagnosed and untreated BAILEY Hypertension, POA Hyperlipidemia, POA Diabetes mellitus type 2, POA Hypothyroidism POA INTERVAL HISTORY: Date of admission: 04/20/25 Hospital Day: 7 ICU Day: 4 Code status: Full code Ventilator status: Preoperative Intubated -extubated on 04/23/25 Lines: chest tube, left subclavian central line, Weir catheter Nutrition: Clear liquids Isolation: Standard Patient seen and examined all labs and imaging reviewed. Patient OOB to chair, IABP removed yesterday VSS, off pressors CT 100/overnight UO 1800/overnight No CP or SOB ROom Air Plan: Follow CTS recs INOs PT/OT Daily labs Cardiology recs REVIEW OF SYSTEMS: 12 point ROS reviewed with patient. Pertinent positives mentioned above. Otherwise negative. PHYSICAL EXAM: GENERAL: alert, weak, awake oriented x 3 HEENT: EOMI, Sclera non icteric, moist mucosa NECK: Supple, no JVD, trachea midline LUNGS: Clear breath sounds bilaterally. No wheezes HEART: Regular rate and rhythm. Normal S1 and S2, without murmurs ABD: Abdomen soft, nontender. Bowel sounds present EXT: No clubbing cyanosis or edema NEURO: Alert and oriented to person, follows commands Vital Signs (last 8hr) Date Time Temp Pulse Resp B/P (MAP) Pulse Ox O2 Delivery O2 Flow Rate FiO2 04/27/25 16:00 98 Nasal Cannula* 2 28 04/27/25 16:00 87 26 137/76 (96) 98 130/89 (103) 04/27/25 16:00 98.1 04/27/25 15:30 88 26 141/80 (100) 99 04/27/25 15:01 95 30 143/81 (101) 99 129/97 (108) 04/27/25 15:00 97 13 143/81 (101) 99 136/91 (106) 04/27/25 14:30 95 31 126/74 (91) 98 04/27/25 14:00 94 24 118/66 (83) 98 04/27/25 13:30 95 25 134/75 (94) 98 04/27/25 13:00 96 25 136/75 (95) 98 129/52 (77) 04/27/25 12:30 94 14 129/69 (89) 98 04/27/25 12:00 98 Nasal Cannula* 2 28 04/27/25 12:00 98.8 04/27/25 12:00 93 30 127/70 (89) 97 117/82 (94) 04/27/25 11:30 98 17 137/82 (100) 96 04/27/25 11:00 85 23 120/71 (87) 97 116/80 (92) 04/27/25 10:30 90 17 131/77 (95) 97 04/27/25 10:00 91 18 135/84 (101) 97 95/48 (64) 04/27/25 09:30 93 18 146/83 (104) 97 04/27/25 09:00 87 18 141/80 (100) 98 119/77 (91) 04/27/25 08:30 96 18 159/88 (111) 100 LABS: Hematology Labs: Test 04/27/25 05:13 Range/Units White Blood Count 7.5 4.8-10.8 K/uL Red Blood Count 3.41 L 4.50-6.20 MIL/uL Hemoglobin 10.3 L 14.0-18.0 g/dL Hematocrit 30.9 L 42-54 % Mean Corpuscular Volume 90.6 79-99 fL Mean Corpuscular Hemoglobin 30.2 27.0-33.0 pg Mean Corpuscular Hemoglobin Concent 33.3 32.0-36.0 g/dL Red Cell Distribution Width 13.0 11.0-15.5 % Platelet Count 186 130-400 K/uL Mean Platelet Volume 9.2 7.5-10.5 fL Nucleated Red Blood Cells 0.0 0.0-0.19 % Chemistry Labs: Test 04/27/25 05:13 04/26/25 20:11 04/26/25 04:50 Range/Units Sodium Level 140 136-145 mmol/L Potassium Level 4.1 3.5-5.1 mmol/L Chloride Level 104 101-111 mmol/L Carbon Dioxide Level 28 21-32 mmol/L Blood Urea Nitrogen 23 H 7-18 mg/dL Creatinine 1.5 H 0.5-1.3 mg/dL Glomerular Filtration Rate Calc 53 >90 mL/min Random Glucose 227 H 70-105 mg/dL Total Calcium 8.1 L 8.5-10.1 mg/dL Magnesium Level 1.90 1.80-2.40 mg/dL Whole Blood Glucose 188 H 70-110 MG/DL Phosphorus Level 4.1 2.5-4.9 mg/dL DIAGNOSTICS / RADIOLOGY RESULTS: [ ] PLAN NEURO: Minimize central acting medications as possible. Fall Precautions. Well lighted room through the day and minimize interruptions through the night to prevent acute delirium. PULMONARY: Supplemental 02 as needed Titrate Fio2 to keep Spo2 > or = 90% DuoNebs and CPT as needed IS hourly while awake for pulmonary hygiene Out of bed to chair as tolerated CARDIOVASCULAR: Follow hemodynamics. Titrate vasopressor to keep MAP >65 or systolic blood pressure >95mmHg DIPS: Epinephrine LINES: PIV GI & NUTRITION: Continue nutritional support Aspirations precautions Prokinetic agents and laxatives as needed KIDNEYS & ELECTROLYTES: Strict monitoring of intake and output Daily weights Avoid nephrotoxic agents Monitor electrolytes and replace as needed Goal urine output of 30mL/hr or 0.5mL/kg/hr ENDOCRINE: Maintain blood glucose between 100-180 at all times. Insulin sliding scale for blood glucose management INFECTIOUS DISEASE: Trend temperature. Mahajan-culture if febrile. Micro: [ ] Respiratory culture normal tae Legionella pneumophila not detected in the sputum PCR MRSA positive Antibiotics: [ ] Rocephin and doxycycline HEMATOLOGY & COAGULATION: Monitor H&H. Keep Hgb > 7 Transfuse 1 unit of PRBC for Hgb < 7 Transfuse 1 pack of platelets of platelets < 20, 000 Watch for any signs and symptoms of bleeding SKIN: Pressure ulcer prevention per facility protocol Rehab: PT/OT Prophylaxis: GI: Pepcid DVT: Ankit schreiber, per CV surgery Code Status: Full Resuscitation Disposition: ICU Other: Total patient care time exceeds 35 minutes excluding all procedures. Case was discussed and seen with my supervising physician. The above plan was formulated and agreed upon. PRISCILLA SOTELO Apr 27, 2025 16:23
--- NOTE | 2025-04-27 18:14 | NUR ---
Pt voices several concerns regarding all the " tubes and lines" and that the chest tube and catheter are causing him pain. Pt requests pain meds,nurse aware. Pt requires maximal redirection, and is self limiting due to report of chronic back and hip issues as well as " they almost killed me in the OR". Pt reports that he feels like he does not know what he should and should not be doing. Education provided on POC, sternal and falls precautions. Pt does not relay his PLOF only that he " cant do much bc I am disabled" He reports he is unfunded and needs therapy. He stated " I dont know if they are applying for emergency Medicaid or what" and " I dont know what I am going to do". Concerns forwarded to case technician. DC plan unclear, pt doesn't provide info on PLOF / living arrangements at this time. Addendum: 04/27/25 at 1820 by DL PEREZ PT PT Amended: Links added.
--- NOTE | 2025-04-27 18:38 | NUR ---
Dr. Chanel Rounds Dr. Chanel at bedside. Per MD, Discontinue gutierres catheter, chest tubes, cordis, and arterial line. Patient may downgrade to PCCU status.
[2025-04-27 20:32] LABS: INR 1.0 (0.85-1.15)
--- NOTE | 2025-04-27 20:36 | PN ---
SUBJECTIVE: A 60-year-old gentleman status post CABG. Postoperative day #4. OBJECTIVE: GENERAL: Awake, alert, fair, neurovascularly intact. VITAL SIGNS: Stable as recorded in the medical record. CHEST: Sternum stable, incision sealed. LUNGS: Clear. EXTREMITIES: Warm, well perfused. No evidence of DVT, hematoma, or infection. PROBLEMS: 1. Cardiac failure: The patient was weaned from the intraaortic balloon pump was removed yesterday. Pulses are present today. Hemodynamics are stable. Sinus rhythm with no inotropes. 2. Fluid overload. 3. DVT prophylaxis. PLAN: Continue aspirin. Add beta-dillon 12.5 mg twice a day. Lasix 20 mg twice a day. Discontinue Weir. SCDs while in bed. Encouraged ambulation. Discontinue chest tubes. Transfer to Telemetry. TID: [id number] RECEIPT: [id number]
--- NOTE | 2025-04-27 23:23 | HMCIMG ---
EXAM: CR Chest, single view CLINICAL HISTORY: Status post CABG COMPARISON: Prior chest radiograph dated 26 April 2025. FINDINGS: Poststernotomy status. Normal cardiac size. Mildly elevated right hemidiaphragm. The lungs show no infiltrate or other acute findings. No pleural effusion or pneumothorax. No acute osseous abnormality. IMPRESSION: Poststernotomy status. Mildly elevated right hemidiaphragm, probable right diaphragmatic eventration. No acute cardiopulmonary pathology is evident. Compared to the prior study, there is no significant interval change. /[place]
[2025-04-28] VITALS (13 sets, daily range): BP systolic 112–132; BP diastolic 64–91; PULSE 65–98; RESP 19–28; TEMP 98–98.7; O2SAT 96–99
[2025-04-28 05:11] LABS: IMMATURE GRANULOCYTE ABSOLUTE 0.09 K/uL (0-1); NUCLEATED RED BLOOD CELLS 0.0 % (0.0-0.19); PLATELET COUNT (AUTO) 230 K/uL (130-400); RED BLOOD CELL COUNT(AUTO) 3.45 MIL/uL (4.50-6.20); RED CELL DISTRIBUTION WIDTH 13.1 % (11.0-15.5); WHITE BLOOD COUNT (AUTO) 6.8 K/uL (4.8-10.8)
[2025-04-28 05:24] LABS: CREATININE 1.3 mg/dL (0.5-1.3); GLOMERULAR FILTR. RATE CALC 63.0 mL/min (>90); GLUCOSE,RANDOM 186.0 mg/dL (70-105); SODIUM SERUM 136.0 mmol/L (136-145); UREA NITROGEN, BLOOD 26.0 mg/dL (7-18)
--- NOTE | 2025-04-28 06:24 | PN ---
[facility] CARDIOLOGY PROGRESS NOTE Late Entry Performed 04/28/25 Date Patient Seen: Apr 27, 2025 Time of Visit: 08:21 Problem List: Severe 3 vessel CAD s/p CABG x 3 on 04/23/25 NSTEMI/ ACS Ruled out pericarditis Ruled out developing community-acquired pneumonia Undiagnosed COPD/chronic bronchitis History of coronary artery disease with prior history of PCI in 2004 CKD stage 3 Suspected BAILEY Electrolyte abnormalities (hyponatremia, hypomagnesemia) Tobacco use disorder Cocaine use disorder Morbid Obesity Hypertension Hyperlipidemia Diabetes mellitus type 2 Hypothyroidism Interval History: Pt s/p CABG x3 POD # 4, Pt oob to chair, NSR, had IABP removed yesterday. Pulses palpable, still with edema at+1. He has had no arrhythmia overnight or any complaints other than routine pain and his arthritic pain to the hip increasing mobility issues. He is performing IS about 1.1 liters as directed. Pt off all pressors/drips. Tolerating diet. Pt resumed on metoprolol 12.5mg po bid, asa 81 mg daily, atorvastatin 40mg po at hs, levothyroxine, and nicotine patch, initiated on low dose lasix per surgeon. Physical Examination: GENERAL: [No acute distress.] HEAD: [Normal with no signs of head trauma.] EYES: [PERRLA, EOMI, conjunctiva and sclera normal.] ENT: [Hearing grossly intact, normal oropharynx.] NECK: Obese, supple without JVD. There is no tenderness, lymphadenopathy, or masses. No thyromegaly. Normal carotid upstrokes without bruits.] LUNGS: [Clear breath sounds bilaterally. There are right basilar rales one third of the way up the chest. No wheezes, or rhonchi.] HEART: Regular rate and rhythm. Normal S1 and S2 without murmurs, gallop or rub.] VASC: [Peripheral pulses +2 bilaterally, +1 edema.] ABD: Obese, Bowel sounds normal, soft, nontender, no masses, no organomegaly. No audible bruits.] : [Not examined] LYMPH: [No lymphadenopathy noted.] EXT: [No clubbing, cyanosis or edema.] SKIN: [No rashes or lesions noted, incisions covered, well approximated, no dr blake NEURO: [Awake, alert, and oriented x3. No focal sensory or strength deficits noted.] Laboratory: [ ] Hematology Labs: Test 04/28/25 04:58 Range/Units White Blood Count 6.8 4.8-10.8 K/uL Red Blood Count 3.45 L 4.50-6.20 MIL/uL Hemoglobin 10.3 L 14.0-18.0 g/dL Hematocrit 30.2 L 42-54 % Mean Corpuscular Volume 87.5 79-99 fL Mean Corpuscular Hemoglobin 29.9 27.0-33.0 pg Mean Corpuscular Hemoglobin Concent 34.1 32.0-36.0 g/dL Red Cell Distribution Width 13.1 11.0-15.5 % Platelet Count 230 130-400 K/uL Mean Platelet Volume 9.0 7.5-10.5 fL Immature Granulocyte % (Auto) 1.3 H 0-1 % Neutrophils (%) (Auto) 59.7 40.0-77.0 % Lymphocytes (%) (Auto) 20.7 L 21.0-51.0 % Monocytes (%) (Auto) 12.7 3.0-13.0 % Eosinophils (%) (Auto) 4.6 0.0-8.0 % Basophils (%) (Auto) 1.0 0.0-5.0 % Neutrophils # (Auto) 4.0 1.8-7.7 K/uL Lymphocytes # (Auto) 1.4 1.0-4.8 K/uL Monocytes # (Auto) 0.9 0.1-1.0 K/uL Eosinophils # (Auto) 0.31 0.00-0.70 K/uL Basophils # (Auto) 0.07 0.00-0.20 K/uL Absolute Immature Granulocyte (auto 0.09 0-1 K/uL Nucleated Red Blood Cells 0.0 0.0-0.19 % Chemistry Labs: Test 04/28/25 04:58 04/26/25 20:11 Range/Units Sodium Level 136 136-145 mmol/L Potassium Level 4.2 3.5-5.1 mmol/L Chloride Level 103 101-111 mmol/L Carbon Dioxide Level 28 21-32 mmol/L Blood Urea Nitrogen 26 H 7-18 mg/dL Creatinine 1.3 0.5-1.3 mg/dL Glomerular Filtration Rate Calc 63 >90 mL/min Random Glucose 186 H 70-105 mg/dL Total Calcium 8.4 L 8.5-10.1 mg/dL Magnesium Level 1.90 1.80-2.40 mg/dL Whole Blood Glucose 188 H 70-110 MG/DL Coagulation Labs: Test 04/27/25 20:08 Range/Units Prothrombin Time 10.6 9.6-11.6 SEC Prothromb Time International Ratio 1.00 0.85-1.15 Activated Partial Thromboplast Time 21.2 L 26.3-35.5 SEC Diagnostics / Radiology: [Copy/Paste Echos/Imaging Report here] Impression and Plan: Continue asa Continue atorvastatin Continue levothyroxine Continue metoprolol 12.5 mg po bid Reinforced betablocker/cocaine interactions Counselled on smoking/illicit drug cessation Continue IS PT/OT Monitor HR/BP control BELKIS MOHAMUD NP Apr 28, 2025 06:24
--- NOTE | 2025-04-28 07:10 | PN ---
PROBLEM LIST: * Severe three-vessel coronary artery disease. * Non-transmural myocardial infarction with post-infarct unstable anginal on presentation. * Status post intra-aortic balloon pump counterpulsation for stabilization on 04/23/2025 with concomitant coronary artery bypass graft surgery x 3 with a BLACKMON to the LAD, saphenous vein graft to the OM, and saphenous vein graft to the RCA. * Ischemic cardiomyopathy with questionable degree of LV dysfunction. * Hypertension. * Diabetes mellitus type 2. * Chronic kidney disease, stage 3. * Obesity. * History of polysubstance abuse with tobacco, cocaine and marijuana use, counseled extensively. * Questionable obstructive sleep apnea. * History of remote percutaneous coronary intervention in 2004. * Electrolyte abnormalities, being stabilized. * Hypothyroidism, on supplement. * Hyperlipoproteinemia. * Likely underlying chronic obstructive airway disease. This patient has improved significantly over the past 48 hours. He has had his intra-aortic balloon pump removed and his thoracostomy indwelling tubes discontinued. The patient has been allowed to get up in the chair and appears to be sitting in a chair comfortable with no active complaints and no concerns at this point. He states that he feels much better. He is having minimal incisional soreness. His vital signs are currently stable. He is afebrile. His heart rate is in the 90 per minute range, respiratory rate is 22, blood pressure is 115/65. He is saturating at 95% on room air. On exam, the patient has no jugular venous distention. The lung exam is remarkable for decreased air entry at the bases and particularly the left base. The patient has scattered rhonchi and crackles. The patient has some dullness to percussion to the right base. There is a prolonged expiratory phase and scattered wheezes. The cardiac exam is remarkable for normal S1 and S2. No obvious murmurs, rubs, or gallops. The sternum is solid. The abdomen is obese and the extremities are without edema. Laboratory studies this morning revealed a white count of 6.8. H and H has been stable at 10.3 and 30.2 respectively with a platelet count of 230,000. The chemistries revealed a sodium of 136, potassium of 4.2, chloride is 103, CO2 is 28, BUN is 26, creatinine is down to 1.3 from 1.5 yesterday. The GFR is up to 63 from 53 yesterday. The magnesium is 1.9. The calcium is 8.4 with a random glucose of 186. This gentleman is maintained on furosemide, famotidine, gabapentin, low-dose Lovenox, insulin, metoprolol, Colace, Glucagon, Rocephin, baby aspirin, Atrovent, doxycycline, atorvastatin, levothyroxine, and additional p.r.n. medications. At this point, this gentleman appears to be progressing nicely. I would recommend obtaining an echocardiogram postop to assess his LV functional status. He currently has no change on his EKG, which is consistent with an old inferior wall WI and old anterior septal WI. The patient will be managed as per the Cardiothoracic Surgery protocol and his current medical regimen will be maintained. TID: [id number] RECEIPT: [id number]
[2025-04-28] MEDS: LACTULOSE 20 GM/30 ML UDCUP PO PRN (08:39)
--- NOTE | 2025-04-28 11:12 | PN ---
[facility] PROGRESS NOTE Date of Service: Apr 28, 2025 Time of Service: 10:46 HISTORY OF PRESENT ILLNESS: Patient is a 60-year-old male with past medical history of CAD, hyperlipidemia, hypertension, diabetes mellitus type 2, hypothyroidism, obesity who presented to the ED with chief complaint of chest pain. Patient complained of diaphoresis, shortness of breath, chest pain which started 2 weeks ago which is on and off and burning pain in nature. Patient started having severe chest pain 3 hours ago which prompted the patient to come to the ED. patient complained that the pain is worse on lying down and better on waking up and leaning forward. He ambulates using cane. Patient admitted to smoking 1 pack per day for past 40 years since the age of 9, vaping, usage of weed, reports hx of chronic cocaine use with last use 2 days ago. On presentation to the ED patient vitals temperature 98.2, pulse 89, res piratory rate 20, blood pressure 120/79, saturating at 96% on room air. Labs revealed white blood count of 8.5, hemoglobin 14.5 Chemistries show sodium 130, creatinine 1.6, BUN 19, glucose 213, magnesium 1.7, BNP 169, and troponin initially is 323 trended up to 496. Patient received3 and4 mg of aspirin in the ED and 0.4 mg of sublingual nitroglycerin which did not help with the pain. CXR showed bilateral infiltrates. Patient will be admitted for further evaluation of chest pain in the setting of elevated cardiac troponin, with concern fro ACS/ NSTEMI. Will also consider pericarditis in the differential due to symptomatology of chest pain. Patient will receive broad-spectrum antibiotics and patient likely has undiagnosed COPD with chest x-ray showing bilateral infiltrates with concerns for possible pneumonia. Patient will be monitored closely under hospitalist service. SUBJECTIVE: 04/21/2025: Patient was evaluated at the bedside. Patient appeared to be in mild distress however did not complain of chest pain this morning. Patient was scheduled for left heart catheterization this morning. Patient reports that he had ongoing chest pain for 2 weeks which got severe yesterday, worse when lying down and relieved by sitting up and leaning forward. He also had cough and shortness of breath and his chest x-ray showed bilateral basilar infiltrates suggestive of pneumonia. His cardiac troponins were serially measured and today they were 5810. Echo was performed and ruled out pericardial effusion. Patient admits to using cocaine and marijuana within the last 2 days. Patient started on Cardizem, aspirin and heparin drip. Patient admits to smoking. Patient's white count cell is 10.7. We will follow Cardiology recommendations after left heart catheterization. 04/22/2025: Patient was evaluated at the bedside. Patient was not in any distress was alert, oriented and did not complain of chest pain today. Patient had his left heart catheterization yesterday which found severe multivessel CAD needing CABG. He had a 70% distal stenosis followed by a total occlusion of the distal RCA. The left circumflex artery is totally occluded proximally. The LAD had a previous stent which is 100% stenosis in the mid LAD after a diagonal branch. His LVEF was 40%. [place] [address]139 today up from [address] Pop reviewed him and deemed he has very poor targets for CABG however wants to attempt it. Patient was explained about the risks and he expressed understanding and gave the consent. Patient is still pending a date for CABG and will be maintained meanwhile on his ACS protocol. 04/23/2025: Patient was evaluated at the bedside this morning. Patient was lying on his side and was not in acute distress had no acute events overnight. Patient was taken to CABG today performed by Dr. Lozoya. Patient was evaluated in the afternoon after returning from operating room. Patient was intubated and was on insulin drip. Patient blood glucose was 368 and phosphorus was 5.7. We will repeat his phosphorus levels tomorrow. Dietary restriction and if despite this it is high we will consider sevelamer 800 mg t.i.d. Whole blood ketones, urine ketone levels, urine electrolytes, urine creatinine were ordered. 04/24/2025: Patient was evaluated at the bedside this morning his 212. Patient was extubated yesterday night and has been recovering well. Patient is on 10 L of oxygen via BiPAP saturating over 98%. Is currently on Levophed, epinephrine, insulin drips. He is currently receiving doxycycline and Rocephin for his pneumonia. A repeat x-ray today showed mild cardiomegaly, atelectasis in the right lung base and no signs of pulmonary venous congestion. Patient expressed mild shortness of breath that has been subsiding with IV Lasix and nebulizer treatments. Repeat phosphorus levels was 4.3, whole blood ketones less than 0.1. Patient will be started on guideline directed management of heart failure once his pain completely of IV pressors. Patient is currently managed by critical care team and we will follow their recommendations closely. 04/25/2025: He was evaluated at the bedside this morning. No acute overnight event. He is AAO x3. He is on 4 L of oxygen. He is hemodynamically stable, off the pressors. Pertinent labs, WBC 10.7, hemoglobin 10.5, creatinine 1.4, ionized calcium 1.07. Repeated chest x-ray revealed mild pulmonary vascular congestion. He is currently on doxycycline and Rocephin, furosemide, levothyroxine, metoprolol and atorvastatin. Plan to discontinue IABP today. Patient is currently managed by critical care team and we will follow their recommendations closely. 04/26/2025 : Patient is alert, oriented, and awake. There was no acute overnight event . Repeat chest x-ray today showed mild pulmonary vascular condition. He is continued on ceftriaxone and doxycycline. He is currently on furosemide, levothyroxine, metoprolol and atorvastatin. Plan to discontinue IABP today. Patient is currently managed by critical care team and we will follow their recommendations closely. 04/27/2025: Patient is alert, oriented, and awake. There was no acute overnight event. He is continued on ceftriaxone and doxycycline. He is currently on furosemide, levothyroxine, metoprolol and atorvastatin. IABP was removed yesterday. Today his hemoglobin is 10.3 and creatinine is 1.5. Patient is planned for the chest drain removal today. Patient is currently managed by critical care team and we will follow their recommendations closely. 04/28/2025: Patient is alert, oriented, and awake. There was no acute overnight event. He is continued on ceftriaxone and doxycycline. He is currently on furosemide, levothyroxine, metoprolol and atorvastatin. Chest drain and Weir's removed. Today his hemoglobin is 10.3 and creatinine is 1.3. Patient is currently managed by critical care team and we will follow their recommendations closely. Physical therapy is on board for patient ambulation. REVIEW OF SYSTEMS CONSTITUTIONAL: Patient was extubated . Dressing over the sternal wound post CABG. Denies fevers, chills, or night sweats. No unintentional weight loss reported. NEUROLOGICAL: Denies headache, amaurosis fugax, motor weakness, sensory deficit, vertigo/spinning sensation CARDIOVASCULAR: Denies any exertional angina, dyspnea on exertion, orthopnea, palpitations, life-threatening arrhythmias, claudication. Admits to chest pain, resolving SLEEP: Denies morning headaches, daytime somnolence or napping. Denies difficulty falling asleep, staying asleep, waking from sleep. Admits of snoring. GASTROINTESTINAL: Denies any type of dysphagia to either liquids or solids. Denies nausea, vomiting, pyrosis, early satiety, abdominal pain, diarrhea, constipation, or changes in stool consistency or caliber. Denies coffee-ground emesis, hematemesis, hematochezia, or melanotic stools. GENITOURINARY: Denies frequency, urgency, nocturia, hematuria or incontinence (Storage/Irritative symptoms.) Low urinary stream, straining to void, urinary intermittency or hesitancy, splitting of the voiding stream, terminal dribbling. PHYSICAL EXAM GENERAL APPEARANCE: Alert, awake, oriented CHEST: Normal chest expansion. Telemetry LUNGS: Absence of any rales, rhonchi or any wheezing. CARDIOVASCULAR: Regular. S1 and S2 normal. No appreciable rubs, murmurs or gallops. ABDOMEN: Soft, nontender, and nondistended. There is no rebound, voluntary guarding, or rigidity. EXTREMITIES: Non-edematous and not cyanotic. No clubbing. Good capillary refill. SKIN: No skin breakdown. Vital Signs (last 8hr) Date Time Temp Pulse Resp B/P (MAP) Pulse Ox O2 Delivery O2 Flow Rate FiO2 04/28/25 06:38 96 20 04/28/25 06:37 96 20 N/A Room Air 21 04/28/25 04:00 98.4 89 28 131/91 99 Room Air LABS: Laboratory: Test 04/28/25 04:58 04/27/25 20:08 04/26/25 20:11 Range/Units White Blood Count 6.8 4.8-10.8 K/uL Red Blood Count 3.45 L 4.50-6.20 MIL/uL Hemoglobin 10.3 L 14.0-18.0 g/dL Hematocrit 30.2 L 42-54 % Mean Corpuscular Volume 87.5 79-99 fL Mean Corpuscular Hemoglobin 29.9 27.0-33.0 pg Mean Corpuscular Hemoglobin Concent 34.1 32.0-36.0 g/dL Red Cell Distribution Width 13.1 11.0-15.5 % Platelet Count 230 130-400 K/uL Mean Platelet Volume 9.0 7.5-10.5 fL Immature Granulocyte % (Auto) 1.3 H 0-1 % Neutrophils (%) (Auto) 59.7 40.0-77.0 % Lymphocytes (%) (Auto) 20.7 L 21.0-51.0 % Monocytes (%) (Auto) 12.7 3.0-13.0 % Eosinophils (%) (Auto) 4.6 0.0-8.0 % Basophils (%) (Auto) 1.0 0.0-5.0 % Neutrophils # (Auto) 4.0 1.8-7.7 K/uL Lymphocytes # (Auto) 1.4 1.0-4.8 K/uL Monocytes # (Auto) 0.9 0.1-1.0 K/uL Eosinophils # (Auto) 0.31 0.00-0.70 K/uL Basophils # (Auto) 0.07 0.00-0.20 K/uL Absolute Immature Granulocyte (auto 0.09 0-1 K/uL Nucleated Red Blood Cells 0.0 0.0-0.19 % Sodium Level 136 136-145 mmol/L Potassium Level 4.2 3.5-5.1 mmol/L Chloride Level 103 101-111 mmol/L Carbon Dioxide Level 28 21-32 mmol/L Blood Urea Nitrogen 26 H 7-18 mg/dL Creatinine 1.3 0.5-1.3 mg/dL Glomerular Filtration Rate Calc 63 >90 mL/min Random Glucose 186 H 70-105 mg/dL Total Calcium 8.4 L 8.5-10.1 mg/dL Magnesium Level 1.90 1.80-2.40 mg/dL Prothrombin Time 10.6 9.6-11.6 SEC Prothromb Time International Ratio 1.00 0.85-1.15 Activated Partial Thromboplast Time 21.2 L 26.3-35.5 SEC Whole Blood Glucose 188 H 70-110 MG/DL Current Medications Medications (Trade) Dose Ordered Sig/Damian Route PRN Reason Start Time Stop Time Status Last Admin Dose Admin Acetaminophen (TYLenol 325MG TAB) 650 mg Q4H PRN PO Temp >38.3C(AFTER EXTUBATION) 04/23/25 09:30 05/23/25 09:29 Acetaminophen (TYLenol 325MG TAB) 650 mg Q6H PRN PO MILD PAIN (1-3) 04/20/25 11:30 04/23/25 09:21 DC 04/22/25 22:35 650 MG Acetaminophen (TYLenol 325MG TAB) 650 mg Q6H PRN PO MILD PAIN (1-3) 04/23/25 09:30 05/23/25 09:29 04/28/25 06:54 650 MG Acetaminophen (TYLenol 650MG SUPPOSITORY) 650 mg Q4H PRN RC Temp >38.3C WHILE INTUBATED 04/23/25 09:30 04/28/25 07:56 DC Acetaminophen (acetaMINOPHEN) 1,000 mg Q6H IV 04/23/25 21:00 04/24/25 20:59 DC 04/24/25 14:15 1,000 MG Acetaminophen (acetaMINOPHEN) 1,000 mg Q6H6 IV 04/23/25 13:00 04/23/25 19:11 DC 04/23/25 15:11 1,000 MG Albumin Human 250 ml @ 0 mls/hr AD PRN IV IF HEMODYNAMICALLY UNSTABLE 04/23/25 09:30 04/28/25 07:56 DC Aminocaproic Acid 28732 mg/Sodium Chloride 310 ml @ 25 mls/hr AD IV 04/23/25 09:30 04/23/25 21:53 DC Aminocaproic Acid 27156 mg/Sodium Chloride 480 ml @ 0 mls/hr AD PRN IV BLEEDING CONTROL 04/23/25 07:30 04/23/25 09:52 DC Aspirin (Aspirin 325mg Tab) 325 mg DAILY PO 04/21/25 09:00 04/20/25 11:07 DC Aspirin (Aspirin 81mg Chew Tab) 81 mg Q24H PO 04/20/25 11:30 05/20/25 11:29 04/27/25 08:18 81 MG Atorvastatin Calcium (LIPItor 40MG) 40 mg Q24H PO 04/20/25 11:30 04/21/25 13:17 DC 04/20/25 11:32 40 MG Atorvastatin Calcium (LIPItor 40MG) 40 mg Q24H PO 04/21/25 21:00 05/21/25 20:59 04/27/25 20:41 40 MG Budesonide (Pulmicort 0.5 Mg/2ml) 0.5 mg BIDRESP IH 04/20/25 11:30 05/20/25 11:29 04/28/25 06:38 0.5 MG Budesonide (Pulmicort 0.5 Mg/2ml) 0.5 mg BIDRESP IH 04/20/25 18:00 04/20/25 11:18 DC Calcium Gluconate 1 gm/Sodium Chloride 60 ml @ 200 mls/hr AD PRN IV HYPOCALCEMIA 04/23/25 09:30 04/28/25 07:56 DC 04/25/25 04:44 200 MLS/HR Cefazolin Sodium (ANCEF 1 gm vial) 2 gm ONCALL IVP 04/22/25 16:30 04/22/25 16:15 DC Cefazolin Sodium (Ancef) 2 gm Q8H IVPB 04/23/25 14:30 04/24/25 06:31 DC 04/24/25 06:08 2 GM Ceftriaxone Sodium (ROCEphine 1G INJ) 1 gm Q12H IVPB 04/20/25 11:30 04/30/25 11:29 04/27/25 22:34 1 GM Clopidogrel Bisulfate (plaVIX 75MG) 75 mg DAILY PO 04/21/25 09:00 04/21/25 13:18 DC Dexmedetomidine/ Sodium Chloride (PRECEdex 400MCG/ 100ML-NS) 400 mcg PROTOCOL IV 04/23/25 09:30 04/24/25 09:29 DC Dextrose (D50w) 50 ml AD PRN IV HYPOGLYCEMIA PROTOCOL 04/23/25 09:30 05/23/25 09:29 Diltiazem HCl (CARDIzem 60MG TAB) 30 mg Q6H PO 04/20/25 11:30 04/20/25 21:29 DC 04/20/25 18:13 30 MG Diltiazem HCl (CARDIzem 60MG TAB) 60 mg D1RRFWO PO 04/20/25 23:30 04/23/25 09:11 DC 04/23/25 00:33 60 MG Docusate Sodium (COLace 100MG CAP) 100 mg BID PO 04/23/25 21:00 05/23/25 20:59 04/28/25 08:32 100 MG Doxycycline Hyclate (Doxycycline Hyclate) 100 mg BID PO 04/20/25 21:00 04/30/25 20:59 04/28/25 08:32 100 MG Enoxaparin Sodium (Lovenox) 30 mg DAILY SQ 04/26/25 09:00 05/26/25 08:59 04/28/25 08:33 30 MG Enoxaparin Sodium (Lovenox) 40 mg DAILY SQ 04/22/25 16:00 04/23/25 09:11 DC 04/22/25 18:23 40 MG Epinephrine HCl 10 mg/Sodium Chloride 250 ml @ 17.779 mls/ hr AD PRN IV POST-OP CARDIOVASCULAR ORDERS 04/23/25 09:30 04/28/25 07:56 DC Epinephrine HCl 10 mg/Sodium Chloride 250 ml @ 0 mls/hr AD PRN IV TITRATE 04/23/25 08:00 04/23/25 09:52 DC Famotidine (Pepcid 20mg Vial) 20 mg BID IV 04/23/25 21:00 04/26/25 19:14 DC 04/26/25 08:27 20 MG Famotidine (Pepcid 20mg Tab) 20 mg BID PO 04/26/25 21:00 05/26/25 20:59 04/28/25 08:32 20 MG Ferrous Sulfate (Ferrous Sulfate) 325 mg TID PO 04/21/25 14:00 04/21/25 17:13 DC Furosemide (LASix 20MG TAB) 20 mg DAILY PO 04/27/25 09:00 05/25/25 08:59 04/28/25 08:33 20 MG Furosemide (LASix 20MG TAB) 20 mg Q12H PO 04/25/25 09:00 04/26/25 17:36 DC 04/26/25 08:28 20 MG Furosemide (LASix 20MG VIAL) 20 mg Q12H IV 04/24/25 09:00 04/25/25 08:59 DC 04/24/25 20:02 20 MG Gabapentin (NEURontin 100 mg CAP) 100 mg TID PO 04/26/25 14:00 05/26/25 13:59 04/28/25 08:32 100 MG Gemfibrozil (gemFIBROzil 600 MG TABLET) 600 mg BIDAC PO 04/20/25 16:30 04/23/25 09:11 DC 04/22/25 18:23 600 MG Glucagon (Glucagon 1mg Kit) 1 mg AD PRN IM HYPOGLYCEMIA PROTOCOL 04/23/25 09:30 05/23/25 09:29 Heparin Sodium (Porcine) (HEParin 5,000 UNIT VIAL) *calculation based on ACTUAL B... AD PRN IV HEPARIN PROTOCOL 04/20/25 12:30 04/21/25 11:08 DC 04/20/25 11:59 9,000 UNIT Heparin Sodium/ Dextrose 250 ml @ 0 mls/hr Q6H IV 04/20/25 12:30 04/21/25 11:08 DC 04/21/25 01:22 18.13 MLS/HR Home Med (Home Medication) (Canagliflozin (Invokana) 300 MG) DAILY PO 04/22/25 09:00 04/21/25 16:44 DC Home Med (Home Medication) (Haloperidol 20 MG) HS PO 04/21/25 21:00 04/21/25 16:44 DC Hydralazine HCl (APRESOLine 20MG INJ) 5 mg Q6H PRN IV ADMINISTER FOR SBP > 160 04/20/25 11:30 04/23/25 09:11 DC Insulin Human Regular (humuLIN R 100 UNIT/ML 3ML) INSULIN SLIDING SCAL... ACHS SQ 04/20/25 11:30 04/23/25 09:11 DC 04/22/25 21:59 2 UNIT Insulin Human Regular (humuLIN R 100 UNIT/ML 3ML) INSULIN SLIDING SCAL... ACHS SQ 04/25/25 11:30 05/25/25 11:29 04/27/25 20:48 3 UNIT Insulin Human Regular 100 unit/ Sodium Chloride 100 ml @ 0 mls/hr AD IV 04/23/25 09:30 04/25/25 09:04 DC 04/23/25 22:51 8 MLS/HR Ipratropium Bryan (AtrovENT UD) 0.5 mg Q6H PRN IH SHORTNESS OF BREATH 04/20/25 11:30 05/20/25 11:29 Lactulose (Constulose 20gm/ 30ml Udcup) 20 gm BID PRN PO CONSTIPATION 04/23/25 09:30 05/23/25 09:29 04/28/25 08:39 20 GM Levothyroxine Sodium (SYNTHroid 100MCG TAB) 100 mcg DAILY@0630 PO 04/21/25 06:30 04/21/25 13:39 DC Levothyroxine Sodium (SYNTHroid 100MCG TAB) 100 mcg DAILY@0630 PO 04/22/25 06:30 05/22/25 06:29 04/28/25 06:50 100 MCG Levothyroxine Sodium (SYNTHroid 50MCG TAB) 50 mcg SYN PO 04/22/25 06:30 04/21/25 16:44 DC Lisinopril (Prinivil 10mg) 10 mg DAILY PO 04/22/25 09:00 04/23/25 09:11 DC 04/22/25 12:24 10 MG Magnesium Hydroxide (Milk Of Magnesium 30ml) 30 ml DAILY PRN PO CONSTIPATION 04/23/25 09:30 05/23/25 09:29 Magnesium Sulfate 50 ml @ 12.5 mls/hr AD PRN IV MAG LEVEL LESS THAN 2.0 04/23/25 09:30 05/23/25 09:29 04/27/25 09:51 12.5 MLS/HR Magnesium Sulfate 50 ml @ 0 mls/hr PROTOCOL IV 04/20/25 11:30 04/26/25 16:17 DC 04/26/25 06:01 25 MLS/HR Magnesium Sulfate 50 ml @ 0 mls/hr PROTOCOL IV 04/21/25 07:00 04/21/25 07:03 DC Metoprolol Tartrate (loprESSOR) 12.5 mg BID PO 04/22/25 21:00 04/23/25 09:11 DC 04/22/25 22:02 12.5 MG Metoprolol Tartrate (loprESSOR) 12.5 mg BID PO 04/25/25 09:00 05/25/25 08:59 04/28/25 08:33 12.5 MG Morphine Sulfate (morPHINE 2MG SYG) 0.5 mg Q2H PRN IV MODERATE PAIN (4-6) 04/23/25 09:30 04/24/25 09:29 DC Morphine Sulfate (morPHINE 2MG SYG) 1 mg Q2H PRN IV SEVERE PAIN (7-10) 04/23/25 09:30 04/24/25 09:29 DC 04/23/25 14:02 1 MG Morphine Sulfate (morPHINE 2MG SYG) 2 mg Q6H PRN IVP SEVERE PAIN (7-10) 04/20/25 11:00 04/23/25 09:11 DC 04/22/25 06:40 2 MG Niacin (Niacin) 1,000 mg HS PO 04/21/25 21:00 04/21/25 16:41 DC Nicotine (Nicoderm) 7 mg DAILY TD 04/21/25 09:00 05/21/25 08:59 04/28/25 08:39 7 MG Nitroglycerin (Nitrostat) 0.4 mg AD PRN SL CHEST PAIN 04/20/25 10:30 04/20/25 11:07 DC 04/20/25 10:21 0.4 MG Nitroglycerin (Nitrostat) 0.4 mg AD PRN SL CHEST PAIN 04/20/25 11:00 04/20/25 17:43 DC Nitroglycerin (Nitrostat) 0.4 mg AD PRN SL CHEST PAIN 04/20/25 18:00 04/23/25 09:11 DC 04/20/25 23:44 0.4 MG Nitroglycerin (Nitrostat) 0.4 mg Q5M PRN SL CHEST PAIN 04/20/25 10:30 04/20/25 10:13 DC Nitroglycerin/ Dextrose 0 ml @ 0 mls/hr AD IV 04/23/25 09:30 04/26/25 09:29 DC Norepinephrine Bitartrate 250 ml @ 0 mls/hr AD PRN IV TITRATE 04/23/25 07:30 04/23/25 09:52 DC Norepinephrine Bitartrate 250 ml @ 0 mls/hr AD PRN IV POST-OP CARDIOVASCULAR ORDERS 04/23/25 09:30 04/28/25 07:56 DC 04/23/25 19:55 22.3 MLS/HR Ondansetron HCl (zoFRAN 4MG INJ) 4 mg Q6H PRN IV NAUSEA/VOMITING 04/23/25 09:30 05/23/25 09:29 04/25/25 04:10 4 MG Ondansetron HCl (zoFRAN 4MG INJ) 4 mg Q6H PRN IVP NAUSEA/VOMITING 04/20/25 11:30 04/23/25 09:11 DC Pantoprazole Sodium (PROTonix 40MG INJ) 40 mg DAILY IVP 04/21/25 09:00 04/23/25 09:11 DC 04/22/25 12:24 40 MG Potassium Phosphate 250 ml @ 42 mls/hr AD PRN IV LOW PHOS LEVEL 04/23/25 09:30 05/23/25 09:29 Potassium Chloride 100 ml @ 100 mls/hr AD PRN IV HYPOKALEMIA 04/23/25 09:30 05/23/25 09:29 04/24/25 16:13 100 MLS/HR Propofol 100 ml @ 0 mls/hr AD PRN IV SEDATION 04/23/25 09:30 04/27/25 09:29 DC Sodium Bicarbonate (Sodium Bicarb 50meq 50ml Vial) 50 meq AD PRN IV OTHER[SEE DOSING INSTRUCTIONS] 04/23/25 09:30 04/26/25 09:29 DC 04/23/25 17:40 50 MEQ Sodium Chloride 500 ml @ 0 mls/hr AD IV 04/23/25 09:30 04/28/25 07:56 DC 04/23/25 21:57 3 MLS/HR Sodium Chloride 500 ml @ 0 mls/hr Q0M IV 04/20/25 14:30 04/23/25 09:11 DC Sodium Chloride 1,000 ml @ 10 mls/hr ONCE IV 04/23/25 09:30 04/24/25 09:29 DC 04/23/25 14:03 10 MLS/HR Sodium Chloride 1,000 ml @ 50 mls/hr Q20H IV 04/21/25 07:00 04/22/25 07:00 DC 04/21/25 07:09 50 MLS/HR Sodium Chloride (NS Flush 10ml) 10 ml Q8H PRN IVP IV LINE FLUSH 04/23/25 09:30 05/23/25 09:29 Tramadol HCl (UltRAM) 25 mg Q6H PRN PO MODERATE PAIN (4-6) 04/23/25 09:30 04/26/25 09:29 DC Tramadol HCl (UltRAM) 50 mg Q6H PRN PO SEVERE PAIN (7-10) 04/23/25 09:30 04/26/25 09:29 DC 04/25/25 02:18 50 MG Vitamin B Complex/ Vit C/Folic Acid (Nephrovite Tablet) 1 cap Q24H PO 04/20/25 12:00 05/20/25 11:59 04/27/25 08:18 1 CAP DIAGNOSTICS / RADIOLOGY: PATIENT: SB PATEL MR#: [id number] : 1965 SEX: M AGE: 60 LOCATION: 2CH ORDER 2300 STATUS: ADM IN REPORT#: [id number] SERVICE 0400 REASON: s/p CABG ORDERING PHYSICIAN: VASU LOZOYA MD PROCEDURE: CXR1VW - CHEST 1VW EXAM: CR Chest, single view CLINICAL HISTORY: Status post CABG COMPARISON: Prior chest radiograph dated 26 April 2025. FINDINGS: Poststernotomy status. Normal cardiac size. Mildly elevated right hemidiaphragm. The lungs show no infiltrate or other acute findings. No pleural effusion or pneumothorax. No acute osseous abnormality. IMPRESSION: Poststernotomy status. Mildly elevated right hemidiaphragm, probable right diaphragmatic eventration. No acute cardiopulmonary pathology is evident. Compared to the prior study, there is no significant interval change. /[place]ner DICTATED BY: ANDREINA MCCULLOUGH Jr., MD DATE: 04/28/2521 ELECTRONICALLY SIGNED BY: ANDREINA MCCULLOUGH Jr., MD DATE: 04/28/2521 ASSESSMENT: NSTEMI/ ACS, POA Rule out pericarditis, POA Rule out developing community-acquired pneumonia, POA Undiagnosed COPD/chronic bronchitis, POA History of coronary artery disease with prior history of PCI in 2004, POA CKD stage 3, POA Suspected BAILEY Electrolyte abnormalities (hyponatremia, hypomagnesemia) Tobacco use disorder, POA Cocaine use disorder, POA Hypertension, POA Hyperlipidemia, POA Diabetes mellitus type 2, POA Hypothyroidism POA PLAN: Patient to be admitted to [facility] NSTEMI/ ACS, severe multivessel coronary artery disease status post CABG Day 2 Cardiology has been consulted on the case Left heart catheterization performed showing severe 3+ CAD Patient underwent CABG, extubated and currently on Levophed, Epinephrine and Insulin drips Pericarditis ruled out but the echo showing no evidence of pericardial effusion Echo showed LVEF 40-45% Heparin drip was stopped before taking to CABG Continue atorvastatin 40 mg Q 24 Continue aspirin 81 daily Morphine 2 mg prn Nitroglycerin 0.4 mg sublingually as p.r.n. for chest pain IABP was discontinued yesterday Chest drain and Weir's catheter removed Chronic Bronchitis possible COPD Rule out developing community-acquired pneumonia Gram stain did not isolate specific organism, showed normal oropharyngeal tae Continue IV Rocephin/doxycycline (day 8) Follow pulmonology recommendations Pulmicort, Atrovent has been placed for shortness of breath Patient will benefit from outpatient PFTs Patient will benefit from outpatient sleep study to rule out BAILEY CKD stage III, electrolyte abnormality Urine protein creatinine ratio is 271, consistent with CKD Renal ultrasound showed smaller left kidney with renal parenchymal disease and a right renal simple cortical cyst Replace the magnesium per protocol Hypertension, hyperlipidemia, hypothyroidism, suspected BAILEY Patient's home medications were reconciled and resumed Patient should get evaluated for BAILEY as outpatient Continue with Lipitor, continue with gemfibrozil, patient has not taken some of his home medications for several months Restart lisinopril monitoring renal function closely Follow cardiovascular recommendations for further management, interventions, clinical response. GI prophylaxis with pantoprazole DVT prophylaxis with enoxaparin Discharge planning: Home Code status: full code Diet: Clear liquid PHYSICIAN STATEMENT I was present with the resident during the History and Physical exam and I have reviewed the resident's note. This case was discussed with the resident and I agree with the history, physical exam and medical decision making as documented. Additions/exceptions/observations were directly added to the notes. Gabriel Cat MD, SYED M MD Apr 28, 2025 11:12
--- NOTE | 2025-04-28 12:56 | HMCSR ---
APPROVED REPORT EXAM: LIMITED Two-dimensional and M-mode echocardiogram. INDICATION Status/post CABG Assess LV Function 2D Dimensions IVSd1.0 (0.7-1.1cm)LVEF(%)32.1 (>50%)LVED Vol(simp.)142.8 mL LVDd5.2 (3.8-5.6cm)FS(%)15 %LVES Vol(simp.)75.9 mL PWd1.3 (0.7-1.1cm)LA (2D)3.4 (1.6-4.0cm)LVEF(%, simp.)47 % LVDs4.4 (2.5-4.0cm)Ao Root(2D)3.2 (2.0-3.7cm) Left Ventricle Left ventricular cavity size is normal. Anteroseptal hypokinesis. There is normal left ventricular wa ll thickness. LVEF is 45-50%. Pericardium No pericardial effusion Other Information Quality : Limited/Follow-upRhythm : NSR Conclusion Limited echocardiogram study follow up in left ventricular systolic function The left ventricular systolic function is mildly reduced with a borderline LVEF of 45-50%. There is anteroseptal hypokinesis.
--- NOTE | 2025-04-28 13:25 | PN ---
[facility] PROGRESS NOTE Date Patient Seen: Apr 28, 2025 Time of Visit: 13:24 Supervising Physician: Dr Aparicio Supervising Physician: Dr. Bansal Primary Care Physician: [ ] Outpatient Specialists: [ ] Inpatient Consults: Dr. Gordon, Dr. Pop PROBLEM LIST: Multivessel coronary artery disease status post CABG x3 04/23/2025. Cardiogenic shock SCAI stage C on MCS with IABP post op your cava NSTEMI/ ACS, POA -s/p LHC on 04/21/25 with findings of MvCAD schemic cardiomyopathy. Suspected community-acquired pneumonia, POA Undiagnosed COPD/chronic bronchitis, POA History of coronary artery disease with prior history of PCI in 2004, POA CKD stage 3, POA Electrolyte abnormalities (hyponatremia, hypomagnesemia) Polysubstance abuse with tobacco, cocaine and marijuana. Suspected Undiagnosed and untreated BAILEY Hypertension, POA Hyperlipidemia, POA Diabetes mellitus type 2, POA Hypothyroidism POA INTERVAL HISTORY: Date of admission: 04/20/25 Hospital Day: 8 ICU Day: 5 Code status: Full code Ventilator status: Preoperative Intubated -extubated on 04/23/25 Lines: chest tube, left subclavian central line, Weir catheter Nutrition: Clear liquids Isolation: Standard Patient seen and examined all labs and imaging reviewed. Patient OOB to chair, vitals are stable, off any pressors Chest tubes out Good urine production IS 1500+ WBCs 6.8, hemoglobin 10.3, GFR 63 that is up from yesterday, and and chest x-ray improved Room air No complaints, comfortable, pain controlled Plan: Follow CTS recs INOs PT/OT Daily labs Cardiology recs REVIEW OF SYSTEMS: 12 point ROS reviewed with patient. Pertinent positives mentioned above. Otherwise negative. PHYSICAL EXAM: GENERAL: alert, weak, awake oriented x 3 HEENT: EOMI, Sclera non icteric, moist mucosa NECK: Supple, no JVD, trachea midline LUNGS: Clear breath sounds bilaterally. No wheezes HEART: Regular rate and rhythm. Normal S1 and S2, without murmurs ABD: Abdomen soft, nontender. Bowel sounds present EXT: No clubbing cyanosis or edema NEURO: Alert and oriented to person, follows commands Vital Signs (last 8hr) Date Time Temp Pulse Resp B/P (MAP) Pulse Ox O2 Delivery O2 Flow Rate FiO2 04/28/25 11:09 93 20 N/A Room Air 21 04/28/25 06:38 96 20 04/28/25 06:37 96 20 N/A Room Air 21 LABS: Hematology Labs: Test 04/28/25 04:58 Range/Units White Blood Count 6.8 4.8-10.8 K/uL Red Blood Count 3.45 L 4.50-6.20 MIL/uL Hemoglobin 10.3 L 14.0-18.0 g/dL Hematocrit 30.2 L 42-54 % Mean Corpuscular Volume 87.5 79-99 fL Mean Corpuscular Hemoglobin 29.9 27.0-33.0 pg Mean Corpuscular Hemoglobin Concent 34.1 32.0-36.0 g/dL Red Cell Distribution Width 13.1 11.0-15.5 % Platelet Count 230 130-400 K/uL Mean Platelet Volume 9.0 7.5-10.5 fL Immature Granulocyte % (Auto) 1.3 H 0-1 % Neutrophils (%) (Auto) 59.7 40.0-77.0 % Lymphocytes (%) (Auto) 20.7 L 21.0-51.0 % Monocytes (%) (Auto) 12.7 3.0-13.0 % Eosinophils (%) (Auto) 4.6 0.0-8.0 % Basophils (%) (Auto) 1.0 0.0-5.0 % Neutrophils # (Auto) 4.0 1.8-7.7 K/uL Lymphocytes # (Auto) 1.4 1.0-4.8 K/uL Monocytes # (Auto) 0.9 0.1-1.0 K/uL Eosinophils # (Auto) 0.31 0.00-0.70 K/uL Basophils # (Auto) 0.07 0.00-0.20 K/uL Absolute Immature Granulocyte (auto 0.09 0-1 K/uL Nucleated Red Blood Cells 0.0 0.0-0.19 % Chemistry Labs: Test 04/28/25 11:23 04/28/25 04:58 Range/Units Whole Blood Glucose 256 #H 70-110 MG/DL Sodium Level 136 136-145 mmol/L Potassium Level 4.2 3.5-5.1 mmol/L Chloride Level 103 101-111 mmol/L Carbon Dioxide Level 28 21-32 mmol/L Blood Urea Nitrogen 26 H 7-18 mg/dL Creatinine 1.3 0.5-1.3 mg/dL Glomerular Filtration Rate Calc 63 >90 mL/min Random Glucose 186 H 70-105 mg/dL Total Calcium 8.4 L 8.5-10.1 mg/dL Magnesium Level 1.90 1.80-2.40 mg/dL Coagulation Labs: Test 04/27/25 20:08 Range/Units Prothrombin Time 10.6 9.6-11.6 SEC Prothromb Time International Ratio 1.00 0.85-1.15 Activated Partial Thromboplast Time 21.2 L 26.3-35.5 SEC DIAGNOSTICS / RADIOLOGY RESULTS: [ ] PLAN NEURO: Minimize central acting medications as possible. Maintain fall precautions, adequate lighting during the day PULMONARY: Supplemental 02 as needed. Maintain aspiration precautions at all times CARDIOVASCULAR: Follow hemodynamics. Vital signs per facility protocol GI & NUTRITION: Continue with nutritional support. Continue stool softeners and laxatives as needed. KIDNEYS & ELECTROLYTES: Strict monitoring of intake, output and overall fluid balance. Avoid nephrotoxic medications to the extent possible. Medications to be dosed according to renal function. Monitor electrolytes and replace as needed ENDOCRINE: Maintain blood glucose between 100-180 at all times. Hypoglycemia protocol in place INFECTIOUS DISEASE: Trend temperature, WBC and procalcitonin level Follow cultures, deescalate antibiotics as soon as possible. Panculture if new onset fever ONCOLOGY/HEMATOLOGY/COAGULATION: Monitor for s/s of bleeding Monitor hemoglobin, coagulation studies as needed SKIN: Pressure ulcer prevention per facility protocol Specialty mattress ORTHO/REHAB: Continue PT/OT Prophylaxis: Continue GI and DVT prophylaxis Code Status: Full Resuscitation Disposition: TBD Other: Total patient care time exceeds 35 minutes excluding all procedures. PRISCILLA SOTELO Apr 28, 2025 13:25
--- NOTE | 2025-04-28 13:34 | NUR ---
[facility] ICU Skin Assessment: Patient assessed by wound healing team. Patient with no wounds or skin breakdown noted. Assessment and recommendations provided to primary nurse. Education provided. Addendum: 04/28/25 at 1438 by EDGAR TRIMBLE RN RN/ Amended: Links added.
[2025-04-29] VITALS (11 sets, daily range): BP systolic 13–147; BP diastolic 60–95; PULSE 65–104; RESP 20–24; TEMP 98–98.9; O2SAT 94–99
[2025-04-29 04:30] LABS: IMMATURE GRANULOCYTE ABSOLUTE 0.19 K/uL (0-1); NUCLEATED RED BLOOD CELLS 0.0 % (0.0-0.19); PLATELET COUNT (AUTO) 234 K/uL (130-400); RED BLOOD CELL COUNT(AUTO) 3.45 MIL/uL (4.50-6.20); RED CELL DISTRIBUTION WIDTH 13.1 % (11.0-15.5); WHITE BLOOD COUNT (AUTO) 5.6 K/uL (4.8-10.8)
[2025-04-29 04:46] LABS: ASPARTATE AMINOTRANSFERASE 25.0 U/L (10-37); CREATININE 1.5 mg/dL (0.5-1.3); GLOMERULAR FILTR. RATE CALC 53.0 mL/min (>90); GLUCOSE,RANDOM 245.0 mg/dL (70-105); SODIUM SERUM 133.0 mmol/L (136-145); TOTAL PROTEIN, SERUM 5.9 g/dL (6.0-8.3); UREA NITROGEN, BLOOD 25.0 mg/dL (7-18)
--- NOTE | 2025-04-29 06:30 | EKG ---
[facility] Test Date: 2025-04-29 Test Time: 04:59:59 Pat Name: SB PATEL Department: [facility] Room: 229 1 Gender: M Mainframe Analyst: colin : 1965 Requested By: VASU LOZOYA Order Number: [id number] Reading MD: Rubin Gordon Measurements Intervals [place] Rate: 92 P: 44 TX: 142 QRS: 53 QRSD: 89 T: -5 QT: 360 QTc: 447 Interpretive Statements Sinus rhythm Inferior infarct, old Poor R wave progression Compared to ECG 04/26/2025 07:36:54 No significant changes Electronically Signed On 04-30-2025 12:23:47 CDT by Rubin Gordon Please click the below link to view image of tracing.
--- NOTE | 2025-04-29 07:04 | HMCIMG ---
EXAM: CR Chest, single view. CLINICAL HISTORY: Status post CABG. COMPARISON: Prior chest radiograph dated 27 April 2025. FINDINGS: Status post CABG. Borderline cardiomegaly. Subsegmental atelectasis in the left lower lobe. No evidence of pleural effusion or pneumothorax. No acute osseous abnormality. IMPRESSION: Status post CABG. Borderline cardiomegaly. Subsegmental atelectasis in the left lower lobe. No evidence of pleural effusion or pneumothorax. Compared to the prior study, there is no significant interval change. /Hunter
--- NOTE | 2025-04-29 08:38 | PN ---
PROBLEM LIST: * Non-transmural myocardial infarction with post-infarct unstable anginal on presentation. * Severe three-vessel coronary artery disease. * Intraaortic balloon pump counter pulsation for stabilization placed 04/23/2025 with concomitant coronary artery bypass graft surgery x 3 with BLACKMON to the LAD, saphenous vein graft to the OM, and saphenous vein graft to the RCA. * Ischemic cardiomyopathy with EF of 45-50%, postop. * Hypertension. * Type 2 diabetes mellitus. * Chronic kidney disease, stage III. * History of polysubstance abuse with tobacco, cocaine, and marijuana use, counseled extensively. * Obesity and questionable obstructive sleep apnea. * History of remote percutaneous intervention in 2004 for premature coronary artery disease. * Electrolyte abnormalities, resolved. * Hypothyroidism, on supplement. * Hyperlipoproteinemia. * Questionable underlying obstructive airway disease. DESCRIPTION OF PROCEDURE: This gentleman has been doing well from the cardiac standpoint in the last 24 hours. He was hospitalized predominantly because of unstable angina. He has been managed by surgical revascularization. This morning, he appears to be comfortable and in no apparent distress. He has been up and ambulating without any restrictions at this time. The patient has stable vital signs with heart rates in the 80s. His blood pressure is in the 110 to 115 systolic range and he is saturating at 96-97% on room air. The patient's laboratory studies this morning revealed a white count of 5.6 with a H and H that has been stable at 10.3 and 30.8 respectively with a platelet count of 234,000. Chemistries are stable with a sodium of 133, potassium of 4.4, chloride is 100, his CO2 is 28, his BUN is 25, and creatinine is 1.5 with a GFR of 53. The patient's random glucose was 245. The calcium is low at 8.2; however, the total albumin is also low, commensurate with his hypocalcemia. Albumin measures 2.2 and liver enzymes are normal. In assessing the patient's renal function, it is evident that he has had chronic kidney disease with persistent GFR in the 40 to 50 range. This has been a chronic process seemingly and present on admission. This gentleman is maintained on furosemide 20 mg daily, famotidine, gabapentin, low-dose Lovenox, p.r.n. insulin, metoprolol, Colace, levothyroxine, atorvastatin, Nicoderm patch, baby aspirin, Rocephin, Pulmicort, Atrovent, vitamins, doxycycline, and additional p.r.n. medications. Today, I have spent some time counseling this gentleman in regards to dietary modification, weight reduction, cessation of nicotine use, and avoidance of any other illicit substance use. He has promised to comply. The patient appears to be doing well. We will continue the current management and we will reassess him as an outpatient once he has been discharged when he meets criteria as per CTS surgery. TID: [id number] RECEIPT: [id number]
--- NOTE | 2025-04-29 09:54 | HMCIMG ---
CHEST 1VW REASON: PNA COMPARISON: Prior study from 04/28/2025 is available. FINDINGS: Single view of the chest was obtained. Lungs are clear. Heart size is normal with median sternotomy. There is no pulmonary vascular congestion. Mediastinum and bony thorax appear unremarkable. IMPRESSION: 1. Status post median sternotomy with cardiac revascularization procedure 2. No evidence of airspace consolidation or pulmonary venous congestion 3. Unchanged from prior study..
--- NOTE | 2025-04-29 10:24 | PN ---
CARDIOLOGY PROGRESS NOTE SUBJECTIVE: A 60-year-old gentleman, status post CABG, coursing postop day #5. OBJECTIVE: GENERAL: Awake, alert, afebrile, neurologically intact. VITAL SIGNS: Stable as recorded in the medical record. CHEST: Sternum stable. Incision healed. LUNGS: Clear. EXTREMITIES: Warm and well perfused. No evidence of deep vein thrombosis, hematoma, or infection. ASSESSMENT: Status post coronary artery bypass graft. PROBLEM: * Coronary artery disease. Aspirin 81 mg, metoprolol 25 mg twice a day, and Plavix 75 mg once a day * Fluid overload. Lasix 20 mg twice a day. * Disposition. Out of bed, ambulating. Physical therapy and occupational therapy. Transfer to Telemetry, discharge planning. TID: [id number] RECEIPT: [id number]
--- NOTE | 2025-04-29 13:54 | PN ---
[facility] PROGRESS NOTE Date of Service: Apr 29, 2025 Time of Service: 13:49 HISTORY OF PRESENT ILLNESS: Patient is a 60-year-old male with past medical history of CAD, hyperlipidemia, hypertension, diabetes mellitus type 2, hypothyroidism, obesity who presented to the ED with chief complaint of chest pain. Patient complained of diaphoresis, shortness of breath, chest pain which started 2 weeks ago which is on and off and burning pain in nature. Patient started having severe chest pain 3 hours ago which prompted the patient to come to the ED. patient complained that the pain is worse on lying down and better on waking up and leaning forward. He ambulates using cane. Patient admitted to smoking 1 pack per day for past 40 years since the age of 9, vaping, usage of weed, reports hx of chronic cocaine use with last use 2 days ago. On presentation to the ED patient vitals temperature 98.2, pulse 89, res piratory rate 20, blood pressure 120/79, saturating at 96% on room air. Labs revealed white blood count of 8.5, hemoglobin 14.5 Chemistries show sodium 130, creatinine 1.6, BUN 19, glucose 213, magnesium 1.7, BNP 169, and troponin initially is 323 trended up to 496. Patient received3 and4 mg of aspirin in the ED and 0.4 mg of sublingual nitroglycerin which did not help with the pain. CXR showed bilateral infiltrates. Patient will be admitted for further evaluation of chest pain in the setting of elevated cardiac troponin, with concern fro ACS/ NSTEMI. Will also consider pericarditis in the differential due to symptomatology of chest pain. Patient will receive broad-spectrum antibiotics and patient likely has undiagnosed COPD with chest x-ray showing bilateral infiltrates with concerns for possible pneumonia. Patient will be monitored closely under hospitalist service. SUBJECTIVE: 04/21/2025: Patient was evaluated at the bedside. Patient appeared to be in mild distress however did not complain of chest pain this morning. Patient was scheduled for left heart catheterization this morning. Patient reports that he had ongoing chest pain for 2 weeks which got severe yesterday, worse when lying down and relieved by sitting up and leaning forward. He also had cough and shortness of breath and his chest x-ray showed bilateral basilar infiltrates suggestive of pneumonia. His cardiac troponins were serially measured and today they were 5810. Echo was performed and ruled out pericardial effusion. Patient admits to using cocaine and marijuana within the last 2 days. Patient started on Cardizem, aspirin and heparin drip. Patient admits to smoking. Patient's white count cell is 10.7. We will follow Cardiology recommendations after left heart catheterization. 04/22/2025: Patient was evaluated at the bedside. Patient was not in any distress was alert, oriented and did not complain of chest pain today. Patient had his left heart catheterization yesterday which found severe multivessel CAD needing CABG. He had a 70% distal stenosis followed by a total occlusion of the distal RCA. The left circumflex artery is totally occluded proximally. The LAD had a previous stent which is 100% stenosis in the mid LAD after a diagonal branch. His LVEF was 40%. [place] [address] today up from [address] Pop reviewed him and deemed he has very poor targets for CABG however wants to attempt it. Patient was explained about the risks and he expressed understanding and gave the consent. Patient is still pending a date for CABG and will be maintained meanwhile on his ACS protocol. 04/23/2025: Patient was evaluated at the bedside this morning. Patient was lying on his side and was not in acute distress had no acute events overnight. Patient was taken to CABG today performed by Dr. Chanel. Patient was evaluated in the afternoon after returning from operating room. Patient was intubated and was on insulin drip. Patient blood glucose was 368 and phosphorus was 5.7. We will repeat his phosphorus levels tomorrow. Dietary restriction and if despite this it is high we will consider sevelamer 800 mg t.i.d. Whole blood ketones, urine ketone levels, urine electrolytes, urine creatinine were ordered. 04/24/2025: Patient was evaluated at the bedside this morning his 212. Patient was extubated yesterday night and has been recovering well. Patient is on 10 L of oxygen via BiPAP saturating over 98%. Is currently on Levophed, epinephrine, insulin drips. He is currently receiving doxycycline and Rocephin for his pneumonia. A repeat x-ray today showed mild cardiomegaly, atelectasis in the right lung base and no signs of pulmonary venous congestion. Patient expressed mild shortness of breath that has been subsiding with IV Lasix and nebulizer treatments. Repeat phosphorus levels was 4.3, whole blood ketones less than 0.1. Patient will be started on guideline directed management of heart failure once his pain completely of IV pressors. Patient is currently managed by critical care team and we will follow their recommendations closely. 04/25/2025: He was evaluated at the bedside this morning. No acute overnight event. He is AAO x3. He is on 4 L of oxygen. He is hemodynamically stable, off the pressors. Pertinent labs, WBC 10.7, hemoglobin 10.5, creatinine 1.4, ionized calcium 1.07. Repeated chest x-ray revealed mild pulmonary vascular congestion. He is currently on doxycycline and Rocephin, furosemide, levothyroxine, metoprolol and atorvastatin. Plan to discontinue IABP today. Patient is currently managed by critical care team and we will follow their recommendations closely. 04/26/2025 : Patient is alert, oriented, and awake. There was no acute overnight event . Repeat chest x-ray today showed mild pulmonary vascular condition. He is continued on ceftriaxone and doxycycline. He is currently on furosemide, levothyroxine, metoprolol and atorvastatin. Plan to discontinue IABP today. Patient is currently managed by critical care team and we will follow their recommendations closely. 04/27/2025: Patient is alert, oriented, and awake. There was no acute overnight event. He is continued on ceftriaxone and doxycycline. He is currently on furosemide, levothyroxine, metoprolol and atorvastatin. IABP was removed yesterday. Today his hemoglobin is 10.3 and creatinine is 1.5. Patient is planned for the chest drain removal today. Patient is currently managed by critical care team and we will follow their recommendations closely. 04/28/2025: Patient is alert, oriented, and awake. There was no acute overnight event. He is continued on ceftriaxone and doxycycline. He is currently on furosemide, levothyroxine, metoprolol and atorvastatin. Chest drain and Weir's removed. Today his hemoglobin is 10.3 and creatinine is 1.3. Patient is currently managed by critical care team and we will follow their recommendations closely. Physical therapy is on board for patient ambulation. 04/29/2025: Patient is alert, oriented, and awake. There was no acute overnight event. He is continued on ceftriaxone and doxycycline. He is currently on furosemide, levothyroxine, metoprolol and atorvastatin. Chest drain and Weir's removed. Today his hemoglobin is 10.3 and creatinine is 1.5. Patient is currently managed by critical care team and we will follow their recommendations closely. Physical therapy is on board for patient ambulation. Patient was downgraded from ICU. REVIEW OF SYSTEMS CONSTITUTIONAL: Patient was extubated . Dressing over the sternal wound post CABG. Denies fevers, chills, or night sweats. No unintentional weight loss reported. NEUROLOGICAL: Denies headache, amaurosis fugax, motor weakness, sensory deficit, vertigo/spinning sensation CARDIOVASCULAR: Denies any exertional angina, dyspnea on exertion, orthopnea, palpitations, life-threatening arrhythmias, claudication. Admits to chest pain, resolving SLEEP: Denies morning headaches, daytime somnolence or napping. Denies difficulty falling asleep, staying asleep, waking from sleep. Admits of snoring. GASTROINTESTINAL: Denies any type of dysphagia to either liquids or solids. Denies nausea, vomiting, pyrosis, early satiety, abdominal pain, diarrhea, constipation, or changes in stool consistency or caliber. Denies coffee-ground emesis, hematemesis, hematochezia, or melanotic stools. GENITOURINARY: Denies frequency, urgency, nocturia, hematuria or incontinence (Storage/Irritative symptoms.) Low urinary stream, straining to void, urinary intermittency or hesitancy, splitting of the voiding stream, terminal dribbling. PHYSICAL EXAM GENERAL APPEARANCE: Alert, awake, oriented CHEST: Normal chest expansion. Telemetry. Surgical scar LUNGS: Absence of any rales, rhonchi or any wheezing. CARDIOVASCULAR: Regular. S1 and S2 normal. No appreciable rubs, murmurs or gallops. ABDOMEN: Soft, nontender, and nondistended. There is no rebound, voluntary guarding, or rigidity. EXTREMITIES: Non-edematous and not cyanotic. No clubbing. Good capillary refill. Vital Signs (last 8hr) Date Time Temp Pulse Resp B/P (MAP) Pulse Ox O2 Delivery O2 Flow Rate FiO2 04/29/25 11:00 98.2 95 24 13/95 96 Room Air 04/29/25 08:00 99 Room Air* 0 21 04/29/25 07:00 98.1 77 24 147/77 98 Room Air 04/29/25 06:49 90 20 LABS: Laboratory: Test 04/29/25 12:03 04/29/25 03:31 04/28/25 04:58 04/27/25 20:08 Range/Units Whole Blood Glucose 364 H 70-110 MG/DL Bedside Glucose Comment Notified Nurse White Blood Count 5.6 4.8-10.8 K/uL Red Blood Count 3.45 L 4.50-6.20 MIL/uL Hemoglobin 10.3 L 14.0-18.0 g/dL Hematocrit 30.8 L 42-54 % Mean Corpuscular Volume 89.3 79-99 fL Mean Corpuscular Hemoglobin 29.9 27.0-33.0 pg Mean Corpuscular Hemoglobin Concent 33.4 32.0-36.0 g/dL Red Cell Distribution Width 13.1 11.0-15.5 % Platelet Count 234 130-400 K/uL Mean Platelet Volume 9.3 7.5-10.5 fL Immature Granulocyte % (Auto) 3.4 H 0-1 % Neutrophils (%) (Auto) 50.8 40.0-77.0 % Lymphocytes (%) (Auto) 24.7 21.0-51.0 % Monocytes (%) (Auto) 14.2 H 3.0-13.0 % Eosinophils (%) (Auto) 6.0 0.0-8.0 % Basophils (%) (Auto) 0.9 0.0-5.0 % Neutrophils # (Auto) 2.9 1.8-7.7 K/uL Lymphocytes # (Auto) 1.4 1.0-4.8 K/uL Monocytes # (Auto) 0.8 0.1-1.0 K/uL Eosinophils # (Auto) 0.34 0.00-0.70 K/uL Basophils # (Auto) 0.05 0.00-0.20 K/uL Absolute Immature Granulocyte (auto 0.19 0-1 K/uL Nucleated Red Blood Cells 0.0 0.0-0.19 % Sodium Level 133 L 136-145 mmol/L Potassium Level 4.4 3.5-5.1 mmol/L Chloride Level 100 L 101-111 mmol/L Carbon Dioxide Level 28 21-32 mmol/L Blood Urea Nitrogen 25 H 7-18 mg/dL Creatinine 1.5 H 0.5-1.3 mg/dL Glomerular Filtration Rate Calc 53 >90 mL/min Random Glucose 245 H 70-105 mg/dL Total Calcium 8.2 L 8.5-10.1 mg/dL Total Bilirubin 0.3 0.2-1.0 mg/dL Aspartate Amino Transf (AST/SGOT) 25 10-37 U/L Alanine Aminotransferase (ALT/SGPT) 25 12-78 U/L Alkaline Phosphatase 91 50-136 U/L Total Protein 5.9 L 6.0-8.3 g/dL Albumin 2.2 L 3.5-5.0 g/dL Magnesium Level 1.90 1.80-2.40 mg/dL Prothrombin Time 10.6 9.6-11.6 SEC Prothromb Time International Ratio 1.00 0.85-1.15 Activated Partial Thromboplast Time 21.2 L 26.3-35.5 SEC Current Medications Medications (Trade) Dose Ordered Sig/Damian Route PRN Reason Start Time Stop Time Status Last Admin Dose Admin Acetaminophen (TYLenol 325MG TAB) 650 mg Q4H PRN PO Temp >38.3C(AFTER EXTUBATION) 04/23/25 09:30 05/23/25 09:29 Acetaminophen (TYLenol 325MG TAB) 650 mg Q6H PRN PO MILD PAIN (1-3) 04/20/25 11:30 04/23/25 09:21 DC 04/22/25 22:35 650 MG Acetaminophen (TYLenol 325MG TAB) 650 mg Q6H PRN PO MILD PAIN (1-3) 04/23/25 09:30 05/23/25 09:29 04/28/25 06:54 650 MG Acetaminophen (TYLenol 650MG SUPPOSITORY) 650 mg Q4H PRN RC Temp >38.3C WHILE INTUBATED 04/23/25 09:30 04/28/25 07:56 DC Acetaminophen (acetaMINOPHEN) 1,000 mg Q6H IV 04/23/25 21:00 04/24/25 20:59 DC 04/24/25 14:15 1,000 MG Acetaminophen (acetaMINOPHEN) 1,000 mg Q6H6 IV 04/23/25 13:00 04/23/25 19:11 DC 04/23/25 15:11 1,000 MG Albumin Human 250 ml @ 0 mls/hr AD PRN IV IF HEMODYNAMICALLY UNSTABLE 04/23/25 09:30 04/28/25 07:56 DC Aminocaproic Acid 50648 mg/Sodium Chloride 310 ml @ 25 mls/hr AD IV 04/23/25 09:30 04/23/25 21:53 DC Aminocaproic Acid 21582 mg/Sodium Chloride 480 ml @ 0 mls/hr AD PRN IV BLEEDING CONTROL 04/23/25 07:30 04/23/25 09:52 DC Aspirin (Aspirin 325mg Tab) 325 mg DAILY PO 04/21/25 09:00 04/20/25 11:07 DC Aspirin (Aspirin 81mg Chew Tab) 81 mg Q24H PO 04/20/25 11:30 05/20/25 11:29 04/29/25 11:54 81 MG Atorvastatin Calcium (LIPItor 40MG) 40 mg Q24H PO 04/20/25 11:30 04/21/25 13:17 DC 04/20/25 11:32 40 MG Atorvastatin Calcium (LIPItor 40MG) 40 mg Q24H PO 04/21/25 21:00 05/21/25 20:59 04/28/25 19:52 40 MG Budesonide (Pulmicort 0.5 Mg/2ml) 0.5 mg BIDRESP IH 04/20/25 11:30 05/20/25 11:29 04/29/25 06:49 0.5 MG Budesonide (Pulmicort 0.5 Mg/2ml) 0.5 mg BIDRESP IH 04/20/25 18:00 04/20/25 11:18 DC Calcium Gluconate 1 gm/Sodium Chloride 60 ml @ 200 mls/hr AD PRN IV HYPOCALCEMIA 04/23/25 09:30 04/28/25 07:56 DC 04/25/25 04:44 200 MLS/HR Cefazolin Sodium (ANCEF 1 gm vial) 2 gm ONCALL IVP 04/22/25 16:30 04/22/25 16:15 DC Cefazolin Sodium (Ancef) 2 gm Q8H IVPB 04/23/25 14:30 04/24/25 06:31 DC 04/24/25 06:08 2 GM Ceftriaxone Sodium (ROCEphine 1G INJ) 1 gm Q12H IVPB 04/20/25 11:30 04/30/25 11:29 04/29/25 11:54 1 GM Clopidogrel Bisulfate (plaVIX 75MG) 75 mg DAILY PO 04/21/25 09:00 04/21/25 13:18 DC Dexmedetomidine/ Sodium Chloride (PRECEdex 400MCG/ 100ML-NS) 400 mcg PROTOCOL IV 04/23/25 09:30 04/24/25 09:29 DC Dextrose (D50w) 50 ml AD PRN IV HYPOGLYCEMIA PROTOCOL 04/23/25 09:30 05/23/25 09:29 Diltiazem HCl (CARDIzem 60MG TAB) 30 mg Q6H PO 04/20/25 11:30 04/20/25 21:29 DC 04/20/25 18:13 30 MG Diltiazem HCl (CARDIzem 60MG TAB) 60 mg Z3LCRIS PO 04/20/25 23:30 04/23/25 09:11 DC 04/23/25 00:33 60 MG Docusate Sodium (COLace 100MG CAP) 100 mg BID PO 04/23/25 21:00 05/23/25 20:59 04/29/25 08:45 100 MG Doxycycline Hyclate (Doxycycline Hyclate) 100 mg BID PO 04/20/25 21:00 04/30/25 20:59 04/29/25 08:44 100 MG Enoxaparin Sodium (Lovenox) 30 mg DAILY SQ 04/26/25 09:00 05/26/25 08:59 04/29/25 08:44 30 MG Enoxaparin Sodium (Lovenox) 40 mg DAILY SQ 04/22/25 16:00 04/23/25 09:11 DC 04/22/25 18:23 40 MG Epinephrine HCl 10 mg/Sodium Chloride 250 ml @ 17.779 mls/ hr AD PRN IV POST-OP CARDIOVASCULAR ORDERS 04/23/25 09:30 04/28/25 07:56 DC Epinephrine HCl 10 mg/Sodium Chloride 250 ml @ 0 mls/hr AD PRN IV TITRATE 04/23/25 08:00 04/23/25 09:52 DC Famotidine (Pepcid 20mg Vial) 20 mg BID IV 04/23/25 21:00 04/26/25 19:14 DC 04/26/25 08:27 20 MG Famotidine (Pepcid 20mg Tab) 20 mg BID PO 04/26/25 21:00 05/26/25 20:59 04/29/25 08:44 20 MG Ferrous Sulfate (Ferrous Sulfate) 325 mg TID PO 04/21/25 14:00 04/21/25 17:13 DC Furosemide (LASix 20MG TAB) 20 mg DAILY PO 04/27/25 09:00 05/25/25 08:59 04/29/25 08:44 20 MG Furosemide (LASix 20MG TAB) 20 mg Q12H PO 04/25/25 09:00 04/26/25 17:36 DC 04/26/25 08:28 20 MG Furosemide (LASix 20MG VIAL) 20 mg Q12H IV 04/24/25 09:00 04/25/25 08:59 DC 04/24/25 20:02 20 MG Gabapentin (NEURontin 100 mg CAP) 100 mg TID PO 04/26/25 14:00 05/26/25 13:59 04/29/25 12:10 100 MG Gemfibrozil (gemFIBROzil 600 MG TABLET) 600 mg BIDAC PO 04/20/25 16:30 04/23/25 09:11 DC 04/22/25 18:23 600 MG Glucagon (Glucagon 1mg Kit) 1 mg AD PRN IM HYPOGLYCEMIA PROTOCOL 04/23/25 09:30 05/23/25 09:29 Heparin Sodium (Porcine) (HEParin 5,000 UNIT VIAL) *calculation based on ACTUAL B... AD PRN IV HEPARIN PROTOCOL 04/20/25 12:30 04/21/25 11:08 DC 04/20/25 11:59 9,000 UNIT Heparin Sodium/ Dextrose 250 ml @ 0 mls/hr Q6H IV 04/20/25 12:30 04/21/25 11:08 DC 04/21/25 01:22 18.13 MLS/HR Home Med (Home Medication) (Canagliflozin (Invokana) 300 MG) DAILY PO 04/22/25 09:00 04/21/25 16:44 DC Home Med (Home Medication) (Haloperidol 20 MG) HS PO 04/21/25 21:00 04/21/25 16:44 DC Hydralazine HCl (APRESOLine 20MG INJ) 5 mg Q6H PRN IV ADMINISTER FOR SBP > 160 04/20/25 11:30 04/23/25 09:11 DC Insulin Human Regular (humuLIN R 100 UNIT/ML 3ML) INSULIN SLIDING SCAL... ACHS SQ 04/20/25 11:30 04/23/25 09:11 DC 04/22/25 21:59 2 UNIT Insulin Human Regular (humuLIN R 100 UNIT/ML 3ML) INSULIN SLIDING SCAL... ACHS SQ 04/25/25 11:30 05/25/25 11:29 04/29/25 12:13 8 UNIT Insulin Human Regular 100 unit/ Sodium Chloride 100 ml @ 0 mls/hr AD IV 04/23/25 09:30 04/25/25 09:04 DC 04/23/25 22:51 8 MLS/HR Ipratropium [place] (AtrovENT UD) 0.5 mg Q6H PRN IH SHORTNESS OF BREATH 04/20/25 11:30 05/20/25 11:29 Lactulose (Constulose 20gm/ 30ml Udcup) 20 gm BID PRN PO CONSTIPATION 04/23/25 09:30 05/23/25 09:29 04/28/25 08:39 20 GM Levothyroxine Sodium (SYNTHroid 100MCG TAB) 100 mcg DAILY@0630 PO 04/21/25 06:30 04/21/25 13:39 DC Levothyroxine Sodium (SYNTHroid 100MCG TAB) 100 mcg DAILY@0630 PO 04/22/25 06:30 05/22/25 06:29 04/29/25 06:42 100 MCG Levothyroxine Sodium (SYNTHroid 50MCG TAB) 50 mcg SYN PO 04/22/25 06:30 04/21/25 16:44 DC Lisinopril (Prinivil 10mg) 10 mg DAILY PO 04/22/25 09:00 04/23/25 09:11 DC 04/22/25 12:24 10 MG Magnesium Hydroxide (Milk Of Magnesium 30ml) 30 ml DAILY PRN PO CONSTIPATION 04/23/25 09:30 05/23/25 09:29 Magnesium Sulfate 50 ml @ 12.5 mls/hr AD PRN IV MAG LEVEL LESS THAN 2.0 04/23/25 09:30 05/23/25 09:29 04/28/25 11:58 12.5 MLS/HR Magnesium Sulfate 50 ml @ 0 mls/hr PROTOCOL IV 04/20/25 11:30 04/26/25 16:17 DC 04/26/25 06:01 25 MLS/HR Magnesium Sulfate 50 ml @ 0 mls/hr PROTOCOL IV 04/21/25 07:00 04/21/25 07:03 DC Metoprolol Tartrate (loprESSOR) 12.5 mg BID PO 04/22/25 21:00 04/23/25 09:11 DC 04/22/25 22:02 12.5 MG Metoprolol Tartrate (loprESSOR) 12.5 mg BID PO 04/25/25 09:00 05/25/25 08:59 04/29/25 08:44 12.5 MG Morphine Sulfate (morPHINE 2MG SYG) 0.5 mg Q2H PRN IV MODERATE PAIN (4-6) 04/23/25 09:30 04/24/25 09:29 DC Morphine Sulfate (morPHINE 2MG SYG) 1 mg Q2H PRN IV SEVERE PAIN (7-10) 04/23/25 09:30 04/24/25 09:29 DC 04/23/25 14:02 1 MG Morphine Sulfate (morPHINE 2MG SYG) 2 mg Q6H PRN IVP SEVERE PAIN (7-10) 04/20/25 11:00 04/23/25 09:11 DC 04/22/25 06:40 2 MG Niacin (Niacin) 1,000 mg HS PO 04/21/25 21:00 04/21/25 16:41 DC Nicotine (Nicoderm) 7 mg DAILY TD 04/21/25 09:00 05/21/25 08:59 04/29/25 08:45 7 MG Nitroglycerin (Nitrostat) 0.4 mg AD PRN SL CHEST PAIN 04/20/25 10:30 04/20/25 11:07 DC 04/20/25 10:21 0.4 MG Nitroglycerin (Nitrostat) 0.4 mg AD PRN SL CHEST PAIN 04/20/25 11:00 04/20/25 17:43 DC Nitroglycerin (Nitrostat) 0.4 mg AD PRN SL CHEST PAIN 04/20/25 18:00 04/23/25 09:11 DC 04/20/25 23:44 0.4 MG Nitroglycerin (Nitrostat) 0.4 mg Q5M PRN SL CHEST PAIN 04/20/25 10:30 04/20/25 10:13 DC Nitroglycerin/ Dextrose 0 ml @ 0 mls/hr AD IV 04/23/25 09:30 04/26/25 09:29 DC Norepinephrine Bitartrate 250 ml @ 0 mls/hr AD PRN IV TITRATE 04/23/25 07:30 04/23/25 09:52 DC Norepinephrine Bitartrate 250 ml @ 0 mls/hr AD PRN IV POST-OP CARDIOVASCULAR ORDERS 04/23/25 09:30 04/28/25 07:56 DC 04/23/25 19:55 22.3 MLS/HR Ondansetron HCl (zoFRAN 4MG INJ) 4 mg Q6H PRN IV NAUSEA/VOMITING 04/23/25 09:30 05/23/25 09:29 04/25/25 04:10 4 MG Ondansetron HCl (zoFRAN 4MG INJ) 4 mg Q6H PRN IVP NAUSEA/VOMITING 04/20/25 11:30 04/23/25 09:11 DC Pantoprazole Sodium (PROTonix 40MG INJ) 40 mg DAILY IVP 04/21/25 09:00 04/23/25 09:11 DC 04/22/25 12:24 40 MG Potassium Phosphate 250 ml @ 42 mls/hr AD PRN IV LOW PHOS LEVEL 04/23/25 09:30 05/23/25 09:29 Potassium Chloride 100 ml @ 100 mls/hr AD PRN IV HYPOKALEMIA 04/23/25 09:30 05/23/25 09:29 04/24/25 16:13 100 MLS/HR Propofol 100 ml @ 0 mls/hr AD PRN IV SEDATION 04/23/25 09:30 04/27/25 09:29 DC Sodium Bicarbonate (Sodium Bicarb 50meq 50ml Vial) 50 meq AD PRN IV OTHER[SEE DOSING INSTRUCTIONS] 04/23/25 09:30 04/26/25 09:29 DC 04/23/25 17:40 50 MEQ Sodium Chloride 500 ml @ 0 mls/hr AD IV 04/23/25 09:30 04/28/25 07:56 DC 04/23/25 21:57 3 MLS/HR Sodium Chloride 500 ml @ 0 mls/hr Q0M IV 04/20/25 14:30 04/23/25 09:11 DC Sodium Chloride 1,000 ml @ 10 mls/hr ONCE IV 04/23/25 09:30 04/24/25 09:29 DC 04/23/25 14:03 10 MLS/HR Sodium Chloride 1,000 ml @ 50 mls/hr Q20H IV 04/21/25 07:00 04/22/25 07:00 DC 04/21/25 07:09 50 MLS/HR Sodium Chloride (NS Flush 10ml) 10 ml Q8H PRN IVP IV LINE FLUSH 04/23/25 09:30 05/23/25 09:29 Tramadol HCl (UltRAM) 25 mg Q6H PRN PO MODERATE PAIN (4-6) 04/23/25 09:30 04/26/25 09:29 DC Tramadol HCl (UltRAM) 50 mg Q6H PRN PO SEVERE PAIN (7-10) 04/23/25 09:30 04/26/25 09:29 DC 04/25/25 02:18 50 MG Vitamin B Complex/ Vit C/Folic Acid (Nephrovite Tablet) 1 cap Q24H PO 04/20/25 12:00 05/20/25 11:59 04/29/25 11:55 1 CAP DIAGNOSTICS / RADIOLOGY: PATIENT: SB PATEL MR#: [id number] : 1965 SEX: M AGE: 60 LOCATION: 2AH ORDER 2300 STATUS: ADM IN REPORT#: [id number] SERVICE 0600 REASON: PNA ORDERING PHYSICIAN: PRISCILLA SOTELO PROCEDURE: CXR1VW - CHEST 1VW CHEST 1VW REASON: PNA COMPARISON: Prior study from 04/28/2025 is available. FINDINGS: Single view of the chest was obtained. Lungs are clear. Heart size is normal with median sternotomy. There is no pulmonary vascular congestion. Mediastinum and bony thorax appear unremarkable. IMPRESSION: 1. Status post median sternotomy with cardiac revascularization procedure 2. No evidence of airspace consolidation or pulmonary venous congestion 3. Unchanged from prior study.. DICTATED BY: GERALDO ROACH MD DATE: 04/29/25950 ELECTRONICALLY SIGNED BY: GERALDO ROACH MD DATE: 04/29/25 0954 ASSESSMENT: NSTEMI/ ACS, POA Rule out pericarditis, POA Rule out developing community-acquired pneumonia, POA Undiagnosed COPD/chronic bronchitis, POA History of coronary artery disease with prior history of PCI in 2004, POA CKD stage 3, POA Suspected BAILEY Electrolyte abnormalities (hyponatremia, hypomagnesemia) Tobacco use disorder, POA Cocaine use disorder, POA Hypertension, POA Hyperlipidemia, POA Diabetes mellitus type 2, POA Hypothyroidism POA PLAN: Patient to be admitted to PCCU NSTEMI/ ACS, severe multivessel coronary artery disease status post CABG Day 2 Cardiology has been consulted on the case Left heart catheterization performed showing severe 3+ CAD Patient underwent CABG, extubated and currently on Levophed, Epinephrine and Insulin drips Pericarditis ruled out but the echo showing no evidence of pericardial effusion Echo showed LVEF 40-45% Heparin drip was stopped before taking to CABG Continue atorvastatin 40 mg Q 24 Continue aspirin 81 daily Morphine 2 mg prn Nitroglycerin 0.4 mg sublingually as p.r.n. for chest pain IABP was discontinued yesterday Chest drain and Weir's catheter removed Downgraded from ICU yesterday Chronic Bronchitis possible COPD Rule out developing community-acquired pneumonia Gram stain did not isolate specific organism, showed normal oropharyngeal tae Continue IV Rocephin/doxycycline (day 9) Follow pulmonology recommendations Pulmicort, Atrovent has been placed for shortness of breath Patient will benefit from outpatient PFTs Patient will benefit from outpatient sleep study to rule out BAILEY CKD stage III, electrolyte abnormality Urine protein creatinine ratio is 271, consistent with CKD Renal ultrasound showed smaller left kidney with renal parenchymal disease and a right renal simple cortical cyst Replace the magnesium per protocol Hypertension, hyperlipidemia, hypothyroidism, suspected BAILEY Patient's home medications were reconciled and resumed Patient should get evaluated for BAILEY as outpatient Continue with Lipitor, continue with gemfibrozil, patient has not taken some of his home medications for several months Restart lisinopril monitoring renal function closely Follow cardiovascular recommendations for further management, interventions, clinical response. GI prophylaxis with pantoprazole DVT prophylaxis with enoxaparin Discharge planning: Home Code status: full code PHYSICIAN STATEMENT I was present with the resident during the History and Physical exam and I have reviewed the resident's note. This case was discussed with the resident and I agree with the history, physical exam and medical decision making as documented. Additions/exceptions/observations were directly added to the notes. Gabriel Cat MD, SYED M MD Apr 29, 2025 13:54
--- NOTE | 2025-04-29 21:47 | PN ---
[facility] PROGRESS NOTE Date Patient Seen: Apr 29, 2025 Time of Visit: 21:44 Supervising Physician: Dr Figueroa Supervising Physician: Dr. Bansal Primary Care Physician: [ ] Outpatient Specialists: [ ] Inpatient Consults: Dr. Gordon, Dr. Pop PROBLEM LIST: Multivessel coronary artery disease status post CABG x3 04/23/2025. Cardiogenic shock SCAI stage C on MCS with IABP post op your cava NSTEMI/ ACS, POA -s/p LHC on 04/21/25 with findings of MvCAD schemic cardiomyopathy. Suspected community-acquired pneumonia, POA Undiagnosed COPD/chronic bronchitis, POA History of coronary artery disease with prior history of PCI in 2004, POA CKD stage 3, POA Electrolyte abnormalities (hyponatremia, hypomagnesemia) Polysubstance abuse with tobacco, cocaine and marijuana. Suspected Undiagnosed and untreated BAILEY Hypertension, POA Hyperlipidemia, POA Diabetes mellitus type 2, POA Hypothyroidism POA INTERVAL HISTORY: Patient seen and examined all labs and imaging reviewed. Patient states he has getting his strength back, patient ambulating with physical therapy Room air Vital signs are stable Tolerating diet Pain controlled IS 1600 Plan: Follow CTS recs INOs PT/OT Daily labs Cardiology recs Case management assisting with discharge planning REVIEW OF SYSTEMS: 12 point ROS reviewed with patient. Pertinent positives mentioned above. Otherwise negative. PHYSICAL EXAM: GENERAL: alert, weak, awake oriented x 3 HEENT: EOMI, Sclera non icteric, moist mucosa NECK: Supple, no JVD, trachea midline LUNGS: Clear breath sounds bilaterally. No wheezes HEART: Regular rate and rhythm. Normal S1 and S2, without murmurs ABD: Abdomen soft, nontender. Bowel sounds present EXT: No clubbing cyanosis or edema NEURO: Alert and oriented to person, follows commands Vital Signs (last 8hr) Date Time Temp Pulse Resp B/P (MAP) Pulse Ox O2 Delivery O2 Flow Rate FiO2 04/29/25 19:32 98.1 104 22 143/92 94 Room Air 04/29/25 19:10 102 20 04/29/25 19:10 102 20 N/A Room Air 21 04/29/25 16:00 98.1 91 22 138/83 99 Room Air LABS: Hematology Labs: Test 04/29/25 03:31 Range/Units White Blood Count 5.6 4.8-10.8 K/uL Red Blood Count 3.45 L 4.50-6.20 MIL/uL Hemoglobin 10.3 L 14.0-18.0 g/dL Hematocrit 30.8 L 42-54 % Mean Corpuscular Volume 89.3 79-99 fL Mean Corpuscular Hemoglobin 29.9 27.0-33.0 pg Mean Corpuscular Hemoglobin Concent 33.4 32.0-36.0 g/dL Red Cell Distribution Width 13.1 11.0-15.5 % Platelet Count 234 130-400 K/uL Mean Platelet Volume 9.3 7.5-10.5 fL Immature Granulocyte % (Auto) 3.4 H 0-1 % Neutrophils (%) (Auto) 50.8 40.0-77.0 % Lymphocytes (%) (Auto) 24.7 21.0-51.0 % Monocytes (%) (Auto) 14.2 H 3.0-13.0 % Eosinophils (%) (Auto) 6.0 0.0-8.0 % Basophils (%) (Auto) 0.9 0.0-5.0 % Neutrophils # (Auto) 2.9 1.8-7.7 K/uL Lymphocytes # (Auto) 1.4 1.0-4.8 K/uL Monocytes # (Auto) 0.8 0.1-1.0 K/uL Eosinophils # (Auto) 0.34 0.00-0.70 K/uL Basophils # (Auto) 0.05 0.00-0.20 K/uL Absolute Immature Granulocyte (auto 0.19 0-1 K/uL Nucleated Red Blood Cells 0.0 0.0-0.19 % Chemistry Labs: Test 04/29/25 19:14 04/29/25 16:10 04/29/25 03:31 04/28/25 04:58 Range/Units Whole Blood Glucose 357 H 70-110 MG/DL Bedside Glucose Comment Notified Nurse Sodium Level 133 L 136-145 mmol/L Potassium Level 4.4 3.5-5.1 mmol/L Chloride Level 100 L 101-111 mmol/L Carbon Dioxide Level 28 21-32 mmol/L Blood Urea Nitrogen 25 H 7-18 mg/dL Creatinine 1.5 H 0.5-1.3 mg/dL Glomerular Filtration Rate Calc 53 >90 mL/min Random Glucose 245 H 70-105 mg/dL Total Calcium 8.2 L 8.5-10.1 mg/dL Total Bilirubin 0.3 0.2-1.0 mg/dL Aspartate Amino Transf (AST/SGOT) 25 10-37 U/L Alanine Aminotransferase (ALT/SGPT) 25 12-78 U/L Alkaline Phosphatase 91 50-136 U/L Total Protein 5.9 L 6.0-8.3 g/dL Albumin 2.2 L 3.5-5.0 g/dL Magnesium Level 1.90 1.80-2.40 mg/dL DIAGNOSTICS / RADIOLOGY RESULTS: [ ] PLAN NEURO: Minimize central acting medications as possible. Maintain fall precautions, adequate lighting during the day PULMONARY: Supplemental 02 as needed. Maintain aspiration precautions at all times CARDIOVASCULAR: Follow hemodynamics. Vital signs per facility protocol GI & NUTRITION: Continue with nutritional support. Continue stool softeners and laxatives as needed. KIDNEYS & ELECTROLYTES: Strict monitoring of intake, output and overall fluid balance. Avoid nephrotoxic medications to the extent possible. Medications to be dosed according to renal function. Monitor electrolytes and replace as needed ENDOCRINE: Maintain blood glucose between 100-180 at all times. Hypoglycemia protocol in place INFECTIOUS DISEASE: Trend temperature, WBC and procalcitonin level Follow cultures, deescalate antibiotics as soon as possible. Panculture if new onset fever ONCOLOGY/HEMATOLOGY/COAGULATION: Monitor for s/s of bleeding Monitor hemoglobin, coagulation studies as needed SKIN: Pressure ulcer prevention per facility protocol Specialty mattress ORTHO/REHAB: Continue PT/OT Prophylaxis: Continue GI and DVT prophylaxis Code Status: Full Resuscitation Disposition: TBD Other: Total patient care time 36 minutes excluding all procedures. PRISCILLA SOTELO Apr 29, 2025 21:47
[2025-04-30] VITALS (11 sets, daily range): BP systolic 93–131; BP diastolic 58–89; PULSE 66–99; RESP 16–20; TEMP 97.8–99; O2SAT 95–98
[2025-04-30 04:15] LABS: IMMATURE GRANULOCYTE ABSOLUTE 0.20 K/uL (0-1); NUCLEATED RED BLOOD CELLS 0.6 % (0.0-0.19); PLATELET COUNT (AUTO) 282 K/uL (130-400); RED BLOOD CELL COUNT(AUTO) 3.40 MIL/uL (4.50-6.20); RED CELL DISTRIBUTION WIDTH 13.2 % (11.0-15.5); WHITE BLOOD COUNT (AUTO) 6.8 K/uL (4.8-10.8)
[2025-04-30 04:36] LABS: ASPARTATE AMINOTRANSFERASE 20.0 U/L (10-37); CREATININE 1.3 mg/dL (0.5-1.3); GLOMERULAR FILTR. RATE CALC 63.0 mL/min (>90); GLUCOSE,RANDOM 214.0 mg/dL (70-105); SODIUM SERUM 135.0 mmol/L (136-145); TOTAL PROTEIN, SERUM 6.0 g/dL (6.0-8.3); UREA NITROGEN, BLOOD 22.0 mg/dL (7-18)
--- NOTE | 2025-04-30 09:26 | PN ---
SUBJECTIVE: Status post CABG, insertion of intra-aortic balloon pump, postoperative day #6. OBJECTIVE: GENERAL: Awake, alert, in no acute distress. VITAL SIGNS: Stable as recorded in the medical record. CHEST: Sternum stable. Incision is sealed. Lungs are clear. EXTREMITIES: Warm, well perfused. No evidence of deep vein thrombosis, hematoma, or infection. ASSESSMENT: Status post coronary artery bypass graft. Problems: 1. Coronary artery disease. Aspirin 81 mg and metoprolol 25 mg twice a day. 2. Fluid overload. Lasix 20 mg twice daily. 3. Dyslipidemia. Lipitor 40 mg once daily. 4. Congestive heart failure. The patient's ejection fraction has recovered to some extent. We will get an ultrasound to evaluate the ejection fraction. If it is less than 30%, LifeVest would be indicated. PLAN: OT/PT. Cardiac rehabilitation. Discharge from my point of view. Follow as an outpatient. TID: [id number] RECEIPT: [id number]
--- NOTE | 2025-04-30 10:18 | HMCIMG ---
CHEST 1VW REASON: pna COMPARISON: Prior study from 04/29/2025 is available. FINDINGS: Single view of the chest was obtained. Lungs are clear. Heart size is normal with median sternotomy.. There is no pulmonary vascular congestion. Mediastinum and bony thorax appear unremarkable. IMPRESSION: 1. Status post median sternotomy 2. No evidence of airspace consolidation or pulmonary venous congestion 3. Unchanged from prior study
--- NOTE | 2025-04-30 11:38 | PN ---
[facility] PROGRESS NOTE Date Patient Seen: Apr 30, 2025 Time of Visit: 11:37 Supervising Physician: Dr Figueroa Supervising Physician: Dr. Bansal Primary Care Physician: [ ] Outpatient Specialists: [ ] Inpatient Consults: Dr. Gordon, Dr. Pop PROBLEM LIST: Multivessel coronary artery disease status post CABG x3 04/23/2025. Cardiogenic shock SCAI stage C on MCS with IABP post op your cava NSTEMI/ ACS, POA -s/p LHC on 04/21/25 with findings of MvCAD schemic cardiomyopathy. Suspected community-acquired pneumonia, POA Undiagnosed COPD/chronic bronchitis, POA History of coronary artery disease with prior history of PCI in 2004, POA CKD stage 3, POA Electrolyte abnormalities (hyponatremia, hypomagnesemia) Polysubstance abuse with tobacco, cocaine and marijuana. Suspected Undiagnosed and untreated BAILEY Hypertension, POA Hyperlipidemia, POA Diabetes mellitus type 2, POA Hypothyroidism POA INTERVAL HISTORY: Patient seen and examined all labs and imaging reviewed. Patient ambulating with physical therapy Room air Vital signs are stable Tolerating diet Pain controlled Plan: Follow CTS recs INOs PT/OT Daily labs Cardiology recs Case management assisting with discharge planning REVIEW OF SYSTEMS: 12 point ROS reviewed with patient. Pertinent positives mentioned above. Otherwise negative. PHYSICAL EXAM: GENERAL: alert, weak, awake oriented x 3 HEENT: EOMI, Sclera non icteric, moist mucosa NECK: Supple, no JVD, trachea midline LUNGS: Clear breath sounds bilaterally. No wheezes HEART: Regular rate and rhythm. Normal S1 and S2, without murmurs ABD: Abdomen soft, nontender. Bowel sounds present EXT: No clubbing cyanosis or edema NEURO: Alert and oriented to person, follows commands Vital Signs (last 8hr) Date Time Temp Pulse Resp B/P (MAP) Pulse Ox O2 Delivery O2 Flow Rate FiO2 04/30/25 08:41 99.0 99 16 131/89 97 Room Air 04/30/25 07:00 95 Room Air* 0 21 04/30/25 03:43 98.4 89 20 93/58 98 Room Air LABS: Hematology Labs: Test 04/30/25 03:32 Range/Units White Blood Count 6.8 4.8-10.8 K/uL Red Blood Count 3.40 L 4.50-6.20 MIL/uL Hemoglobin 10.1 L 14.0-18.0 g/dL Hematocrit 29.8 L 42-54 % Mean Corpuscular Volume 87.6 79-99 fL Mean Corpuscular Hemoglobin 29.7 27.0-33.0 pg Mean Corpuscular Hemoglobin Concent 33.9 32.0-36.0 g/dL Red Cell Distribution Width 13.2 11.0-15.5 % Platelet Count 282 130-400 K/uL Mean Platelet Volume 9.0 7.5-10.5 fL Immature Granulocyte % (Auto) 3.0 H 0-1 % Neutrophils (%) (Auto) 51.5 40.0-77.0 % Lymphocytes (%) (Auto) 24.3 21.0-51.0 % Monocytes (%) (Auto) 13.8 H 3.0-13.0 % Eosinophils (%) (Auto) 6.2 0.0-8.0 % Basophils (%) (Auto) 1.2 0.0-5.0 % Neutrophils # (Auto) 3.5 1.8-7.7 K/uL Lymphocytes # (Auto) 1.6 1.0-4.8 K/uL Monocytes # (Auto) 0.9 0.1-1.0 K/uL Eosinophils # (Auto) 0.42 0.00-0.70 K/uL Basophils # (Auto) 0.08 0.00-0.20 K/uL Absolute Immature Granulocyte (auto 0.20 0-1 K/uL Nucleated Red Blood Cells 0.6 H 0.0-0.19 % Chemistry Labs: Test 04/30/25 05:27 04/30/25 03:32 04/29/25 16:10 Range/Units Whole Blood Glucose 242 H 70-110 MG/DL Sodium Level 135 L 136-145 mmol/L Potassium Level 4.1 3.5-5.1 mmol/L Chloride Level 101 101-111 mmol/L Carbon Dioxide Level 28 21-32 mmol/L Blood Urea Nitrogen 22 H 7-18 mg/dL Creatinine 1.3 0.5-1.3 mg/dL Glomerular Filtration Rate Calc 63 >90 mL/min Random Glucose 214 H 70-105 mg/dL Total Calcium 8.3 L 8.5-10.1 mg/dL Total Bilirubin 0.3 0.2-1.0 mg/dL Aspartate Amino Transf (AST/SGOT) 20 10-37 U/L Alanine Aminotransferase (ALT/SGPT) 32 12-78 U/L Alkaline Phosphatase 85 50-136 U/L Total Protein 6.0 6.0-8.3 g/dL Albumin 2.2 L 3.5-5.0 g/dL Bedside Glucose Comment Notified Nurse DIAGNOSTICS / RADIOLOGY RESULTS: [ ] PLAN NEURO: Minimize central acting medications as possible. Maintain fall precautions, adequate lighting during the day PULMONARY: Supplemental 02 as needed. Maintain aspiration precautions at all times CARDIOVASCULAR: Follow hemodynamics. Vital signs per facility protocol GI & NUTRITION: Continue with nutritional support. Continue stool softeners and laxatives as needed. KIDNEYS & ELECTROLYTES: Strict monitoring of intake, output and overall fluid balance. Avoid nephrotoxic medications to the extent possible. Medications to be dosed according to renal function. Monitor electrolytes and replace as needed ENDOCRINE: Maintain blood glucose between 100-180 at all times. Hypoglycemia protocol in place INFECTIOUS DISEASE: Trend temperature, WBC and procalcitonin level Follow cultures, deescalate antibiotics as soon as possible. Panculture if new onset fever ONCOLOGY/HEMATOLOGY/COAGULATION: Monitor for s/s of bleeding Monitor hemoglobin, coagulation studies as needed SKIN: Pressure ulcer prevention per facility protocol Specialty mattress ORTHO/REHAB: Continue PT/OT Prophylaxis: Continue GI and DVT prophylaxis Code Status: Full Resuscitation Disposition: TBD Other: Total patient care time 35 minutes excluding all procedures. PRISCILLA SOTELO Apr 30, 2025 11:38
--- NOTE | 2025-04-30 17:03 | PN ---
[facility] PROGRESS NOTE Date of Service: Apr 30, 2025 Time of Service: 16:55 HISTORY OF PRESENT ILLNESS: Patient is a 60-year-old male with past medical history of CAD, hyperlipidemia, hypertension, diabetes mellitus type 2, hypothyroidism, obesity who presented to the ED with chief complaint of chest pain. Patient complained of diaphoresis, shortness of breath, chest pain which started 2 weeks ago which is on and off and burning pain in nature. Patient started having severe chest pain 3 hours ago which prompted the patient to come to the ED. patient complained that the pain is worse on lying down and better on waking up and leaning forward. He ambulates using cane. Patient admitted to smoking 1 pack per day for past 40 years since the age of 9, vaping, usage of weed, reports hx of chronic cocaine use with last use 2 days ago. On presentation to the ED patient vitals temperature 98.2, pulse 89, res piratory rate 20, blood pressure 120/79, saturating at 96% on room air. Labs revealed white blood count of 8.5, hemoglobin 14.5 Chemistries show sodium 130, creatinine 1.6, BUN 19, glucose 213, magnesium 1.7, BNP 169, and troponin initially is 323 trended up to 496. Patient received3 and4 mg of aspirin in the ED and 0.4 mg of sublingual nitroglycerin which did not help with the pain. CXR showed bilateral infiltrates. Patient will be admitted for further evaluation of chest pain in the setting of elevated cardiac troponin, with concern fro ACS/ NSTEMI. Will also consider pericarditis in the differential due to symptomatology of chest pain. Patient will receive broad-spectrum antibiotics and patient likely has undiagnosed COPD with chest x-ray showing bilateral infiltrates with concerns for possible pneumonia. Patient will be monitored closely under hospitalist service. SUBJECTIVE: 04/21/2025: Patient was evaluated at the bedside. Patient appeared to be in mild distress however did not complain of chest pain this morning. Patient was scheduled for left heart catheterization this morning. Patient reports that he had ongoing chest pain for 2 weeks which got severe yesterday, worse when lying down and relieved by sitting up and leaning forward. He also had cough and shortness of breath and his chest x-ray showed bilateral basilar infiltrates suggestive of pneumonia. His cardiac troponins were serially measured and today they were 5810. Echo was performed and ruled out pericardial effusion. Patient admits to using cocaine and marijuana within the last 2 days. Patient started on Cardizem, aspirin and heparin drip. Patient admits to smoking. Patient's white count cell is 10.7. We will follow Cardiology recommendations after left heart catheterization. 04/22/2025: Patient was evaluated at the bedside. Patient was not in any distress was alert, oriented and did not complain of chest pain today. Patient had his left heart catheterization yesterday which found severe multivessel CAD needing CABG. He had a 70% distal stenosis followed by a total occlusion of the distal RCA. The left circumflex artery is totally occluded proximally. The LAD had a previous stent which is 100% stenosis in the mid LAD after a diagonal branch. His LVEF was 40%. [place] [address] today up from [address] Pop reviewed him and deemed he has very poor targets for CABG however wants to attempt it. Patient was explained about the risks and he expressed understanding and gave the consent. Patient is still pending a date for CABG and will be maintained meanwhile on his ACS protocol. 04/23/2025: Patient was evaluated at the bedside this morning. Patient was lying on his side and was not in acute distress had no acute events overnight. Patient was taken to CABG today performed by Dr. Chanel. Patient was evaluated in the afternoon after returning from operating room. Patient was intubated and was on insulin drip. Patient blood glucose was 368 and phosphorus was 5.7. We will repeat his phosphorus levels tomorrow. Dietary restriction and if despite this it is high we will consider sevelamer 800 mg t.i.d. Whole blood ketones, urine ketone levels, urine electrolytes, urine creatinine were ordered. 04/24/2025: Patient was evaluated at the bedside this morning his 212. Patient was extubated yesterday night and has been recovering well. Patient is on 10 L of oxygen via BiPAP saturating over 98%. Is currently on Levophed, epinephrine, insulin drips. He is currently receiving doxycycline and Rocephin for his pneumonia. A repeat x-ray today showed mild cardiomegaly, atelectasis in the right lung base and no signs of pulmonary venous congestion. Patient expressed mild shortness of breath that has been subsiding with IV Lasix and nebulizer treatments. Repeat phosphorus levels was 4.3, whole blood ketones less than 0.1. Patient will be started on guideline directed management of heart failure once his pain completely of IV pressors. Patient is currently managed by critical care team and we will follow their recommendations closely. 04/25/2025: He was evaluated at the bedside this morning. No acute overnight event. He is AAO x3. He is on 4 L of oxygen. He is hemodynamically stable, off the pressors. Pertinent labs, WBC 10.7, hemoglobin 10.5, creatinine 1.4, ionized calcium 1.07. Repeated chest x-ray revealed mild pulmonary vascular congestion. He is currently on doxycycline and Rocephin, furosemide, levothyroxine, metoprolol and atorvastatin. Plan to discontinue IABP today. Patient is currently managed by critical care team and we will follow their recommendations closely. 04/26/2025 : Patient is alert, oriented, and awake. There was no acute overnight event . Repeat chest x-ray today showed mild pulmonary vascular condition. He is continued on ceftriaxone and doxycycline. He is currently on furosemide, levothyroxine, metoprolol and atorvastatin. Plan to discontinue IABP today. Patient is currently managed by critical care team and we will follow their recommendations closely. 04/27/2025: Patient is alert, oriented, and awake. There was no acute overnight event. He is continued on ceftriaxone and doxycycline. He is currently on furosemide, levothyroxine, metoprolol and atorvastatin. IABP was removed yesterday. Today his hemoglobin is 10.3 and creatinine is 1.5. Patient is planned for the chest drain removal today. Patient is currently managed by critical care team and we will follow their recommendations closely. 04/28/2025: Patient is alert, oriented, and awake. There was no acute overnight event. He is continued on ceftriaxone and doxycycline. He is currently on furosemide, levothyroxine, metoprolol and atorvastatin. Chest drain and Weir's removed. Today his hemoglobin is 10.3 and creatinine is 1.3. Patient is currently managed by critical care team and we will follow their recommendations closely. Physical therapy is on board for patient ambulation. 04/29/2025: Patient is alert, oriented, and awake. There was no acute overnight event. He is continued on ceftriaxone and doxycycline. He is currently on furosemide, levothyroxine, metoprolol and atorvastatin. Chest drain and Weir's removed. Today his hemoglobin is 10.3 and creatinine is 1.5. Patient is currently managed by critical care team and we will follow their recommendations closely. Physical therapy is on board for patient ambulation. Patient was downgraded from ICU. 04/30/2025: Patient is alert, oriented, and awake. There was no acute overnight event. He is currently on furosemide, levothyroxine, metoprolol and atorvastatin. Chest drain and Weir's removed. Today his hemoglobin is 10.1 and creatinine is 1.3. Patient is currently managed by critical care team and we will follow their recommendations closely. The patient is ambulating with physical therapy. Patient was downgraded from ICU. REVIEW OF SYSTEMS CONSTITUTIONAL: Patient was extubated . Dressing over the sternal wound post CABG. Denies fevers, chills, or night sweats. No unintentional weight loss r eported. NEUROLOGICAL: Denies headache, amaurosis fugax, motor weakness, sensory deficit, vertigo/spinning sensation CARDIOVASCULAR: Denies any exertional angina, dyspnea on exertion, orthopnea, palpitations, life-threatening arrhythmias, claudication. Admits to chest pain, resolving SLEEP: Denies morning headaches, daytime somnolence or napping. Denies difficulty falling asleep, staying asleep, waking from sleep. Admits of snoring. GASTROINTESTINAL: Denies any type of dysphagia to either liquids or solids. Denies nausea, vomiting, pyrosis, early satiety, abdominal pain, diarrhea, constipation, or changes in stool consistency or caliber. Denies coffee-ground emesis, hematemesis, hematochezia, or melanotic stools. GENITOURINARY: Denies frequency, urgency, nocturia, hematuria or incontinence (Storage/Irritative symptoms.) Low urinary stream, straining to void, urinary intermittency or hesitancy, splitting of the voiding stream, terminal dribbling. PHYSICAL EXAM GENERAL APPEARANCE: Alert, awake, oriented CHEST: Normal chest expansion. Telemetry. Surgical scar LUNGS: Absence of any rales, rhonchi or any wheezing. CARDIOVASCULAR: Regular. S1 and S2 normal. No appreciable rubs, murmurs or gallops. ABDOMEN: Soft, nontender, and nondistended. There is no rebound, voluntary guarding, or rigidity. EXTREMITIES: Non-edematous and not cyanotic. No clubbing. Good capillary refill. Vital Signs (last 8hr) Date Time Temp Pulse Resp B/P (MAP) Pulse Ox O2 Delivery O2 Flow Rate FiO2 04/30/25 16:35 97.9 66 18 130/79 98 Room Air 04/30/25 12:15 98.8 90 16 117/80 97 Room Air LABS: Laboratory: Test 04/30/25 16:01 04/30/25 03:32 04/29/25 16:10 Range/Units Whole Blood Glucose 276 H 70-110 MG/DL White Blood Count 6.8 4.8-10.8 K/uL Red Blood Count 3.40 L 4.50-6.20 MIL/uL Hemoglobin 10.1 L 14.0-18.0 g/dL Hematocrit 29.8 L 42-54 % Mean Corpuscular Volume 87.6 79-99 fL Mean Corpuscular Hemoglobin 29.7 27.0-33.0 pg Mean Corpuscular Hemoglobin Concent 33.9 32.0-36.0 g/dL Red Cell Distribution Width 13.2 11.0-15.5 % Platelet Count 282 130-400 K/uL Mean Platelet Volume 9.0 7.5-10.5 fL Immature Granulocyte % (Auto) 3.0 H 0-1 % Neutrophils (%) (Auto) 51.5 40.0-77.0 % Lymphocytes (%) (Auto) 24.3 21.0-51.0 % Monocytes (%) (Auto) 13.8 H 3.0-13.0 % Eosinophils (%) (Auto) 6.2 0.0-8.0 % Basophils (%) (Auto) 1.2 0.0-5.0 % Neutrophils # (Auto) 3.5 1.8-7.7 K/uL Lymphocytes # (Auto) 1.6 1.0-4.8 K/uL Monocytes # (Auto) 0.9 0.1-1.0 K/uL Eosinophils # (Auto) 0.42 0.00-0.70 K/uL Basophils # (Auto) 0.08 0.00-0.20 K/uL Absolute Immature Granulocyte (auto 0.20 0-1 K/uL Nucleated Red Blood Cells 0.6 H 0.0-0.19 % Sodium Level 135 L 136-145 mmol/L Potassium Level 4.1 3.5-5.1 mmol/L Chloride Level 101 101-111 mmol/L Carbon Dioxide Level 28 21-32 mmol/L Blood Urea Nitrogen 22 H 7-18 mg/dL Creatinine 1.3 0.5-1.3 mg/dL Glomerular Filtration Rate Calc 63 >90 mL/min Random Glucose 214 H 70-105 mg/dL Total Calcium 8.3 L 8.5-10.1 mg/dL Total Bilirubin 0.3 0.2-1.0 mg/dL Aspartate Amino Transf (AST/SGOT) 20 10-37 U/L Alanine Aminotransferase (ALT/SGPT) 32 12-78 U/L Alkaline Phosphatase 85 50-136 U/L Total Protein 6.0 6.0-8.3 g/dL Albumin 2.2 L 3.5-5.0 g/dL Bedside Glucose Comment Notified Nurse Current Medications Medications (Trade) Dose Ordered Sig/Damian Route PRN Reason Start Time Stop Time Status Last Admin Dose Admin Acetaminophen (TYLenol 325MG TAB) 650 mg Q4H PRN PO Temp >38.3C(AFTER EXTUBATION) 04/23/25 09:30 05/23/25 09:29 Acetaminophen (TYLenol 325MG TAB) 650 mg Q6H PRN PO MILD PAIN (1-3) 04/20/25 11:30 04/23/25 09:21 DC 04/22/25 22:35 650 MG Acetaminophen (TYLenol 325MG TAB) 650 mg Q6H PRN PO MILD PAIN (1-3) 04/23/25 09:30 05/23/25 09:29 04/28/25 06:54 650 MG Acetaminophen (TYLenol 650MG SUPPOSITORY) 650 mg Q4H PRN RC Temp >38.3C WHILE INTUBATED 04/23/25 09:30 04/28/25 07:56 DC Acetaminophen (acetaMINOPHEN) 1,000 mg Q6H IV 04/23/25 21:00 04/24/25 20:59 DC 04/24/25 14:15 1,000 MG Acetaminophen (acetaMINOPHEN) 1,000 mg Q6H6 IV 04/23/25 13:00 04/23/25 19:11 DC 04/23/25 15:11 1,000 MG Albumin Human 250 ml @ 0 mls/hr AD PRN IV IF HEMODYNAMICALLY UNSTABLE 04/23/25 09:30 04/28/25 07:56 DC Aminocaproic Acid 08020 mg/Sodium Chloride 310 ml @ 25 mls/hr AD IV 04/23/25 09:30 04/23/25 21:53 DC Aminocaproic Acid 80202 mg/Sodium Chloride 480 ml @ 0 mls/hr AD PRN IV BLEEDING CONTROL 04/23/25 07:30 04/23/25 09:52 DC Aspirin (Aspirin 325mg Tab) 325 mg DAILY PO 04/21/25 09:00 04/20/25 11:07 DC Aspirin (Aspirin 81mg Chew Tab) 81 mg Q24H PO 04/20/25 11:30 05/20/25 11:29 04/30/25 12:34 81 MG Atorvastatin Calcium (LIPItor 40MG) 40 mg Q24H PO 04/20/25 11:30 04/21/25 13:17 DC 04/20/25 11:32 40 MG Atorvastatin Calcium (LIPItor 40MG) 40 mg Q24H PO 04/21/25 21:00 05/21/25 20:59 04/29/25 21:15 40 MG Budesonide (Pulmicort 0.5 Mg/2ml) 0.5 mg BIDRESP IH 04/20/25 11:30 05/20/25 11:29 04/30/25 07:09 0.5 MG Budesonide (Pulmicort 0.5 Mg/2ml) 0.5 mg BIDRESP IH 04/20/25 18:00 04/20/25 11:18 DC Calcium Gluconate 1 gm/Sodium Chloride 60 ml @ 200 mls/hr AD PRN IV HYPOCALCEMIA 04/23/25 09:30 04/28/25 07:56 DC 04/25/25 04:44 200 MLS/HR Cefazolin Sodium (ANCEF 1 gm vial) 2 gm ONCALL IVP 04/22/25 16:30 04/22/25 16:15 DC Cefazolin Sodium (Ancef) 2 gm Q8H IVPB 04/23/25 14:30 04/24/25 06:31 DC 04/24/25 06:08 2 GM Ceftriaxone Sodium (ROCEphine 1G INJ) 1 gm Q12H IVPB 04/20/25 11:30 04/30/25 11:29 DC 04/30/25 00:29 1 GM Clopidogrel Bisulfate (plaVIX 75MG) 75 mg DAILY PO 04/21/25 09:00 04/21/25 13:18 DC Dexmedetomidine/ Sodium Chloride (PRECEdex 400MCG/ 100ML-NS) 400 mcg PROTOCOL IV 04/23/25 09:30 04/24/25 09:29 DC Dextrose (D50w) 50 ml AD PRN IV HYPOGLYCEMIA PROTOCOL 04/23/25 09:30 05/23/25 09:29 Diltiazem HCl (CARDIzem 60MG TAB) 30 mg Q6H PO 04/20/25 11:30 04/20/25 21:29 DC 04/20/25 18:13 30 MG Diltiazem HCl (CARDIzem 60MG TAB) 60 mg [id number] PO 04/20/25 23:30 04/23/25 09:11 DC 04/23/25 00:33 60 MG Docusate Sodium (COLace 100MG CAP) 100 mg BID PO 04/23/25 21:00 05/23/25 20:59 04/30/25 08:34 100 MG Doxycycline Hyclate (Doxycycline Hyclate) 100 mg BID PO 04/20/25 21:00 04/30/25 20:59 04/30/25 08:34 100 MG Enoxaparin Sodium (Lovenox) 30 mg DAILY SQ 04/26/25 09:00 05/26/25 08:59 04/30/25 08:34 30 MG Enoxaparin Sodium (Lovenox) 40 mg DAILY SQ 04/22/25 16:00 04/23/25 09:11 DC 04/22/25 18:23 40 MG Epinephrine HCl 10 mg/Sodium Chloride 250 ml @ 17.779 mls/ hr AD PRN IV POST-OP CARDIOVASCULAR ORDERS 04/23/25 09:30 04/28/25 07:56 DC Epinephrine HCl 10 mg/Sodium Chloride 250 ml @ 0 mls/hr AD PRN IV TITRATE 04/23/25 08:00 04/23/25 09:52 DC Famotidine (Pepcid 20mg Vial) 20 mg BID IV 04/23/25 21:00 04/26/25 19:14 DC 04/26/25 08:27 20 MG Famotidine (Pepcid 20mg Tab) 20 mg BID PO 04/26/25 21:00 05/26/25 20:59 04/30/25 08:34 20 MG Ferrous Sulfate (Ferrous Sulfate) 325 mg TID PO 04/21/25 14:00 04/21/25 17:13 DC Furosemide (LASix 20MG TAB) 20 mg DAILY PO 04/27/25 09:00 05/25/25 08:59 04/30/25 08:34 20 MG Furosemide (LASix 20MG TAB) 20 mg Q12H PO 04/25/25 09:00 04/26/25 17:36 DC 04/26/25 08:28 20 MG Furosemide (LASix 20MG VIAL) 20 mg Q12H IV 04/24/25 09:00 04/25/25 08:59 DC 04/24/25 20:02 20 MG Gabapentin (NEURontin 100 mg CAP) 100 mg TID PO 04/26/25 14:00 05/26/25 13:59 04/30/25 15:00 100 MG Gemfibrozil (gemFIBROzil 600 MG TABLET) 600 mg BIDAC PO 04/20/25 16:30 04/23/25 09:11 DC 04/22/25 18:23 600 MG Glucagon (Glucagon 1mg Kit) 1 mg AD PRN IM HYPOGLYCEMIA PROTOCOL 04/23/25 09:30 05/23/25 09:29 Heparin Sodium (Porcine) (HEParin 5,000 UNIT VIAL) *calculation based on ACTUAL B... AD PRN IV HEPARIN PROTOCOL 04/20/25 12:30 04/21/25 11:08 DC 04/20/25 11:59 9,000 UNIT Heparin Sodium/ Dextrose 250 ml @ 0 mls/hr Q6H IV 04/20/25 12:30 04/21/25 11:08 DC 04/21/25 01:22 18.13 MLS/HR Home Med (Home Medication) (Canagliflozin (Invokana) 300 MG) DAILY PO 04/22/25 09:00 04/21/25 16:44 DC Home Med (Home Medication) (Haloperidol 20 MG) HS PO 04/21/25 21:00 04/21/25 16:44 DC Hydralazine HCl (APRESOLine 20MG INJ) 5 mg Q6H PRN IV ADMINISTER FOR SBP > 160 04/20/25 11:30 04/23/25 09:11 DC Insulin Human Regular (humuLIN R 100 UNIT/ML 3ML) INSULIN SLIDING SCAL... ACHS SQ 04/20/25 11:30 04/23/25 09:11 DC 04/22/25 21:59 2 UNIT Insulin Human Regular (humuLIN R 100 UNIT/ML 3ML) INSULIN SLIDING SCAL... ACHS SQ 04/25/25 11:30 05/25/25 11:29 04/30/25 16:23 7 UNIT Insulin Human Regular 100 unit/ Sodium Chloride 100 ml @ 0 mls/hr AD IV 04/23/25 09:30 04/25/25 09:04 DC 04/23/25 22:51 8 MLS/HR Ipratropium [place] (AtrovENT UD) 0.5 mg Q6H PRN IH SHORTNESS OF BREATH 04/20/25 11:30 05/20/25 11:29 Lactulose (Constulose 20gm/ 30ml Udcup) 20 gm BID PRN PO CONSTIPATION 04/23/25 09:30 05/23/25 09:29 04/28/25 08:39 20 GM Levothyroxine Sodium (SYNTHroid 100MCG TAB) 100 mcg DAILY@0630 PO 04/21/25 06:30 04/21/25 13:39 DC Levothyroxine Sodium (SYNTHroid 100MCG TAB) 100 mcg DAILY@0630 PO 04/22/25 06:30 05/22/25 06:29 04/30/25 06:29 100 MCG Levothyroxine Sodium (SYNTHroid 50MCG TAB) 50 mcg SYN PO 04/22/25 06:30 04/21/25 16:44 DC Lisinopril (Prinivil 10mg) 10 mg DAILY PO 04/22/25 09:00 04/23/25 09:11 DC 04/22/25 12:24 10 MG Magnesium Hydroxide (Milk Of Magnesium 30ml) 30 ml DAILY PRN PO CONSTIPATION 04/23/25 09:30 05/23/25 09:29 Magnesium Sulfate 50 ml @ 12.5 mls/hr AD PRN IV MAG LEVEL LESS THAN 2.0 04/23/25 09:30 05/23/25 09:29 04/28/25 11:58 12.5 MLS/HR Magnesium Sulfate 50 ml @ 0 mls/hr PROTOCOL IV 04/20/25 11:30 04/26/25 16:17 DC 04/26/25 06:01 25 MLS/HR Magnesium Sulfate 50 ml @ 0 mls/hr PROTOCOL IV 04/21/25 07:00 04/21/25 07:03 DC Metoprolol Tartrate (loprESSOR) 12.5 mg BID PO 04/22/25 21:00 04/23/25 09:11 DC 04/22/25 22:02 12.5 MG Metoprolol Tartrate (loprESSOR) 12.5 mg BID PO 04/25/25 09:00 05/25/25 08:59 04/30/25 08:34 12.5 MG Morphine Sulfate (morPHINE 2MG SYG) 0.5 mg Q2H PRN IV MODERATE PAIN (4-6) 04/23/25 09:30 04/24/25 09:29 DC Morphine Sulfate (morPHINE 2MG SYG) 1 mg Q2H PRN IV SEVERE PAIN (7-10) 04/23/25 09:30 04/24/25 09:29 DC 04/23/25 14:02 1 MG Morphine Sulfate (morPHINE 2MG SYG) 2 mg Q6H PRN IVP SEVERE PAIN (7-10) 04/20/25 11:00 04/23/25 09:11 DC 04/22/25 06:40 2 MG Niacin (Niacin) 1,000 mg HS PO 04/21/25 21:00 04/21/25 16:41 DC Nicotine (Nicoderm) 7 mg DAILY TD 04/21/25 09:00 05/21/25 08:59 04/30/25 08:35 7 MG Nitroglycerin (Nitrostat) 0.4 mg AD PRN SL CHEST PAIN 04/20/25 10:30 04/20/25 11:07 DC 04/20/25 10:21 0.4 MG Nitroglycerin (Nitrostat) 0.4 mg AD PRN SL CHEST PAIN 04/20/25 11:00 04/20/25 17:43 DC Nitroglycerin (Nitrostat) 0.4 mg AD PRN SL CHEST PAIN 04/20/25 18:00 04/23/25 09:11 DC 04/20/25 23:44 0.4 MG Nitroglycerin (Nitrostat) 0.4 mg Q5M PRN SL CHEST PAIN 04/20/25 10:30 04/20/25 10:13 DC Nitroglycerin/ Dextrose 0 ml @ 0 mls/hr AD IV 04/23/25 09:30 04/26/25 09:29 DC Norepinephrine Bitartrate 250 ml @ 0 mls/hr AD PRN IV TITRATE 04/23/25 07:30 04/23/25 09:52 DC Norepinephrine Bitartrate 250 ml @ 0 mls/hr AD PRN IV POST-OP CARDIOVASCULAR ORDERS 04/23/25 09:30 04/28/25 07:56 DC 04/23/25 19:55 22.3 MLS/HR Ondansetron HCl (zoFRAN 4MG INJ) 4 mg Q6H PRN IV NAUSEA/VOMITING 04/23/25 09:30 05/23/25 09:29 04/25/25 04:10 4 MG Ondansetron HCl (zoFRAN 4MG INJ) 4 mg Q6H PRN IVP NAUSEA/VOMITING 04/20/25 11:30 04/23/25 09:11 DC Pantoprazole Sodium (PROTonix 40MG INJ) 40 mg DAILY IVP 04/21/25 09:00 04/23/25 09:11 DC 04/22/25 12:24 40 MG Potassium Phosphate 250 ml @ 42 mls/hr AD PRN IV LOW PHOS LEVEL 04/23/25 09:30 05/23/25 09:29 Potassium Chloride 100 ml @ 100 mls/hr AD PRN IV HYPOKALEMIA 04/23/25 09:30 05/23/25 09:29 04/24/25 16:13 100 MLS/HR Propofol 100 ml @ 0 mls/hr AD PRN IV SEDATION 04/23/25 09:30 04/27/25 09:29 DC Sodium Bicarbonate (Sodium Bicarb 50meq 50ml Vial) 50 meq AD PRN IV OTHER[SEE DOSING INSTRUCTIONS] 04/23/25 09:30 04/26/25 09:29 DC 04/23/25 17:40 50 MEQ Sodium Chloride 500 ml @ 0 mls/hr AD IV 04/23/25 09:30 04/28/25 07:56 DC 04/23/25 21:57 3 MLS/HR Sodium Chloride 500 ml @ 0 mls/hr Q0M IV 04/20/25 14:30 04/23/25 09:11 DC Sodium Chloride 1,000 ml @ 10 mls/hr ONCE IV 04/23/25 09:30 04/24/25 09:29 DC 04/23/25 14:03 10 MLS/HR Sodium Chloride 1,000 ml @ 50 mls/hr Q20H IV 04/21/25 07:00 04/22/25 07:00 DC 04/21/25 07:09 50 MLS/HR Sodium Chloride (NS Flush 10ml) 10 ml Q8H PRN IVP IV LINE FLUSH 04/23/25 09:30 05/23/25 09:29 Tramadol HCl (UltRAM) 25 mg Q6H PRN PO MODERATE PAIN (4-6) 04/23/25 09:30 04/26/25 09:29 DC Tramadol HCl (UltRAM) 50 mg Q6H PRN PO SEVERE PAIN (7-10) 04/23/25 09:30 04/26/25 09:29 DC 04/25/25 02:18 50 MG Vitamin B Complex/ Vit C/Folic Acid (Nephrovite Tablet) 1 cap Q24H PO 04/20/25 12:00 05/20/25 11:59 04/30/25 12:34 1 CAP DIAGNOSTICS / RADIOLOGY: PATIENT: SB PATEL MR#: [id number] : 1965 SEX: M AGE: 60 LOCATION: 2A ORDER 2300 STATUS: ADM IN REPORT#: [id number] SERVICE 0600 REASON: pna ORDERING PHYSICIAN: PRISCILLA SOTELO PROCEDURE: CXR1VW - CHEST 1VW CHEST 1VW REASON: pna COMPARISON: Prior study from 04/29/2025 is available. FINDINGS: Single view of the chest was obtained. Lungs are clear. Heart size is normal with median sternotomy.. There is no pulmonary vascular congestion. Mediastinum and bony thorax appear unremarkable. IMPRESSION: 1. Status post median sternotomy 2. No evidence of airspace consolidation or pulmonary venous congestion 3. Unchanged from prior study DICTATED BY: GERALDO ROACH MD DATE: 04/30/25 1014 ELECTRONICALLY SIGNED BY: GERALDO ROACH MD DATE: 04/30/25 1018 ASSESSMENT: NSTEMI/ ACS, POA Rule out pericarditis, POA Rule out developing community-acquired pneumonia, POA Undiagnosed COPD/chronic bronchitis, POA History of coronary artery disease with prior history of PCI in 2004, POA CKD stage 3, POA Suspected BAILEY Electrolyte abnormalities (hyponatremia, hypomagnesemia) Tobacco use disorder, POA Cocaine use disorder, POA Hypertension, POA Hyperlipidemia, POA Diabetes mellitus type 2, POA Hypothyroidism POA PLAN: Patient to be admitted to PCCU NSTEMI/ ACS, severe multivessel coronary artery disease status post CABG Day 2 Cardiology has been consulted on the case Left heart catheterization performed showing severe 3+ CAD Patient underwent CABG, extubated and currently on Levophed, Epinephrine and Insulin drips Pericarditis ruled out but the echo showing no evidence of pericardial effusion Echo showed LVEF 40-45% Heparin drip was stopped before taking to CABG Continue atorvastatin 40 mg Q 24 Continue aspirin 81 daily Morphine 2 mg prn Nitroglycerin 0.4 mg sublingually as p.r.n. for chest pain IABP was discontinued Chest drain and Weir's catheter removed Downgraded from ICU Chronic Bronchitis possible COPD Rule out developing community-acquired pneumonia Gram stain did not isolate specific organism, showed normal oropharyngeal tae Continue IV doxycycline (day 10) D/C Rocephin Follow pulmonology recommendations Pulmicort, Atrovent has been placed for shortness of breath Patient will benefit from outpatient PFTs Patient will benefit from outpatient sleep study to rule out BAILEY CKD stage III, electrolyte abnormality Urine protein creatinine ratio is 271, consistent with CKD Renal ultrasound showed smaller left kidney with renal parenchymal disease and a right renal simple cortical cyst Replace the magnesium per protocol Hypertension, hyperlipidemia, hypothyroidism, suspected BAILEY Patient's home medications were reconciled and resumed Patient should get evaluated for BAILEY as outpatient Continue with Lipitor, continue with gemfibrozil, patient has not taken some of his home medications for several months Restart lisinopril monitoring renal function closely Follow cardiovascular recommendations for further management, interventions, clinical response. GI prophylaxis with pantoprazole DVT prophylaxis with enoxaparin Discharge planning: Home Code status: full code PHYSICIAN STATEMENT I was present with the resident during the History and Physical exam and I have reviewed the resident's note. This case was discussed with the resident and I agree with the history, physical exam and medical decision making as documented. Additions/exceptions/observations were directly added to the notes. Gabriel Cat MD, SYED M MD Apr 30, 2025 17:03
--- NOTE | 2025-04-30 18:32 | PN ---
* Non-transmural myocardial infarction with post-infarct unstable anginal on presentation. * Severe three-vessel coronary artery disease. * Intraaortic balloon pump counter pulsation for stabilization placed 04/23/2025 with concomitant coronary artery bypass graft surgery x 3 with BLACKMON to the LAD, saphenous vein graft to the OM, and saphenous vein graft to the RCA. * Ischemic cardiomyopathy with EF of 45-50%, postop. * Hypertension. * Type 2 diabetes mellitus. * Chronic kidney disease, stage III. * History of polysubstance abuse with tobacco, cocaine, and marijuana use, counseled extensively. * Obesity and questionable obstructive sleep apnea. * History of remote percutaneous intervention in 2004 for premature coronary artery disease. * Electrolyte abnormalities, resolved. * Hypothyroidism, on supplement. * Hyperlipoproteinemia. * Questionable underlying obstructive airway disease. Postoperative patient says he was having episodes of shortness of breath earlier in the day but he is resting comfortably now. Physical exam shows an obese gentleman in no distress with diffusely diminished breath sounds and normal S1 and S2, no murmur, regular rhythm, no edema. Please refer to Dr. Muro's note from yesterday. For now, diuresis and convalescence appears to be the order of the day. Vitals/Labs Vital Signs Date Time Temp Pulse Resp B/P (MAP) Pulse Ox O2 Delivery O2 Flow Rate FiO2 04/30/25 16:35 97.9 66 18 130/79 98 Room Air 04/30/25 07:10 21 04/30/25 07:00 0 Laboratory Tests 04/30/25 03:32 Medications Current Medications Nitroglycerin 0.4 mg Q5M PRN SL; Start 04/20/25 at 10:30; Stop 04/20/25 at 10:13; Status DC Aspirin 325 mg ONCE ONCE PO Last administered on 04/20/25at 10:21; Start 04/20/25 at 10:30; Stop 04/20/25 at 10:31; Status DC Aspirin 325 mg DAILY PO; Start 04/21/25 at 09:00; Stop 04/20/25 at 11:07; Status DC Nitroglycerin 0.4 mg AD PRN SL Last administered on 04/20/25at 10:21; Start 04/20/25 at 10:30; Stop 04/20/25 at 11:07; Status DC Morphine Sulfate 2 mg Q6H PRN IVP Last administered on 04/22/25at 06:40; Start 04/20/25 at 11:00; Stop 04/23/25 at 09:11; Status DC Budesonide 0.5 mg BIDRESP IH; Start 04/20/25 at 18:00; Stop 04/20/25 at 11:18; Status DC Nitroglycerin 0.4 mg AD PRN SL; Start 04/20/25 at 11:00; Stop 04/20/25 at 17:43; Status DC Acetaminophen 650 mg Q6H PRN PO Last administered on 04/22/25at 22:35; Start 04/20/25 at 11:30; Stop 04/23/25 at 09:21; Status DC Ondansetron HCl 4 mg Q6H PRN IVP; Start 04/20/25 at 11:30; Stop 04/23/25 at 09:11; Status DC Aspirin 81 mg Q24H PO Last administered on 04/30/25at 12:34; Start 04/20/25 at 11:30; Stop 05/20/25 at 11:29 Ceftriaxone Sodium 1 gm Q12H IVPB Last administered on 04/30/25at 00:29; Start 04/20/25 at 11:30; Stop 04/30/25 at 11:29; Status DC Doxycycline Hyclate 100 mg BID PO Last administered on 04/30/25at 08:34; Start 04/20/25 at 21:00; Stop 04/30/25 at 20:59 Pantoprazole Sodium 40 mg DAILY IVP Last administered on 04/22/25at 12:24; Start 04/21/25 at 09:00; Stop 04/23/25 at 09:11; Status DC Budesonide 0.5 mg BIDRESP IH Last administered on 04/30/25at 07:09; Start 04/20/25 at 11:30; Stop 05/20/25 at 11:29 Magnesium Sulfate 50 ml @ 0 mls/hr PROTOCOL IV Last administered on 04/26/25at 06:01; Start 04/20/25 at 11:30; Stop 04/26/25 at 16:17; Status DC Insulin Human Regular INSULIN SLIDING SCAL... ACHS SQ Last administered on 04/22/25at 21:59; Start 04/20/25 at 11:30; Stop 04/23/25 at 09:11; Status DC Ipratropium Malone 0.5 mg Q6H PRN IH; Start 04/20/25 at 11:30; Stop 05/20/25 at 11:29 Hydralazine HCl 5 mg Q6H PRN IV; Start 04/20/25 at 11:30; Stop 04/23/25 at 09:11; Status DC Atorvastatin Calcium 40 mg Q24H PO Last administered on 04/20/25at 11:32; Start 04/20/25 at 11:30; Stop 04/21/25 at 13:17; Status DC Vitamin B Complex/ Vit C/Folic Acid 1 cap Q24H PO Last administered on 04/30/25at 12:34; Start 04/20/25 at 12:00; Stop 05/20/25 at 11:59 Heparin Sodium (Porcine) *calculation based on ACTUAL B... AD PRN IV Last administered on 04/20/25at 11:59; Start 04/20/25 at 12:30; Stop 04/21/25 at 11:08; Status DC Heparin Sodium/ Dextrose 250 ml @ 0 mls/hr Q6H IV Last administered on 04/21/25at 01:22; Start 04/20/25 at 12:30; Stop 04/21/25 at 11:08; Status DC Diltiazem HCl 30 mg Q6H PO Last administered on 04/20/25at 18:13; Start 04/20/25 at 11:30; Stop 04/20/25 at 21:29; Status DC Gemfibrozil 600 mg BIDAC PO Last administered on 04/22/25at 18:23; Start 04/20/25 at 16:30; Stop 04/23/25 at 09:11; Status DC Nicotine 7 mg DAILY TD Last administered on 04/30/25at 08:35; Start 04/21/25 at 09:00; Stop 05/21/25 at 08:59 Levothyroxine Sodium 100 mcg DAILY@0630 PO; Start 04/21/25 at 06:30; Stop 04/21/25 at 13:39; Status DC Sodium Chloride 500 ml @ 0 mls/hr Q0M IV; Start 04/20/25 at 14:30; Stop 04/23/25 at 09:11; Status DC Nitroglycerin 0.4 mg AD PRN SL Last administered on 04/20/25at 23:44; Start 04/20/25 at 18:00; Stop 04/23/25 at 09:11; Status DC Clopidogrel Bisulfate 300 mg ONCE ONCE PO Last administered on 04/20/25at 23:09; Start 04/20/25 at 21:30; Stop 04/20/25 at 21:34; Status DC Clopidogrel Bisulfate 75 mg DAILY PO; Start 04/21/25 at 09:00; Stop 04/21/25 at 13:18; Status DC Diltiazem HCl 60 mg [id number] PO Last administered on 04/23/25at 00:33; Start 04/20/25 at 23:30; Stop 04/23/25 at 09:11; Status DC Diltiazem HCl 30 mg ONCE ONCE PO; Start 04/21/25 at 07:00; Stop 04/21/25 at 08:00; Status DC Sodium Chloride 1,000 ml @ 50 mls/hr Q20H IV Last administered on 04/21/25at 07:09; Start 04/21/25 at 07:00; Stop 04/22/25 at 07:00; Status DC Magnesium Sulfate 50 ml @ 0 mls/hr PROTOCOL IV; Start 04/21/25 at 07:00; Stop 04/21/25 at 07:03; Status DC Lidocaine HCl 20 ml STK-MED ONCE .ROUTE; Start 04/21/25 at 09:02; Stop 04/21/25 at 09:02; Status DC Iohexol 35,000 mg STK-MED ONCE IV; Start 04/21/25 at 09:02; Stop 04/21/25 at 09:02; Status DC Heparin Sodium (Porcine) 10,000 unit STK-MED ONCE .ROUTE; Start 04/21/25 at 09:03; Stop 04/21/25 at 09:03; Status DC Heparin Sodium/ Sodium Chloride 1,000 ml @ As Directed STK-MED ONCE IV; Start 04/21/25 at 09:03; Stop 04/21/25 at 09:03; Status DC Iohexol 50 ml STK-MED ONCE IV; Start 04/21/25 at 09:03; Stop 04/21/25 at 09:04; Status DC Fentanyl Citrate 100 mcg STK-MED ONCE .ROUTE; Start 04/21/25 at 09:29; Stop 04/21/25 at 09:29; Status DC Midazolam HCl 2 mg STK-MED ONCE .ROUTE; Start 04/21/25 at 09:29; Stop 04/21/25 at 09:29; Status DC Furosemide 20 mg STK-MED ONCE .ROUTE; Start 04/21/25 at 09:51; Stop 04/21/25 at 09:51; Status DC Enoxaparin Sodium 40 mg DAILY SQ Last administered on 04/22/25at 18:23; Start 04/22/25 at 16:00; Stop 04/23/25 at 09:11; Status DC Levothyroxine Sodium 50 mcg SYN PO; Start 04/22/25 at 06:30; Stop 04/21/25 at 16:44; Status DC Lisinopril 10 mg DAILY PO Last administered on 04/22/25at 12:24; Start 04/22/25 at 09:00; Stop 04/23/25 at 09:11; Status DC Niacin 1,000 mg HS PO; Start 04/21/25 at 21:00; Stop 04/21/25 at 16:41; Status DC Home Med (Canagliflozin (Invokana) 300 MG) DAILY PO; Start 04/22/25 at 09:00; Stop 04/21/25 at 16:44; Status DC Ferrous Sulfate 325 mg TID PO; Start 04/21/25 at 14:00; Stop 04/21/25 at 17:13; Status DC Home Med (Haloperidol 20 MG) HS PO; Start 04/21/25 at 21:00; Stop 04/21/25 at 16:44; Status DC Atorvastatin Calcium 40 mg Q24H PO Last administered on 04/29/25at 21:15; Start 04/21/25 at 21:00; Stop 05/21/25 at 20:59 Levothyroxine Sodium 100 mcg DAILY@0630 PO Last administered on 04/30/25at 06:29; Start 04/22/25 at 06:30; Stop 05/22/25 at 06:29 Cefazolin Sodium 2 gm ONCALL IVP; Start 04/22/25 at 16:30; Stop 04/22/25 at 16:15; Status DC Metoprolol Tartrate 12.5 mg BID PO Last administered on 04/22/25at 22:02; Start 04/22/25 at 21:00; Stop 04/23/25 at 09:11; Status DC Epinephrine HCl 10 mg/Sodium Chloride 250 ml @ 0 mls/hr AD PRN IV; Start 04/23/25 at 08:00; Stop 04/23/25 at 09:52; Status DC Norepinephrine Bitartrate 250 ml @ 0 mls/hr AD PRN IV; Start 04/23/25 at 07:30; Stop 04/23/25 at 09:52; Status DC Aminocaproic Acid 35293 mg/Sodium Chloride 480 ml @ 0 mls/hr AD PRN IV; Start 04/23/25 at 07:30; Stop 04/23/25 at 09:52; Status DC Nitroglycerin/ Dextrose 1 ml @ As Directed STK-MED ONCE .ROUTE; Start 04/23/25 at 07:38; Stop 04/23/25 at 07:38; Status DC Cefazolin Sodium 1 gm STK-MED ONCE .ROUTE; Start 04/23/25 at 08:20; Stop 04/23/25 at 08:20; Status DC Heparin Sodium/ Sodium Chloride 500 ml @ As Directed STK-MED ONCE IV Last administered on 04/23/25at 09:34; Start 04/23/25 at 08:20; Stop 04/23/25 at 08:20; Status DC Papaverine HCl 60 mg STK-MED ONCE .ROUTE; Start 04/23/25 at 08:20; Stop 04/23/25 at 08:20; Status DC Lidocaine HCl 100 mg STK-MED ONCE .ROUTE; Start 04/23/25 at 09:13; Stop 04/23/25 at 09:14; Status DC Succinylcholine Chloride 200 mg STK-MED ONCE .ROUTE; Start 04/23/25 at 09:13; Stop 04/23/25 at 09:14; Status DC Fentanyl Citrate 1,000 mcg STK-MED ONCE IJ; Start 04/23/25 at 09:14; Stop 04/23/25 at 09:14; Status DC Propofol 200 mg STK-MED ONCE IV; Start 04/23/25 at 09:14; Stop 04/23/25 at 09:14; Status DC Ketamine HCl 50 mg STK-MED ONCE .ROUTE; Start 04/23/25 at 09:14; Stop 04/23/25 at 09:14; Status DC Acetaminophen 1,000 mg Q6H6 IV Last administered on 04/23/25at 15:11; Start 04/23/25 at 13:00; Stop 04/23/25 at 19:11; Status DC Aspirin 81 mg ONCE ONCE NG Last administered on 04/23/25at 15:11; Start 04/23/25 at 13:00; Stop 04/23/25 at 13:01; Status DC Docusate Sodium 100 mg BID PO Last administered on 04/30/25at 08:34; Start 04/23/25 at 21:00; Stop 05/23/25 at 20:59 Lactulose 20 gm BID PRN PO Last administered on 04/28/25at 08:39; Start 04/23/25 at 09:30; Stop 05/23/25 at 09:29 Furosemide 20 mg Q12H PO Last administered on 04/26/25at 08:28; Start 04/25/25 at 09:00; Stop 04/26/25 at 17:36; Status DC Furosemide 20 mg Q12H IV Last administered on 04/24/25at 20:02; Start 04/24/25 at 09:00; Stop 04/25/25 at 08:59; Status DC Enoxaparin Sodium 30 mg DAILY SQ Last administered on 04/30/25at 08:34; Start 04/26/25 at 09:00; Stop 05/26/25 at 08:59 Metoprolol Tartrate 12.5 mg BID PO Last administered on 04/30/25at 08:34; Start 04/25/25 at 09:00; Stop 05/25/25 at 08:59 Magnesium Hydroxide 30 ml DAILY PRN PO; Start 04/23/25 at 09:30; Stop 05/23/25 at 09:29 Dexmedetomidine/ Sodium Chloride 400 mcg PROTOCOL IV; Start 04/23/25 at 09:30; Stop 04/24/25 at 09:29; Status DC Acetaminophen 650 mg Q6H PRN PO Last administered on 04/28/25at 06:54; Start 04/23/25 at 09:30; Stop 05/23/25 at 09:29 Cefazolin Sodium 3 gm STK-MED ONCE IVPB; Start 04/23/25 at 00:00; Stop 04/23/25 at 00:01; Status Cancel Papaverine HCl 60 mg STK-MED ONCE IJ; Start 04/23/25 at 00:00; Stop 04/23/25 at 00:01; Status Cancel Cefazolin Sodium 1 gm STK-MED ONCE IRRIG; Start 04/23/25 at 00:00; Stop 04/23/25 at 00:01; Status Cancel Sodium Chloride 1,000 ml @ 10 mls/hr ONCE IV Last administered on 04/23/25at 14:03; Start 04/23/25 at 09:30; Stop 04/24/25 at 09:29; Status DC Sodium Chloride 10 ml Q8H PRN IVP; Start 04/23/25 at 09:30; Stop 05/23/25 at 09:29 Morphine Sulfate 0.5 mg Q2H PRN IV; Start 04/23/25 at 09:30; Stop 04/24/25 at 09:29; Status DC Morphine Sulfate 1 mg Q2H PRN IV Last administered on 04/23/25at 14:02; Start 04/23/25 at 09:30; Stop 04/24/25 at 09:29; Status DC Acetaminophen 650 mg Q4H PRN RC; Start 04/23/25 at 09:30; Stop 04/28/25 at 07:56; Status DC Ondansetron HCl 4 mg Q6H PRN IV Last administered on 04/25/25at 04:10; Start 04/23/25 at 09:30; Stop 05/23/25 at 09:29 Sodium Chloride 500 ml @ 0 mls/hr AD IV Last administered on 04/23/25at 21:57; Start 04/23/25 at 09:30; Stop 04/28/25 at 07:56; Status DC Nitroglycerin/ Dextrose 0 ml @ 0 mls/hr AD IV; Start 04/23/25 at 09:30; Stop 04/26/25 at 09:29; Status DC Propofol 100 ml @ 0 mls/hr AD PRN IV; Start 04/23/25 at 09:30; Stop 04/27/25 at 09:29; Status DC Norepinephrine Bitartrate 250 ml @ 0 mls/hr AD PRN IV Last administered on 04/23/25at 19:55; Start 04/23/25 at 09:30; Stop 04/28/25 at 07:56; Status DC Epinephrine HCl 10 mg/Sodium Chloride 250 ml @ 17.779 mls/ hr AD PRN IV; Start 04/23/25 at 09:30; Stop 04/28/25 at 07:56; Status DC Aminocaproic Acid 75562 mg/Sodium Chloride 310 ml @ 25 mls/hr AD IV; Start 04/23/25 at 09:30; Stop 04/23/25 at 21:53; Status DC Calcium Gluconate 1 gm/Sodium Chloride 60 ml @ 200 mls/hr AD PRN IV Last administered on 04/25/25at 04:44; Start 04/23/25 at 09:30; Stop 04/28/25 at 07:56; Status DC Magnesium Sulfate 50 ml @ 12.5 mls/hr AD PRN IV Last administered on 04/28/25at 11:58; Start 04/23/25 at 09:30; Stop 05/23/25 at 09:29 Potassium Chloride 100 ml @ 100 mls/hr AD PRN IV Last administered on 04/24/25at 16:13; Start 04/23/25 at 09:30; Stop 05/23/25 at 09:29 Potassium Phosphate 250 ml @ 42 mls/hr AD PRN IV; Start 04/23/25 at 09:30; Stop 05/23/25 at 09:29 Albumin Human 250 ml @ 0 mls/hr AD PRN IV; Start 04/23/25 at 09:30; Stop 04/28/25 at 07:56; Status DC Acetaminophen 650 mg Q4H PRN PO; Start 04/23/25 at 09:30; Stop 05/23/25 at 09:29 Insulin Human Regular 100 unit/ Sodium Chloride 100 ml @ 0 mls/hr AD IV Last administered on 04/23/25at 22:51; Start 04/23/25 at 09:30; Stop 04/25/25 at 09:04; Status DC Cefazolin Sodium 2 gm Q8H IVPB Last administered on 04/24/25at 06:08; Start 04/23/25 at 14:30; Stop 04/24/25 at 06:31; Status DC Tramadol HCl 25 mg Q6H PRN PO; Start 04/23/25 at 09:30; Stop 04/26/25 at 09:29; Status DC Tramadol HCl 50 mg Q6H PRN PO Last administered on 04/25/25at 02:18; Start 04/23/25 at 09:30; Stop 04/26/25 at 09:29; Status DC Famotidine 20 mg BID IV Last administered on 04/26/25at 08:27; Start 04/23/25 at 21:00; Stop 04/26/25 at 19:14; Status DC Sodium Bicarbonate 50 meq AD PRN IV Last administered on 04/23/25at 17:40; Start 04/23/25 at 09:30; Stop 04/26/25 at 09:29; Status DC Dextrose 50 ml AD PRN IV; Start 04/23/25 at 09:30; Stop 05/23/25 at 09:29 Glucagon 1 mg AD PRN IM; Start 04/23/25 at 09:30; Stop 05/23/25 at 09:29 Midazolam HCl 2 mg STK-MED ONCE .ROUTE; Start 04/23/25 at 09:48; Stop 04/23/25 at 09:48; Status DC Cefazolin Sodium 1 gm STK-MED ONCE .ROUTE; Start 04/23/25 at 10:12; Stop 04/23/25 at 10:12; Status DC Rocuronium Malone 50 mg STK-MED ONCE .ROUTE; Start 04/23/25 at 10:40; Stop 04/23/25 at 10:46; Status DC Sodium Bicarbonate 200 ml @ As Directed STK-MED ONCE .ROUTE; Start 04/23/25 at 11:36; Stop 04/23/25 at 11:36; Status DC Sodium Bicarbonate 350 ml @ As Directed STK-MED ONCE .ROUTE; Start 04/23/25 at 13:04; Stop 04/23/25 at 13:04; Status DC Fentanyl Citrate 250 mcg STK-MED ONCE IV; Start 04/23/25 at 13:25; Stop 04/23/25 at 13:26; Status DC Cefazolin Sodium 3 gm STK-MED ONCE IVPB Last administered on 04/23/25at 10:10; Start 04/23/25 at 10:10; Stop 04/23/25 at 14:07; Status DC Papaverine HCl 60 mg STK-MED ONCE IJ Last administered on 04/23/25at 10:51; Start 04/23/25 at 10:51; Stop 04/23/25 at 14:07; Status DC Cefazolin Sodium 1 gm STK-MED ONCE IRRIG Last administered on 04/23/25at 10:51; Start 04/23/25 at 10:51; Stop 04/23/25 at 14:07; Status DC Furosemide 20 mg ONCE ONCE IV Last administered on 04/23/25at 18:43; Start 04/23/25 at 18:30; Stop 04/23/25 at 18:36; Status DC Acetaminophen 1,000 mg Q6H IV Last administered on 04/24/25at 14:15; Start 04/23/25 at 21:00; Stop 04/24/25 at 20:59; Status DC Insulin Human Regular INSULIN SLIDING SCAL... ACHS SQ Last administered on 04/30/25at 16:23; Start 04/25/25 at 11:30; Stop 05/25/25 at 11:29 Gabapentin 100 mg ONCE ONCE PO Last administered on 04/26/25at 10:11; Start 04/26/25 at 09:30; Stop 04/26/25 at 09:31; Status DC Gabapentin 100 mg TID PO Last administered on 04/30/25at 15:00; Start 04/26/25 at 14:00; Stop 05/26/25 at 13:59 Calcium Chloride 1,000 mg STK-MED ONCE IVP; Start 04/20/25 at 11:02; Stop 04/26/25 at 11:02; Status DC Heparin Sodium (Porcine) 10,000 unit STK-MED ONCE IV; Start 04/20/25 at 11:02; Stop 04/26/25 at 11:02; Status DC Furosemide 20 mg DAILY PO Last administered on 04/30/25at 08:34; Start 04/27/25 at 09:00; Stop 05/25/25 at 08:59 Famotidine 20 mg BID PO Last administered on 04/30/25at 08:34; Start 04/26/25 at 21:00; Stop 05/26/25 at 20:59 VIVEK AHUMADA MD Apr 30, 2025 18:32
--- NOTE | 2025-04-30 21:34 | PN ---
SUBJECTIVE: Status post CABG, coursing postop day #7. OBJECTIVE: GENERAL: Awake, alert ____ intact. VITAL SIGNS: Stable as recorded in the medical record. CHEST: Sternum stable, incision sealed. LUNGS: Clear. EXTREMITIES: Warm and well perfused. No evidence of DVT, hematoma or infection. ASSESSMENT: Status post CABG. PROBLEMS: * Coronary artery disease. The patient should be on aspirin and Plavix due to ____. * Dyslipidemia. Lipitor 40 mg once a day. Monitor liver enzymes and cholesterol. * Fluid overload. Lasix 20 mg twice a day. * DVT prophylaxis. Lovenox 40 mg once a day. PLAN: OT, PT, cardiac rehabilitation, discharge tomorrow. Follow up as an outpatient. TID: [id number] RECEIPT: [id number]
[2025-05-01 03:27] VITALS: BP 122/70; PULSE 86; RESP 20; TEMP 97.5
[2025-05-01 04:17] LABS: NUCLEATED RED BLOOD CELLS 0.6 % (0.0-0.19); PLATELET COUNT (AUTO) 288.0 K/uL (130-400); RED BLOOD CELL COUNT(AUTO) 3.39 MIL/uL (4.50-6.20); RED CELL DISTRIBUTION WIDTH 13.2 % (11.0-15.5); WHITE BLOOD COUNT (AUTO) 6.9 K/uL (4.8-10.8)
[2025-05-01 04:32] LABS: CREATININE 1.6 mg/dL (0.5-1.3); GLOMERULAR FILTR. RATE CALC 49.0 mL/min (>90); GLUCOSE,RANDOM 247.0 mg/dL (70-105); SODIUM SERUM 138.0 mmol/L (136-145); UREA NITROGEN, BLOOD 21.0 mg/dL (7-18)
[2025-05-01 07:41] VITALS: BP 129/80; PULSE 87; RESP 18; TEMP 97.9
[2025-05-01 07:43] VITALS: PULSE 94; RESP 20; O2SAT 97
[2025-05-01 08:00] VITALS: O2SAT 99
--- NOTE | 2025-05-01 11:17 | PN ---
[facility] PROGRESS NOTE Date Patient Seen: May 01, 2025 Time of Visit: 11:14 Supervising Physician: Dr Figueroa Supervising Physician: Dr. Bansal Primary Care Physician: [ ] Outpatient Specialists: [ ] Inpatient Consults: Dr. Gordon, Dr. Pop PROBLEM LIST: Multivessel coronary artery disease status post CABG x3 04/23/2025. Cardiogenic shock SCAI stage C on MCS with IABP post op your cava NSTEMI/ ACS, POA -s/p LHC on 04/21/25 with findings of MvCAD schemic cardiomyopathy. Suspected community-acquired pneumonia, POA Undiagnosed COPD/chronic bronchitis, POA History of coronary artery disease with prior history of PCI in 2004, POA CKD stage 3, POA Electrolyte abnormalities (hyponatremia, hypomagnesemia) Polysubstance abuse with tobacco, cocaine and marijuana. Suspected Undiagnosed and untreated BAILEY Hypertension, POA Hyperlipidemia, POA Diabetes mellitus type 2, POA Hypothyroidism POA INTERVAL HISTORY: CABG x3 04/23/2025. Patient seen and examined, all labs and imaging reviewed, patient's labs are good, blood sugars slightly elevated, we are adjusting Tolerating ambulation with physical therapy. Out of bed to chair. Reporting no chest pain or shortness of breath. Good saturations on room air Tolerating diet Afebrile Nursing reports no acute events overnight Plan: Follow CTS recs INOs PT/OT Daily labs Cardiology recs Case management assisting with discharge planning REVIEW OF SYSTEMS: 12 point ROS reviewed with patient. Pertinent positives mentioned above. Otherwise negative. PHYSICAL EXAM: GENERAL: alert, weak, awake oriented x 3 HEENT: EOMI, Sclera non icteric, moist mucosa NECK: Supple, no JVD, trachea midline LUNGS: Clear breath sounds bilaterally. No wheezes HEART: Regular rate and rhythm. Normal S1 and S2, without murmurs ABD: Abdomen soft, nontender. Bowel sounds present EXT: No clubbing cyanosis or edema NEURO: Alert and oriented to person, follows commands Vital Signs (last 8hr) Date Time Temp Pulse Resp B/P (MAP) Pulse Ox O2 Delivery O2 Flow Rate FiO2 05/01/25 08:00 99 Room Air* 0 21 05/01/25 07:43 94 20 N/A Room Air 21 05/01/25 07:43 94 20 05/01/25 07:41 97.9 87 18 129/80 99 Room Air 8/23/25 03:27 97.5 86 20 122/70 95 Room Air LABS: Hematology Labs: Test 05/01/25 03:55 04/30/25 03:32 Range/Units White Blood Count 6.9 4.8-10.8 K/uL Red Blood Count 3.39 L 4.50-6.20 MIL/uL Hemoglobin 10.1 L 14.0-18.0 g/dL Hematocrit 29.9 L 42-54 % Mean Corpuscular Volume 88.2 79-99 fL Mean Corpuscular Hemoglobin 29.8 27.0-33.0 pg Mean Corpuscular Hemoglobin Concent 33.8 32.0-36.0 g/dL Red Cell Distribution Width 13.2 11.0-15.5 % Platelet Count 288 130-400 K/uL Mean Platelet Volume 9.0 7.5-10.5 fL Nucleated Red Blood Cells 0.6 H 0.0-0.19 % Immature Granulocyte % (Auto) 3.0 H 0-1 % Neutrophils (%) (Auto) 51.5 40.0-77.0 % Lymphocytes (%) (Auto) 24.3 21.0-51.0 % Monocytes (%) (Auto) 13.8 H 3.0-13.0 % Eosinophils (%) (Auto) 6.2 0.0-8.0 % Basophils (%) (Auto) 1.2 0.0-5.0 % Neutrophils # (Auto) 3.5 1.8-7.7 K/uL Lymphocytes # (Auto) 1.6 1.0-4.8 K/uL Monocytes # (Auto) 0.9 0.1-1.0 K/uL Eosinophils # (Auto) 0.42 0.00-0.70 K/uL Basophils # (Auto) 0.08 0.00-0.20 K/uL Absolute Immature Granulocyte (auto 0.20 0-1 K/uL Chemistry Labs: Test 05/01/25 05:10 05/01/25 03:55 04/30/25 03:32 Range/Units Whole Blood Glucose 204 H 70-110 MG/DL Bedside Glucose Comment Notified Nurse Sodium Level 138 136-145 mmol/L Potassium Level 4.8 3.5-5.1 mmol/L Chloride Level 103 101-111 mmol/L Carbon Dioxide Level 27 21-32 mmol/L Blood Urea Nitrogen 21 H 7-18 mg/dL Creatinine 1.6 H 0.5-1.3 mg/dL Glomerular Filtration Rate Calc 49 >90 mL/min Random Glucose 247 H 70-105 mg/dL Total Calcium 8.4 L 8.5-10.1 mg/dL Total Bilirubin 0.3 0.2-1.0 mg/dL Aspartate Amino Transf (AST/SGOT) 20 10-37 U/L Alanine Aminotransferase (ALT/SGPT) 32 12-78 U/L Alkaline Phosphatase 85 50-136 U/L Total Protein 6.0 6.0-8.3 g/dL Albumin 2.2 L 3.5-5.0 g/dL DIAGNOSTICS / RADIOLOGY RESULTS: [ ] PLAN NEURO: Minimize central acting medications as possible. Maintain fall precautions, adequate lighting during the day PULMONARY: Supplemental 02 as needed. Maintain aspiration precautions at all times CARDIOVASCULAR: Follow hemodynamics. Vital signs per facility protocol GI & NUTRITION: Continue with nutritional support. Continue stool softeners and laxatives as needed. KIDNEYS & ELECTROLYTES: Strict monitoring of intake, output and overall fluid balance. Avoid nephrotoxic medications to the extent possible. Medications to be dosed according to renal function. Monitor electrolytes and replace as needed ENDOCRINE: Maintain blood glucose between 100-180 at all times. Hypoglycemia protocol in place INFECTIOUS DISEASE: Trend temperature, WBC and procalcitonin level Follow cultures, deescalate antibiotics as soon as possible. Panculture if new onset fever ONCOLOGY/HEMATOLOGY/COAGULATION: Monitor for s/s of bleeding Monitor hemoglobin, coagulation studies as needed SKIN: Pressure ulcer prevention per facility protocol Specialty mattress ORTHO/REHAB: Continue PT/OT Prophylaxis: Continue GI and DVT prophylaxis Code Status: Full Resuscitation Disposition: TBD Other: Total patient care time 36 minutes excluding all procedures. PRISCILLA SOTELO May 01, 2025 11:16
[2025-05-01] MEDS ORDERED: LISI10TA24 PO (11:26)
[2025-05-01] MEDS ORDERED: CLOP-31 PO (11:26)
--- NOTE | 2025-05-01 11:32 | PN ---
[facility] CARDIOLOGY PROGRESS NOTE Date Patient Seen: May 01, 2025 Time of Visit: 11:26 Interval History: The patient is stable status post Non ST segment elevation ME with post infarct unstable angina on presentation, status post coronary artery bypass graft x3 with BLACKMON to the LAD, saphenous vein graft to the OM and saphenous vein graft to the RCA 04/23/2025. He has had no complicating arrhythmias and appears ready for discharge today. His clopidogrel and lisinopril we will be initiated today. Otherwise vital signs stable and he has been up in the room, no acute distress and verbalizes no complaints. Physical Examination: GENERAL: No acute distress. HEAD: Normal with no signs of head trauma. EYES: PERRLA, EOMI, conjunctiva and sclera normal. NECK: Supple without JVD. There is no tenderness, lymphadenopathy, or masses. No thyromegaly. Normal carotid upstrokes without bruits. LUNGS: Diminished at the left base. HEART: Normal rate and rhythm. Normal S1 and S2 without murmurs, gallop or rub. VASC: Peripheral pulses +2 bilaterally. EXT: No clubbing, cyanosis or edema. Median sternal incision is open to air NEURO: Awake, alert, and oriented x3. No focal neurological deficits noted. Laboratory: Hematology Labs: Test 05/01/25 03:55 04/30/25 03:32 Range/Units White Blood Count 6.9 4.8-10.8 K/uL Red Blood Count 3.39 L 4.50-6.20 MIL/uL Hemoglobin 10.1 L 14.0-18.0 g/dL Hematocrit 29.9 L 42-54 % Mean Corpuscular Volume 88.2 79-99 fL Mean Corpuscular Hemoglobin 29.8 27.0-33.0 pg Mean Corpuscular Hemoglobin Concent 33.8 32.0-36.0 g/dL Red Cell Distribution Width 13.2 11.0-15.5 % Platelet Count 288 130-400 K/uL Mean Platelet Volume 9.0 7.5-10.5 fL Nucleated Red Blood Cells 0.6 H 0.0-0.19 % Immature Granulocyte % (Auto) 3.0 H 0-1 % Neutrophils (%) (Auto) 51.5 40.0-77.0 % Lymphocytes (%) (Auto) 24.3 21.0-51.0 % Monocytes (%) (Auto) 13.8 H 3.0-13.0 % Eosinophils (%) (Auto) 6.2 0.0-8.0 % Basophils (%) (Auto) 1.2 0.0-5.0 % Neutrophils # (Auto) 3.5 1.8-7.7 K/uL Lymphocytes # (Auto) 1.6 1.0-4.8 K/uL Monocytes # (Auto) 0.9 0.1-1.0 K/uL Eosinophils # (Auto) 0.42 0.00-0.70 K/uL Basophils # (Auto) 0.08 0.00-0.20 K/uL Absolute Immature Granulocyte (auto 0.20 0-1 K/uL Chemistry Labs: Test 05/01/25 05:10 05/01/25 03:55 04/30/25 03:32 Range/Units Whole Blood Glucose 204 H 70-110 MG/DL Bedside Glucose Comment Notified Nurse Sodium Level 138 136-145 mmol/L Potassium Level 4.8 3.5-5.1 mmol/L Chloride Level 103 101-111 mmol/L Carbon Dioxide Level 27 21-32 mmol/L Blood Urea Nitrogen 21 H 7-18 mg/dL Creatinine 1.6 H 0.5-1.3 mg/dL Glomerular Filtration Rate Calc 49 >90 mL/min Random Glucose 247 H 70-105 mg/dL Total Calcium 8.4 L 8.5-10.1 mg/dL Total Bilirubin 0.3 0.2-1.0 mg/dL Aspartate Amino Transf (AST/SGOT) 20 10-37 U/L Alanine Aminotransferase (ALT/SGPT) 32 12-78 U/L Alkaline Phosphatase 85 50-136 U/L Total Protein 6.0 6.0-8.3 g/dL Albumin 2.2 L 3.5-5.0 g/dL Diagnostics / Radiology: Limited 2D echocardiogram 04/28/2025: Conclusion Limited echocardiogram study follow up in left ventricular systolic function The left ventricular systolic function is mildly reduced with a borderline LVEF of 45-50%. There is anteroseptal hypokinesis. Impression: * Non-transmural myocardial infarction with post-infarct unstable anginal on presentation. * Severe three-vessel coronary artery disease. * Intraaortic balloon pump counter pulsation for stabilization placed 04/23/2025 with concomitant coronary artery bypass graft surgery x 3 with BLACKMON to the LAD, saphenous vein graft to the OM, and saphenous vein graft to the RCA. * Ischemic cardiomyopathy with EF of 45-50%, postop. * Hypertension. * Type 2 diabetes mellitus. * Chronic kidney disease, stage III. * History of polysubstance abuse with tobacco, cocaine, and marijuana use, counseled extensively. * Obesity and questionable obstructive sleep apnea. * History of remote percutaneous intervention in 2004 for premature coronary artery disease. * Electrolyte abnormalities, resolved. * Hypothyroidism, on supplement. * Hyperlipoproteinemia. * Questionable underlying obstructive airway disease. Plan: The patient has progressed well postoperatively. There have been no complicating arrhythmias. He will be restarted on his home GURMEET inhibitor therapy with reduced dose lisinopril 10 mg p.o. daily (previously 20 mg p.o. daily), continue aspirin 81 mg p.o. daily and add clopidogrel 75 mg p.o. daily given his non ST segment elevation ME. He will continue with statin therapy and his home carvedilol on discharge. We will arrange outpatient follow-up with Dr. Phillips in 2 weeks He has been counseled on avoidance of illicit drug use and tobacco use Cleared for discharge home from cardiology standpoint PHYSICIAN ATTESTATION OF PHYSICIAN BOTTLE SORTER DOCUMENTATION: I attest that I was physically present for the bella portions of the service and evaluated the patient with the Physician Plaster Tender, and I reviewed and discussed the case with the Physician Plaster Tender and made modifications to the Physician Plaster Tender's findings and plans of care as documented above SANDEEP SALMERON May 01, 2025 11:32 ARIEL CONNOLLY MD May 14, 2025 15:45
--- NOTE | 2025-05-01 11:44 | DS ---
Discharge Summary Hospital Course Summary: Patient Information: *Name: Byron Flores *Date of : 1965 *Admission Date: 04/21/2025 *Discharge Date: 05/01/2025 Admitting Diagnosis: ACS/NSTEMI Course in Hospital: The patient is a 60-year-old male with past medical history of CAD, hyperlipidemia, hypertension, diabetes mellitus type 2, hypothyroidism, obesity. The patient presented to the ER with chief complaint of chest pain that started 2 weeks ago and was accompanied with diaphoresis and shortness for breath. The pain was intermittent and burning in nature. Due to increase in the severity of the chest pain, the patient decided to come to the ER. The patient complained that the pain is worse on lying down and better on waking up and leaning forward. The patient uses cane for ambulation. The patient is a history of smoking 1 pack per day for past 40 years since age of 9, vaping, weed, reports history of cocaine use with last use 2 days ago since coming to ER. In the ER, the patient's temperature was 98.2, pulse 89, respiratory rate 20, blood pressure 120/79 and oxygen saturation 96% on room air. The labs on admission showed WBC 8.5, hemoglobin 14.5. BMP showed sodium 130, creatinine 1.6, BUN 19, glucose 145, magnesium 1.7, BNP 169, and troponin initially at 323 which trended up to 496. In the ED the patient received aspirin and 0.4 mg of sublingual nitroglycerin which did not help with the pain. Chest x-ray done in the ED showed bilateral infiltrates suggestive of pneumonia. The patient was admitted under the diagnosis of ACS/NSTEMI and Cardiology was consulted for catheterization. His troponin trended up to 5810. Echo was performed and ruled out pericardial effusion with LVEF 40% Left heart catheterization was performed on 04/21/2025 and showed 70% distal stenosis followed by total occlusion of the right RCA. The left circumflex artery was totally occluded proximally. The LAD had a previous stent which was 100% stenosis in the mid LAD after a diagonal branch.Therefore the patient was planned for CABG. Patient was explained about the risk and he expressed understanding and gave the consent for the procedure. The CABG was performed on 04/23/2025. After the surgery, the patient was intubated. The patient was extubated the next morning and he was kept on BiPAP. He was on Levophed, epinephrine and insulin drips. He was receiving doxycycline and Rocephin for his pneumonia. As the patient expressed mild shortness of breath he was pre scribed IV Lasix and nebulizer treatments. The patient was continued on doxycycline, Rocephin, furosemide, levothyroxine, metoprolol, aspirin and atorvastatin. An IABP was placed that was removed on 04/26/2025 along with chest drain. Eventually the patient was downgraded from ICU on 04/29/2025. Meanwhile, physical therapy was ordered for patient ambulation. Potassium and magnesium were replaced according to protocol. Patient was considered for discharge to cardiac rehabilitation program; however, due to insurance limitations, the patient was discharged home with follow-up instructions. Procedures performed: CBC, CMP, CXR, Sputum culture, Cancerization, CABG, IABP, Chest drain, Coagulation Profile, Urine Toxicology, Lipid Profile, TSH, PTH, BNP, Magnesium, Phosphorus, Vitamin D, Procalcitonin, CRP, Creatinine Kinase, Troponin Medications on Discharge: Clopidogrel, Atorvastatin, Lisinopril, Home Meds Discharged to: Home Condition on Discharge: Stable Record Changer Assembler(s): CARDIOLOGY: DR KILLIAN A 60-year-old gentleman with significant coronary artery disease. I reviewed the catheterization by myself. There is a septal occlusionof the right coronary artery and the left anterior descending that reconstitutesdistally via collat erals. Both vessels are very, very poor targets; however, I explained to the patient that we could attempt bypass, but it is very concerningin terms of the quality of the targets. I will review the echocardiogram as wellonce it is performed and they will come up with the final decision. The main concern is the targets. Otherwise, he appears to be a good surgical candidate for bypass surgery. SPEECH THERAPY : Pt IS A 60 Y.O. MALE ADMITTED SECONDARY TO CHEST PAIN AND ELEVATED TROPONIN. Pt HAS A PAST MEDICAL HISTORY SIGNIFICANT FOR CAD, HYPERLIPIDEMIA, HYPERTENSION, DM TYPE 2, HYPOTHYROIDISM, AND OBESITY. Pt CURRENTLY INTUBATED AND NPO. PLEASE REQUEST SPEECH THERAPY SERVICES FOR SKILLED BEDSIDE SWALLOW EVALUATION 24 HOURS POST EXTUBATION IF ANY S/S OF ASPIRATION ARISE WITH ORAL INTAKE. ADMINISTRATIVE HEARING OFFICER COORDINATED WITH NURSE CAMPOS/JANNET. ALL QUESTIONS ANSWERED AT THIS TIME Procedure(s): PATIENT: BYRON FLORES MR#: [id number] : 1965 SEX: M AGE: 60 LOCATION: ED ORDER 0843 STATUS: REG ER REPORT#: [id number] SERVICE 0841 REASON: sob ORDERING PHYSICIAN: BETY LUCERO MD PROCEDURE: CXR1VW - CHEST 1VW EXAM: CR Chest, 1 View. CLINICAL HISTORY: sob COMPARISON: Radiograph dated September 09, 2023 FINDINGS: LUNGS: There is mild bibasilar airspace disease that may reflect atelectasis and/or an infectious process. PLEURAL SPACES: No evidence of pleural effusion or pneumothorax. MEDIASTINUM: Cardiac size and mediastinal contours within normal limits. BONES: No acute osseous abnormality. IMPRESSION: 1. Mild bibasilar airspace disease, possibly representing atelectasis and/or infection. /[place] DICTATED BY: ANDREINA MCCULLOUGH Jr., MD DATE: 04/20/25 120 ELECTRONICALLY SIGNED BY: ANDREINA MCCULLOUGH Jr., MD DATE: 04/20/25 120 PATIENT: BYRON FLORES MR#: [id number] : 1965 SEX: M AGE: 60 LOCATION: [facility] ORDER 1100 STATUS: ADM IN REPORT#: [id number] SERVICE 1058 REASON: chest pain, uptrending troponin, Hear clinic to read ORDERING PHYSICIAN: MAYANK ANDRADE MD PROCEDURE: ECHO CMP - ECHO 2-D COMPLETE APPROVED REPORT EXAM: Two-dimensional and M-mode echocardiogram with Doppler and color Doppler. INDICATION ICD: Elevated troponin Chest Pain 2D Dimensions RVDd 2.6 cm LVEF(%) 27.7 (>50%) LVED Vol(simp.) 145.0 mL IVSd 1.1 (0.7-1.1cm) FS(%) 13 % LVES Vol(simp.) 84.0 mL LVDd 5.9 (3.8-5.6cm) LA (2D) 3.7 (1.6-4.0cm) LVEF(%, simp.) 43 % PWd 1.3 (0.7-1.1cm) Ao Root(2D) 3.5 (2.0-3.7cm) LA ESV INDEX (BP) 21.85 mL/m2 IVSs 1.0 cm LVOT diam 2.9 (1.8-2.4cm) LVDs 5.1 (2.5-4.0cm) PWs 1.2 cm Deformation Strain Apical 4 -11.4 % Apical 2 -11.8 % Apical 3 -13.5 % Global Strain -12.2 % M-Mode Dimensions EPSS 1.1 cm LA (MM) 3.9 (1.6-4.0cm) Ao Root(MM) 3.9 (2.0-3.7cm) Aortic Valve AoV Vmax 1.0 m/s Ao Peak GR 4.2 mmHg LVOT Vmax 1.0 m/s AoV VTI 0.2 m Ao Mean GR 2.6 mmHg LVOT VTI 0.18 m TERI (VMAX) 6.56 cm2 TERI (VTI) 6.9 cm2 Mitral Valve MV E Vmax 83.3 cm/s DECEL Time 169 ms MV A Vmax 77.3 cm/s P 1/2 T 43 ms E/A ratio 1.1 MVA (PHT) 5.1 cm2 TDI E/E' Medial 18.1 E/E' Lateral 16.6 Medial E' Peak V 4.59 cm/s Lateral E' Peak V 5.02 cm/s Left Ventricle The left ventricle is mildly dilated.. GLS -12.0% There is normal left ventricular wall thickness. LVEF is 40-45%. The left ventricular diastolic function is normal. Right Ventricle The right ventricle is normal size. The right ventricular systolic function is normal. Atria The left atrium size is normal. The right atrium size is normal. Aortic Valve The aortic valve is normal in structure. No aortic regurgitation is present. There is no aortic valvular stenosis. Mitral Valve The mitral valve is normal in structure. There is mild mitral valve regurgitation noted. There is no mitral valve stenosis. Tricuspid Valve The tricuspid valve is normal in structure. There is no tricuspid valve regurgitation noted. Pulmonic Valve The pulmonary valve is normal in structure. There is no pulmonic valvular regurgitation. Great Vessels The aortic root is normal in size. The IVC is normal in size and collapses >50% with inspiration. Pericardium There is no pericardial effusion. Other Information Quality : Technically difficult study due to body habitus Conclusion The left ventricle is mildly dilated.. LVEF is 40-45%. GLS -12.0% There is mild mitral valve regurgitation noted. There is no pericardial effusion. DICTATED BY: PRISCILLA SANCHEZ MD DATE: 04/20/25 1212 ELECTRONICALLY SIGNED BY: PRISCILLA SANCHEZ MD DATE: 04/20/25 1357 PATIENT: BYRON FLOERS MR#: [id number] : 1965 SEX: M AGE: 60 LOCATION: [facility] ORDER 1125 STATUS: ADM IN REPORT#: [id number] SERVICE 1122 REASON: chronic kidney disease, hx of HTN, DM II ORDERING PHYSICIAN: MAYANK ANDRADE MD PROCEDURE: RENAL - US RENAL SONOGRAM EXAMINATION: ULTRASOUND OF THE RETROPERITONEUM. CLINICAL HISTORY: CKD. History of hypertension and diabetes. COMPARISON: Ultrasound of the retroperitoneum dated 10/05/[address] 11/27/2015. TECHNIQUE: Real-time grayscale ultrasound images of the kidneys. FINDINGS: The left kidney is smaller in caliber, the left kidney measures 8.1 x 4.1 x 2.1 cm in its craniocaudal, AP, and transverse dimensions respectively. There is normal renal cortical thinning and increased cortical echogenicity. There is no renal calculus or hydronephrosis. The right kidney is normal in caliber, the right kidney measures 12.1 x 7.2 x 6.2 cm in its craniocaudal, AP, and transverse dimensions respectively. There is normal renal cortical thickness, and cortical echogenicity. There is no renal calculus or hydronephrosis. There is a simple cortical cyst that measures 2.5 x 2.8 x 2.9 cm in the right renal mid pole. The urinary bladder is normal in caliber and wall thickness (0.24 cm). There are no calculi in the urinary bladder. IMPRESSION: Smaller left kidney with renal parenchymal disease. Right renal simple cortical cyst. /[place] DICTATED BY: ANDREINA MCCULLOUGH Jr., MD DATE: 04/21/25600 ELECTRONICALLY SIGNED BY: ANDREINA MCCULLOUGH Jr., MD DATE: 04/21/25600 Cath Procedure Report CATH PROCEDURE REPORT CARDIAC CATHETERIZATION REPORT Date of Service: Apr 21, 2025 After informed consent the patient was prepped and draped in the usual fashion. He received a total of 1 mg of Versed and 25 mcg of fentanyl for conscious sedation. He received a total of 20 cc of 2% xylocaine in the right inguinal area. A six [place] sheath was introduced into the right femoral artery using modified Seldinger technique. A Ankur four right six [place] diagnostic catheter was advanced over guidewire to the aortic root. Wire was removed and catheter engaged into the [place] right coronary artery. The right coronary artery was visualized multiple planes the catheter was removed. A Ankur four left six [place] diagnostic catheter was advanced over guidewire to the aortic root. Wire was removed and catheter engaged into the left main coronary artery. The left coronary artery was visualized but the catheter would not stabilize in the left main coronary artery position. The catheter was removed and a Ankur 3.5 6 [place] diagnostic catheter was advanced over guidewire. Wire was removed and catheter engaged in left main coronary artery. The left coronary system was visualized in multiple planes. Catheter was removed. A pigtail catheter was then advanced over guidewire across the aortic valve. Wire was removed and hemodynamics measured. A ventriculogram in the VALERIO projection was performed. A pullback with continuous hemodynamic monitoring was performed and catheter was removed. A sheathogram performed. ACT postprocedure measured. And was 129. Six [place] Angio-Seal closure device was applied. The entire procedure was well tolerated. Findings: The right coronary artery is a right-dominant vessel. It has a 70% distal stenosis followed by a total occlusion of the distal RCA. There was collateral filling of the RCA from a diagonal artery. The left main coronary artery is free of obstruction. The left circumflex artery is totally occluded proximally. Obtuse marginal arteries were not visible. The LAD had a previous stent which is 100% stenosis in the mid LAD after a diagonal branch. The distal LAD also fills via collaterals in a retrograde fashion from the diagonal branch. Left ventricular end-diastolic pressure was 25 mm Hg. LV ejection fraction of 40%. There was mild mitral regurgitation no aortic stenosis. Summary: The patient presenting with a non ST-elevation MT and found to have Multivessel CAD with moderate LV dysfunction surgical opinion will be obtained. Report dictated by PRISCILLA Machado MD, MD Apr 21, 2025 10:15 Electronically Signed by: PRISCILLA SANCHEZ MD04/21/25 1015 Electronically Co-Signed by: Signed PATIENT: BYRON FLORES MR#: [id number] : 1965 SEX: M AGE: 60 LOCATION: [facility] ORDER 1604 STATUS: ADM IN REPORT#: [id number] SERVICE 1603 REASON: preop CABG ORDERING PHYSICIAN: VASU LOZOYA MD PROCEDURE: CAROTID - US CAROTID DUPLEX EXAMINATION: DUPLEX ULTRASOUND EXAMINATION OF THE BILATERAL CAROTID AND VERTEBRAL ARTERIES. CLINICAL HISTORY: Pre op CABG. COMPARISON: None provided. TECHNIQUE: Real-time ultrasound scan of the bilateral carotid and vertebral arteries, 2-D grayscale, with color Doppler flow and spectral waveform analysis. FINDINGS: Color and spectral Doppler interrogation of the carotid vessels on the right demonstrate peak systolic velocities as follows: CCA (Proximal and distal): 67 and 62 cm/s respectively. Bulb: 47 cm/s. ECA: 90 cm/s. ICA (Proximal, mid, and distal): 38, 61, and 56 cm/s respectively. Vertebral artery demonstrates antegrade flow: 46 cm/s. Right ICA/CCA ratio: 1.0 Peak systolic velocities on the left are as follows: CCA (Proximal and distal): 67 and 59 cm/s respectively. Bulb: 42 cm/s. ECA: 87 cm/s. ICA (Proximal, mid, and distal): 72, 78, and 85 cm/s respectively. Vertebral artery: No flow. Left ICA/CCA ratio: 1.4 Both the common carotid arteries and their branches reveal mild intimal thickening. There is a calcified plaque in the left bulb causing about 20% to 30% diameter stenosis. There is a soft plaque in the left proximal internal carotid artery causing about 30% to 40% diameter stenosis. IMPRESSION: Mild intimal thickening in the bilateral carotid arteries and their branches. No flow in the left vertebral artery. Recommend CT/MR angiogram. Plaques as described. /[place] DICTATED BY: ANN MARIE COBIAN MD DATE: 04/23/25 0808 ELECTRONICALLY SIGNED BY: ANN MARIE COBIAN MD DATE: 04/23/25 0808 PATIENT: BYRON FLORES MR#: [id number] : 1965 SEX: M AGE: 60 LOCATION: 2CV ORDER 2300 STATUS: ADM IN REPORT#: [id number] SERVICE 0600 REASON: preop CABG ORDERING PHYSICIAN: VASU LOZOYA MD PROCEDURE: CXR1VW - CHEST 1VW CHEST 1VW REASON: preop CABG COMPARISON: 04/20/2025 is available. FINDINGS: Single view of the chest was obtained. Lungs are clear. Previous seen left lower lung infiltrate has resolved. Heart size is normal. There is no pulmonary vascular congestion. Mediastinum and bony thorax appear unremarkable. IMPRESSION: No evidence of airspace consolidation or pulmonary venous congestion. DICTATED BY: GERALDO ROACH MD DATE: 04/23/25 1343 ELECTRONICALLY SIGNED BY: GERALDO ROACH MD DATE: 04/23/25 1346 PATIENT: BYRON FLORES MR#: [id number] : 1965 SEX: M AGE: 60 LOCATION: 2CV ORDER 0943 STATUS: ADM IN REPORT#: [id number] SERVICE 1300 REASON: s/p CABG ORDERING PHYSICIAN: VASU LOZOYA MD PROCEDURE: CXR1VW - CHEST 1VW CHEST 1VW REASON: s/p CABG COMPARISON: Pre-CABG chest from 04/23/2025 is available. FINDINGS: Single view of the chest was obtained. Lungs are clear. There is cardiomegaly with median sternotomy. The nasogastric tube and endotracheal tube are in satisfactory position. There is a left subclavian vascular sheath in place. There is a left-sided chest tube in place with no evidence of any pneumothorax.. There is no pulmonary vascular congestion. Mediastinum and bony thorax appear unremarkable. IMPRESSION: 1. Status post median sternotomy with cardiomegaly. 2. Support lines are in satisfactory position 3. No evidence of airspace consolidation or pulmonary venous congestion. DICTATED BY: GERALDO ROACH MD DATE: 04/23/251453 ELECTRONICALLY SIGNED BY: GERALDO ROACH MD DATE: 04/23/251457 PATIENT: BYRON FLORES MR#: [id number] : 1965 SEX: M AGE: 60 LOCATION: 2CV ORDER 99 STATUS: ADM IN REPORT#: [id number] SERVICE 9 REASON: s/p CABG ORDERING PHYSICIAN: VASU LOZOYA MD PROCEDURE: CXR1VW - CHEST 1VW CHEST 1VW REASON: s/p CABG COMPARISON: Prior study from 04/23/2025 is available. FINDINGS: Single view portable chest radiograph demonstrated mild cardiomegaly with median sternotomy. There is a left-sided chest tube with no evidence of any pneumothorax. There is a left subclavian vascular sheath in place. There is no evidence of airspace consolidation or pulmonary venous congestion. There is some atelectasis seen in the right lung base IMPRESSION: 1. Mild cardiomegaly with median sternotomy with cardiac revascularization procedure 2. Support lines are in satisfactory position 3.. Atelectasis right lung base 4. No evidence of airspace consolidation or pulmonary venous congestion DICTATED BY: GERALDO ROACH MD DATE: 04/24/25912 ELECTRONICALLY SIGNED BY: GERALDO ROACH MD DATE: 04/24/25917 PATIENT: BYRON FLORES MR#: [id number] : 1965 SEX: M AGE: 60 LOCATION: 2CH ORDER 99 STATUS: ADM IN REPORT#: [id number] SERVICE 9 REASON: s/p CABG ORDERING PHYSICIAN: VASU LOZOYA MD PROCEDURE: CXR1VW - CHEST 1VW EXAM: CR Chest, single view. CLINICAL HISTORY: Stable post-CABG. COMPARISON: Prior chest radiograph dated 24 April 2025 FINDINGS: Post sternotomy status. Left subclavian central venous catheter likely terminates within the left brachiocephalic vein. A left-sided chest tube is in place. Mild pulmonary vascular congestion. Stable cardiomegaly. Subsegmental atelectasis in the left lower lobe. No evidence of pleural effusion or pneumothorax. No acute osseous abnormality. IMPRESSION: Mild pulmonary vascular congestion. /[place] DICTATED BY: ANN MARIE COBIAN MD DATE: 04/25/25847 ELECTRONICALLY SIGNED BY: ANN MARIE COBIAN MD DATE: 04/25/25847 PATIENT: BYRON FLORES MR#: [id number] : 1965 SEX: M AGE: 60 LOCATION: [facility] ORDER 99 STATUS: ADM IN REPORT#: [id number] SERVICE 9 REASON: s/p CABG ORDERING PHYSICIAN: VASU LOZOYA MD PROCEDURE: CXR1VW - CHEST 1VW EXAM: CR Chest, single view. CLINICAL HISTORY: Stable post-CABG. COMPARISON: Prior chest radiograph dated 25 April 2025 FINDINGS: Post sternotomy status. Left subclavian central venous catheter likely terminates within the left brachiocephalic vein. A left-sided chest tube is in place. Mild pulmonary vascular congestion. Stable cardiomegaly. Subsegmental atelectasis in the left lower lobe. No evidence of pleural effusion or pneumothorax. No acute osseous abnormality. IMPRESSION: Essentially stable since previous exam. Mild pulmonary vascular congestion. Other findings as described above. /[place] DICTATED BY: ANDREINA MCCULLOUGH Jr., MD DATE: 04/26/25825 ELECTRONICALLY SIGNED BY: ANDREINA MCCULLOUGH Jr., MD DATE: 04/26/25825 PATIENT: BYRON FLORES MR#: [id number] : 1965 SEX: M AGE: 60 LOCATION: 2CH ORDER 99 STATUS: ADM IN REPORT#: [id number] SERVICE 9 REASON: s/p CABG ORDERING PHYSICIAN: VASU LOZOYA MD PROCEDURE: CXR1VW - CHEST 1VW EXAM: CR Chest, single view CLINICAL HISTORY: Status post CABG COMPARISON: Prior chest radiograph dated 26 April 2025. FINDINGS: Poststernotomy status. Normal cardiac size. Mildly elevated right hemidiaphragm. The lungs show no infiltrate or other acute findings. No pleural effusion or pneumothorax. No acute osseous abnormality. IMPRESSION: Poststernotomy status. Mildly elevated right hemidiaphragm, probable right diaphragmatic eventration. No acute cardiopulmonary pathology is evident. Compared to the prior study, there is no significant interval change. /[place] DICTATED BY: ANDREINA MCCULLOUGH Jr., MD DATE: 04/28/2521 ELECTRONICALLY SIGNED BY: ANDREINA MCCULLOUGH Jr., MD DATE: 04/28/2521 PATIENT: BYRON FLORES MR#: [id number] : 1965 SEX: M AGE: 60 LOCATION: 2AH ORDER 99 STATUS: ADM IN REPORT#: [id number] SERVICE 9 REASON: s/p CABG ORDERING PHYSICIAN: VASU LOZOYA MD PROCEDURE: CXR1VW - CHEST 1VW EXAM: CR Chest, single view. CLINICAL HISTORY: Status post CABG. COMPARISON: Prior chest radiograph dated 27 April 2025. FINDINGS: Status post CABG. Borderline cardiomegaly. Subsegmental atelectasis in the left lower lobe. No evidence of pleural effusion or pneumothorax. No acute osseous abnormality. IMPRESSION: Status post CABG. Borderline cardiomegaly. Subsegmental atelectasis in the left lower lobe. No evidence of pleural effusion or pneumothorax. Compared to the prior study, there is no significant interval change. /[place] DICTATED BY: ANN MARIE COBIAN MD DATE: 04/29/25802 ELECTRONICALLY SIGNED BY: ANN MARIE COBIAN MD DATE: 04/29/25802 PATIENT: BYRON FLORES MR#: [id number] : 1965 SEX: M AGE: 60 LOCATION: [facility] ORDER STATUS: ADM IN REPORT#: [id number] SERVICE REASON: s/p cabg ORDERING PHYSICIAN: Lionel NICKERSON II, MD PROCEDURE: ECHO FU LD - ECHO 2-D F/U-LTD APPROVED REPORT EXAM: LIMITED Two-dimensional and M-mode echocardiogram. INDICATION Status/post CABG Assess LV Function 2D Dimensions IVSd 1.0 (0.7-1.1cm) LVEF(%) 32.1 (>50%) LVED Vol(simp.) 142.8 mL LVDd 5.2 (3.8-5.6cm) FS(%) 15 % LVES Vol(simp.) 75.9 mL PWd 1.3 (0.7-1.1cm) LA (2D) 3.4 (1.6-4.0cm) LVEF(%, simp.) 47 % LVDs 4.4 (2.5-4.0cm) Ao Root(2D) 3.2 (2.0-3.7cm) Left Ventricle Left ventricular cavity size is normal. Anteroseptal hypokinesis. There is normal left ventricular wall thickness. LVEF is 45-50%. Pericardium No pericardial effusion Other Information Quality : Limited/Follow-up Rhythm : NSR Conclusion Limited echocardiogram study follow up in left ventricular systolic function The left ventricular systolic function is mildly reduced with a borderline LVEF of 45-50%. There is anteroseptal hypokinesis. DICTATED BY: SHRADDHA SIDDIQI DO DATE: 04/28/25 1158 ELECTRONICALLY SIGNED BY: SHRADDHA SIDDIQI DO DATE: 04/28/25 1256 PATIENT: BYRON FLORES MR#: [id number] : 1965 SEX: M AGE: 60 LOCATION: 2AH ORDER 2300 STATUS: ADM IN REPORT#: [id number] SERVICE 0600 REASON: PNA ORDERING PHYSICIAN: PRISCILLA SOTELO PROCEDURE: CXR1VW - CHEST 1VW CHEST 1VW REASON: PNA COMPARISON: Prior study from 04/28/2025 is available. FINDINGS: Single view of the chest was obtained. Lungs are clear. Heart size is normal with median sternotomy. There is no pulmonary vascular congestion. Mediastinum and bony thorax appear unremarkable. IMPRESSION: 1. Status post median sternotomy with cardiac revascularization procedure 2. No evidence of airspace consolidation or pulmonary venous congestion 3. Unchanged from prior study.. DICTATED BY: GERALDO ROACH MD DATE: 04/29/25 0951 ELECTRONICALLY SIGNED BY: GERALDO ROACH MD DATE: 04/29/25 0954 PATIENT: BYRON FLORES MR#: [id number] : 1965 SEX: M AGE: 60 LOCATION: 2AH ORDER 2300 STATUS: ADM IN REPORT#: [id number] SERVICE 0600 REASON: pna ORDERING PHYSICIAN: PRISCILLA SOTELO PROCEDURE: CXR1VW - CHEST 1VW CHEST 1VW REASON: pna COMPARISON: Prior study from 04/29/2025 is available. FINDINGS: Single view of the chest was obtained. Lungs are clear. Heart size is normal with median sternotomy.. There is no pulmonary vascular congestion. Mediastinum and bony thorax appear unremarkable. IMPRESSION: 1. Status post median sternotomy 2. No evidence of airspace consolidation or pulmonary venous congestion 3. Unchanged from prior study DICTATED BY: GERALDO ROACH MD DATE: 04/30/25 1014 ELECTRONICALLY SIGNED BY: GERALDO ROACH MD DATE: 04/30/25 1018 Assessment/Plan: ASSESSMENT: NSTEMI/ ACS, POA Rule out pericarditis, POA Rule out developing community-acquired pneumonia, POA Undiagnosed COPD/chronic bronchitis, POA History of coronary artery disease with prior history of PCI in 2004, POA CKD stage 3, POA Suspected BAILEY Electrolyte abnormalities (hyponatremia, hypomagnesemia) Tobacco use disorder, POA Cocaine use disorder, POA Hypertension, POA Hyperlipidemia, POA Diabetes mellitus type 2, POA Hypothyroidism POA Discharge Instructions: *Follow up with your primary care physician in 2 - 3 days after discharge. *Follow with the Cardiology in 1 week *Continue all medications as prescribed. Do not discontinue or change dosages without consulting your PCP. *Gradually resume normal activities as tolerated. *Continue a balanced diet . Reduce salt intake to help manage BP. *Seek immediate medical attention if you experience chest pain, SOB or severe headache. *Smoking cessation is strongly advised. Resources for quitting smoking are available upon request. Home Medications: Active Scripts Lisinopril (Lisinopril) 10 Mg Tablet, 1 TAB PO DAILY for 30 Days, #30 TAB 2 Refills Prov:SANDEEP SALMERON [facility] 05/01/25 Clopidogrel Bisulfate (Plavix) 75 Mg Tablet, 1 TAB PO DAILY for 30 Days, #30 TAB 2 Refills Prov:SANDEEP SALMERON [facility] 05/01/25 Carvedilol (Carvedilol) 3.125 Mg Tablet, 3.125 MG PO BID, #60 TAB Prov:BILLIE RAMSEY MD 08/19/15 Reported Medications Venlafaxine HCl (Venlafaxine HCl ER) 150 Mg Tab.er.24, 150 MG PO DAILY, CAPSULE. 08/16/15 Simvastatin (ZOCOR) 40 Mg Tablet, 40 MG PO HS, TAB 08/16/15 Saxagliptin HCl (Onglyza) 5 Mg Tablet, 5 MG PO AM, TAB 08/16/15 Trazodone HCl (Trazodone HCl) 100 Mg Tablet, 100 MG PO HS, TAB 08/16/15 Aripiprazole (Abilify) 10 Mg Tablet, PO DAILY, TAB 10/19/14 Metformin HCl (Metformin HCl) 1,000 Mg Tablet, 1000 MG PO BID, TAB 10/19/14 Aspirin (ASPIRIN 81 MG ECTAB) 81 Mg Ectab, 81 MG PO DAILY, TAB.EC 10/19/14 Discontinued Reported Medications Gemfibrozil (Gemfibrozil) 600 Mg Tablet, PO BID, TAB 10/19/14 New Medications: Clopidogrel Bisulfate (Plavix) 75 Mg Tablet 1 TAB PO DAILY for 30 Days, #30 TAB 2 Refills Lisinopril (Lisinopril) 10 Mg Tablet 1 TAB PO DAILY for 30 Days, #30 TAB 2 Refills Continued Medications: Aripiprazole (Abilify) 10 Mg Tablet Unknown Dose PO DAILY, TAB Aspirin (Aspirin 81 Mg Ectab) 81 Mg Ectab 81 MG PO DAILY, TAB.EC Carvedilol (Carvedilol) 3.125 Mg Tablet 3.125 MG PO BID, #60 TAB Metformin HCl (Metformin HCl) 1,000 Mg Tablet 1000 MG PO BID, TAB Saxagliptin HCl (Onglyza) 5 Mg Tablet 5 MG PO AM, TAB Simvastatin (Zocor) 40 Mg Tablet 40 MG PO HS, TAB Trazodone HCl (Trazodone HCl) 100 Mg Tablet 100 MG PO HS, TAB Venlafaxine HCl (Venlafaxine HCl ER) 150 Mg Tab.er.24 150 MG PO DAILY, CAPSULE.DR Discontinued Medications: Gemfibrozil (Gemfibrozil) 600 Mg Tablet Unknown Dose PO BID, TAB Time spent arranging discharge: 1-30 minutes PHYSICIAN STATEMENT I was present with the resident during the History and Physical exam and I have reviewed the resident's note. This case was discussed with the resident and I agree with the history, physical exam and medical decision making as documented. Additions/exceptions/observations were directly added to the notes. Mario Cat MD, SYED M MD May 01, 2025 11:44
[2025-05-01 11:50] VITALS: BP 128/79; PULSE 84; RESP 18; TEMP 97.6
--- NOTE | 2025-05-01 12:56 | NUR ---
DISCHARGE HOME IV,ID BANDS, AND TELEPAK REMOVED. DISCHARGE INSTRUCTIONS GIVEN AND EXPLAINED TO PATIENT. PATIENT WHEELED DOWN TO PRIVATE CAR
--- NOTE | 2025-05-01 20:37 | PN ---
SUBJECTIVE: Status post CABG, a 60-year-old, coursing postoperative day #8. OBJECTIVE: GENERAL: Awake, alert, in no acute distress. VITAL SIGNS: Stable as recorded in the medical record. CHEST: Sternum stable, incision healed. LUNGS: Lungs clear. EXTREMITIES: Warm and well perfused. No evidence of DVT, hematoma or infection. ASSESSMENT: Status post CABG. PROBLEMS: * Coronary artery disease. Aspirin 81 mg, Plavix 75 mg and metoprolol 25 mg twice a day. * Fluid overload. Lasix 20 mg twice a day. * DVT prophylaxis. Lovenox 40 mg once a day. SCDs while in bed. Encouraged early ambulation. PLAN: OT, PT, cardiac rehab, discharge today, follow up as an outpatient. TID: [id number] RECEIPT: [id number]
[2025-05-02] MEDS ORDERED: LISINOPRIL 10 MG TABLET PO SCH (09:00)
[2025-05-21] MEDS ORDERED: LISI20TA24 PO (04:30)
[2025-05-21] MEDS ORDERED: GABA-534 PO (04:30)
[2025-05-21] MEDS ORDERED: LIOT5TAB11 PO (04:30)
[2025-05-21] MEDS ORDERED: LEVO100C5 PO (04:30)
[2025-05-21] MEDS ORDERED: KRIL1CAP40 PO (04:31)
[2025-05-21] MEDS ORDERED: UBID200C18 PO (04:31)
[2025-05-23] MEDS ORDERED: LISI10TA24 PO (12:48)
[2025-05-23] MEDS ORDERED: FURO20TA6 PO (12:48)
--- NOTE | 2025-05-25 20:38 | PN ---
[facility] PROGRESS NOTE Date Patient Seen: Apr 23, 2025 Time of Visit: 13:14 Supervising Physician: Dr. Bansal Primary Care Physician: [ ] Outpatient Specialists: [ ] Inpatient Consults: Dr. Gordon, Dr. Pop PROBLEM LIST: NSTEMI/ ACS, POA -s/p [facility] on 04/21/25 Rule out pericarditis, POA Rule out developing community-acquired pneumonia, POA Undiagnosed COPD/chronic bronchitis, POA History of coronary artery disease with prior history of PCI in 2004, POA CKD stage 3, POA Suspected [facility] Electrolyte abnormalities (hyponatremia, hypomagnesemia) Tobacco use disorder, POA Cocaine use disorder, POA Hypertension, POA Hyperlipidemia, POA Diabetes mellitus type 2, POA Hypothyroidism POA INTERVAL HISTORY: Patient evaluated at bedside today, he is currently on room air. Patient is comfortable, denies any chest pain at this time. Patient evaluated at bedside and we will be going for CABG surgery today with CV surgery team. Patient troponins continue to climb, he remains on Rocephin and doxycycline for community-acquired pneumonia. We will discontinue heparin drip at this time with a requested CV surgery. Discussion held with the patient regarding the risks of the procedure, patient at this time as a particularly high-risk due to his cocaine use and current pulmonary infection. Patient understands his risks, questions that he has been entered by CV surgery team. Patient currently being prepped preoperatively. REVIEW OF SYSTEMS: 12 point ROS reviewed with patient. Pertinent positives mentioned above. Otherwise negative. PHYSICAL EXAM: GENERAL: alert, weak, awake oriented x 3 HEENT: EOMI, Sclera non icteric, moist mucosa NECK: Supple, no JVD, trachea midline LUNGS: Clear breath sounds bilaterally. No wheezes HEART: Regular rate and rhythm. Normal S1 and S2, without murmurs ABD: Abdomen soft, nontender. Bowel sounds present EXT: No clubbing cyanosis or edema NEURO: Alert and oriented to person, follows commands Vital Signs (last 8hr) Date Time Temp Pulse Resp B/P (MAP) Pulse Ox O2 Delivery O2 Flow Rate FiO2 04/22/25 11:00 97.9 71 18 117/78 95 Room Air 04/22/25 07:00 98.6 69 18 123/76 96 Room Air 04/22/25 06:40 21 N/A Room Air 21 04/22/25 06:40 79 18 04/22/25 06:16 76 18 128/88 LABS: Hematology Labs: Test 04/22/25 03:36 04/21/25 02:28 Range/Units White Blood Count 6.7 4.8-10.8 K/uL Red Blood Count 4.61 4.50-6.20 MIL/uL Hemoglobin 13.9 L 14.0-18.0 g/dL Hematocrit 41.4 L 42-54 % Mean Corpuscular Volume 89.8 79-99 fL Mean Corpuscular Hemoglobin 30.2 27.0-33.0 pg Mean Corpuscular Hemoglobin Concent 33.6 32.0-36.0 g/dL Red Cell Distribution Width 13.2 11.0-15.5 % Platelet Count 193 130-400 K/uL Mean Platelet Volume 9.7 7.5-10.5 fL Nucleated Red Blood Cells 0.0 0.0-0.19 % Immature Granulocyte % (Auto) 0.7 0-1 % Neutrophils (%) (Auto) 60.9 40.0-77.0 % Lymphocytes (%) (Auto) 23.8 21.0-51.0 % Monocytes (%) (Auto) 9.0 3.0-13.0 % Eosinophils (%) (Auto) 4.8 0.0-8.0 % Basophils (%) (Auto) 0.8 0.0-5.0 % Neutrophils # (Auto) 6.5 1.8-7.7 K/uL Lymphocytes # (Auto) 2.6 1.0-4.8 K/uL Monocytes # (Auto) 1.0 0.1-1.0 K/uL Eosinophils # (Auto) 0.51 0.00-0.70 K/uL Basophils # (Auto) 0.09 0.00-0.20 K/uL Absolute Immature Granulocyte (auto 0.07 0-1 K/uL Chemistry Labs: Test 04/22/25 10:50 04/22/25 03:36 04/20/25 19:45 Range/Units Whole Blood Glucose 183 H 70-110 MG/DL Bedside Glucose Comment Notified Nurse Sodium Level 138 136-145 mmol/L Potassium Level 4.2 3.5-5.1 mmol/L Chloride Level 102 101-111 mmol/L Carbon Dioxide Level 29 21-32 mmol/L Blood Urea Nitrogen 13 7-18 mg/dL Creatinine 1.4 H 0.5-1.3 mg/dL Glomerular Filtration Rate Calc 58 >90 mL/min Random Glucose 142 H 70-105 mg/dL Total Calcium 8.2 L 8.5-10.1 mg/dL Magnesium Level 1.70 L 1.80-2.40 mg/dL Total Bilirubin 0.4 0.2-1.0 mg/dL Aspartate Amino Transf (AST/SGOT) 70 H 10-37 U/L Alanine Aminotransferase (ALT/SGPT) 32 12-78 U/L Alkaline Phosphatase 66 50-136 U/L Troponin I High Sensitivity 43436 *H 4-75 ng/L Total Protein 6.0 6.0-8.3 g/dL Albumin 2.7 L 3.5-5.0 g/dL Total Creatine Kinase 452 #*H 21-232 U/L Coagulation Labs: Test 04/21/25 09:54 04/21/25 07:50 Range/Units Kaolin Activated Coagulation Time 129 74-137 SEC Activated Partial Thromboplast Time 60.7 #H 26.3-35.5 SEC DIAGNOSTICS / RADIOLOGY RESULTS: [ ] PLAN NEURO: Minimize central acting medications as possible. Maintain fall precautions, adequate lighting during the day PULMONARY: Supplemental 02 as needed. Maintain aspiration precautions at all times CARDIOVASCULAR: Follow hemodynamics. Vital signs per facility protocol GI & NUTRITION: Continue with nutritional support. Continue stool softeners and laxatives as needed. KIDNEYS & ELECTROLYTES: Strict monitoring of intake, output and overall fluid balance. Avoid nephrotoxic medications to the extent possible. Medications to be dosed according to renal function. Monitor electrolytes and replace as needed ENDOCRINE: Maintain blood glucose between 100-180 at all times. Hypoglycemia protocol in place INFECTIOUS DISEASE: Trend temperature, WBC and procalcitonin level Follow cultures, deescalate antibiotics as soon as possible. Panculture if new onset fever ONCOLOGY/HEMATOLOGY/COAGULATION: Monitor for s/s of bleeding Monitor hemoglobin, coagulation studies as needed SKIN: Pressure ulcer prevention per facility protocol Specialty mattress ORTHO/REHAB: Continue PT/OT Prophylaxis: Continue GI and DVT prophylaxis Code Status: Full Resuscitation Disposition: TBD Other: Total patient care time exceeds 35 minutes excluding all procedures. ROBIN JONES May 25, 2025 20:38
== END 2025-05-01 12:55 | disposition home or self-care (01) | DRG 233 ==
LOC: EDH 08:37 → EDHIP 08:38 → 2DH 16:20 → 2CV 04-23 08:40 → 2CH 04-24 13:16 → 2AH 04-28 16:55
PROVIDERS: ADMIT Internal Medicine; ATTEND Internal Medicine
PROC: 4A023N7 Measurement of Cardiac Sampling and Pressure, Left Heart, Percutaneous Approach (ICD-10-PCS; principal; 2025-04-21)
PROC: B2111ZZ Fluoroscopy of Multiple Coronary Arteries using Low Osmolar Contrast (ICD-10-PCS; 2025-04-21)
PROC: 5A02210 Assistance with Cardiac Output using Balloon Pump, Continuous (ICD-10-PCS; 2025-04-23)
PROC: B24BZZ4 Ultrasonography of Heart with Aorta, Transesophageal (ICD-10-PCS; 2025-04-23)
PROC: 02100Z9 Bypass Coronary Artery, One Artery from Left Internal Mammary, Open Approach (ICD-10-PCS; 2025-04-23 09:52)
PROC: 021109W Bypass Coronary Artery, Two Arteries from Aorta with Autologous Venous Tissue, Open Approach (ICD-10-PCS; 2025-04-23 09:52)
PROC: 06BQ4ZZ Excision of Left Saphenous Vein, Percutaneous Endoscopic Approach (ICD-10-PCS; 2025-04-23 09:52)
DX: I25.10 Atherosclerotic heart disease of native coronary artery without angina pectoris (principal); I21.4 Non-ST elevation (NSTEMI) myocardial infarction; J18.9 Pneumonia, unspecified organism; R57.0 Cardiogenic shock; E87.1 Hypo-osmolality and hyponatremia; I24.9 Acute ischemic heart disease, unspecified; I13.0 Hypertensive heart and chronic kidney disease with heart failure and stage 1 through stage 4 chronic kidney disease, or unspecified chronic kidney disease; J44.0 Chronic obstructive pulmonary disease with (acute) lower respiratory infection; J98.11 Atelectasis; E03.9 Hypothyroidism, unspecified; E11.22 Type 2 diabetes mellitus with diabetic chronic kidney disease; E83.42 Hypomagnesemia; F14.10 Cocaine abuse, uncomplicated; G89.29 Other chronic pain; I25.2 Old myocardial infarction; N18.31 Chronic kidney disease, stage 3a; Z95.5 Presence of coronary angioplasty implant and graft; E66.01 Morbid (severe) obesity due to excess calories; I25.5 Ischemic cardiomyopathy; E78.00 Pure hypercholesterolemia, unspecified; E83.51 Hypocalcemia; F12.10 Cannabis abuse, uncomplicated; F17.210 Nicotine dependence, cigarettes, uncomplicated; I50.9 Heart failure, unspecified; Z79.02 Long term (current) use of antithrombotics/antiplatelets; Z79.51 Long term (current) use of inhaled steroids; Z79.82 Long term (current) use of aspirin; Z79.899 Other long term (current) drug therapy; Z95.1 Presence of aortocoronary bypass graft
CPT/HCPCS: 36415; 36600; 71045; 76770; 80048; 80051; 80053; 80061; 80076; 80305; 81001; 82010; 82306; 82330; 82435; 82550; 82570; 82803; 82947; 82948; 83036; 83605; 83735; 83880; 83970; 84100; 84132; 84145; 84156; 84295; 84443; 84484; 85018; 85025; 85027; 85347; 85610; 85651; 85730; 86140; 86738; 86850; 86900; 86901; 86923; 87071; 87205; 87449; 87635; 87641; 87804; 87880; 93005; 93306; 93308; 93312; 93325; 93356; 93458; 93880; 94002; 94010; 94150; 94640; 94660; 94664; 97161; 99156; 99157; 99285; A4450; A7048; C1760; C1894; G0378; J0169; J0330; J0612; J0690; J0696; J1644; J1650; J1815; J1938; J2003; J2250; J2270; J2405; J2440; J2470; J2704; J3010; J3475; J3480; J3490; J7030; J7040; J7050; Q9967; A4216; A4222; A4223; A4649; A4930; A6204; A7040; A9900; C1713; C1776; C1887; J1308; Q9965